=== PATIENT | female | born 1940 | race Caucasian/White ===

== ENCOUNTER → 2023-09-17 15:07 | Outpatient (REF) | payer MEDICARE, OTHER, SELFPAY ==
[2023-09-17 16:26] LABS: TSH Reflex To Free T4 1.99 uIU/ml (0.47-4.68)
== END ==
LOC: REG 15:07
PROVIDERS: ATTENDING PHYSICIAN Internal Medicine
DX: E03.9 Hypothyroidism, unspecified (principal)
CPT/HCPCS: 36415; 84443

== ENCOUNTER 2023-10-02 10:04 | Emergency (ER) | payer MEDICARE, OTHER, SELFPAY ==
[2023-10-02] VITALS (17 sets, daily range): BP systolic 117–178; BP diastolic 62–144
--- NOTE | 2023-10-02 12:02 | ED.GENMED ---
History of Present Illness
General
Chief Complaint: Fall
Source: patient
Exam Limitations: none
Time Seen by Provider: 10/02/23 10:34
Nursing documentation reviewed up to this point in time: agreed with
Travel History
Have you had any contact with someone who has COVID-19?: No
Do you have any symptoms of coronavirus? Fever > 100 degrees, chills, cough, shortness of breath, sore throat, loss of taste or smell, muscle aches, or headache?: No
History of Present Illness
History of Present Illness:
Patient is a 83-year-old female with past medical history of lung cancer years ago, knee replacement with DVT, hypertension hyperlipidemia who presents to the ER for a laceration to her left anterior lower leg. She hit her leg on a step. She is on
Eliquis. She denies any other injuries denies hitting her head. She reports her last tetanus is several months ago.
Past History
Past History
ED Past Medical History: Cancer (Lung), COPD, GERD, HTN, Hypercholesterolemia, Hypothyroidism and Psychiatric (depression)
ED Past Surgical History: Orthopedic (R knee replacement, bilateral hip replacement) and Other (DVT, IVC Filter)
Social History
Tobacco: Former smoker
Alcohol: None
Personal:
Living: with family
Family History
Family History: CAD
Review of Systems
Review of Systems
Allergies reviewed?: Yes
All Other Systems: ROS reviewed and negative except as documented in HPI and ROS
Constitutional: Reports no symptoms; Denies fever, fatigue or chills
Musculoskeletal: Reports other (left anterior lower leg laceration )
Skin: Reports other (see above )
Neurological: Reports no symptoms
Psychiatric: Reports no symptoms
Phy Exam
General Physical Exam
General Presentation: no apparent distress
General age: appears stated age
General Skin: warm and dry
General Habitus: normal
General Mental: alert
General Hydration: appears well hydrated
Neurological Exam
Neurological Exam: alert and oriented x3
Musculoskeletal Exam
Musculoskeletal Exam: other (Left anterior lower leg with full-thickness 10 cm horizontally situated laceration above left ankle through to subcutaneous tissue only)
Skin Exam
Skin Exam: normal color and warm/dry
Psychiatric Exam
Psychiatric Exam: normal mood/affect
Course
Orders/Labs/Results
Orders:
Orders
10/02/23 12:02
Vital Signs- Treatment ONCE
Frequency: Hourly
Cephalexin Monohydrate [Keflex] 500 mg PO NOW STA
10/02/23 12:13
EKG [Electrocardiogram (*1)] Urgent
Reason for Study: Tachycardia
EKG- Treatment ONCE
10/02/23 12:22
Tib/Fib, Left 2 View [CR Leg Tibia/fibula Left 2 Vw] Urgent
Comment:
Reason For Exam: fall, deep lac
10/02/23 13:44
0.9% Sodium Chloride 500 ml [Nss] 500 ml IV BOLUS
10/02/23 13:45
Complete Blood Count/With Diff Urgent
Comprehensive Metabolic Panel Urgent
Manual Differential Urgent
Prothrombin Time Urgent
TSH Reflex To Free T4 Urgent
10/02/23 16:00
Electrocardiogram (*1) Urgent
Reason for Study: Chest Pain
10/02/23 16:01
EKG- Treatment ONCE
Abnormal Lab Results
10/02/23
13:45
WBC 2.1 L* 10^3/uL
(4.8-10.8)
RBC 4.01 L 10^6/uL
(4.20-5.40)
MCH 32.2 H pg
(27.0-31.0)
RDW 14.6 H %
(11.5-14.5)
Abs Neuts (Manual) 0.9 L* 10^3/uL
(1.4-6.5)
Band Neutrophils 4 H %
(0-3)
Monocytes (Manual) 16 H %
(2-9)
BUN 22 H mg/dl
(7-17)
Creatinine 1.1 H mg/dL
(0.6-1.0)
AST 44 H U/L
(14-36)
10/02/23 13:45
10/02/23 13:45
Vital Signs
Initial and Last Documented VS:
Initial Vital Signs
Temp Pulse Resp BP Pulse Ox
98.3 F 70 18 178/101 98
10/02/23 10:07 10/02/23 10:07 10/02/23 10:07 10/02/23 10:07 10/02/23 10:07
Last Documented Vital Signs
Temp Pulse Resp BP Pulse Ox
98.3 F 100 16 133/77 99
10/02/23 10:07 10/02/23 14:45 10/02/23 14:45 10/02/23 14:40 10/02/23 14:00
Assistant Unit Forester consulted with Physician
Assistant Unit Forester consulted with physician?: Yes
Name of Physician Consulted: gilberto
Procedures
Laceration Closure
Left Anterior Leg:
Status of Wound: clean
Size of Wound in cm: 10
Description of Wound Edges: sharp
Preparation: cleaned with saline
Anesthesia: 1% Lidocaine with epi
Revision/Debridement: routine- no revision
Type of Closure: layered closure, interrupted sutures, mattress sutures and other (2 vertical mattress 2 subcutaneous)
Skin Closure Material: 3-0 nylon
Number of sutures: 15
MDM/Problems Addressed
Differential Diagnosis Includes:
Not limited to laceration to the leg
MDM/Problems Addressed:
Patient is a 83-year-old female who initially presented for laceration to left anterior leg. 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 I did repair this. While patient was here however
her heart rate was found to be 120s. EKG shows tachycardia heart rate 120 possible reentry tachycardia. Patient has been asymptomatic with this. In further review patient has a history of hypothyroidism however in the past her medication was
decreased as her levels were too high. She also has a history of lung cancer however years ago no shortness of breath no chest pain. Patient does report that she has a history of low hemoglobin and has been followed by hematology will check labs
thyroid give small dose of fluids. Patient reports she only drank a small cup of juice this morning and coffee. d/c w/ DR Chadwick.
1614: Labs reviewed. Patient reports that she has been followed by oncology for low white count. Patient's white count is low at 2.1 however has been that low in the past last 2.29 May 2023, patient also with low neutrophils of 0.9 also
previously low at the same degree in 2013. Patient is asymptomatic with no fevers. Regarding blood work I did speak to Dr Tisha Brito of hematology. This does not need any additional workup here in the ED. Patient gets periodic CBCs and is
scheduled to see Dr. Chadwick the beginning of November.
TSH is nml
Patient's heart rate decreased to the 80s to 90s repeat EKG shows a flutter with variable AV block with a heart rate of 98. d/c case w/ cardiology Dr. Elena patient is on Eliquis for history of DVT.(2.5 mg twice daily dose) with patient's
weight of 60 kg(134 pounds) will keep on this dose and add metoprolol 25 mg nightly patient to follow-up with cardiology. pt in no distress has remained asymptomatic with her elevated heart rate her heart rate now controlled in the 80s.
Chronic conditions affecting care:
on eliquis for dvt
*Radiology
Radiology exam reviewed: radiology read reviewed
*Pulse Oximetry
Patient hypoxic: no
*EKG
Interpreted by ED Provider?: Yes
Heart Rate: 121
Rate: tachycardiac
Rhythm: other (Questionable reentry tachycardia)
Ischemia: other (Repeat heart rate shows a flutter with variable block ventricular rate of 98)
*Critical Care Note
Total Time (30-74mins, 75-104mins- exclusive of procedures): Not Applicable
Patient Management
Discussion with other providers: Meeting Coordinator (DR Brito hematology and Dr. Elena cardiology )
ED Attending Note
-
Portions of this chart may have been created with voice recognition software.� Occasional wrong word or��sound alike� substitutions may have occurred due to the inherent limitations of voice recognition software.
Discharge Plan
Departure
Patient Disposition: Home (Routine Discharge)
Date of Disposition: 10/02/23
Time of Disposition: 16:31
Patient with high blood pressure during this ER visit?: Yes
Condition: Fair
Covid-19: Not Applicable
Discharge Problem:
Atrial flutter
Instructions: Laceration Repair With Stitches (DC), Atrial Flutter (DC), BLOOD PRESSURE
Prescriptions:
New
metoprolol succinate 25 mg tablet extended release 24 hr
25 mg PO DAILY Qty: 30 0RF
Rx Instructions:
take nightly
cephalexin 500 mg capsule
500 mg PO Q6H Qty: 20 0RF
No Action
esomeprazole magnesium [Nexium] 40 MG capsule,delayed release(DR/EC)
40 mg PO DAILY
MULTIVITAMIN
1 tab PO DAILY
Remeron Pill
7.5 mg PO HS
Restasis 0.05% Ophthalmic Emulsion:
1 drp BOTH EYES BID
Patient Comments:
.4 ML
nebivolol [Bystolic] 5 MG tablet
5 mg PO DAILY
Simvastatin Pill
20 mg PO HS
Patient Comments:
HS
levothyroxine 112 MCG tablet
125 mcg PO DAILY
bupropion HCl 150 MG tablet extended release 24 hr
150 mg PO DAILY
lidocaine-prilocaine 5 GRAM/TUBE cream
1 applic topical
apixaban [Eliquis] 2.5 MG tablet
2.5 mg PO BID
Referrals:
Dary Chadwick MD [Active] -
Grecia Alonzo MD [Family Provider] -
Jonathan Elena MD [Active] -
Activity Restrictions/Additional Instructions:
As discussed you were here for a laceration to your left lower leg. Keep laceration clean and dry for 24 hours after 24 hours wash twice a day with soap and water pat dry and apply small layer of antibiotic ointment to the area keep covered. See
family doctor in 2 days for wound check and sutures are to be removed in 12 days.
Antibiotic as directed for the next 5 days for infection this was sent to your pharmacy return if any signs of infection increased pain swelling redness drainage fever chills red streaking.
While you were here however you had an elevated heart rate and had a rhythm called atrial flutter.
You will need to continue your Eliquis 2.5 mg twice daily and start a new medication called metoprolol for control of your heart rate.
Take 25 mg nightly before bed. This medication, metoprolol succinate ER was sent to your phamacy .
Follow-up with cardiology in the next several days please call to make an appointment.
Return if any worsening of symptoms including chest pain shortness of breath rapid heart rate palpitations or any further concerns.
Also follow-up with your oncologist as scheduled for further evaluation of your labs
Interventions
Interventions:
*Risk Screen - Suicide Last Done: 10/02/23 10:23
*General Assessment Last Done: 10/02/23 10:23
*Neglect/Abuse Screening Last Done: 10/02/23 10:23
*ED COVID-19 Vaccine History Last Done: 10/02/23 10:13
ED-Musculoskeletal Assessment Last Done: 10/02/23 10:24
ED- Neurological Assessment Last Done: 10/02/23 10:23
ED-Skin Assessment Last Done: 10/02/23 10:23
[2023-10-02] MEDS: KEFLEX 500 MG PO (12:16)
[2023-10-02] MEDS: NSS 500 IV (13:44)
[2023-10-02 13:59] LABS: Hematocrit 38.7 % (37.0-47.0); Hemoglobin 12.9 g/dL (12.0-16.0); Mean Corp Hgb Conc. 33.3 g/dL (33.0-37.0); Mean Corpuscular Hgb 32.2 pg (27.0-31.0); Mean Corpuscular Volume 96.5 fL (81.0-99.0); Mean Platelet Volume 9.7 fL (7.4-10.4); Platelet Count 204 10^3/uL (130-400); Red Blood Cell Count 4.01 10^6/uL (4.20-5.40); Red Cell Dist. Width 14.6 % (11.5-14.5)
[2023-10-02 14:02] LABS: White Blood Cell Count 2.1 10^3/uL (4.8-10.8)
[2023-10-02 14:12] LABS: INR 1.12; PT 14.4 Sec (11.4-14.6)
[2023-10-02 14:16] LABS: ALT (SGPT) 32 U/L (0-35); AST (SGOT) 44 U/L (14-36); Alkaline Phosphatase 90 U/L (38-126); Blood Urea Nitrogen 22 mg/dl (7-17); Calcium 9.3 mg/dl (8.4-10.2); Carbon Dioxide 26 mmol/L (22-30); Chloride 105 mmol/L (98-107); Glucose 98 mg/dl (70-99); Potassium 4.4 mmol/L (3.5-5.1); Sodium 137 mmol/L (135-145); Total Bilirubin 0.7 mg/dl (0.2-1.3); Total Protein 7.1 g/dl (6.3-8.2); eGFR 50.48
[2023-10-02 14:28] LABS: Band Neutrophils 4 % (0-3); Eosinophils 2 % (0-6); Lymphocytes 35 % (20-51); Monocytes 16 % (2-9); Normal RBC Morphology Yes; Platelets Checked Yes; Segmented Neutrophils 43 % (42-75); Total Cells Counted 100
[2023-10-02 14:29] LABS: Absolute Neutrophils -Man Diff 0.9 10^3/uL (1.4-6.5)
[2023-10-02 16:16] LABS: TSH Reflex To Free T4 1.61 uIU/ml (0.47-4.68)
== END 2023-10-02 17:41 | disposition home or self-care (01) ==
LOC: EMR 10:04
PROVIDERS: Nurse Practitioner; EMERGENCY PHYSICIAN Emergency Medicine; FAMILY PHYSICIAN Internal Medicine
DX: I48.92 Unspecified atrial flutter (principal); S81.812A Laceration without foreign body, left lower leg, initial encounter; W22.8XXA Striking against or struck by other objects, initial encounter; I10 Essential (primary) hypertension; Z87.891 Personal history of nicotine dependence; Z79.01 Long term (current) use of anticoagulants; Z86.718 Personal history of other venous thrombosis and embolism
CPT/HCPCS: 99285; 96360; 12004; 73590; 80053; 84443; 85025; 85610; 93005

== ENCOUNTER → 2023-10-17 08:56 | Outpatient (REF) | payer MEDICARE, OTHER, SELFPAY | LOC: RCS 08:56 | PROVIDERS: ATTENDING PHYSICIAN Internal Medicine Cardiovascular Disease; FAMILY PHYSICIAN Internal Medicine | DX: I48.92 Unspecified atrial flutter (principal) | CPT/HCPCS: 93225; 93226 ==

== ENCOUNTER → 2023-10-25 10:06 | Outpatient (REF) | payer MEDICARE, OTHER, SELFPAY | LOC: RCS 10:06 | PROVIDERS: ATTENDING PHYSICIAN Internal Medicine Cardiovascular Disease; FAMILY PHYSICIAN Internal Medicine | DX: I48.92 Unspecified atrial flutter (principal) | CPT/HCPCS: 93306 ==

== ENCOUNTER → 2023-10-31 08:53 | Outpatient (REF) | payer MEDICARE, OTHER, SELFPAY | LOC: RAD 08:53 | PROVIDERS: ATTENDING PHYSICIAN Internal Medicine | DX: S81.812D Laceration without foreign body, left lower leg, subsequent encounter (principal) | CPT/HCPCS: 73590 ==

== ENCOUNTER → 2023-11-05 08:01 | Outpatient (REF) | payer MEDICARE, OTHER, SELFPAY | LOC: WOUND 08:01 | PROVIDERS: ATTENDING PHYSICIAN Surgery; FAMILY PHYSICIAN Internal Medicine | DX: L97.822 Non-pressure chronic ulcer of other part of left lower leg with fat layer exposed (principal); I73.9 Peripheral vascular disease, unspecified; I87.2 Venous insufficiency (chronic) (peripheral); J43.9 Emphysema, unspecified; I10 Essential (primary) hypertension; Z86.718 Personal history of other venous thrombosis and embolism; Z79.01 Long term (current) use of anticoagulants | CPT/HCPCS: 11042; 11045; 99203 ==

== ENCOUNTER → 2023-11-11 09:15 | Outpatient (REF) | payer MEDICARE, OTHER, SELFPAY | LOC: WOUND 09:15 | PROVIDERS: ATTENDING PHYSICIAN Surgery; FAMILY PHYSICIAN Internal Medicine | DX: L97.822 Non-pressure chronic ulcer of other part of left lower leg with fat layer exposed (principal); I73.9 Peripheral vascular disease, unspecified; I87.2 Venous insufficiency (chronic) (peripheral); I10 Essential (primary) hypertension; Z86.718 Personal history of other venous thrombosis and embolism; Z79.01 Long term (current) use of anticoagulants | CPT/HCPCS: 99213 ==

== ENCOUNTER → 2023-11-12 14:55 | Outpatient (REF) | payer MEDICARE, OTHER, SELFPAY | LOC: RAD 14:55 | PROVIDERS: ATTENDING PHYSICIAN Internal Medicine Hematology & Oncology; FAMILY PHYSICIAN Internal Medicine | DX: C34.10 Malignant neoplasm of upper lobe, unspecified bronchus or lung (principal); I80.3 Phlebitis and thrombophlebitis of lower extremities, unspecified; I82.4Z1 Acute embolism and thrombosis of unspecified deep veins of right distal lower extremity | CPT/HCPCS: 71250 ==

== ENCOUNTER → 2023-11-18 08:36 | Outpatient (REF) | payer MEDICARE, OTHER, SELFPAY | LOC: WOUND 08:36 | PROVIDERS: ATTENDING PHYSICIAN Surgery; FAMILY PHYSICIAN Internal Medicine | DX: L97.822 Non-pressure chronic ulcer of other part of left lower leg with fat layer exposed (principal); I73.9 Peripheral vascular disease, unspecified; I87.2 Venous insufficiency (chronic) (peripheral); J43.9 Emphysema, unspecified; I10 Essential (primary) hypertension; Z86.718 Personal history of other venous thrombosis and embolism; Z79.01 Long term (current) use of anticoagulants | CPT/HCPCS: 11042; 11045 ==

== ENCOUNTER → 2023-11-19 14:07 | Outpatient (REF) | payer MEDICARE, OTHER, SELFPAY ==
[2023-11-19 16:14] LABS: % Basophils 1.5 % (0-2); % Eosinophils 1.5 % (0-6); % Immature Granulocytes 0.5 % (0-0.5); % Lymphocytes 25.6 % (20.5-51.1); % Monocytes 18.4 % (1.7-9.3); % Neutrophils 52.5 % (42.2-75.2); Absolute Basophils 0.1 10^3/uL (0-0.2); Absolute Eosinophils 0.1 10^3/uL (0-0.7); Absolute Monocytes 0.8 10^3/uL (0.1-0.6); Absolute Neutrophils 2.1 10^3/uL (1.4-6.5); Hematocrit 40.2 % (37.0-47.0); Hemoglobin 13.2 g/dL (12.0-16.0); Mean Corp Hgb Conc. 32.8 g/dL (33.0-37.0); Mean Corpuscular Hgb 33.1 pg (27.0-31.0); Mean Corpuscular Volume 100.8 fL (81.0-99.0); Mean Platelet Volume 9.9 fL (7.4-10.4); Nucleated Red Blood Cells % 0 %; Platelet Count 289 10^3/uL (130-400); Red Blood Cell Count 3.99 10^6/uL (4.20-5.40); Red Cell Dist. Width 14.9 % (11.5-14.5); White Blood Cell Count 4.1 10^3/uL (4.8-10.8)
== END ==
LOC: REG 14:07
PROVIDERS: ATTENDING PHYSICIAN Internal Medicine Hematology & Oncology
DX: C34.10 Malignant neoplasm of upper lobe, unspecified bronchus or lung (principal); I80.3 Phlebitis and thrombophlebitis of lower extremities, unspecified; I82.4Z1 Acute embolism and thrombosis of unspecified deep veins of right distal lower extremity; D72.819 Decreased white blood cell count, unspecified
CPT/HCPCS: 36415; 85025

== ENCOUNTER → 2023-11-25 13:06 | Outpatient (REF) | payer MEDICARE, OTHER, SELFPAY | LOC: WOUND 13:06 | PROVIDERS: ATTENDING PHYSICIAN Surgery; FAMILY PHYSICIAN Internal Medicine | DX: L97.822 Non-pressure chronic ulcer of other part of left lower leg with fat layer exposed (principal); I73.9 Peripheral vascular disease, unspecified; L03.116 Cellulitis of left lower limb; I87.2 Venous insufficiency (chronic) (peripheral); Z79.01 Long term (current) use of anticoagulants; J43.9 Emphysema, unspecified; Z86.718 Personal history of other venous thrombosis and embolism; I10 Essential (primary) hypertension | CPT/HCPCS: 99213 ==

== ENCOUNTER 2023-11-26 21:04 | Inpatient (IN) | payer MEDICARE, OTHER, SELFPAY ==
[2023-11-26] VITALS (11 sets, daily range): BP systolic 111–159; BP diastolic 56–120
--- NOTE | 2023-11-26 17:50 | ED.GENMED ---
History of Present Illness
General
Chief Complaint: Skin Problem
Source: patient
Exam Limitations: none
Time Seen by Provider: 11/26/23 16:41
Nursing documentation reviewed up to this point in time: agreed with
Travel History
Have you had any contact with someone who has COVID-19?: No
Do you have any symptoms of coronavirus? Fever > 100 degrees, chills, cough, shortness of breath, sore throat, loss of taste or smell, muscle aches, or headache?: No
History of Present Illness
History of Present Illness:
Patient with recently diagnosed atrial flutter on Eliquis, presents to ED secondary to sudden onset of 'snap and pain' in her left heel going up to her leg, while she was walking this afternoon. Patient was started on Levaquin yesterday for ongoing
left lower leg nonhealing wound ulcer from trauma 1 month ago. Denies loss of sensation or weakness. Patient reports minimal pain at rest, but worse with weightbearing. Denies previous history of similar symptoms. Denies fever or chills. Denies
nausea or vomiting.
Past History
Past History
ED Past Medical History: Cancer (Lung), COPD, GERD, HTN, Hypercholesterolemia, Hypothyroidism and Psychiatric (depression)
ED Past Surgical History: Orthopedic (R knee replacement, bilateral hip replacement) and Other (DVT, IVC Filter)
Social History
Tobacco: Former smoker
Alcohol: None
Personal:
Living: with family
Family History
Family History: CAD
Review of Systems
Review of Systems
Allergies reviewed?: Yes
All Other Systems: ROS reviewed and negative except as documented in HPI and ROS
Constitutional: Reports no symptoms; Denies fever or chills
Respiratory: Reports no symptoms
Cardiac: Reports no symptoms
ABD/GI: Reports no symptoms
Musculoskeletal: Reports other (heel/calf pain)
Skin: Reports other (leg wound, ulcer)
Neurological: Reports no symptoms
Phy Exam
Physical Exam
Physical Exam:
Physical Exam
General: no apparent distress, not acutely ill. afebrile
Head: nc/at. eomi
Neck: supple. no meningeal signs.
Heart: tachycardic, irregular, no murmur. equal radial pulses.
Lungs: no acute respiratory distress. clear bilaterally
Abdomen: normal bowel sounds. not tender.
Neuro: alert and oriented. no focal neurological deficits
Skin: an approx 2cm diameter ulcer left lower leg anterior with mild purulent drainage, with surrounding erythema.
Psychiatric: well kept. interactive and cooperative
Extremities: mild calf/tendon tenderness with foot plantar/dorsi flexion.
Course
Orders/Labs/Results
Orders:
Orders
11/26/23 Dinner
Cholesterol Lowering
At Your Request: Limited Participation
Cholesterol Lowering: Sodium, 2 Gram
11/26/23 15:35
Electrocardiogram (*1) Urgent
Reason for Study: Tachycardia
11/26/23 15:36
EKG- Treatment ONCE
11/26/23 17:45
0.9% Sodium Chloride 250 ml [Nss] 250 ml IV BOLUS
Metoprolol [Lopressor] 5 mg IV NOW STA
11/26/23 18:03
Basic Metabolic Panel Urgent
Complete Blood Count/No Diff Urgent
Lactate Level [Lactic Acid] Urgent
Magnesium Urgent
Blood Culture Q30M
BEE Source: Blood/Venous
Specimen Description:
Blood Culture Q30M
BEE Source: Blood/Venous
Specimen Description:
11/26/23 19:26
Piperacillin/Tazo 3.375 Gram [Zosyn] 3.375 gram in 50 ml IV NOW
11/26/23 19:30
Diltiazem 125 mg/125 ml Nss [Cardizem] 125 mg in 125 ml IV PER PROTOCOL
Initial dose in mg/hr, then titrate:: 5
Titrate to keep:: Heart rate 80-100 bpm
Titrate by mg/hr:: 5 mg/hr
Frequency of titrations (minutes):: 15
Maximum dose in mg/hr:: 15
11/26/23 20:40
Admit/Transfer Patient As Directed
Co-Sign Provider:
Level of Care: Inpatient admission
Assign to:: IMU- Intermediate Care
Physician / Group: lisset vincent
Diagnosis: new onset afib, calf pain concern achilles tear, infected chronic l leg wou
Reason for Hospitalization: new onset afib, calf pain concern achilles tear, infected chronic l leg wound
Expected length of stay greater than two midnights?: Yes
ELOS- Estimated Length of Stay in days: 3
I certify the patient meets the requirements for IP care: Yes
11/26/23 20:43
Code Status As Directed
Resuscitation Status: Do not resuscitate
Reached after discussion with pt or family/Healthcare POA: Yes
Based on pt advanced directive or healthcare POA form: Yes
Decision communicated with: Per patient with Justino present at bedside
DNR Bracelet Application ONCE
11/26/23 21:48
Acetaminophen [Tylenol] 650 mg PO Q4HPRN PRN
Apixaban [Eliquis] 5 mg PO BID
Bisacodyl [Dulcolax] 10 mg RECTAL [id number] PRN
Diltiazem 125 mg/125 ml Nss [Cardizem] 125 mg in 125 ml IV PER PROTOCOL
Initial dose in mg/hr, then titrate:: 5
Titrate to keep:: Heart rate 80-100 bpm
Titrate by mg/hr:: 5 mg/hr
Frequency of titrations (minutes):: 15
Maximum dose in mg/hr:: 15
Docusate W/Senna [Senokot-S] 1 tablet PO BIDPRN PRN
Lorazepam [Ativan] 0.5 mg IV ONCE PRN
Polyethylene Glycol Powder [Miralax] 17 grams PO DAILYPRN PRN
Tramadol HCl [Ultram] 50 mg PO BIDPRN PRN
cycloSPORINE [Restasis 0.05% Ophthalmic Emulsion] 1 drops BOTH EYES Q12H
11/26/23 21:48
WOUND/OSTOMY CONSULT Routine
Reason for Consult: chronic lle anterior cotton wound
VTE Contraindication Routine
VTE Mechanical Device Contraindication: Medical Contraindication
Pharmocologic Contraindication: Medical Contraindication
Comment: Patient on Eliquis
Activity As Directed
Activity Level: As Tolerated
Vital Signs As Directed
Frequency: Per unit guidelines
Ot Eval And Treat Routine
Pt Eval And Treat Routine
Activity Level: As Tolerated
11/26/23 22:00
Atorvastatin [Lipitor] 10 mg PO HS
Piperacillin/Tazo 3.375 Gram [Zosyn] 3.375 gram in 50 ml IV Q6H
11/27/23 00:00
Acetaminophen [Tylenol] 500 mg PO Q4
11/27/23 06:00
Basic Metabolic Panel IN AM
Cardiovascular Evaluation IN AM
Complete Blood Count/With Diff IN AM
TSH Reflex To Free T4 IN AM
Lower Ext Joint, Left Without MR [MR Left Le Joint Without] IN AM
Comment:
Reason For Exam: concern achilles tendon tear
OK for patient to be off Cardiac Monitoring for MRI: Yes
Recent pill cam endoscopy?: No
Pacemaker/Defibrillator?: No
11/27/23 08:00
Budesonide/Formoterol 80/4.5 [Symbicort 80/4.5 Mcg Inhaler] 2 puff INH R BID
Bupropion(24Hr)Extended Releas [WELLBUTRIN XL (24 hour extended release)] 150 mg PO DAILY
Levothyroxine [Synthroid] 100 mcg PO DAILY
Metoprolol Xl [Toprol Xl] 50 mg PO DAILY
Multivitamin [Theragran] 1 tablet PO DAILY
Saline Mist DOSE drops NASAL DAILY
carboxymethylcellulose-glycern [Refresh Optive] 1 drop BOTH EYES BID
vitamin B complex 1 tablet PO DAILY
11/27/23 16:00
Pantoprazole [Protonix] 40 mg PO DAILY@1600
11/28/23 06:00
Basic Metabolic Panel IN AM
Complete Blood Count/With Diff IN AM
11/29/23 06:00
Basic Metabolic Panel IN AM
Complete Blood Count/With Diff IN AM
Abnormal Lab Results
11/26/23
18:03
WBC 3.6 L 10^3/uL
(4.8-10.8)
RBC 4.01 L 10^6/uL
(4.20-5.40)
MCH 32.7 H pg
(27.0-31.0)
BUN 19 H mg/dl
(7-17)
Creatinine 1.1 H mg/dL
(0.6-1.0)
11/26/23 18:03
11/26/23 18:03
Vital Signs
Initial and Last Documented VS:
Initial Vital Signs
Temp Pulse Resp BP Pulse Ox
98.3 F 126 18 159/105 98
11/26/23 15:27 11/26/23 15:27 11/26/23 15:27 11/26/23 15:27 11/26/23 15:27
Last Documented Vital Signs
Temp Pulse Resp BP Pulse Ox
98.3 F 118 16 151/77 97
11/26/23 15:27 11/26/23 21:53 11/26/23 21:53 11/26/23 21:53 11/26/23 21:30
MDM/Problems Addressed
MDM/Problems Addressed:
Patient in rapid atrial flutter, requiring Cardizem infusion, as initial Lopressor IV, is not able to suppress heart rate below 100.
In addition, as lower extremity ulcer exhibits surrounding erythema with foul-smelling drainage, concerning for potential worsening infection. As such, we will start Zosyn IV.
Achilles tendon injury, possible, in light of patient's presentation. However, clinically, do not appreciate significant swelling, although with mild tenderness with dorsiflexion. May need MRI at some point for further evaluation.
*Critical Care Note
Total Time (30-74mins, 75-104mins- exclusive of procedures): Not Applicable
ED Attending Note
-
Portions of this chart may have been created with voice recognition software.� Occasional wrong word or��sound alike� substitutions may have occurred due to the inherent limitations of voice recognition software.
Discharge Plan
Departure
Patient Disposition: Admit
Date of Disposition: 11/26/23
Time of Disposition: 19:30
Admit to: Telemetry
Presentation/result/management discussed w/ accepting MD/DO: Hospitalist
Discharge Problem:
Atrial flutter with rapid ventricular response, Leg ulcer, left, Achilles tendon injury
Interventions
Interventions:
*Risk Screen - Suicide Last Done: 11/26/23 15:27
*General Assessment Last Done: 11/26/23 15:27
*Neglect/Abuse Screening Last Done: 11/26/23 15:27
ED- Fall Risk Assessment Last Done: 11/26/23 21:54
*ED COVID-19 Vaccine History Last Done: 11/26/23 16:09
*Nursing Disposition Last Done: 11/26/23 21:54
ED-Skin Assessment Last Done: 11/26/23 16:09
Discharge Date and Time
Discharge Date/Time: 11/26/23 21:55
[2023-11-26] MEDS: LOPRESSOR 5 MG IV (18:03)
[2023-11-26] MEDS: NSS 250 IV (18:03)
[2023-11-26 18:19] LABS: Hematocrit 38.7 % (37.0-47.0); Hemoglobin 13.1 g/dL (12.0-16.0); Mean Corp Hgb Conc. 33.9 g/dL (33.0-37.0); Mean Corpuscular Hgb 32.7 pg (27.0-31.0); Mean Corpuscular Volume 96.5 fL (81.0-99.0); Mean Platelet Volume 9.3 fL (7.4-10.4); Platelet Count 248 10^3/uL (130-400); Red Blood Cell Count 4.01 10^6/uL (4.20-5.40); Red Cell Dist. Width 14.5 % (11.5-14.5); White Blood Cell Count 3.6 10^3/uL (4.8-10.8)
[2023-11-26 18:28] LABS: Lactic Acid 0.9 mmol/L (0.7-2.0)
[2023-11-26 18:31] LABS: Blood Urea Nitrogen 19 mg/dl (7-17); Carbon Dioxide 25 mmol/L (22-30); Chloride 100 mmol/L (98-107); Glucose 82 mg/dl (70-99); Sodium 135 mmol/L (135-145); eGFR 50.48
--- NOTE | 2023-11-26 19:46 | HPS.HSE ---
Family Physician
-
Family Physician: Grecia Alonzo
Chief Complaint
-
Left calf pain concern for Achilles rupture after taking 1 dose of Levaquin
History of Present Illness
83-year-old female who sustained a laceration in September to her left anterior lower leg hitting it on a step and has been following with outpatient wound care for approximately 1 month for nonhealing wound. She was started on Levaquin yesterday by
Dr. Huang. She reports chronic cramps to bilateral thighs and lower legs for many many months that she has been applying [employer] works for her. She reports cramping in her left lateral lower leg this a.m. then hours later while walking felt a
searing pain from her Achilles up the posterior calf. She was concerned that she had a tendon rupture after taking a single dose of Levaquin after reading her pharmacy pamphlet. She was also noted to be in rapid A-fib with RVR. She had recent
visit October 02, 2023 for new onset a flutter was placed on metoprolol and continued on her Eliquis 2.5 mg twice daily that she was on for prior DVT. She denies fever, chills, headache, chest pain, palpitations, shortness breath, cough, abdominal
pain, nausea, vomiting, diarrhea, urinary symptoms.
She has PMH A-flutter October 02, 2023, hypothyroidism, Stage IIIa non-small cell lung adenocarcinoma 2013 s/p radiation and chemo left lung , COPD, former smoker, GERD, HTN, depression, DVT right leg 2009/IVC filter January 2015, Hx neutropenia May
WBC 2.1, CKD 3B,prior DVT right leg 2009 post knee replacement, History of prior multiple DVTs 2004
Medical History
Past Medical History
Past Medical History: Reports Other
Additional Past Medical History:
A-flutter October 02, 2023
hypothyroidism
Stage IIIa non-small cell lung adenocarcinoma 2013 s/p radiation and chemo left lung
COPD
former smoker
GERD
HTN
depression
DVT/IVC filter,
Hx neutropenia May WBC 2.1
CKD 3B
prior DVT right leg 2009 post knee replacement
#History of prior multiple DVTs 2004
Past Surgical History: Reports Other
Additional Past Surgical History:
Right knee replacement
Bilateral hip replacement
IVC filter for DVT January 2015
Appendectomy
Hysterectomy
Left inguinal hernia repair
Cataract extraction 2018
Social History
Tobacco: Former Smoker (Quit 1996)
Alcohol: None
Personal:
Living: With Family ( Justino)
Employment: Retired
Family History
Family History: Other (Mother breast cancer, father bladder cancer also history of A-fib and [place])
Allergies / Home Medications
Allergies reflects when Allergies were last updated in [facility].
Home Medications with original date entered in [facility]
Allergy/Medication List:
Allergies
Allergy/AdvReac Type Severity Reaction Status Date / Time
clarithromycin [From Biaxin] Allergy GASTRIC Verified 10/02/23 10:15
PROBLEMS
erythromycin base Allergy GI PROBLEMS Verified 10/02/23 10:15
meperidine Allergy Pharmacy Verified 10/02/23 10:15
to Review
meperidine HCl [From Demerol] Allergy Pharmacy Verified 10/02/23 10:15
to Review
mold Allergy irritated Uncoded 10/02/23 10:15
eyes
seasonal allergies Allergy sneezing,running Uncoded 10/02/23 10:15
nose,irritated
eyes
Home Medications
cyclosporine 0.05 % eye drops in a dropperette (Restasis) 1 drp BOTH EYES Q12H ##0 03/15/10
therapeutic multivitamin 1 tab PO DAILY ##0 03/15/10
simvastatin 20 mg tablet (Zocor) 20 mg PO HS ##0 11/11/13
bupropion HCl 150 mg 24 hr tablet, extended release 150 mg PO DAILY 11/21/15
apixaban 2.5 mg tablet (Eliquis) 2.5 mg PO BID 05/28/19
acetaminophen 500 mg tablet (Tylenol Extra Strength) 500 mg PO Q4H 11/26/23
carboxymethylcellulose 0.5 %-glycerin 0.9 % eye drops (Refresh Optive) 1 drp BOTH EYES BID 11/26/23
esomeprazole magnesium 20 mg capsule,delayed release (Nexium) 20 mg PO DAILY@1600 11/26/23
fluticasone fur. 100 mcg-umeclid 62.5 mcg-vilant 25 mcg inhalat.powder (Trelegy Ellipta) 1 inh inhalation R DAILY 11/26/23
levothyroxine 100 mcg tablet (Synthroid) 100 mcg PO DAILY 11/26/23
metoprolol succinate 25 mg tablet,extended release 24 hr 50 mg PO DAILY 11/26/23
silver sulfadiazine 1 % topical cream (SSD) 1 applic topical DAILY left ankle wound 11/26/23
sodium chloride 0.65 % nasal spray aerosol 1 spray intranasal DAILY 11/26/23
tramadol 50 mg tablet 50 mg PO BIDPRN PRN moderate pains 11/26/23
vitamin B complex 1 tab PO DAILY 11/26/23
Review of Systems
-
History Source: Patient and Family ( Justino)
A 12 point ROS was completed and negative except as noted: Yes
Constitutional: Denies Fever or Chills
EENT: Denies Sore Throat or Runny Nose
Respiratory: Reports Trouble Breathing (With intermittent with activity); Denies Cough
Cardiac: Denies Chest Pain, Diaphoresis or Palpitations
Abdomen/GI: Denies Abdominal Pain, Nausea, Vomiting, Diarrhea, Constipated, Bloody Stools or Black Stools
: Denies Dysuria, Frequency, Flank Pain, Incontinence, Difficulty Voiding or Urgency
Musculoskeletal: Reports Other (Left lower anterior cotton ulceration with slight erythema surrounding wound bed of wound with green sloughing, tenderness to left posterior calf negative Hughes's test, positive plantar and dorsiflexion positive
varicose veins bilateral lower extremities); Denies Joint Pain or Edema
Skin: Denies Itching or Rash
Neurological: Denies Dizzy, Headache or Weakness
Endocrine: Reports No Symptoms
Hematologic/Lymphatic: Reports No Symptoms
Psych: Reports Anxiety
Physical Exam
Vital Signs
Vital Signs
Temp Pulse Resp BP Pulse Ox
98.3 F 126 21 158/95 97
11/26/23 15:27 11/26/23 18:45 11/26/23 18:45 11/26/23 18:00 11/26/23 18:45
Physical Exam
General: Pain; No Fever or Chills
HEENT: NormoCephalic, Anicteric, Moist mucous membranes, PERRLA, [place] Conjunctivae and No Ptosis
Respiratory: Clear; No Wheezes, Rales or Rhonchi
Cardiac: S1/S2 and Irregular Rhythm (Rapid A-fib); No Murmur, Rub, Gallop or Peripheral Edema
Breast: Deferred by me
GI: Soft, Non Tender, Non Distended and Normal Bowel Sounds
Rectal: Deferred by Provider
Genito-urinary: Deferred by me
Musculoskeletal: No Clubbing, No Cyanosis and Edema, Left Lower Extremity (Left lower anterior cotton ulceration with slight erythema surrounding wound bed of wound with green sloughing, tenderness to left posterior calf negative Hughes's test,
positive plantar and dorsiflexion positive varicose veins bilateral lower extremities); No Edema, Left Upper Extremity or Edema, Right Upper Extremity
Skin: Warm, Dry and Other (Chronic lower left anterior ulceration surrounding erythema with green sloughing of skin bed); No Rash
Neuro: AO x 3, No Motor Deficits and No Sensory Deficits; No Slurred Speech, Facial Droop or Tremors
Psych: Anxious
Laboratory Results
-
11/26/23 18:03
11/26/23 18:03
Laboratory Results
Lactic Acid 0.9 mmol/L (0.7-2.0) 11/26/23 18:03
Impression/Plan
-
Impression/plan:
Admit to IMU
#New onset A-fib with RVR/Hx A flutter Dx 10/02/2023
-Consult [facility] cardiology
-IV Cardizem drip
-STREET SWEEPER OPERATOR metoprolol succinate 50 mg daily
-STREET SWEEPER OPERATOR Eliquis 2.5 mg p.o. twice daily (was on lower dose for prior DVT prevention )increase to Eliquis 5 mg twice daily given new onset atrial flutter
-Check TSH with free T4 reflex
EKG: A flutter with 2-1 block heart rate 126 bpm, QTc 446 MS
2D echo 10/25/2023: EF 55 to 60%, normal LVS LVSF, no wall abnormalities, dilated RV, biatrial dilation, moderate to severe MR, mild to moderate AR, severe TR, pulm arterial pressure 40 mmHg
#Severe TR
#Mild-moderate AR
#Moderate to severe MR
#Left calf/Achilles pain likely muscular strain concern for possible tendon tear
-Check MRI left lower extremity
-Will have IV Ativan 0.5 mg on-call to MRI as patient is claustrophobic
#Chronic nonhealing ulcer left lower extremity x 1 month
#Chronic varicose veins bilateral legs
-Follows with Dr. Huang
-Placed on Levaquin yesterday 11/25/2023 will stop per patient
-IV Zosyn
-Consult wound care
-PT/OT/case management consult
#Hx prior DVT right leg 2009 post knee replacement
IVC filter February 11, 2015 right lower extremity DVT was on Coumadin
-Is currently on Eliquis 2.5 mg twice daily due to history of prior clots will need to increase to Eliquis 5 mg twice daily given new onset atrial flutter
#History of prior multiple DVTs 2004
#History of superficial thrombophlebitis nonocclusive DVT 2015
#history IVC filter
-Continue Eliquis 5 mg mg twice daily
#Hypothyroidism
-Check TSH with free T4 reflex
-Continue Synthroid 100 mcg p.o. daily
#HTN�benign
158/95
-Continue Cardizem and metoprolol succinate
#CKD stage IIIb
Creat 1.1 appears baseline
# Stage IIIa non-small cell lung adenocarcinoma 2013 s/p radiation and chemo left lung
#COPD-no acute exacerbation
#Former smoker
-Continue Trelegy Ellipta
-Patient follows with Dr. Anguiano
#GERD/Ribeiro's esophagus
-Continue Nexium or equivalent
#Hx neutropenia
Has followed with hematology in past
WBC 3.6
#HLD
-Continue Zocor 20 mg at bedtime
#Depression
-Continue Wellbutrin
#Dry eye syndrome
Continue Restasis
#Osteopenia
DVT prophylaxis
Continue STREET SWEEPER OPERATOR Eliquis
DNR per patient with Justino present at bedside
[2023-11-26] MEDS: ZOSYN IV (20:15)
[2023-11-26] MEDS: ZOSYN 50 IV (20:23)
[2023-11-26] MEDS: CARDIZEM 125 IV (20:58)
--- NOTE | 2023-11-26 20:58 | W.PN.UPDATE ---
Update Note
Progress Note Update
This is an addendum to the H&P written by Peyton Orozco on 11/26/2023.
Patient seen and examined independently with MANAGER [employer]CHAS[employer].
83-year-old female past medical history of recently diagnosed atrial flutter on Eliquis, severe mitral regurgitation, severe tricuspid regurgitation, mild to moderate aortic regurgitation, prior right lower extremity DVT status post IVC filter,
stage III non-small cell adenocarcinoma of lung status post chemotherapy/radiation, COPD, hypertension, hypothyroidism, GERD, Ribeiro's esophagus, hyperlipidemia, osteopenia, depression, presenting with sudden onset of left heel pain radiating up to
her leg while she was walking this afternoon after starting Levaquin yesterday for left leg nonhealing wound ulcer from trauma 1 month ago.
Also found to be in atrial flutter with RVR.
# Possible left Achilles tendinopathy secondary to Levaquin
-Squeeze test negative, ruling out complete Achilles tendon rupture
-Check MRI ankle to rule out partial tear�
-Discontinue Levaquin
# Atrial flutter with RVR
-IV fluids given
-Check chest x-ray
-Check TSH�
-Metoprolol Given, Cardizem drip if necessary�
-Cardiology
# Nonhealing wound of left lower extremity from trauma
-Blood cultures
-Zosyn
-Wound care
--- NOTE | 2023-11-26 22:15 | PTCARENOTE ---
rec`d pt from ED. AAOx3. afib on monitor. cardizem going at 5. hr low 100s. left ac 20. room air POX at 95%. clear but diminished lung sounds. +BS. pt uses bathroom. pt urinated 400 yellow urine. left anterior lower leg has open wound, present on
admission. odor noted. open wound draining purulent drainage. dressing c/d/i. wound consult added. prn Tylenol given for pain. pt sitting comfortably in bed. call denis in reach. safe environment maintained. pt`s at bedside.
[2023-11-26] MEDS: ELIQUIS 5 MG PO (22:30)
[2023-11-26] MEDS: RESTASIS 0.05% OPHTHALMIC EMULSION 1 DROPS BOTH EYES (22:30)
[2023-11-26] MEDS: LIPITOR 10 MG PO (22:31)
[2023-11-26] MEDS: TYLENOL 650 MG PO (22:31)
[2023-11-27] VITALS (25 sets, daily range): BP systolic 105–151; BP diastolic 40–87; PULSE 78–87; BMI 22.6
--- NOTE | 2023-11-27 | PTCARENOTE ---
cardizem off at 0000 per order. hr touching 60s and 70s. SR on monitor.
[2023-11-27] MEDS: TYLENOL PO (00:11)
[2023-11-27] MEDS: TYLENOL 500 MG PO ×3 (02:57→12:28)
[2023-11-27] MEDS: ZOSYN 50 IV ×4 (02:57→19:30)
[2023-11-27 03:29] LABS: Hematocrit 36.1 % (37.0-47.0); Hemoglobin 11.8 g/dL (12.0-16.0); Mean Corp Hgb Conc. 32.7 g/dL (33.0-37.0); Mean Corpuscular Hgb 32.3 pg (27.0-31.0); Mean Corpuscular Volume 98.9 fL (81.0-99.0); Mean Platelet Volume 9.4 fL (7.4-10.4); Nucleated Red Blood Cells % 0 %; Platelet Count 220 10^3/uL (130-400); Red Blood Cell Count 3.65 10^6/uL (4.20-5.40); Red Cell Dist. Width 14.6 % (11.5-14.5); White Blood Cell Count 3.5 10^3/uL (4.8-10.8)
--- NOTE | 2023-11-27 03:40 | PTCARENOTE ---
pt reassessed. no changes in pt assessment. between SR and afib on monitor, hr in 70s and 80s. cardizem still off. MD ordered not to restart unless hr over 100. call denis in reach. safe environment maintained.
[2023-11-27 03:59] LABS: Absolute Neutrophils -Man Diff 1.6 10^3/uL (1.4-6.5); Band Neutrophils 3 % (0-3); Eosinophils 3 % (0-6); Lymphocytes 31 % (20-51); Monocytes 18 % (2-9); Normal RBC Morphology Yes; Platelets Checked Yes; Segmented Neutrophils 45 % (42-75); Total Cells Counted 100
[2023-11-27 04:03] LABS: Blood Urea Nitrogen 21 mg/dl (7-17); Calcium 9.3 mg/dl (8.4-10.2); Carbon Dioxide 28 mmol/L (22-30); Chloride 105 mmol/L (98-107); Estimated Creatinine Clearance 32 ml/min; Glucose 90 mg/dl (70-99); HDL Cholesterol 73 mg/dl; LDL Cholesterol, Calculated 48 mg/dl; Potassium 4.1 mmol/L (3.5-5.1); Sodium 138 mmol/L (135-145); Total Cholesterol 144 mg/dl (50-199); Triglyceride 116 mg/dl (10-149); Very Low Density Lipoprotein 23 mg/dl (0-30); eGFR 45.48
[2023-11-27 04:32] LABS: TSH Reflex To Free T4 6.17 uIU/ml (0.47-4.68)
[2023-11-27] MEDS: SYNTHROID 100 MCG PO (05:51)
--- NOTE | 2023-11-27 06:31 | W.PN.HOSP.TC ---
Addendum entered and electronically signed by Dennis Rajput MD 11/27/23 17:06:
Addendum
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
Will ask surgery if they do skin biopsy while she is in hospital, otherwise, will notify Dr Huang to rule out this possibility
End
Original Note:
Today's Communication/Plan
-
.
Assessment / Plan
Assessment / Plan
Physical Exam
General: not in distress
HEENT: Normocephalic, Anicteric, Moist mucous membranes, using nasal O2
Respiratory: Clear; No Wheezes, Rales or Rhonchi
Cardiac: S1/S2 and Irregular Rhythm.
GI: Soft, Non Tender, Non Distended and Normal Bowel Sounds
Rectal: No rectal bleeding
Genito-urinary: no hematuria
Musculoskeletal: edema in both lower legs. painful left calf upon dorsiflexion of left ankle.
Skin: Warm, Dry and Other (Chronic lower left anterior ulceration surrounding erythema with green sloughing of skin bed); No Rash
Neuro: AO x 3, No Motor Deficits and No Sensory Deficits; No Slurred Speech, Facial Droop or Tremors
Psych: calm this morning
#New onset A-fib with RVR/Hx A flutter Dx 10/02/2023
Off Cardizem drip last night, change to oral
No chest pain or sob, she feels better
-MANAGER OPERATIONAL metoprolol succinate 50 mg daily
-MANAGER OPERATIONAL Eliquis 2.5 mg p.o. twice daily (was on lower dose for prior DVT prevention )increase to Eliquis 5 mg twice daily given new onset atrial flutter
- Appreciate peoplesoft functional analyst input. Primary peoplesoft functional analyst Dr Shaver
EKG: A flutter with 2-1 block heart rate 126 bpm, QTc 446 MS
2D echo 10/25/2023: EF 55 to 60%, normal LVS LVSF, no wall abnormalities, dilated RV, biatrial dilation, moderate to severe MR, mild to moderate AR, severe TR, pulm arterial pressure 40 mmHg
#Severe TR
#Mild-moderate AR
#Moderate to severe MR
#Left calf/Achilles pain likely muscular strain concern for tendinitis
Tylenol for pain
Appreciate ortho input
#Chronic nonhealing ulcer left lower extremity x 1 month
#Chronic varicose veins bilateral legs
-Follows with Dr. Huang
-Placed on Levaquin yesterday 11/25/2023, stopped due to tendon pain.
-IV Zosyn
-Consulted wound care
-PT/OT/case management consult
#Hx prior DVT right leg 2009 post knee replacement
IVC filter February 11, 2015 right lower extremity DVT was on Coumadin
-Is currently on Eliquis 2.5 mg twice daily due to history of prior clots will need to increase to Eliquis 5 mg twice daily given new onset atrial flutter
#History of prior multiple DVTs 2004
#History of superficial thrombophlebitis nonocclusive DVT 2015
#history IVC filter
-Continue Eliquis 5 mg mg twice daily
#Hypothyroidism
-Check TSH with free T4 reflex
-Continue Synthroid 100 mcg p.o. daily
#HTN�benign
No headache
-Continue Cardizem and metoprolol succinate
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
Creat 1. 2 appears baseline
# Stage IIIa non-small cell lung adenocarcinoma 2013 s/p radiation and chemo left lung
#COPD-no acute exacerbation
#Former smoker
-Continue Trelegy Ellipta
-Patient follows with Dr. Chadwick
#GERD/Ribeiro's esophagus
-Continue Nexium or equivalent
#Hx neutropenia
Has followed with hematology in past
WBC 3.5
#HLD
-Continue Zocor 20 mg at bedtime
#Depression
-Continue Wellbutrin
#Dry eye syndrome
Continue Restasis
#Osteopenia
DVT prophylaxis
Continue MA[employer]GER [employer] Eliquis
DNR per patient.
Total time spent to see the patient, examine the patient, review data and lab results, discuss treatment plan with patient, nursing staff around 55 minutes
Anticipated Discharge: > 48 hours
Subjective/Interval History
-
Date of Service: November 27, 2023
She denies sob or chest pain
Left leg pain upon moving ( calf area)
Objective Data
-
Labs:
Laboratory Results
11/26/23 11/27/23
18:03 03:16
WBC 3.5 L
Hgb 11.8 L
Hct 36.1 L
Plt Count 220
Sodium 135 138
Potassium 4.0 4.1
Chloride 100 105
Carbon Dioxide 25 28
BUN 19 H 21 H
Creatinine 1.1 H 1.2 H
Glucose 82 90
Calcium 10.0 9.3
Vital Signs:
Vital Signs
Temp Pulse Resp BP Pulse Ox
98.4 F 72 15 131/66 92
11/27/23 00:00 11/27/23 05:00 11/27/23 05:00 11/27/23 05:00 11/27/23 04:45
I&O
11/25/23 11/26/23 11/27/23
06:59 06:59 06:59
Intake Total
Output Total 800 / 800
Balance -795 / -795
[2023-11-27] MEDS: SYMBICORT 80/4.5 MCG INHALER 2 PUFF INH ×2 (07:50→20:01)
[2023-11-27] MEDS: SPIRIVA RESPIMAT 2.5 MCG 2 PUFF INH (07:50)
[2023-11-27] MEDS: WELLBUTRIN XL (24 hour extended release) 150 MG PO (08:28)
[2023-11-27] MEDS: REFRESH CELLUVISC GEL BOTH EYES ×2 (08:28→08:31)
[2023-11-27] MEDS: TOPROL XL 50 MG PO (08:28)
[2023-11-27] MEDS: ELIQUIS 5 MG PO (08:28)
[2023-11-27] MEDS: B COMPLEX w/VITAMIN C 1 CAPLET PO (08:28)
[2023-11-27] MEDS: THERAGRAN 1 TABLET PO (08:28)
[2023-11-27] MEDS: RESTASIS 0.05% OPHTHALMIC EMULSION 1 DROPS BOTH EYES (08:29)
[2023-11-27] MEDS: RESTASIS 0.05% OPHTHALMIC EMULSION BOTH EYES (08:35)
--- NOTE | 2023-11-27 08:45 | W.PN.CD ---
Today's Communication / Plan
-
Impression / Plan
-
Impression: 83F admitted with calf pain. She had new patient consult with Dr. Shaver in September for Atrial flutter with 2:1 AV block and has the same here.
Plan
Atrial Flutter
- Rate: transition diltiazem to oral and continue BB
- Rhythm: possible DCCV, which is an outpatient issue
- Oral Anticoagulation: on apixaban 2.5 for DVT history and, now, flutter.
Valvular heart disease - seems asymptomatic & will be followed as outpatient
Hypertension - CCB and BB
Dyslipidemia - statin
DVT Hx with IVC filter and apixaban
Hypothyroidism
NSCLC 2013
Emphysema
Chronic neutropenia
Subjective: Dictated
Data:
TTE Sep 2023:Normal EF, moderate to severe MR, severe TR PASP 40, mild to moderate AI
Holter Sep 2023: 100% Fib/flutter with average 99 and 49% tachycardia
Physical Exam
Vital Signs/Labs
Vital Signs
Temp Pulse Resp BP Pulse Ox
36.6 C 93 12 121/75 100
11/27/23 07:38 11/27/23 08:04 11/27/23 08:04 11/27/23 06:30 11/27/23 08:04
11/26/23 11/27/23 11/28/23
06:59 06:59 06:59
Actual Weight 131 lb 6.328 oz
11/27/23 03:16
11/27/23 03:16
Magnesium 2.0 mg/dl (1.6-2.3) 11/26/23 18:03
Triglycerides 116 mg/dl (10-149) 11/27/23 03:16
LDL Cholesterol, Calc 48 mg/dl 11/27/23 03:16
VLDL Cholesterol, Calc 23 mg/dl (0-30) 11/27/23 03:16
HDL Cholesterol 73 mg/dl 11/27/23 03:16
Free T4 1.40 ng/dl (0.78-2.19) 11/27/23 03:16
Data Reviewed
-
Date of Service: November 27, 2023
--- NOTE | 2023-11-27 08:59 | CON.ORTHO ---
Consultation
-
Date/Time Consultation Requested: 11/27/2023; 0630
Date/Time Consultation Performed: 11/27/2023; 0800
Requesting Provider: Dr. Dennis Rajput
Performing Provider: Barb Mcclain PA-C for Dr. Kiran Guillen
Reason for Consultation: Left achilles pain
Consultation - Orthopedics
History
Ms. Quigley is an 83 year old female with PMH of a-fib no Eliquis, hypothyroidism, lung cancer, COPD, GERD, HTN and multiple DVTs s/p IVC filter. She is seen today for her left achilles. She sustained a fall at home that resulted in a laceration to
her cotton in September. Unfortunately, she has had issues with the wound healing since that time. She has been following with the wound care center, and was started on Levaquin yesterday by Dr. Huang. She reports she has experienced chronic cramping
in both of her legs, but yesterday morning noticed onset of searing pain in her left achilles. She had read the pamphlet for the Levaquin and was concerned for achilles tendon rupture. She had only taken one dose of her Levaquin. She reports
continued tenderness about her posterior ankle. Her symptoms are exacerbated with weight bearing activities.
Allergies / Home Medications
Allergy/AdvReac Type Severity Reaction Status Date / Time
clarithromycin [From Biaxin] Allergy GASTRIC Verified 10/02/23 10:15
PROBLEMS
erythromycin base Allergy GI PROBLEMS Verified 10/02/23 10:15
meperidine Allergy Pharmacy Verified 10/02/23 10:15
to Review
meperidine HCl [From Demerol] Allergy Pharmacy Verified 10/02/23 10:15
to Review
mold Allergy irritated Uncoded 10/02/23 10:15
eyes
seasonal allergies Allergy sneezing,running Uncoded 10/02/23 10:15
nose,irritated
eyes
�Medication �Instructions �Recorded
cyclosporine 0.05 % eye drops in a 1 drp BOTH EYES DAILY ##0 03/15/10
dropperette (Restasis)
therapeutic multivitamin 1 tab PO DAILY ##0 03/15/10
simvastatin 20 mg tablet (Zocor) 20 mg PO HS ##0 11/11/13
bupropion HCl 150 mg 24 hr tablet, 150 mg PO DAILY 11/21/15
extended release
apixaban 2.5 mg tablet (Eliquis) 2.5 mg PO BID 05/28/19
acetaminophen 500 mg tablet 500 mg PO Q4H 11/26/23
(Tylenol Extra Strength)
esomeprazole magnesium 20 mg 20 mg PO DAILY@1600 11/26/23
capsule,delayed release (Nexium)
fluticasone fur. 100 mcg-umeclid 1 inh inhalation R DAILY 11/26/23
62.5 mcg-vilant 25 mcg
inhalat.powder (Trelegy Ellipta)
levothyroxine 100 mcg tablet 100 mcg PO DAILY 11/26/23
(Synthroid)
metoprolol succinate 25 mg 50 mg PO DAILY 11/26/23
tablet,extended release 24 hr
silver sulfadiazine 1 % topical 1 applic topical DAILY left ankle 11/26/23
cream (SSD) wound
tramadol 50 mg tablet 50 mg PO BIDPRN PRN moderate pains 11/26/23
vitamin B complex 1 tab PO DAILY 11/26/23
Vital Signs / Lab Results
Temp Pulse Resp BP Pulse Ox
97.8 F 95 15 141/77 100
11/27/23 07:38 11/27/23 08:34 11/27/23 08:34 11/27/23 07:00 11/27/23 08:04
11/27/23 03:16
11/27/23 03:16
Directed exam of the left lower extremity reveals ulceration wound over the anterior cotton. Green sloughing on the bandage and edges of the wound. Tenderness to palpation over the Achilles insertion and throughout the Achilles tendon. No tenderness
in the muscle belly of the calf. Calf soft and nontender. Patient able to actively plantar and dorsiflex ankle. 5/5 strength with plantar and dorsiflexion. Neurovascularly intact distally.
Assessment / Plan
Achilles tendinitis
--Tesha's symptoms are consistent with Achilles tendinitis. Her ROM and strength are well maintained, and I am not concerned for achilles rupture. Generally, I would recommend a period of immobilization in a CAM boot, but we will forego this for now
given her non-healing wound over her cotton. Recommended ice, Tylenol and topical pain relievers for symptom management. Patient unable to take NSAIDs due to Eliquis. She would likely benefit from a short course of a steroid, but I would like to hold
on this for now given her wound. She may follow up in the office for repeat evaluation in 1-2 weeks should her symptoms persist. Recommended gentle stretching and ROM of the ankle. Orthopedics will sign off for now. Please reach out with any
additional questions or concerns.
--- NOTE | 2023-11-27 09:03 | WOUNDNOTE ---
L LOWER MEDIAL LEG
--- NOTE | 2023-11-27 09:04 | WOUNDNOTE ---
ANTERIOR VIEW OF L LEG
--- NOTE | 2023-11-27 09:05 | WOUNDNOTE ---
WON RN note: Patient admitted with A flutter with rapid ventricular response and L leg ulcer.
See H&P for complete history.
PMH: L leg wound treated at [facility], Lung Cancer, COPD,DVT,HTN,Hypothyroid, Arthritis, IVC filter, b/l hip replacements and R knee replacement x2.
Wound Location and type/assessment: Patient admitted with: Full thickness wound on L lower leg, soupy zamora slough, periwound red and painful. + palpable pedal pulses present, heels blanchable red. Hemosiderin staining is evident on lower legs with
some edema. Patient reports she fell on a concrete step in early september, went to ER got stitches but wound dehisced. Since then patient has been going to Dr. Huang at wound center, reviewed last report. Using Silvadene with bordered gauze and
Tubigrip, doxycycline ordered. Currently patient sitting in chair with legs elevated, nurse Triplett reports sacrum is intact.
Appetite: Good.
Pressure redistribution devices in place: On Centrella air, can use Accumax when transferred to floor.
Plan: Today applied Mesalt with dry dressing and chi wrap knee high. Will order Santyl to start tomorrow.
Will confirm orders with hospitalist and updated nurse Triplett. Updated care plan and will follow as needed.
Note to case management of equipment requested for discharge: VN if needed.
Recommend follow up at wound care center upon discharge.
[2023-11-27] MEDS: CARDIZEM CD 240 MG PO (10:02)
--- NOTE | 2023-11-27 11:42 | CM ---
CM following re:discharger planning.
Discussed in Rounds, reviewed pt's chart, met with pt and pt's at bedside.
Pt is an 83 year old female, admitted with primary dx of New onset A-fib with RVR.
Pt reports she lives with in a 2SH townhouse with 2 steps to enter, has no children. Pt reports she ambulates independently, has a walker and a cane from the past when she had surgeries. Pt reports she goes to outpatient wound care clinic at
and does dress her wounds on her own. Pt expressed her desire to return back home with resumptions of outpatient wound clinic services and possible VN services if recommended.
PCP: Grecia Alonzo
Pharmacy: [facility]
D/C plan: return back home with resumptions of outpatient wound care clinic and possible VN for wound care if recommended.
CM will follow with discharge plan updates as hospitalization progresses
[2023-11-27] MEDS: PROTONIX 40 MG PO (15:36)
[2023-11-27] MEDS: ULTRAM 50 MG PO (17:41)
[2023-11-27] MEDS: ELIQUIS 2.5 MG PO (19:30)
[2023-11-27] MEDS: TYLENOL 650 MG PO (19:30)
[2023-11-27] MEDS: REFRESH CELLUVISC GEL 1 DROPS BOTH EYES (19:31)
--- NOTE | 2023-11-27 20:00 | PTCARENOTE ---
Received patient at 1900. Pt. awake, alert, and oriented. C/o mild pain in left leg related to wound. PRN medication given, see MAR. Afebrile. Heart rhythm known Afib (on eliquis). Blood pressure normotensive. Pt. currently on room air. Lungs sound
diminished. Cholesterol lowering diet ordered, patient has good appetite. Voiding without issue. Skin as documented. Discussed plan of care. Vital signs stable at this time.
[2023-11-27] MEDS: LIPITOR 10 MG PO (21:31)
[2023-11-28] VITALS (11 sets, daily range): BP systolic 103–136; BP diastolic 53–80; PULSE 66; BMI 22.6; BMI 22.5
[2023-11-28] MEDS: ZOSYN 50 IV ×4 (02:57→21:04)
[2023-11-28 03:40] LABS: % Basophils 1.4 % (0-2); % Eosinophils 5.5 % (0-6); % Immature Granulocytes 0.5 % (0-0.5); % Lymphocytes 32.7 % (20.5-51.1); % Monocytes 19.4 % (1.7-9.3); % Neutrophils 40.5 % (42.2-75.2); Absolute Basophils 0.1 10^3/uL (0-0.2); Absolute Eosinophils 0.2 10^3/uL (0-0.7); Absolute Lymphocytes 1.4 10^3/uL (1.2-3.4); Absolute Monocytes 0.8 10^3/uL (0.1-0.6); Absolute Neutrophils 1.8 10^3/uL (1.4-6.5); Hematocrit 37.6 % (37.0-47.0); Hemoglobin 12.6 g/dL (12.0-16.0); Mean Corp Hgb Conc. 33.5 g/dL (33.0-37.0); Mean Corpuscular Hgb 32.4 pg (27.0-31.0); Mean Corpuscular Volume 96.7 fL (81.0-99.0); Mean Platelet Volume 9.7 fL (7.4-10.4); Nucleated Red Blood Cells % 0 %; Platelet Count 243 10^3/uL (130-400); Red Blood Cell Count 3.89 10^6/uL (4.20-5.40); Red Cell Dist. Width 14.9 % (11.5-14.5); White Blood Cell Count 4.3 10^3/uL (4.8-10.8)
--- NOTE | 2023-11-28 04:00 | PTCARENOTE ---
Pt. assessment unchanged. AM labs drawn. Vital signs stable at this time.
[2023-11-28 04:04] LABS: Blood Urea Nitrogen 26 mg/dl (7-17); Calcium 9.5 mg/dl (8.4-10.2); Carbon Dioxide 27 mmol/L (22-30); Chloride 105 mmol/L (98-107); Estimated Creatinine Clearance 32 ml/min; Glucose 98 mg/dl (70-99); Potassium 4.6 mmol/L (3.5-5.1); Sodium 138 mmol/L (135-145); eGFR 45.48
[2023-11-28] MEDS: SYNTHROID 100 MCG PO (06:16)
--- NOTE | 2023-11-28 06:32 | W.PN.HOSP.TC ---
Today's Communication/Plan
-
likely dc in am
d/w wound care regarding TX
d/w cardiology.
Assessment / Plan
Assessment / Plan
Physical Exam
General: not in distress
HEENT: Normocephalic, Anicteric, Moist mucous membranes, using nasal O2
Respiratory: Clear; No Wheezes, Rales or Rhonchi
Cardiac: S1/S2 and Irregular Rhythm.
GI: Soft, Non Tender, Non Distended and Normal Bowel Sounds
Rectal: No rectal bleeding
Genito-urinary: no hematuria
Musculoskeletal: edema in both lower legs. painful left calf upon dorsiflexion of left ankle.
Skin: Warm, Dry and Other (Chronic lower left anterior ulceration surrounding erythema with green sloughing of skin bed); No Rash
Neuro: AO x 3, No Motor Deficits and No Sensory Deficits; No Slurred Speech, Facial Droop or Tremors
Psych: calm this morning
#New onset A-fib with RVR/Hx A flutter Dx 10/02/2023
Off Cardizem drip last night, change to oral
No chest pain or sob, she feels better
-INDUSTRIAL HYGIENE TECHNICIAN metoprolol succinate 50 mg daily
-INDUSTRIAL HYGIENE TECHNICIAN Eliquis 2.5 mg p.o. twice daily.
- Appreciate pharmaceutical detailer input. Primary pharmaceutical detailer Dr Shaver
EKG: A flutter with 2-1 block heart rate 126 bpm, QTc 446 MS
2D echo 10/25/2023: EF 55 to 60%, normal LVS LVSF, no wall abnormalities, dilated RV, biatrial dilation, moderate to severe MR, mild to moderate AR, severe TR, pulm arterial pressure 40 mmHg
#Severe TR
#Mild-moderate AR
#Moderate to severe MR
#Left calf/Achilles pain likely muscular strain concern for tendinitis
Tylenol for pain
Appreciate ortho input
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
#Chronic varicose veins bilateral legs
-Follows with Dr. Huang
-Placed on Levaquin yesterday 11/25/2023, stopped due to tendon pain.
-IV Zosyn
- d/w pt to f/w OP surgery to do skin biopsy
-d/w wound care nurse, help appreciated.
-PT/OT/case management consult
#Hx prior DVT right leg 2009 post knee replacement
IVC filter February 11, 2015 right lower extremity DVT was on Coumadin
-Is currently on Eliquis 2.5 mg twice daily.
#History of prior multiple DVTs 2004
#History of superficial thrombophlebitis nonocclusive DVT 2015
#history IVC filter
-Continue Eliquis 5 mg mg twice daily
#Hypothyroidism
-Check TSH with free T4 reflex
-Continue Synthroid 100 mcg p.o. daily
#HTN�benign
No headache
-Continue Cardizem and metoprolol succinate
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
Creat 1. 2 appears baseline
# Stage IIIa non-small cell lung adenocarcinoma 2013 s/p radiation and chemo left lung
#COPD-no acute exacerbation
#Former smoker
-Continue Trelegy Ellipta
-Patient follows with Dr. Chadwick
#GERD/Ribeiro's esophagus
-Continue Nexium or equivalent
#Hx neutropenia
Has followed with hematology in past
WBC 3.5
#HLD
-Continue Zocor 20 mg at bedtime
#Depression
-Continue Wellbutrin
#Dry eye syndrome
Continue Restasis
#Osteopenia
DVT prophylaxis
Continue INDUSTRIAL HYGIENE TECHNICIAN Eliquis
DNR per patient.
Total time spent to see the patient, examine the patient, review data and lab results, discuss treatment plan with patient, nursing staff around 55 minutes
Anticipated Discharge: Within 24 hours
Subjective/Interval History
-
Date of Service: November 28, 2023
Objective Data
-
Labs:
Laboratory Results
11/28/23
03:09
WBC 4.3 L
Hgb 12.6
Hct 37.6
Plt Count 243
Sodium 138
Potassium 4.6
Chloride 105
Carbon Dioxide 27
BUN 26 H
Creatinine 1.2 H
Glucose 98
Calcium 9.5
Vital Signs:
Vital Signs
Temp Pulse Resp BP Pulse Ox
97.5 F 63 16 103/60 96
11/28/23 03:29 11/28/23 06:00 11/28/23 06:00 11/28/23 06:00 11/28/23 04:00
I&O
11/26/23 11/27/23 11/28/23
06:59 06:59 06:59
Intake Total 5 / 5 420 / 420
Output Total 800 / 800 350 / 350
Balance -795 / -795 70 / 70
--- NOTE | 2023-11-28 07:00 | PTCARENOTE ---
Patient in bed. AAO x3; Left LE pain due to chronic wound 11/05 while in bed. VSS. pt on RA. Peripheral line : left AC # 20 cappled flushed. Tylenol PRN administered. Ambulates to bathroom with walker. call denis within reach
--- NOTE | 2023-11-28 07:18 | W.PN.CD ---
Today's Communication / Plan
-
rate control with metoprolol xl 50 qd, dilt cd 240 qd
Impression / Plan
-
Impression: 83F admitted with calf pain. She had new patient consult with Dr. Shaver in September for Atrial flutter with 2:1 AV block and has the same here.
Plan
Atrial Flutter
- Rate:well controlled on current regimen. Please discharge on Metoprolol succinate 50mg daily in AM and Dlitiazem CD 240mg in PM
- Rhythm: AFlutter with variable block. Has been present since 2021. I will discuss options (med Rx, DCCV, RFA) at her rescheduled appt in 4-8 weeks
- Oral Anticoagulation: on apixaban 2.5 for DVT history and, now, flutter. Wt is <60kg and age>80 so dose is correct
Valvular heart disease - Very minimally symptomatic & will be followed as outpatient
Hypertension - CCB and BB
Wound and achilles tendonopathy: Per med and wound care
Dyslipidemia - statin
DVT Hx with IVC filter and apixaban
Hypothyroidism
NSCLC 2013
Emphysema
Chronic neutropenia
Subjective: Dictated
Data:
TTE Sep 2023:Normal EF, moderate to severe MR, severe TR PASP 40, mild to moderate AI
Holter Sep 2023: 100% Fib/flutter with average 99 and 49% tachycardia
Physical Exam
Vital Signs/Labs
Vital Signs
Temp Pulse Resp BP Pulse Ox
97.5 F 63 16 103/60 96
11/28/23 03:29 11/28/23 06:00 11/28/23 06:00 11/28/23 06:00 11/28/23 04:00
11/27/23 11/28/23 11/29/23
06:59 06:59 06:59
Actual Weight 131 lb 6.328 oz 131 lb 9.855 oz
11/28/23 03:09
11/28/23 03:09
Magnesium 2.0 mg/dl (1.6-2.3) 11/26/23 18:03
Triglycerides 116 mg/dl (10-149) 11/27/23 03:16
LDL Cholesterol, Calc 48 mg/dl 11/27/23 03:16
VLDL Cholesterol, Calc 23 mg/dl (0-30) 11/27/23 03:16
HDL Cholesterol 73 mg/dl 11/27/23 03:16
Free T4 1.40 ng/dl (0.78-2.19) 11/27/23 03:16
Physical Exam
Constitutional: No acute distress and Comfortable
EENT: Anicteric
Cardiovascular: Rhythm/rate is irregular, Systolic murmur present (soft systolic murmur apex) and S1S2 is normal
Respiratory: Respiratory effort normal, Lungs clear to auscul., Wheeze Absent and Crackles Absent
GI: Non tender
Neuro/Psych: AO x 3 and Motor deficits absent
Other: Other (wound LLE not examined)
Data Reviewed
-
Date of Service: November 28, 2023
[2023-11-28] MEDS: SYMBICORT 80/4.5 MCG INHALER 2 PUFF INH ×2 (07:26→19:18)
[2023-11-28] MEDS: SPIRIVA RESPIMAT 2.5 MCG 2 PUFF INH (07:26)
[2023-11-28] MEDS: RESTASIS 0.05% OPHTHALMIC EMULSION 1 DROPS BOTH EYES ×2 (07:30→21:03)
[2023-11-28] MEDS: TYLENOL 650 MG PO ×2 (07:32→14:19)
[2023-11-28] MEDS: ELIQUIS 2.5 MG PO ×2 (07:33→21:01)
[2023-11-28] MEDS: WELLBUTRIN XL (24 hour extended release) 150 MG PO (07:33)
[2023-11-28] MEDS: TOPROL XL 50 MG PO (07:33)
[2023-11-28] MEDS: CARDIZEM CD 240 MG PO (07:33)
[2023-11-28] MEDS: REFRESH CELLUVISC GEL 1 DROPS BOTH EYES (07:34)
[2023-11-28] MEDS: SANTYL OINTMENT 1 APPLIC TOPICAL (07:34)
--- NOTE | 2023-11-28 13:42 | PTCARENOTE ---
Transfer to room 403/1
AAO x3. Denies pain. Left LE anterior wound done per current order. Wound appearance : wound bed yellow slough, around wound bright red, serous drainage moderate amount, + foul odor. Pedal pulses palatable .B/L LE warm to touch. VSS. pt will be
transfer to room 403/1 via w/c. report given prior to ra
--- NOTE | 2023-11-28 15:25 | CM ---
CM following re: discharge planning.
Reviewed pt's chart, met with pt.
pt and OT evaluations noted - outpatient PT/OT vs no needs recommended. pt reports she does not need any PT/OT.
Wound care note noted. Outpatient wound care clinic recommended. Pt is aware and she stated she will resume wound care clinic services upon the discharge.
D/C plan; home with resumptions of wound care clinic services and family support. to transport at discharge.
CM will follow with discharge plan updates as hospitalization progresses
--- NOTE | 2023-11-28 15:40 | PTCARENOTE ---
patient transfer to [facility] before 2pm.; Zosyn that was schedule for 1400 was not given. Zosyn was tubed to 4E tube # 44
[2023-11-28] MEDS: PROTONIX 40 MG PO (15:55)
--- NOTE | 2023-11-28 20:10 | PTCARENOTE ---
Received pt from ICU, report from Indu RN. Pt awake, alert and oriented x3. Pt c/o pain in left leg upon arrival to floor, Pt given tylenol per orders. Pt VSS 98% on RA. Afib/flutter on tele. Dressing to LLE CDI, El wrap adjusted for comfort. Pt
oriented to room, call denis within reach, plan of care ongoing.
[2023-11-28] MEDS: LIPITOR 10 MG PO (21:01)
[2023-11-28] MEDS: REFRESH CELLUVISC GEL BOTH EYES (21:07)
[2023-11-29] MEDS: VISBIOME 1 CAP PO ×2 (00:07→09:33)
[2023-11-29] MEDS: ZOSYN 50 IV ×2 (01:31→09:28)
[2023-11-29] MEDS: ULTRAM 50 MG PO (01:37)
[2023-11-29 03:20] VITALS: BP 127/50
[2023-11-29] MEDS: SYNTHROID 100 MCG PO (05:42)
[2023-11-29 07:40] VITALS: BP 145/75
[2023-11-29 07:53] LABS: Hematocrit 40.2 % (37.0-47.0); Mean Corp Hgb Conc. 32.3 g/dL (33.0-37.0); Mean Platelet Volume 9.5 fL (7.4-10.4); Nucleated Red Blood Cells % 0 %; Platelet Count 232 10^3/uL (130-400); Red Blood Cell Count 4.06 10^6/uL (4.20-5.40); Red Cell Dist. Width 14.7 % (11.5-14.5); White Blood Cell Count 3.4 10^3/uL (4.8-10.8)
[2023-11-29] MEDS: SYMBICORT 80/4.5 MCG INHALER 2 PUFF INH ×2 (08:22→20:55)
[2023-11-29] MEDS: SPIRIVA RESPIMAT 2.5 MCG 2 PUFF INH (08:22)
[2023-11-29 08:34] LABS: Blood Urea Nitrogen 17 mg/dl (7-17); Calcium 9.2 mg/dl (8.4-10.2); Carbon Dioxide 24 mmol/L (22-30); Chloride 107 mmol/L (98-107); Estimated Creatinine Clearance 38 ml/min; Glucose 109 mg/dl (70-99); Potassium 4.2 mmol/L (3.5-5.1); Sodium 136 mmol/L (135-145)
[2023-11-29 09:13] LABS: Absolute Neutrophils -Man Diff 1.4 10^3/uL (1.4-6.5); Band Neutrophils 2 % (0-3); Eosinophils 5 % (0-6); Lymphocytes 34 % (20-51); Monocytes 15 % (2-9); Segmented Neutrophils 42 % (42-75)
[2023-11-29 09:14] LABS: Normal RBC Morphology Yes; Platelets Checked YES; Total Cells Counted 100
[2023-11-29] MEDS: TOPROL XL 50 MG PO (09:29)
[2023-11-29] MEDS: CARDIZEM CD 240 MG PO (09:30)
[2023-11-29] MEDS: WELLBUTRIN XL (24 hour extended release) 150 MG PO (09:34)
[2023-11-29] MEDS: ELIQUIS 2.5 MG PO ×2 (09:35→20:11)
[2023-11-29] MEDS: RESTASIS 0.05% OPHTHALMIC EMULSION 1 DROPS BOTH EYES ×2 (09:36→20:11)
[2023-11-29] MEDS: REFRESH CELLUVISC GEL BOTH EYES ×3 (09:37→20:08)
[2023-11-29] MEDS: SANTYL OINTMENT 1 APPLIC TOPICAL (09:38)
--- NOTE | 2023-11-29 10:15 | W.PN.HOSP.TC ---
Today's Communication/Plan
-
Possible dc if diarrhea is resolved
Assessment / Plan
Assessment / Plan
Physical Exam
General: not in distress
HEENT: Normocephalic, Anicteric, Moist mucous membranes, using nasal O2
Respiratory: Clear; No Wheezes, Rales or Rhonchi
Cardiac: S1/S2 and Irregular Rhythm.
GI: Soft, Non Tender, Non Distended and Normal Bowel Sounds
Rectal: No rectal bleeding
Genito-urinary: no hematuria
Musculoskeletal: edema in both lower legs. painful left calf upon dorsiflexion of left ankle.
Skin: Warm, Dry and Other (Chronic lower left anterior ulceration surrounding erythema with green sloughing of skin bed); No Rash
Neuro: AO x 3, No Motor Deficits and No Sensory Deficits; No Slurred Speech, Facial Droop or Tremors
Psych: calm this morning
# Acute diarrhea
Likely from ABx, stop Zosyn
C diff is negative
No abd pain
Add PRN lomotil, Probiotic
#New onset A- Flutter/persistent
A-Flutter with variable block.
Off Cardizem drip last night, changed to oral
No chest pain or sob, she feels better
-VAULT CASHIER metoprolol succinate 50 mg daily
-VAULT CASHIER Eliquis 2.5 mg p.o. twice daily. For outpatient evaluation for possible cardioversion/ablation
- Appreciate home mortgage disclosure act specialist input. Primary home mortgage disclosure act specialist Dr Shaver
2D echo 10/25/2023: EF 55 to 60%, normal LVS LVSF, no wall abnormalities, dilated RV, biatrial dilation, moderate to severe MR, mild to moderate AR, severe TR, pulm arterial pressure 40 mmHg
#Severe TR
#Mild-moderate AR
#Moderate to severe MR
#Left calf/Achilles pain likely muscular strain concern for tendinitis
Tylenol for pain
Appreciate ortho input
#Chronic nonhealing ulcer left lower extremity > months after a fall and wound that continued to progress after outpatient debridement. Concern for pyoderma gangrenosum
#Chronic varicose veins bilateral legs
-Follows with Dr. Huang
-Placed on Levaquin yesterday 11/25/2023, stopped due to tendon pain.
-No need for more IV Zosyn. No leukocytosis. No fever. She developed diarrhea from Zosyn. Monitor off antibiotics
- d/w pt to f/w OP surgery to do skin biopsy
-d/w wound care nurse, help appreciated.
-PT/OT/case management consult
#Hx prior DVT right leg 2009 post knee replacement
IVC filter February 11, 2015 right lower extremity DVT was on Coumadin
-Is currently on Eliquis 2.5 mg twice daily.
#History of prior multiple DVTs 2004
#History of superficial thrombophlebitis nonocclusive DVT 2015
#history IVC filter
-Continue Eliquis 5 mg mg twice daily
#Hypothyroidism
-Slightly elevated TSH with normal free T4. No changes recommended to Synthroid dose
-Continue Synthroid 100 mcg p.o. daily
#HTN�benign
No headache
-Continue Cardizem and metoprolol succinate
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
Creat 1. 2 - 1.0 appeared baseline
# Stage IIIa non-small cell lung adenocarcinoma 2013 s/p radiation and chemo left lung
#COPD-no acute exacerbation
#Former smoker
-Continue Trelegy Ellipta
-Patient follows with Dr. Chadwick
#GERD/Ribeiro's esophagus
-Continue Nexium or equivalent
#Hx neutropenia
Has followed with hematology in past
WBC 3.5
Likely secondary to ongoing inflammation from the leg wound
#HLD
-Continue Zocor 20 mg at bedtime
#Depression
-Continue Wellbutrin
#Dry eye syndrome
Continue Restasis
#Osteopenia
DVT prophylaxis
Continue VAULT CASHIER Eliquis
DNR per patient.
Total discharge time spent to see the patient, examine the patient, review data and lab results, discuss discharge plan with patient, nursing staff around 67 minutes
Anticipated Discharge: Within 24 hours
Subjective/Interval History
-
Date of Service: November 29, 2023
Diarrhea over night
No fevers
No abd pain
Objective Data
-
Labs:
Laboratory Results
11/29/23
07:36
WBC 3.4 L
Hgb 13.0
Hct 40.2
Plt Count 232
Sodium 136
Potassium 4.2
Chloride 107
Carbon Dioxide 24
BUN 17
Creatinine 1.0
Glucose 109 H
Calcium 9.2
Vital Signs:
Vital Signs
Temp Pulse Resp BP Pulse Ox
97.9 F 68 16 145/75 96
11/29/23 07:40 11/29/23 08:29 11/29/23 08:29 11/29/23 07:40 11/29/23 08:29
I&O
11/28/23 11/29/23 11/30/23
06:59 06:59 06:59
Intake Total 420 / 420 1010 / 1010
Output Total 350 / 350
Balance 70 / 70 1010 / 1010
[2023-11-29] MEDS: TYLENOL 650 MG PO ×2 (12:01→17:23)
[2023-11-29] MEDS: LOMOTIL 1 TABLET PO ×2 (12:01→20:39)
[2023-11-29 15:24] VITALS: BP 98/54; PULSE 68; O2SAT 97
[2023-11-29] MEDS: PROTONIX 40 MG PO (16:16)
[2023-11-29 16:22] VITALS: BP 120/60
--- NOTE | 2023-11-29 16:22 | PTCARENOTE ---
Pt AAO x3, P[place]IN[place]; OOB in room/hadley with assist x1, radha well, occ c/o 'I feel weak' d/t loose BM's. Fall prec maintained. VSS. On room air- pulse ox 93%, no c/o SOB. Abd soft, rounded, radha PO, pt still c/o loose BM's; Lomotil PO given x1; will
monitor effectiveness. Voiding in BR without difficulty. LLE dsg/GARRY wrap intact; pt keeping LLE elevated on pillow. Resting in bed at present, no c/o. Will continue to monitor.
[2023-11-29] MEDS: LIPITOR 10 MG PO (20:38)
[2023-11-29 23:21] VITALS: BP 112/58
[2023-11-30] MEDS: TYLENOL 650 MG PO (03:16)
[2023-11-30] MEDS: SYNTHROID 100 MCG PO (05:40)
[2023-11-30 07:05] VITALS: BP 130/70
[2023-11-30] MEDS: SPIRIVA RESPIMAT 2.5 MCG 2 PUFF INH (08:16)
[2023-11-30] MEDS: SYMBICORT 80/4.5 MCG INHALER 2 PUFF INH (08:16)
[2023-11-30] MEDS: VISBIOME 1 CAP PO (09:08)
[2023-11-30] MEDS: ELIQUIS 2.5 MG PO (09:08)
[2023-11-30] MEDS: CARDIZEM CD 240 MG PO (09:08)
[2023-11-30] MEDS: TOPROL XL 50 MG PO (09:08)
[2023-11-30] MEDS: SANTYL OINTMENT 1 APPLIC TOPICAL (09:09)
[2023-11-30] MEDS: WELLBUTRIN XL (24 hour extended release) 150 MG PO (09:09)
[2023-11-30] MEDS: RESTASIS 0.05% OPHTHALMIC EMULSION 1 DROPS BOTH EYES (09:09)
[2023-11-30] MEDS: REFRESH CELLUVISC GEL BOTH EYES (09:12)
--- NOTE | 2023-11-30 11:38 | CM ---
Patient with Dx Acute diarrhea, New onset A- Flutter, Left calf/Achilles pain likely muscular strain concern for tendinitis, Chronic nonhealing ulcer LLE. PT recommends Outpatient Therapy. OT recommends HH. Seen by wound care nurse- daily wound
care.
Met with patient and ; patient stating she feels anxious about hearing too much information from MD and now CM- CM went over d/c plans several times with her - listening in. She seemed to have trouble grasping how VN visits work.
The patient says she feels ready for d/c today - IMM completed. Patient/ agree to home with [facility] for wound care, PT/OT. Patient also interested in a script for outpatient therapy to do after VN completed. will provide transport
home today.
Message to Dr Rajput with request for script for outpatient PT.
Referral to [facility].
Plan home today with [facility], with script for outpatient PT.
[2023-11-30 12:16] VITALS: BP 128/64
--- NOTE | 2023-11-30 14:36 | W.DCSUMMARY ---
Discharge Summary
Discharge Data
Date of Admission: 11/26/23
Date of Discharge: 11/30/23
-
Pending Results: No
Hospital Course
83 years old female admitted with left calf pain. Patient was recently started on Levaquin for the treatment of nonhealing wound that she sustained after minor trauma few months ago. Patient was diagnosed with Achilles tendon inflammation
possibly related to quinolone. No signs of tendon rupture on clinical examination. She was evaluated by orthopedic doctor. Recommended to continue weightbearing as tolerated. Patient was given Tylenol for pain and empiric Zosyn for possible
wound infection. Patient was noted to have atrial flutter which was uncontrolled. She was initially started on intravenous Cardizem. She was evaluated by skylights assembler. She was weaned off Cardizem drip and started on oral Cardizem in addition to
Toprol. She was maintained on Eliquis. Heart rate became well-controlled. She was evaluated by wound care nurse. She was given instruction for wound care. Patient was advised to follow-up with wound care center and her surgeon Dr. Huang to
rule out possibility of pyoderma gangrenosum. Antibiotic was stopped she did not have fever or chills. She did not have leukocytosis. Patient developed diarrhea which was thought secondary to antibiotic use. C. difficile test was negative. She
was given Imodium and she started to feel better after stopping antibiotic. She had mild leukopenia with could be related to the chronic wound/inflammation. She was scheduled to follow-up with hematology doctor in the office. Patient remained
hemodynamically stable and was discharged in a stable condition.
Physical Exam
General: not in distress
HEENT: Normocephalic, Anicteric, Moist mucous membranes, using nasal O2
Respiratory: Clear; No Wheezes, Rales or Rhonchi
Cardiac: S1/S2 and Irregular Rhythm, rate is controlled.
GI: Soft, Non Tender, Non Distended and Normal Bowel Sounds
Rectal: No rectal bleeding
Genito-urinary: no hematuria
Musculoskeletal: edema in both lower legs. painful left calf upon dorsiflexion of left ankle.
Skin: Warm, Dry and Other (Chronic lower left anterior ulceration ); No Rash
Neuro: AO x 3, No Motor Deficits and No Sensory Deficits; No Slurred Speech, Facial Droop or Tremors
Psych: Calm.
Total discharge time spent to see the patient, examine the patient, review data and lab results, discuss discharge plan with patient, nursing staff around 65 minutes
Discharge Plan
-
Patient Disposition: Home with Home Care
Discharge Diagnosis/Procedures: Atrial flutter
We started new medicine called Cardizem. We stopped Zocor to avoid drug interaction, we started new medicine called Lipitor ( cholesterol medicine).
Left leg wound, discuss with your primary care doctor ad hiv prevention specialist about possibility need for skin biopsy to rule out Pyoderma Gangrenosum
Diet: As tolerated
Activity Restrictions/Additional Instructions:
Wound Care Instructions
L lower leg: clean with soap and water, Resume previous dressing as ordered from Dr. Huang
OR continue Santyl to base of wound followed by cut piece of Mesalt then dry dressing. Change daily
*If continuing with Santyl do not mix with Silvadene
Tubigrip as previously ordered
leg elevation when sitting
Follow up at wound care center call for an appointment.
Call Dr Shaver office and reschedule appt for 1-2 months from now
Referrals:
Grecia Alonzo MD [Family Provider] -
Additional Discharge Medication Instructions: Take metoprolol succinate 50mg in AM and Diltiazem CD 240mg in evening
Prescriptions:
New
acetaminophen 325 mg Tablet
650 mg PO Q4HPRN PRN (Reason: mild pain/HELLER/temp> 100.4F) Qty: 10 0RF
atorvastatin 10 mg Tablet
10 mg PO HS Qty: 30 2RF
metoprolol succinate 50 mg Tablet Extended Release 24 Hr
50 mg PO DAILY Qty: 30 2RF
diltiazem HCl 240 mg Capsule,Extended Release 24hr
240 mg PO DAILY Qty: 30 2RF
Santyl 250 unit/gram ointment
1 applic topical DAILY Qty: 90 0RF
Continued
therapeutic multivitamin Tablet
1 tab PO DAILY Qty: 0
cyclosporine [Restasis] 0.05 % Dropperette
1 drp BOTH EYES DAILY Qty: 0
bupropion HCl 150 MG tablet extended release 24 hr
150 mg PO DAILY
Eliquis 2.5 MG tablet
2.5 mg PO BID
tramadol 50 mg Tablet
50 mg PO BIDPRN PRN (Reason: moderate pains)
levothyroxine [Synthroid] 100 mcg Tablet
100 mcg PO DAILY
vitamin B complex Tablet
1 tab PO DAILY
esomeprazole magnesium [Nexium] 20 mg Capsule,Delayed Release(Dr/Ec)
20 mg PO DAILY@1600
Trelegy Ellipta 100-62.5-25 mcg Blister With Device
1 inh INHALATION R DAILY
Discontinued
simvastatin [Zocor] 20 mg Tablet
20 mg PO HS Qty: 0
silver sulfadiazine [SSD] 1 % Cream
1 applic TOPICAL DAILY
acetaminophen [Tylenol Extra Strength] 500 mg Tablet
500 mg PO Q4H
metoprolol succinate 25 mg tablet extended release 24 hr
50 mg PO DAILY
Discharge Orders:
Discharge Patient (As Directed); Ordered 11/30/23
Ordered By: Dennis Rajput
Discharge Date and Time
Discharge Date/Time: 11/30/23 12:24
Print Language: HUNGARIAN
== END 2023-11-30 12:24 | disposition home health service (06) | DRG 309 ==
LOC: 4 EAST ACU 21:04
PROVIDERS: Clinical Nurse Specialist Family Health; ADMITTING PHYSICIAN Hospitalist; ATTENDING PHYSICIAN Internal Medicine; EMERGENCY PHYSICIAN Emergency Medicine; FAMILY PHYSICIAN Internal Medicine; OTHER PHYSICIAN Internal Medicine Cardiovascular Disease; OTHER PHYSICIAN Orthopaedic Surgery Hand Surgery
DX: I48.92 Unspecified atrial flutter (principal); L97.929 Non-pressure chronic ulcer of unspecified part of left lower leg with unspecified severity; Z79.01 Long term (current) use of anticoagulants; I12.9 Hypertensive chronic kidney disease with stage 1 through stage 4 chronic kidney disease, or unspecified chronic kidney disease; N18.32 Chronic kidney disease, stage 3b; E78.00 Pure hypercholesterolemia, unspecified; E03.9 Hypothyroidism, unspecified; Z87.891 Personal history of nicotine dependence; J43.9 Emphysema, unspecified; K21.9 Gastro-esophageal reflux disease without esophagitis; E78.5 Hyperlipidemia, unspecified; F32.A Depression, unspecified; Z66 Do not resuscitate; I48.91 Unspecified atrial fibrillation
CPT/HCPCS: 80048; 80061; 83605; 83735; 84439; 84443; 85025; 85027; 87040; 87070; 87324; 87449; 93005; 94640; 96374; 96375; 97116; 97163; 97167; 97530; 99285

== ENCOUNTER → 2023-12-02 08:48 | Outpatient (REF) | payer MEDICARE, OTHER, SELFPAY | LOC: WOUND 08:48 | PROVIDERS: ATTENDING PHYSICIAN Surgery; FAMILY PHYSICIAN Internal Medicine | DX: L97.822 Non-pressure chronic ulcer of other part of left lower leg with fat layer exposed (principal); I73.9 Peripheral vascular disease, unspecified; L03.116 Cellulitis of left lower limb; I87.2 Venous insufficiency (chronic) (peripheral); J43.9 Emphysema, unspecified; I10 Essential (primary) hypertension; Z79.01 Long term (current) use of anticoagulants; Z86.718 Personal history of other venous thrombosis and embolism | CPT/HCPCS: 11042; 11045 ==

== ENCOUNTER → 2023-12-05 09:59 | Outpatient (REF) | payer MEDICARE, OTHER, SELFPAY | LOC: HWRAD 09:59 | PROVIDERS: ATTENDING PHYSICIAN Surgery; FAMILY PHYSICIAN Internal Medicine | DX: L97.822 Non-pressure chronic ulcer of other part of left lower leg with fat layer exposed (principal); I87.2 Venous insufficiency (chronic) (peripheral) | CPT/HCPCS: 93971 ==

== ENCOUNTER → 2023-12-09 08:42 | Outpatient (REF) | payer MEDICARE, OTHER, SELFPAY | LOC: WOUND 08:42 | PROVIDERS: ATTENDING PHYSICIAN Surgery; FAMILY PHYSICIAN Internal Medicine | DX: L97.822 Non-pressure chronic ulcer of other part of left lower leg with fat layer exposed (principal); L88 Pyoderma gangrenosum; L03.116 Cellulitis of left lower limb; I87.2 Venous insufficiency (chronic) (peripheral); J43.9 Emphysema, unspecified; Z86.718 Personal history of other venous thrombosis and embolism; Z79.01 Long term (current) use of anticoagulants; I10 Essential (primary) hypertension | CPT/HCPCS: 99213 ==

== ENCOUNTER → 2023-12-16 08:27 | Outpatient (REF) | payer MEDICARE, OTHER, SELFPAY | LOC: WOUND 08:27 | PROVIDERS: ATTENDING PHYSICIAN Surgery; FAMILY PHYSICIAN Internal Medicine | DX: L97.822 Non-pressure chronic ulcer of other part of left lower leg with fat layer exposed (principal); L88 Pyoderma gangrenosum; I73.9 Peripheral vascular disease, unspecified; L03.116 Cellulitis of left lower limb; I87.2 Venous insufficiency (chronic) (peripheral); J43.9 Emphysema, unspecified; I10 Essential (primary) hypertension; Z86.718 Personal history of other venous thrombosis and embolism; Z79.01 Long term (current) use of anticoagulants | CPT/HCPCS: 99213 ==

== ENCOUNTER → 2023-12-24 08:32 | Outpatient (REF) | payer MEDICARE, OTHER, SELFPAY | LOC: WOUND 08:32 | PROVIDERS: ATTENDING PHYSICIAN Surgery; FAMILY PHYSICIAN Internal Medicine | DX: L97.822 Non-pressure chronic ulcer of other part of left lower leg with fat layer exposed (principal); L88 Pyoderma gangrenosum; I73.9 Peripheral vascular disease, unspecified; L03.116 Cellulitis of left lower limb; I87.2 Venous insufficiency (chronic) (peripheral); J43.9 Emphysema, unspecified; I10 Essential (primary) hypertension; Z79.01 Long term (current) use of anticoagulants; Z86.718 Personal history of other venous thrombosis and embolism | CPT/HCPCS: 99213 ==

== ENCOUNTER 2023-12-25 11:26 | Emergency (ER) | payer MEDICARE, OTHER, SELFPAY ==
[2023-12-25 11:29] VITALS: BP 171/95; BMI 23.2
[2023-12-25 11:55] LABS: % Eosinophils 3.2 % (0-6); % Immature Granulocytes 0.5 % (0-0.5); % Lymphocytes 16.1 % (20.5-51.1); % Monocytes 16.1 % (1.7-9.3); % Neutrophils 63.1 % (42.2-75.2); Absolute Eosinophils 0.1 10^3/uL (0-0.7); Absolute Lymphocytes 0.7 10^3/uL (1.2-3.4); Absolute Monocytes 0.7 10^3/uL (0.1-0.6); Absolute Neutrophils 2.6 10^3/uL (1.4-6.5); Hematocrit 40.4 % (37.0-47.0); Mean Corp Hgb Conc. 32.2 g/dL (33.0-37.0); Mean Corpuscular Hgb 31.8 pg (27.0-31.0); Mean Corpuscular Volume 98.8 fL (81.0-99.0); Mean Platelet Volume 9.5 fL (7.4-10.4); Nucleated Red Blood Cells % 0 %; Platelet Count 250 10^3/uL (130-400); Red Blood Cell Count 4.09 10^6/uL (4.20-5.40); White Blood Cell Count 4.1 10^3/uL (4.8-10.8)
[2023-12-25 12:00] VITALS: BP 160/90
[2023-12-25 12:09] LABS: ALT (SGPT) 34 U/L (0-35); AST (SGOT) 43 U/L (14-36); Albumin 3.9 g/dl (3.5-5.0); Alkaline Phosphatase 132 U/L (38-126); Blood Urea Nitrogen 22 mg/dl (7-17); Calcium 9.5 mg/dl (8.4-10.2); Carbon Dioxide 29 mmol/L (22-30); Chloride 101 mmol/L (98-107); Estimated Creatinine Clearance 38 ml/min; Glucose 115 mg/dl (70-99); Sodium 138 mmol/L (135-145); Total Bilirubin 0.7 mg/dl (0.2-1.3); Total Protein 7.2 g/dl (6.3-8.2)
[2023-12-25 13:00] VITALS: BP 152/86
--- NOTE | 2023-12-25 13:28 | ED.GENMED ---
History of Present Illness
General
Chief Complaint: Blood Pressure Problem
Source: patient
Exam Limitations: none
Time Seen by Provider: 12/25/23 13:10
Nursing documentation reviewed up to this point in time: agreed with
Travel History
Have you had any contact with someone who has COVID-19?: No
Do you have any symptoms of coronavirus? Fever > 100 degrees, chills, cough, shortness of breath, sore throat, loss of taste or smell, muscle aches, or headache?: Yes
Symptoms:: cough, SOB
History of Present Illness
History of Present Illness:
83-year-old female past medical history of lung cancer knee replacement with DVT hypertension hyperlipidemia newly diagnosed a flutter in September, on Eliquis, wound to left lower leg, hypothyroidism presents to the ER for evaluation. Patient reports
she checking her blood pressure today as she supposed to due to recent medication adjustment and found her blood pressure was 187/107. Her metoprolol was recently decreased from 50 mg a day to 25 mg today by cardiology Dr. Shaver. she did feel
some pressure in her jaw area and because of the elevated blood pressure and jaw pain presented to the ER for evaluation. Denies headache ,visual disturbance. She however has had COVID for the past several days and has had cough fevers and loss of
taste. Since having COVID she has had some pressure in her chest. She does feel herself wheezing at times. She does have emphysema and history of lung cancer and does use her inhalers.
Currently she is asymptomatic.
Blood pressure during my exam is 152/86 HR in the low 100s atrial flutter. Pt is on Eliquis 2.5 mg BID.
Triage note reports the patient has a nonhealing wound to left lower leg after a fall she sustained in September. She is being followed by wound care and has no complaints about this wound currently and dressing is in place.
Past History
Past History
ED Past Medical History: Cancer (Lung), COPD, GERD, HTN, Hypercholesterolemia, Hypothyroidism and Psychiatric (depression)
ED Past Surgical History: Orthopedic (R knee replacement, bilateral hip replacement) and Other (DVT, IVC Filter)
Social History
Tobacco: Former smoker
Alcohol: None
Personal:
Living: with family
Family History
Family History: CAD
Review of Systems
Review of Systems
Allergies reviewed?: Yes
All Other Systems: ROS reviewed and negative except as documented in HPI and ROS
Constitutional: Reports no symptoms; Denies fever, fatigue or chills
EENT: Reports no symptoms
Respiratory: Reports cough; Denies trouble breathing
Cardiac: Reports chest pain; Denies palpitations or syncope
ABD/GI: Reports no symptoms
: Reports no symptoms
Musculoskeletal: Reports other (pt had some jaw pain )
Skin: Reports no symptoms
Neurological: Denies dizzy, headache or numbness
Hematologic/Lymphatic: Reports no symptoms
Psychiatric: Reports no symptoms
Phy Exam
General Physical Exam
General Presentation: well appearing
General age: appears stated age and appears older than age
General Skin: warm and dry
General Habitus: normal
General Mental: alert
General Hydration: appears well hydrated
Cardiovascular Exam
Cardiovascular Exam: irregularly irregular
Pulmonary Exam
Pulmonary Exam: lungs clear and no respiratory distress
Neurological Exam
Neurological Exam: alert and oriented x3
Musculoskeletal Exam
Musculoskeletal Exam: full ROM and other (dressing in place to left anterior lower leg )
Skin Exam
Skin Exam: normal color and warm/dry
Course
Orders/Labs/Results
Orders:
Orders
12/25/23 11:33
Electrocardiogram (*1) Urgent
Reason for Study: Shortness of Breath
EKG- Treatment ONCE
12/25/23 11:42
Complete Blood Count/With Diff Urgent
Comprehensive Metabolic Panel Urgent
12/25/23 13:49
Troponin I Urgent
12/25/23 15:12
Electrocardiogram (*1) Stat
Reason for Study: Other
Other Reason for Exam: chest pain
EKG- Treatment ONCE
12/25/23 15:16
Troponin I Urgent
Abnormal Lab Results
12/25/23
11:42
WBC 4.1 L 10^3/uL
(4.8-10.8)
RBC 4.09 L 10^6/uL
(4.20-5.40)
MCH 31.8 H pg
(27.0-31.0)
MCHC 32.2 L g/dL
(33.0-37.0)
RDW 15.0 H %
(11.5-14.5)
Absolute Lymphs (auto) 0.7 L 10^3/uL
(1.2-3.4)
Absolute Monos (auto) 0.7 H 10^3/uL
(0.1-0.6)
Lymphocytes % 16.1 L %
(20.5-51.1)
Monocytes % 16.1 H %
(1.7-9.3)
BUN 22 H mg/dl
(7-17)
Glucose 115 H mg/dl
(70-99)
AST 43 H U/L
(14-36)
Alkaline Phosphatase 132 H U/L
(38-126)
12/25/23 11:42
12/25/23 11:42
Vital Signs
Initial and Last Documented VS:
Initial Vital Signs
Temp Pulse Resp BP Pulse Ox
99 F 127 23 171/95 97
12/25/23 11:12/25/23 11:12/25/23 11:12/25/23 11:12/25/23 11:29
Last Documented Vital Signs
Temp Pulse Resp BP Pulse Ox
99 F 108 22 150/79 96
12/25/23 11:12/25/23 14:30 12/25/23 14:30 12/25/23 14:00 12/25/23 14:30
Maintenance Machinist consulted with Physician
Maintenance Machinist consulted with physician?: Yes
Name of Physician Consulted: Armida
MDM/Problems Addressed
Differential Diagnosis Includes:
Not limited to elevated blood pressure.
MDM/Problems Addressed:
Patient is an 83-year-old female who presented to the ER with elevated blood pressure that she discovered while checking it at home. She is very anxious over that felt some jaw discomfort which prompted her to come to the ER. She had no associated
chest pain. Incidentally she also has COVID and has had some cough chest tightness with this. She presents awake alert no acute distress no associated headache. Blood pressure has been monitored and has decreased on its own. She has no
complaints of jaw pain tightness. She is nontoxic. Patient has had 2 cardiac troponins which are negative. No acute findings on EKG. She is in a flutter at a controlled rate of 83 anticoagulated on Eliquis. Regarding blood pressure patient to
follow-up with a bark fitter
Patient is a chronic wound to left anterior lower leg which is not new no complaints regarding this wound dressing is intact she is followed by wound care.
Chronic conditions affecting care:
afib , htn
*Pulse Oximetry
Patient hypoxic: no
*EKG
Interpreted by ED Provider?: Yes
Heart Rate: 121
Rate: tachycardiac
Rhythm: atrial flutter
Ischemia: other (repeat EKG aflutter no concerning findings. )
*Critical Care Note
Total Time (30-74mins, 75-104mins- exclusive of procedures): Not Applicable
Data Reviewed
Review of Other/Old Records Reveals: Discharge Summary and Other (previous ED visits )
ED Attending Note
-
Portions of this chart may have been created with voice recognition software.� Occasional wrong word or��sound alike� substitutions may have occurred due to the inherent limitations of voice recognition software.
Discharge Plan
Departure
Patient Disposition: Home (Routine Discharge)
Date of Disposition: 12/25/23
Time of Disposition: 15:58
Patient with high blood pressure during this ER visit?: Yes
Condition: Fair
Covid-19: Not Applicable
Discharge Problem:
Elevated blood pressure reading
Instructions: High Blood Pressure (DC), BLOOD PRESSURE
Prescriptions:
No Action
therapeutic multivitamin Tablet
1 tab PO DAILY Qty: 0
cyclosporine [Restasis] 0.05 % Dropperette
1 drp BOTH EYES DAILY Qty: 0
bupropion HCl 150 MG tablet extended release 24 hr
150 mg PO DAILY
Eliquis 2.5 MG tablet
2.5 mg PO BID
tramadol 50 mg Tablet
50 mg PO BIDPRN PRN (Reason: moderate pains)
levothyroxine [Synthroid] 100 mcg Tablet
100 mcg PO DAILY
vitamin B complex Tablet
1 tab PO DAILY
esomeprazole magnesium [Nexium] 20 mg Capsule,Delayed Release(Dr/Ec)
20 mg PO DAILY@1600
Trelegy Ellipta 100-62.5-25 mcg Blister With Device
1 inh INHALATION R DAILY
acetaminophen 325 mg Tablet
650 mg PO Q4HPRN PRN (Reason: mild pain/HELLER/temp> 100.4F) Qty: 10 0RF
atorvastatin 10 mg Tablet
10 mg PO HS Qty: 30 2RF
metoprolol succinate 50 mg Tablet Extended Release 24 Hr
50 mg PO DAILY Qty: 30 2RF
diltiazem HCl 240 mg Capsule,Extended Release 24hr
240 mg PO DAILY Qty: 30 2RF
Santyl 250 unit/gram ointment
1 applic topical DAILY Qty: 90 0RF
Referrals:
Venkata Shaver MD [Active] -
Grecia Alonzo MD [Family Provider] -
Activity Restrictions/Additional Instructions:
As discussed please follow-up with your bark fitter for further evaluation and management of blood pressure. Continue as of now take your blood pressure medications. Return if any worsening of symptoms.
Interventions
Interventions:
*Risk Screen - Suicide Last Done: 12/25/23 11:36
*General Assessment Last Done: 12/25/23 11:36
*Neglect/Abuse Screening Last Done: 12/25/23 11:36
ED- Fall Risk Assessment Last Done: 12/25/23 11:48
*ED COVID-19 Vaccine History Last Done: 12/25/23 11:36
ED- Cardiac Assessment Last Done: 12/25/23 11:47
ED- Neurological Assessment Last Done: 12/25/23 11:47
ED- Pulmonary Assessment Last Done: 12/25/23 11:47
Discharge Date and Time
Print Language: SINHALA
[2023-12-25 14:00] VITALS: BP 150/79
[2023-12-25 14:20] LABS: Troponin I < 0.012 ng/ml
[2023-12-25 15:00] VITALS: BP 154/87
[2023-12-25 15:48] LABS: Troponin I < 0.012 ng/ml
== END 2023-12-25 16:10 | disposition home or self-care (01) ==
LOC: EMR 11:26
PROVIDERS: Nurse Practitioner; EMERGENCY PHYSICIAN Emergency Medicine; FAMILY PHYSICIAN Internal Medicine
DX: I10 Essential (primary) hypertension (principal); I48.92 Unspecified atrial flutter; Z79.01 Long term (current) use of anticoagulants; Z86.718 Personal history of other venous thrombosis and embolism; Z87.891 Personal history of nicotine dependence
CPT/HCPCS: 99284; 80053; 84484; 85025; 93005

== ENCOUNTER → 2024-01-01 14:32 | Outpatient (REF) | payer MEDICARE, OTHER, SELFPAY | LOC: RAD 14:32 | PROVIDERS: ATTENDING PHYSICIAN Surgery; FAMILY PHYSICIAN Internal Medicine | DX: L97.822 Non-pressure chronic ulcer of other part of left lower leg with fat layer exposed (principal); I73.9 Peripheral vascular disease, unspecified | CPT/HCPCS: 93922; 93925 ==

== ENCOUNTER → 2024-01-06 08:19 | Outpatient (REF) | payer MEDICARE, OTHER, SELFPAY | LOC: WOUND 08:19 | PROVIDERS: ATTENDING PHYSICIAN Surgery; FAMILY PHYSICIAN Internal Medicine | DX: L97.822 Non-pressure chronic ulcer of other part of left lower leg with fat layer exposed (principal); L88 Pyoderma gangrenosum; I73.9 Peripheral vascular disease, unspecified; L03.116 Cellulitis of left lower limb; I87.2 Venous insufficiency (chronic) (peripheral); J43.9 Emphysema, unspecified; I10 Essential (primary) hypertension; Z86.718 Personal history of other venous thrombosis and embolism | CPT/HCPCS: 99213 ==

== ENCOUNTER 2024-01-08 08:53 | Day surgery (SDC) | payer MEDICARE, OTHER, SELFPAY ==
[2024-01-08 09:51] VITALS: BMI 22.7
== END 2024-01-08 11:26 | disposition home or self-care (01) ==
LOC: CATH 08:53
PROVIDERS: ATTENDING PHYSICIAN Internal Medicine Cardiovascular Disease; FAMILY PHYSICIAN Internal Medicine; OTHER PHYSICIAN Internal Medicine Cardiovascular Disease
DX: I49.5 Sick sinus syndrome (principal); I48.0 Paroxysmal atrial fibrillation; I10 Essential (primary) hypertension; E78.5 Hyperlipidemia, unspecified; Z79.01 Long term (current) use of anticoagulants
CPT/HCPCS: 92960; 93005

== ENCOUNTER 2024-01-09 10:17 | Inpatient (IN) | payer MEDICARE, OTHER, SELFPAY ==
[2024-01-09] VITALS (27 sets, daily range): BP systolic 91–147; BP diastolic 46–99; PULSE 44–115; BMI 24.5
[2024-01-09 06:03] LABS: % Basophils 1.4 % (0-2); % Eosinophils 2.9 % (0-6); % Immature Granulocytes 1.3 % (0-0.5); % Lymphocytes 17.8 % (20.5-51.1); % Monocytes 12.1 % (1.7-9.3); % Neutrophils 64.5 % (42.2-75.2); Absolute Basophils 0.1 10^3/uL (0-0.2); Absolute Eosinophils 0.2 10^3/uL (0-0.7); Absolute Immature Granulocytes 0.1 10^3/uL (0-0.05); Absolute Lymphocytes 1.2 10^3/uL (1.2-3.4); Absolute Monocytes 0.8 10^3/uL (0.1-0.6); Absolute Neutrophils 4.5 10^3/uL (1.4-6.5); Hematocrit 34.6 % (37.0-47.0); Hemoglobin 11.1 g/dL (12.0-16.0); Mean Corp Hgb Conc. 32.1 g/dL (33.0-37.0); Mean Corpuscular Volume 99.7 fL (81.0-99.0); Mean Platelet Volume 9.9 fL (7.4-10.4); Nucleated Red Blood Cells % 0 %; Platelet Count 281 10^3/uL (130-400); Red Blood Cell Count 3.47 10^6/uL (4.20-5.40); Red Cell Dist. Width 15.6 % (11.5-14.5)
--- NOTE | 2024-01-09 06:11 | ED.GENMED ---
History of Present Illness
General
Chief Complaint: Cardiac Symptoms
Source: patient, records and spouse
Exam Limitations: none
Time Seen by Provider: 01/09/24 06:01
Nursing documentation reviewed up to this point in time: agreed with
Travel History
Have you had any contact with someone who has COVID-19?: No
Do you have any symptoms of coronavirus? Fever > 100 degrees, chills, cough, shortness of breath, sore throat, loss of taste or smell, muscle aches, or headache?: No
History of Present Illness
History of Present Illness:
83-year-old female presents emergency department complaining of shortness of breath. EMS notes she is bradycardic, she was in the 30s upon their arrival. They gave 2 doses of atropine, and heart rate is in the 40s upon arrival. She had a
cardioversion yesterday Dr. Costello.
Past History
Past History
ED Past Medical History: Cancer (Lung), COPD, GERD, HTN, Hypercholesterolemia, Hypothyroidism and Psychiatric (depression)
ED Past Surgical History: Orthopedic (R knee replacement, bilateral hip replacement) and Other (DVT, IVC Filter)
Social History
Tobacco: Former smoker
Alcohol: None
Personal:
Living: with family
Family History
Family History: CAD
Review of Systems
Review of Systems
Allergies reviewed?: Yes
All Other Systems: Not applicable
Constitutional: Reports no symptoms
EENT: Reports no symptoms
Respiratory: Reports trouble breathing
Cardiac: Reports no symptoms
ABD/GI: Reports no symptoms
: Reports no symptoms
Musculoskeletal: Reports joint pain (Shoulder pain)
Skin: Reports no symptoms
Neurological: Reports no symptoms
Endocrine: Reports no symptoms
Hematologic/Lymphatic: Reports no symptoms
Psychiatric: Reports no symptoms
Phy Exam
Physical Exam
Physical Exam:
Physical Exam
General: Afebrile
Neck: supple. no meningeal signs. normal posterior pharynx
Heart: s1/s2 bradycardic, no murmur. equal radial
pulses.
HEENT: Pupils equal round reactive to light, EOMI
Lungs: no acute respiratory distress. clear bilaterally
Abdomen: normal bowel sounds. not tender. no CVAT
Neuro: alert and oriented. no focal neurological deficits cranial nerves II through XII intact
Skin: no rash
Psychiatric: well kept. interactive and cooperative
Extremities: no edema. no calf tenderness. negative homans. good distal pulses
Course
Orders/Labs/Results
Orders:
Orders
01/09/24
Echo 2D MMode Color/Doppler Stat
Reason for Study: Bradycardia
01/09/24 05:50
Electrocardiogram (*1) Urgent
Reason for Study: Chest Pain
EKG- Treatment ONCE
01/09/24 05:53
Complete Blood Count/With Diff Urgent
Comprehensive Metabolic Panel Urgent
Lipase Urgent
Comment: ADD ON
NT-proBNP Urgent
Comment: ADD ON
Troponin I Urgent
01/09/24 Breakfast
NPO
Allow oral meds: Yes
Allow clear liquids: 4hrs prior to procedure
Comment: may have unrestricted clear liquid up to 4 hrs prior to scheduled procedure
01/09/24 06:10
CR Chest Portable - 1 View Urgent
Comment:
Reason For Exam: short of breath, bradycardia
Reason Study Needs to be Portable: Patient Unstable
01/09/24 06:32
Acetaminophen [Tylenol] 650 mg PO NOW STA
DOPamine 400 MG/D5W 250 ML [DOPamine 400 MG] 400 mg in 250 ml IV NOW
Initial dose in mcg/kg/min, then titrate:: 5
Titrate to keep:: Heart Rate
Keep Heart Rate (bpm) greater than:: 50
Titrate by mcg/kg/min:: 1-2 mcg/kg/min
Frequency of titrations (minutes):: 15
Maximum dose in ICU in mcg/kg/min:: 20
Maximum dose in IMU in mcg/kg/min:: 10
Begin to taper infusion when:: Remained at goal for 4hrs
Taper by mcg/kg/min:: 1-2 mcg/kg/min
Frequency of taper (minutes) if patient maintains goal:: 30
Taper to off?: Yes
If infusion off & no longer maintaining goal:: Contact Provider
01/09/24 06:39
US Abdomen Complete/Upper Urgent
Comment:
Reason For Exam: RUQ pain, shoulder pain, lfts elevated
01/09/24 06:40
Add On- LAB Urgent
Tests Added?: lipase
01/09/24 06:41
CT Head W/o Iv Contrast Urgent
Comment:
Reason For Exam: headache
01/09/24 07:08
Trimethobenzamide [Tigan] 200 mg IM NOW STA
01/09/24 07:24
CeFAZolin 1 GRAM [Ancef] 1 gram 0.9% Sod Chloride 250 ml Irr [Nss Irrigation Bottle] 250 ml IRRIG CATH
CeFAZolin 2 GRAM [Ancef] 2 grams in 10 ml IV CATH
01/09/24 07:31
EKG [Electrocardiogram (*1)] Urgent
Reason for Study: Bradycardia / Tachycardia
EKG- Treatment ONCE
01/09/24 08:27
Add On- LAB Routine
Tests Added?: BNP
01/09/24 08:31
Fentanyl Citrate/Pf [Sublimaze] 50 mcg IV NOW STA
01/09/24 08:38
WOUND/OSTOMY CONSULT Routine
Reason for Consult: left lower extremity wound
01/09/24 09:39
Admit/Transfer Patient As Directed
Co-Sign Provider:
Level of Care: Inpatient admission
Assign to:: ICU
Physician / Group: Beth
Diagnosis: Severe symptomatic bradycardia
Reason for Hospitalization: see progress note
Expected length of stay greater than two midnights?: Yes
ELOS- Estimated Length of Stay in days: 3
I certify the patient meets the requirements for IP care: Yes
01/09/24 09:46
Code Status As Directed
Resuscitation Status: Full Code
01/09/24 09:54
Propofol [Diprivan] 40 ml .ROUTE .STK-MED
01/09/24 09:58
Lidocaine HCl/Pf [Xylocaine-Mpf 1% Vial] 50 mg .ROUTE .STK-MED ONE
01/09/24 10:09
0.9% Sod Chloride 500 ml Irr [Nss Irrigation Bottle] 500 ml .ROUTE .STK-MED
CeFAZolin 1 GRAM [Ancef] 5 ml .ROUTE .STK-MED
CeFAZolin 2 GRAM [Ancef] 2 grams in 10 ml .ROUTE .STK-MED
01/09/24 12:33
Saline Mist See Dose Instructions NASAL BIDPRN PRN
Tramadol HCl [Ultram] 50 mg PO BIDPRN PRN
01/09/24 12:33
CARDIOLOGY CONSULT Routine
Consulting Provider: Homer Krueger
Was physician already notified: Yes
Reason for consult: bradycardia
Activity As Directed
Activity Level: As Tolerated
I&O [Intake/ Output] As Directed
Frequency: q12h
Weight As Directed
Frequency: Daily
Oxygen Therapy [O2 Therapy] [RESP] Routine
Titrate/Wean O2 to maintain O2 sat greater than (%): 93
01/09/24 13:22
Artificial Tears (Pf) [Refresh Eye Drops (Pf)] 2 drops BOTH EYES BIDPRN PRN
01/09/24 18:00
Pantoprazole [Protonix] 40 mg PO QPM
01/09/24 20:00
Apixaban [Eliquis] 2.5 mg PO BID
cycloSPORINE [Restasis 0.05% Ophthalmic Emulsion] 1 drops BOTH EYES BID
01/10/24 06:00
CBC/No Diff [Complete Blood Count/No Diff] IN AM
Comprehensive Metabolic Panel IN AM
01/10/24 08:00
Bupropion(24Hr)Extended Releas [WELLBUTRIN XL (24 hour extended release)] 150 mg PO DAILY
Levothyroxine [Synthroid] 100 mcg PO DAILY
Abnormal Lab Results
01/09/24
05:53
RBC 3.47 L 10^6/uL
(4.20-5.40)
Hgb 11.1 L g/dL
(12.0-16.0)
Hct 34.6 L %
(37.0-47.0)
MCV 99.7 H fL
(81.0-99.0)
MCH 32.0 H pg
(27.0-31.0)
MCHC 32.1 L g/dL
(33.0-37.0)
RDW 15.6 H %
(11.5-14.5)
Abs Immat Gran (auto) 0.1 H 10^3/uL
(0-0.05)
Absolute Monos (auto) 0.8 H 10^3/uL
(0.1-0.6)
Immature Gran % 1.3 H %
(0-0.5)
Lymphocytes % 17.8 L %
(20.5-51.1)
Monocytes % 12.1 H %
(1.7-9.3)
BUN 28 H mg/dl
(7-17)
Creatinine 1.2 H mg/dL
(0.6-1.0)
Glucose 178 H mg/dl
(70-99)
Calcium 8.3 L mg/dl
(8.4-10.2)
AST 461 H U/L
(14-36)
ALT 192 H U/L
(0-35)
Alkaline Phosphatase 162 H U/L
(38-126)
Total Protein 6.2 L g/dl
(6.3-8.2)
Albumin 3.2 L g/dl
(3.5-5.0)
01/09/24 05:53
01/09/24 05:53
Vital Signs
Initial and Last Documented VS:
Initial Vital Signs
BP
91/62
01/09/24 05:50
Last Documented Vital Signs
Temp Pulse Resp BP Pulse Ox
98.3 F 64 17 129/82 94
01/09/24 13:30 01/09/24 13:30 01/09/24 13:30 01/09/24 13:30 01/09/24 13:30
MDM/Problems Addressed
Differential Diagnosis Includes:
Tachybradycardia syndrome, intracranial hemorrhage
MDM/Problems Addressed:
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
Chronic conditions affecting care: HTN, Cardiomyopathy and Arrhythmia
Acute Exacerbation and/or Progression of Chronic Illness: HTN, Cardiomyopathy and Arrhythmia
*Radiology
Radiology exam reviewed: radiology read reviewed (CT head no acute findings)
*Pulse Oximetry
Patient hypoxic: no
*EKG
Interpreted by ED Provider?: Yes
EKG Intrepretation Date: 01/09/24
EKG Intrepretation Time: 05:55
Interpretation: abnormal
Comparison EKG: changes noted
Heart Rate: 51
Rate: bradycardiac
Rhythm: a-fib
[place]: normal axis
Interval: normal interval
QRS Pattern: normal QRS
Ischemia: no ischemia
*Qa Manager Interpretation
Rate: bradycardiac
Interpretation: abnormal
Heart Rate: 45
Rhythm: a-fib
*Critical Care Note
Total Time (30-74mins, 75-104mins- exclusive of procedures): 35
comment:
Critical care statement: A total of 35 minutes of critical care time was provided for this patient. This includes management of unstable vital signs, evaluation of the patient at bedside, reviewing the patient's pertinent medical records, discussion
with consultants, review of old EKGs and review of pertinent medical records. This time with separate from time utilized to perform the aforementioned documented procedures
Patient Management
Discussion with other providers: Hospitalist and Vacuum Filter Operator (Tigertext sent to Dr. Krueger at 623am)
Escalation/DeEscalation of care consider admission/obs:
Admit indicated
ED Attending Note
-
Portions of this chart may have been created with voice recognition software.� Occasional wrong word or��sound alike� substitutions may have occurred due to the inherent limitations of voice recognition software.
Discharge Plan
Departure
Patient Disposition: Admit
Date of Disposition: 01/09/24
Time of Disposition: 08:13
Admit to: ICU
Presentation/result/management discussed w/ accepting MD/DO: Hospitalist
Patient with high blood pressure during this ER visit?: No
Condition: Serious
Discharge Problem:
Bradycardia, unspecified, Headache
Interventions
Interventions:
*Risk Screen - Suicide Last Done: 01/09/24 05:50
*General Assessment Last Done: 01/09/24 05:50
*Neglect/Abuse Screening Last Done: 01/09/24 05:50
ED- Fall Risk Assessment Last Done: 01/09/24 07:03
*ED COVID-19 Vaccine History Last Done: 01/09/24 05:50
*Nursing Disposition Last Done: 01/09/24 10:18
ED- Pulmonary Assessment Last Done: 01/09/24 07:03
ED- Cardiac Assessment Last Done: 01/09/24 07:03
Discharge Date and Time
Discharge Date/Time: 01/09/24 10:25
[2024-01-09 06:26] LABS: ALT (SGPT) 192 U/L (0-35); AST (SGOT) 461 U/L (14-36); Albumin 3.2 g/dl (3.5-5.0); Alkaline Phosphatase 162 U/L (38-126); Blood Urea Nitrogen 28 mg/dl (7-17); Calcium 8.3 mg/dl (8.4-10.2); Carbon Dioxide 27 mmol/L (22-30); Chloride 106 mmol/L (98-107); Estimated Creatinine Clearance 32 ml/min; Glucose 178 mg/dl (70-99); Sodium 137 mmol/L (135-145); Total Bilirubin 0.6 mg/dl (0.2-1.3); Total Protein 6.2 g/dl (6.3-8.2); eGFR 45.48
[2024-01-09 06:29] LABS: Troponin I 0.013 ng/ml
[2024-01-09] MEDS: TYLENOL 650 MG PO ×3 (06:40→20:39)
[2024-01-09] MEDS: DOPamine 400 MG 250 IV (06:42)
[2024-01-09] MEDS: TIGAN 200 MG IM (07:12)
--- NOTE | 2024-01-09 07:19 | EDRN ---
this RN noticed that the pts p02 dipped to 88%, the pt denies c/o SOB and denies c/o chest pain, this RN notified Dr. Morillo and per the provider this RN placed the pt on 4L NC and p02 is currently 98%, this RN also administered Tigan for nausea,
the pt is resting in stretcher in the lowest position, side rails up x2, call denis within reach, HOB elevated, the pt was given a fresh throw up bag, HR currently 56bpm with Dopamine gtt running at 7mcg/kg/min, last BP 108/47 (66), the pt is AAO,
able to answer questions appropriately and able to move all extremities, the pt stated to this RN that she has a headache 3/10 and right shoulder pain that is currently 6/10, Dr. Morillo is aware of this, will continue to monitor the pt closely
--- NOTE | 2024-01-09 07:26 | EDRN ---
this RN noticed that the pts HR spiked to 115, this RN titrated the pts Dopamine back down to 5mcg/kg/min, Dr. Morillo was notified, Cardiology currently at the pts bedside
--- NOTE | 2024-01-09 07:27 | EDRN ---
the pt has been notified that she is to be NPO, Dr. Krueger currently at the pts bedside speaking with the pt and the pts and Dr. Morillo
--- NOTE | 2024-01-09 07:57 | EDRN ---
the pt was taken to CT scan by this RN and PCT Ashley, the pts insisted on accompanying his to CT scan, this RN notified the pts that he would have to wait outside of CT scan while the scan was being performed, the pts
was okay with this, pt was okay lying flat for CT scan, VS remained WNL, the pt was brought back to ED Bed #8 and cardiac services was waiting for the pt to perform bedside echo, Dr. Krueger currently at the pts bedside speaking with the pt and the
pts
--- NOTE | 2024-01-09 07:58 | EDRN ---
to add to previous note, this RN noticed in CT scan that the pts p02 dipped to 92% on 4L NC, this RN titrated the pts 02 up to 6L NC and sp02 has remained at 99%, Dr. Morillo was notified, will continue to monitor the pt closely
[2024-01-09 08:01] LABS: Lipase 190 U/L (23-300)
--- NOTE | 2024-01-09 08:13 | EDRN ---
this RN was at the pts bedside as well as Dr. Krueger and the pt was c/o right groin pain and spasm and the pt stated to this RN, 'I need to get up out of this bed i can't stay in this bed i am too uncomfortable', this RN notified the pt that she is
not able to get out of bed at this point in time and Dr. Krueger also educated the pt on this as well, this RN an Dr. Krueger attempted to make the pt comfortable by placing a pillow under the b/l knees and ROM exercises and a warm compress for the
right groin, cardiac services currently still at the pts bedside, will continue to monitor the pt closely
--- NOTE | 2024-01-09 08:29 | EDRN ---
the individual from cardiac services approached this RN at the nurses station and stated that she was done however she stated that the pt asked her to put the side rail down so that the pt could get out of bed and stretcher her legs, this RN entered
the room and notified the pt that the side rails will not be put down so she can get out of bed per Dr. Krueger and Dr. Morillo, this RN asked the pt what this RN could do for her to make her more comfortable, the pt then stated to this RN, 'I
don't know i just need to get out of this bed it is so uncomfortable i need to get up, my back hurts and i keep having spasms and pain in my right leg from laying down for so long, this RN had the pt turn from side to side so that this RN could
change the pts fitted sheet and smooth out the linens, the pts gown was changed and a draw sheet was placed under the pt, the pt was repositioned by this RN and another RN for comfort, this RN also placed a pillow behind the pts lower back and
behind the pts upper back, this RN instructed the pt on ROM exercises again for her right let, the pt stated to this RN that she feels slightly better, this RN notified Dr. Morillo again that the pt is c/o right leg pain, per the provider, the pt
will receive IV pain medication, the pt is resting in stretcher in the lowest position, side rails up x2, call denis within reach, HOB elevated, the pts is currently still at the pts bedside, will continue to monitor the pt closely
[2024-01-09] MEDS: SUBLIMAZE 50 MCG IV (08:36)
--- NOTE | 2024-01-09 08:39 | EDRN ---
Fentanyl 50mcg IV was administered for right leg pain 03/07, this RN noticed that the pt had a left lower leg wound with a dressing in place, per the pts request a wound consult was placed, the pt did not want this RN to remove dressing until wound
care came to assess the wound site, Dr. Morillo notified
--- NOTE | 2024-01-09 09:00 | EDRN ---
this RN entered the pts room to check on the pt and the pts stated to this RN, 'She is very bent out of shape over her left leg wound, she wants it changed now and she wants wound care in here, so when will that happen', this RN notified the
pt and the pts that wound care was consulted and that they will be in when they can, the pts stated, 'Well my leg stinks and i don't like it so it needs to be changed', this RN asked the pt what she does at home to change the would and
the pt stated, 'I first wash it off with soap and water then i pat it dry, then after that in the well of the would i place Clobetasol cream, then i place a fresh bandage on it and then i put a compression sock over it for selling', this RN spoke
with pharmacy and the hospital does not carry Clobetasol cream, wound care is currently at the pts bedside speaking with the pt and the pts , the pt also removed her oxygen and removed her Sp02, this RN reminded the pt that her 02 must stay
on and that her Sp02 monitor must stay on however this RN stated that we can rotate the fingers that the p02 monitor is on, the pt was agreeable to this, will continue to monitor the pt closely
--- NOTE | 2024-01-09 09:08 | EDRN ---
the wound care nurse asked this RN for opti foam border dressing, this RN grabbed a small and large optifoam, this RN brought it to the wound care nurse that was at the pts bedside and the pts stated to this RN, 'Where did you find that?',
this RN told the pts that this RN had to go to the supply room to get it, the pt is resting in stretcher in the lowest position, side rails up x2, call denis within reach, HOB elevated, no c/o chest pain, no c/o SOB, the pt is currently Sinus
Bradycardia, the pt is currently on 6L NC, Sp02 99%, last BP 128/54 (75), will continue to monitor the pt closely
[2024-01-09 09:19] LABS: NT-proBNP 1370 pg/ml
--- NOTE | 2024-01-09 09:26 | WOUNDNOTE ---
[facility] RN note: Patient admitted with 'feeling unwell' after cardio procedure. Awaiting full H& P
See H&P for complete history.
Wound Location and type/assessment: Patient admitted with left LE venous appearing wound. Patient follows at [facility]. Patient reports cleaning wound with Ivory soap daily and covering with an ointment and dry dressing as ordered by Dr. Huang. +
palpable pedal pulse, wears tubi analysis engineer. Wound bed with some adherent fibrin and moderate drainage, no odor noted, periwound with local erythema. Patient is slightly confused and anxious and is accompanied by . She arrived to ER less than 3
hours ago and is on a stretcher. describes good appetite and good mobility at home. Heels intact.
Plan: Wound was cleaned with normal saline and covered with adaptic, alginate and dry dressing. Per LAURA Schwartz, patient will be transferred to ICU. Will confirm orders with hospitalist. Patient should continue to follow up with [facility] at discharge.
--- NOTE | 2024-01-09 09:32 | EDRN ---
hospitalist currently at the pts bedside speaking with the pt and the pts
--- NOTE | 2024-01-09 09:50 | HPS.HSE ---
Family Physician
-
Family Physician: Grecia Alonzo
Chief Complaint
-
Shortness of breath and felt like passing out
History of Present Illness
Patient had a recent onset of atrial flutter. She had an elective cardioversion yesterday
Prior to cardioversion she had some shortness of breath. She has a history of lung cancer 10 years ago and she has COPD. She is not on home O2.
Post cardioversion in the later part of the day she was feeling short of breath.Denies cough.
She woke up this morning at 3 AM because she could not breathe and she felt she was going to pass out. She had a dry mouth. No syncope.
She felt bit nauseous. Since COVID because of the taste dysfunction she lost her appetite. No abdominal pain. No major changes with her bowel habits.
No chest pain. No fever or chills.
she has a chronic left leg wound which is not healing and due to get endovenous laser treatment in 2 weeks.
Medical History
Past Medical History
Past Medical History: Reports Other
Additional Past Medical History:
A-flutter October 02, 2023
hypothyroidism
Stage IIIa non-small cell lung adenocarcinoma 2013 s/p radiation and chemo left lung
COPD
former smoker
GERD
HTN
depression
DVT/IVC filter,
Hx neutropenia May WBC 2.1
CKD 3B
prior DVT right leg 2009 post knee replacement
#History of prior multiple DVTs 2004
Past Surgical History: Reports Other
Additional Past Surgical History:
Right knee replacement
Bilateral hip replacement
IVC filter for DVT January 2015
Appendectomy
Hysterectomy
Left inguinal hernia repair
Cataract extraction 2018
Social History
Tobacco: Former Smoker (Quit 1996)
Alcohol: None
Personal:
Living: With Family ( Just[place])
Employment: Retired
Family History
Family History: Other (Mother breast cancer, father bladder cancer also history of A-fib and SD)
Allergies / Home Medications
Allergies reflects when Allergies were last updated in [facility].
Home Medications with original date entered in [facility]
Allergy/Medication List:
Allergies
Allergy/AdvReac Type Severity Reaction Status Date / Time
clarithromycin [From Biaxin] Allergy GASTRIC Verified 10/02/23 10:15
PROBLEMS
erythromycin base Allergy GI PROBLEMS Verified 10/02/23 10:15
meperidine Allergy Pharmacy Verified 10/02/23 10:15
to Review
meperidine HCl [From Demerol] Allergy Pharmacy Verified 10/02/23 10:15
to Review
mold Allergy irritated Uncoded 10/02/23 10:15
eyes
seasonal allergies Allergy sneezing,running Uncoded 10/02/23 10:15
nose,irritated
eyes
Home Medications
cyclosporine 0.05 % eye drops in a dropperette (Restasis) 1 drp BOTH EYES Q12H ##0 03/15/10
therapeutic multivitamin 1 tab PO DAILY ##0 03/15/10
simvastatin 20 mg tablet (Zocor) 20 mg PO HS ##0 11/11/13
bupropion HCl 150 mg 24 hr tablet, extended release 150 mg PO DAILY 11/21/15
apixaban 2.5 mg tablet (Eliquis) 2.5 mg PO BID 05/28/19
acetaminophen 500 mg tablet (Tylenol Extra Strength) 500 mg PO Q4H 11/26/23
carboxymethylcellulose 0.5 %-glycerin 0.9 % eye drops (Refresh Optive) 1 drp BOTH EYES BID 11/26/23
esomeprazole magnesium 20 mg capsule,delayed release (Nexium) 20 mg PO DAILY@1600 11/26/23
fluticasone fur. 100 mcg-umeclid 62.5 mcg-vilant 25 mcg inhalat.powder (Trelegy Ellipta) 1 inh inhalation R DAILY 11/26/23
levothyroxine 100 mcg tablet (Synthroid) 100 mcg PO DAILY 11/26/23
metoprolol succinate 25 mg tablet,extended release 24 hr 50 mg PO DAILY 11/26/23
silver sulfadiazine 1 % topical cream (SSD) 1 applic topical DAILY left ankle wound 11/26/23
sodium chloride 0.65 % nasal spray aerosol 1 spray intranasal DAILY 11/26/23
tramadol 50 mg tablet 50 mg PO BIDPRN PRN moderate pains 11/26/23
vitamin B complex 1 tab PO DAILY 11/26/23
Review of Systems
-
A 12 point ROS was completed and negative except as noted: Yes
Physical Exam
Vital Signs
Vital Signs
Temp Pulse Resp BP Pulse Ox
97.8 F 59 20 102/57 98
01/09/24 09:00 01/09/24 09:30 01/09/24 09:30 01/09/24 09:22 01/09/24 09:30
Physical Exam
General: No Apparent Distress
HEENT: Moist mucous membranes
Respiratory: Crackles (few basal crackles) and Non Labored Respirations; No Wheezes or Accessory Resp Muscle Use
Cardiac: S1/S2, Irregular Rhythm and Murmur
GI: Soft, Non Tender, Non Distended and Normal Bowel Sounds
Musculoskeletal: Edema, Left Lower Extremity (dressing on left leg wound) and Edema, Right Lower Extremity (1+bl)
Neuro: AO x 3 and No Motor Deficits
Psych: Calm; No Confused
Laboratory Results
-
01/09/24 05:53
01/09/24 05:53
Laboratory Results
Total Bilirubin 0.6 mg/dl (0.2-1.3) 01/09/24 05:53
AST 461 U/L (14-36) H 01/09/24 05:53
ALT 192 U/L (0-35) H 01/09/24 05:53
Alkaline Phosphatase 162 U/L (38-126) H 01/09/24 05:53
Troponin I 0.013 ng/ml 01/09/24 05:53
Lipase 190 U/L (23-300) 01/09/24 05:53
Data Reviewed
-
Diagnostic Radiology: Report Reviewed by me (cxr)
CT Scan: Report Reviewed by me (ct head)
Lab Data: Labs Reviewed by me
Impression/Plan
-
Sudden onset of episode of presyncope with shortness of breath with the severe sinus bradycardia and AV disassociation- suspect her symptoms are all related to her rhythm issue and bradycardia. admit to ICU where she is on dopamine for heart rate
treatments. Consult Cardiology. Hold Cardizem and beta-geoffrey.
Recent atrial flutter s/p cardioversion 01/08/24-in sinus rhythm but bradycardic and has an AV disassociation. Continue with Eliquis. Hold AV samira blockers.
Acute hypoxic respiratory [id number] x-ray without any failure, BNP for her age is not elevated. No obvious pneumonia . No obvious COPD flare. Not on home O2. Doubt PE - on AC at home. Wean O2 , optimize her HR and follow on Oxygen
therapy.
Acute transaminitis-no abdominal pain or tenderness. Cannot rule out hemodynamics related to cardioversion yesterday. She does have tricuspid regurgitation and dilated RV and could be secondary to right heart failure. Check an ultrasound to make
sure there is no biliary disease and follow LFTs. Hold statins.
COPD with hx of lung Ca - no flare - cw home meds.
Full code
--- NOTE | 2024-01-09 10:16 | EDRN ---
verbal report was called to the collaborative teacher by ED charge nurse
--- NOTE | 2024-01-09 12:05 | ITS.CL.PACE ---
Welfare Service Aide - Pacemaker Implant
Pacemaker Implant
Procedure Report:
Dual Chamber Pacemaker Placement:
Ms. 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
Indications: Tachy Benjie syndrome
Date of the Procedure: 01/09/24
Pre-Operative Diagnosis: Tachy Benjie syndrome
Post-Operative Diagnosis: Tachy Benjie syndrome
Procedure Performed: DUAL CHAMBER PACEMAKER IMPLANTATION
Performing Physician:
Lynda Rubin MD
Assistants:
EP staff
Anesthesia:
See anesthesia report
Pre-operative antibiotics:
Ancef
Detailed Description of the Procedure:
The patient was identified using hospital identification and informed consent obtained for the procedure. The risks were explained including, but not limited to: Bleeding, infection, arrhythmia, stroke, vascular/cardiac/lung puncture, surgery,
pacemaker dependency/device malfunction. All questions were answered.
The patient was brought to the electrophysiology laboratory in stable condition in fasting state. Continuous electrocardiographic and hemodynamic monitoring was initiated.
The initial rhythm was normal sinus rhythm with second-degree sinus block.
A surgical pause and time out was performed immediately prior to the procedure with review of her medical history, recent labs, allergies and medications with site of procedure identified and consent noted in the chart. Antibiotics pre operatively
given. All team members concurred.
The procedure site was meticulously prepared with surgical scrub and allowed to dry with no pooling. Sterile draping was applied to cover the procedure site. The image intensifier was draped with sterile bag and positioned over the patient.
The left infraclavicular region was prepped and draped in the usual sterile fashion. Local anesthesia was administered subcutaneously using 1% lidocaine / Bupivacaine. The left cephalic vein cutdown was performed with an incision at the
delto-pectoral groove, and vascular sheaths were introduced for lead access. These were advanced into the right ventricle and the right atrium.
There were extreme tortuosity noted in the subclavian vein and long sheaths were needed. 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
The right ventricular lead was secured in position with an active fixation technique at the apical septal location. There was severe tricuspid regurgitation noted which pushed the RV lead. The initial RV signal dropped over time and lead was
repositioned with excellent sensing and threshold noted.
The RA lead was attached in the right atrial appendage with active fixation.
There was excellent sensing, pacing, and impedance from the leads, with no diaphragmatic stimulation at 10 V output.�Bovie cautery, antibiotics, and fluoroscopy were used.
The sheaths were withdrawn, and the thresholds remained acceptable. The leads were secured in position at the venous entry site with 0-ethibond. A pocket was fashioned contiguous to the incision. The electrode terminals were connected to the pulse
generator, which was placed into the pocket. The wound was irrigated thoroughly with antibiotic solution.
The device was anchored to the underlying fascia using 2-0 Ethibond.
The wound was closed in 3 layers using 2-0 V loc then two layers of 4-0 V loc sutures to the dermis. Steri-strips were applied externally and covered with Aquacel bandage.
Procedure End:
The procedure was tolerated well.
Estimated Blood loss:
10 cc
Specimens Removed:
No cultures and no specimens were obtained. No intraoperative pathology was identified.
Fluoro time:
2.6 min / 4.9mGy
Urine output:
None
Packs / Drains/ Tubes:
None
Instrument / Sponge Count Correct:
Yes
Complications of the Procedure:
None
Condition of Patient at Time of Transfer:
Hemodynamically stable with no neurological or vascular compromise.
Device information:�
Generator: [employer]; Model: W1DR01; Serial # [id number]�
Atrial Lead:
[employer]; Model: 5076-45; Serial # [id number] �
Measured data in the right atrium was sensing of 3.0mV, impedance of 418 ohms and threshold of 0.75 V at 0.4ms.
RV Lead:
[employer]; Model: 5076-52; Serial # [id number]
Measured data in the RV lead was sensing of 5.6 mV, impedance of 893 ohms and threshold of 1.5 V at 0.4ms�
Benjie parameter settings were AAIR < = > DDDR 60-130 bpm. �
����������� Mode Switch: On
����������� Paced AV interval: 180ms
����������� Sensed AV interval: 150 ms.
����������� Rate Adaptive A-V Interval: Off
Output parameters:
����������������������� Amplitude (V)������������� Pulse Width (ms)������� Sensitivity (mV)
����������� RA: ���� 3.5 ����������������� ����������� 0.4������������������ ����������� 0.3
����������� RV:����� 3.5������������������ ����������� 0.4������������������ ����������� 0.9
Summary:
Successful implantation of MRI compatible dual chamber pacemaker
Results/Recommendations:
-Please follow up CXR�
1. Please provide patient with adequate pain control�
Instructions to be given to patient:�
- Please follow up with [facility] at [address] [place] [address] ([phone]) to get your wound checked within 14 days of your discharge.
- Do not wet incision site until after it is evaluated at cardiology clinic. No soaking or bath until then. Showers or Sponge baths are OK.�Dab dry the area after a shower.
- Do not lift left elbow above shoulder, particularly with sudden jerking movements, for 1 month�
- Do not lift anything weighing more than 10 pounds with the left arm for 1 month�
- If you notice any fevers, shortness of breath, lightheadedness, chest pain, or worsening swelling in the wound site, please contact the arrhythmia clinic, contact your house mover helper, or present to the hospital for evaluation.�
Lynda Rubin MD
Electrophysiology
--- NOTE | 2024-01-09 15:44 | CM ---
Chart reviewed. Patient is independent of ADLS, lives with her in a [address], 1 [address]VETTE, 0 DME. Patient is current with [facility] and would like to resume services once medically stable for discharge. Plan is for the patient to return home with [facility].
[2024-01-09] MEDS: PROTONIX 40 MG PO (17:03)
[2024-01-09] MEDS: ANCEF 5 IV (17:36)
[2024-01-09] MEDS: SYMBICORT 80/4.5 MCG INHALER 2 PUFF INH (19:32)
[2024-01-09] MEDS: ELIQUIS 2.5 MG PO (20:06)
[2024-01-09] MEDS: RESTASIS 0.05% OPHTHALMIC EMULSION 1 DROPS BOTH EYES (20:06)
[2024-01-09] MEDS: ULTRAM 50 MG PO (23:52)
[2024-01-10] VITALS (8 sets, daily range): BP systolic 125–145; BP diastolic 60–112; BMI 23.4
[2024-01-10] MEDS: ANCEF 5 IV (02:35)
[2024-01-10 04:42] LABS: Hematocrit 33.2 % (37.0-47.0); Mean Corp Hgb Conc. 33.1 g/dL (33.0-37.0); Mean Corpuscular Hgb 32.4 pg (27.0-31.0); Mean Corpuscular Volume 97.6 fL (81.0-99.0); Mean Platelet Volume 9.6 fL (7.4-10.4); Platelet Count 225 10^3/uL (130-400); Red Cell Dist. Width 15.2 % (11.5-14.5); White Blood Cell Count 6.5 10^3/uL (4.8-10.8)
[2024-01-10 05:53] LABS: ALT (SGPT) 159 U/L (0-35); AST (SGOT) 231 U/L (14-36); Albumin 3.1 g/dl (3.5-5.0); Alkaline Phosphatase 169 U/L (38-126); Blood Urea Nitrogen 27 mg/dl (7-17); Carbon Dioxide 22 mmol/L (22-30); Chloride 108 mmol/L (98-107); Estimated Creatinine Clearance 38 ml/min; Glucose 112 mg/dl (70-99); Magnesium 1.9 mg/dl (1.6-2.3); Potassium 4.6 mmol/L (3.5-5.1); Sodium 136 mmol/L (135-145); Total Bilirubin 0.5 mg/dl (0.2-1.3); Total Protein 6.1 g/dl (6.3-8.2)
[2024-01-10] MEDS: SYNTHROID 100 MCG PO (06:14)
--- NOTE | 2024-01-10 07:26 | W.PN.CD ---
Today's Communication / Plan
-
-Increase diltiazem to 240 mg once a day and add metoprolol 25 mg once a day.
-Patient is stable for discharge from cardiac standpoint.
Impression / Plan
-
Symptomatic bradycardia on 01/10/2024
-Successful implantation of MRI compatible dual chamber pacemaker
-Demand pacing noted
Atrial flutter. Patient with recent cardioversion 01/08/2024
-Eliquis resumed, typical op dose is 59kg, if remains >60 kg at follow up will need an increase in Eliquis dose.
-Patient's diltiazem and metoprolol was held/reduced due to bradycardia.
-With pacemaker in place, we will resume diltiazem to 240 mg once a day and also add metoprolol 25 mg once a day.
-Patient was not able to tolerate 50 mg metoprolol previously.
.
.Headache
-Given DOAC CTH done, negative.
-she can link the HELLER to bb increase.
-Will resume diltiazem to 40 mg once a day and reduce metoprolol dose to 25 mg once a day.
.
SOB - improving but cxr with rll infiltrate, possible PNA, will defer to medicine.
-some symptoms may be due to bradycardia now resolved
-recent COVID may be playing a role
.
Elevated LFTs.May be related to hemodynamic changes.
-improving, continue to hold statin until returns to baseline.
.
Note patient has history of DVT IVC filter.
Subjective:
sob is greatly improved, productive cough with yellow sputum remains (recent COVID). Tenderness at ppm site
Physical Exam
Vital Signs/Labs
Vital Signs
Temp Pulse Resp BP Pulse Ox
97.8 F 78 18 125/62 98
01/10/24 04:38 01/10/24 04:22 01/10/24 04:38 01/10/24 04:22 01/09/24 23:07
01/09/24 01/10/24 01/11/24
06:59 06:59 06:59
Actual Weight 64.8 kg 61.7 kg
01/10/24 04:33
01/10/24 04:33
Magnesium 1.9 mg/dl (1.6-2.3) 01/10/24 04:33
01/09/24
05:53
Odo-D-Refgqhiouys Pept 1370
LAB Results
01/09/24
05:53
Troponin I 0.013
Physical Exam
Constitutional: No acute distress and Comfortable
EENT: Anicteric and Moist mucous membranes
Cardiovascular: Rhythm & rate is regular, Pedal edema is absent and JVD pressure is normal
Respiratory: Respiratory effort normal, Lungs clear to auscul., Wheeze Absent and Crackles Absent
GI: Soft, Distention absent, Non tender and Normal bowel sounds
Neuro/Psych: Alert, Oriented and AO x 3
Other: Cardiac Device Site
Data Reviewed
-
Date of Service: January 10, 2024
Medical Decision Making: Reviewed Test Results, Independent Historian Assessment, Test Interpretation and Review of Case with other Provider
EKG: Tracing Personally Visualized and interpreted
Echo: Report Reviewed by me
Labs: Labs Reviewed by me
Old Records: Reviewed
--- NOTE | 2024-01-10 08:21 | VNURNOTE ---
Patient is current with [facility] since 12/02 w/SN/PT/OT.
--- NOTE | 2024-01-10 08:24 | W.PN.CD ---
Today's Communication / Plan
-
Symptomatic bradycardia on 01/10/2024
-Successful implantation of MRI compatible dual chamber pacemaker
Atrial flutter. Patient with recent cardioversion 01/08/2024
-Eliquis resumed, typical op dose is 59kg, if remains >60 kg at follow up will need an increase in Eliquis dose.
-resume diltiazem dose at 1/2 dose tonight
.
.Headache
-Given DOAC CTH done, negative.
-she can link the HELLER to bb increase, will add back diltiazem only now to see if this helps.
-Preceded presentation today has been an ongoing symptom. With patient on anticoagulation would proceed with head CT
.
SOB - improving but cxr with rll infiltrate, possible PNA, will defer to medicine.
-some symptoms may be due to bradycardia now resolved
-recent COVID may be playing a role
.
Elevated LFTs.May be related to hemodynamic changes.
-improving, continue to hold statin until returns to baseline.
.
Note patient has history of DVT IVC filter.
Subjective:
sob is greatly improved, productive cough with yellow sputum remains (recent COVID). Tenderness at ppm site
Physical Exam
Vital Signs/Labs
Vital Signs
Temp Pulse Resp BP Pulse Ox
98.1 F 76 18 125/62 96
01/10/24 07:30 01/10/24 07:30 01/10/24 07:30 01/10/24 04:22 01/10/24 07:30
01/09/24 01/10/24 01/11/24
06:59 06:59 06:59
Actual Weight 64.8 kg 61.7 kg
01/10/24 04:33
01/10/24 04:33
Magnesium 1.9 mg/dl (1.6-2.3) 01/10/24 04:33
01/09/24
05:53
Rnh-R-Nmjzitrykbe Pept 1370
LAB Results
01/09/24
05:53
Troponin I 0.013
Physical Exam
Constitutional: No acute distress
Cardiovascular: Rhythm & rate is regular, Pedal edema is absent, JVD pressure is normal and Systolic murmur absent
Respiratory: Respiratory effort normal, Lungs clear to auscul., Wheeze Absent, Crackles Absent and Rhonchi Absent
Neuro/Psych: AO x 3
Other: Cardiac Device Site (PPM soft no hematoma dressing cdi)
Data Reviewed
-
Date of Service: January 10, 2024
X-Ray/CT/US/MRI/NUC/PET: Image Personally Visualized and interpreted (new cardiac device moderate rt lower lobe infcation c/f pna, and new)
[2024-01-10] MEDS: WELLBUTRIN XL (24 hour extended release) 150 MG PO (08:29)
[2024-01-10] MEDS: RESTASIS 0.05% OPHTHALMIC EMULSION 1 DROPS BOTH EYES ×2 (08:29→19:50)
[2024-01-10] MEDS: ELIQUIS 2.5 MG PO ×2 (08:29→19:47)
[2024-01-10] MEDS: SPIRIVA RESPIMAT 2.5 MCG 2 PUFF INH (08:38)
[2024-01-10] MEDS: SYMBICORT 80/4.5 MCG INHALER 2 PUFF INH ×2 (08:38→19:33)
--- NOTE | 2024-01-10 09:30 | PTCARENOTE ---
received patient this am with LCW pressure dsg. and immobilizer intact. patient doesn't have pain at site. patient is forgetful but easily oriented. patient is concerned about LLE wound, wound care was consulted. monitor shows NSR, VSS.
--- NOTE | 2024-01-10 10:11 | W.PN.HOSP.TC ---
Today's Communication/Plan
-
Add Augmentin.
Check Tylenol level.
Follow ultrasound of the abdomen report.
Follow LFTs.
DC planning.
Assessment / Plan
Assessment / Plan
Sudden onset of episode of presyncope with shortness of breath with the severe sinus bradycardia and AV disassociation- suspect her symptoms are all related to her rhythm issue and bradycardia. Status post pacemaker. Improved rates. Put back on
Cardizem.
No further beta-geoffrey because of adverse reactions related-Headache and bronchospasm.
Recent atrial flutter s/p cardioversion 01/08/24- . Continue with Eliquis. Back on Cardizem.
Acute hypoxic respiratory insufficiency- Resolved with resolution of AV block .
RLL opacity - new since admission ; chronic cough but worse this morning . Such rapidity in development of opacity could be atelectasis or had a silent aspiration procedure.Afeb , nontoxic. Start on Augmentin and follow.
Acute transaminitis-no abdominal pain or tenderness. Cannot rule out hemodynamics related to cardioversion . She does have tricuspid regurgitation and dilated RV and could be secondary to right heart failure. Check an ultrasound to make sure
there is no biliary disease .LFTs are already improving. Hold statins.
Patient also states since September after the accident for the left lower leg wound she has been taking on a regular basis Tylenol but she was keeping it to 2.5 grams per day at the max. If all neg could be med related . Add tylenol levels to admit labs.
COPD with hx of lung Ca - no flare - cw home meds.
DW Card -ok for dc form their standpoint.
Full code
Anticipated Discharge: 24 - 48 hours
Subjective/Interval History
-
Date of Service: January 10, 2024
This morning she was noticing cough. She had some cough post COVID but then noticing it more this morning. Stamina mucoid yellow phlegm.
She complains of beta-blockers giving her headache an hour after taking it and also makes her chest tight. She has issues with seasonal allergies and does get wheezing.
Denies any shortness of breath this morning.
No chest pains.
No nausea vomiting.
No fever or chills.
Objective Data
-
Labs:
Laboratory Results
01/10/24
04:33
WBC 6.5
Hgb 11.0 L
Hct 33.2 L
Plt Count 225
Sodium 136
Potassium 4.6
Chloride 108 H
Carbon Dioxide 22
BUN 27 H
Creatinine 1.0
Glucose 112 H
Calcium 9.0
Total Bilirubin 0.5
AST 231 H
ALT 159 H
Alkaline Phosphatase 169 H
Vital Signs:
Vital Signs
Temp Pulse Resp BP Pulse Ox
98.1 F 92 16 137/71 96
01/10/24 07:30 01/10/24 08:50 01/10/24 08:50 01/10/24 07:29 01/10/24 08:50
I&O
01/09/24 01/10/24 01/11/24
06:59 06:59 06:59
Intake Total 1035 / 1035
Balance 1035 / 1035
Review of Systems
-
Constitutional: Denies Fever
EENT: Denies Sore Throat
Abdomen/GI: Denies Abdominal Pain
Neuro: Denies Dizzy
Physical Exam
-
General: No Apparent Distress
HEENT: Moist Mucous Membranes
Respiratory: Wheezes (Occasionally noted in the left lung today.), Crackles (few in RLL ) and Non Labored Respirations; Negative Accessory Resp Muscle Use
Cardiac: Regular Rhythm and S1/S2
GI: Soft
Neuro: AO x 3
Psych: Calm
Data Reviewed
-
Diagnostic Radiology: Report Reviewed by me (cxr)
Labs: Labs Reviewed by me
[2024-01-10] MEDS: TYLENOL 650 MG PO (10:30)
--- NOTE | 2024-01-10 10:31 | PTCARENOTE ---
patient c/o LCW incisional pain, Tylenol po given as ordered.
[2024-01-10 11:11] LABS: Acetaminophen < 10 ug/ml (10-30)
[2024-01-10] MEDS: AUGMENTIN 875 MG/125 MG 1 TABLET PO ×2 (11:14→19:44)
--- NOTE | 2024-01-10 13:32 | PTCARENOTE ---
patient went into a supraventricular tachycardia, HR 140's, BP 132/68, patient does feel palpitations. TT Leslee Tang NP and Dr. Elena. EKG obtained. Leslee will be up to see patient.
--- NOTE | 2024-01-10 13:39 | CM ---
Chart reviewed. Patient is independent of ADLS, lives with her in a 2 [address], 1 [address]VETTE, 0 DME. Patient is current with [facility]. Plan is to resume services when medically stable for DC. Plan is for the patient to return home with [facility]. CM to
follow
--- NOTE | 2024-01-10 13:41 | PTCARENOTE ---
Leslee Tang NP and Dr. Costello in room, patient broke to NSR in the 80's, MD didnot give adenosine.
--- NOTE | 2024-01-10 13:45 | W.PN.UPDATE ---
Update Note
Progress Note Update
Alerted by nursing that patient with SVT in 140's with stable BP and minimally symptomatic with palps. Dr. Costello and I to bedside. Patient looked well and went back to SR without intervention. Continue dilt. Monitor telemetry.
--- NOTE | 2024-01-10 16:25 | PTCARENOTE ---
patients requested to have left lower leg dsg. changed. patient has been seeing wound care. dsg.removed, foul smelling odor,which patient informed me of before taking off dsg. wound bed is pink, no drainage, washed with saline, ointment applied
which patient uses from home and border dsg. applied. distal pulse palpable.
[2024-01-10] MEDS: PROTONIX 40 MG PO (17:47)
--- NOTE | 2024-01-10 19:15 | PTCARENOTE ---
report received. aaox3. apaced. vss. pt updated on plan of care. will monitor.
[2024-01-10] MEDS: CARDIZEM CD 120 MG PO (22:00)
[2024-01-11] VITALS (8 sets, daily range): BP systolic 122–179; BP diastolic 65–97; BMI 23.0
[2024-01-11 03:26] LABS: ALT (SGPT) 115 U/L (0-35); AST (SGOT) 168 U/L (14-36); Albumin 3.3 g/dl (3.5-5.0); Alkaline Phosphatase 150 U/L (38-126); Blood Urea Nitrogen 28 mg/dl (7-17); Calcium 9.3 mg/dl (8.4-10.2); Carbon Dioxide 29 mmol/L (22-30); Chloride 105 mmol/L (98-107); Estimated Creatinine Clearance 42 ml/min; Glucose 92 mg/dl (70-99); Potassium 4.4 mmol/L (3.5-5.1); Sodium 139 mmol/L (135-145); Total Bilirubin 0.5 mg/dl (0.2-1.3); Total Protein 6.5 g/dl (6.3-8.2); eGFR > 60.00
[2024-01-11] MEDS: TYLENOL 650 MG PO ×2 (06:30→15:45)
[2024-01-11] MEDS: SYNTHROID 100 MCG PO (06:30)
[2024-01-11] MEDS: SPIRIVA RESPIMAT 2.5 MCG 2 PUFF INH (08:25)
[2024-01-11] MEDS: SYMBICORT 80/4.5 MCG INHALER 2 PUFF INH ×2 (08:25→19:58)
[2024-01-11] MEDS: RESTASIS 0.05% OPHTHALMIC EMULSION 1 DROPS BOTH EYES ×2 (08:44→20:08)
[2024-01-11] MEDS: AUGMENTIN 875 MG/125 MG 1 TABLET PO ×2 (08:44→20:07)
[2024-01-11] MEDS: WELLBUTRIN XL (24 hour extended release) 150 MG PO (08:44)
[2024-01-11] MEDS: ELIQUIS 2.5 MG PO ×2 (08:44→20:08)
--- NOTE | 2024-01-11 09:56 | W.PN.HOSP.TC ---
Today's Communication/Plan
-
CXR and resolved opacity dc abx and dc home
Assessment / Plan
Assessment / Plan
Sudden onset of episode of presyncope with shortness of breath with the severe sinus bradycardia and AV disassociation- suspect her symptoms are all related to her rhythm issue and bradycardia. Status post pacemaker. Improved rates. Put back on
Cardizem.
No further beta-geoffrey because of adverse reactions related-Headache and bronchospasm.
Recent atrial flutter s/p cardioversion 01/08/24- . Continue with Eliquis. Back on Cardizem.
Acute hypoxic respiratory insufficiency- Resolved with resolution of AV block .
RLL opacity - new since admission ; chronic cough but worse this admission . Such rapidity in development of opacity could be atelectasis or had a silent aspiration procedure.Afeb , nontoxic, and WBC normal. cw Augmentin and follow.
Acute transaminitis-no abdominal pain or tenderness. Cannot rule out hemodynamics related to cardioversion . She does have tricuspid regurgitation and dilated RV and could be secondary to right heart failure. ultrasound to shows no obvious
biliary disease .LFTs are already improving. Hold statins.
Patient also states since September after the accident for the left lower leg wound she has been taking on a regular basis Tylenol but she was keeping it to 2.5 grams per day at the max. If all neg could be med related . Tylenol levels <10 on
admission.Follow LFTs as OP.
COPD with hx of lung Ca - no flare - cw home meds.
DW Card -ok for dc form their standpoint.
Full code
Anticipated Discharge: Today
Subjective/Interval History
-
Date of Service: January 11, 2024
Feeling improved. Denies any further presyncope or syncope feeling. No dizziness.
Cough is okay. Denies shortness of breath. No chest pain. No nausea vomiting. No fevers.
Objective Data
-
Labs:
Laboratory Results
01/11/24
02:11
Sodium 139
Potassium 4.4
Chloride 105
Carbon Dioxide 29
BUN 28 H
Creatinine 0.9
Glucose 92
Calcium 9.3
Total Bilirubin 0.5
AST 168 H
ALT 115 H
Alkaline Phosphatase 150 H
Vital Signs:
Vital Signs
Temp Pulse Resp BP Pulse Ox
98.0 F 82 18 139/73 96
01/11/24 07:00 01/11/24 08:25 01/11/24 07:00 01/11/24 02:04 01/11/24 08:25
I&O
01/10/24 01/11/24 01/12/24
06:59 06:59 06:59
Intake Total 1035 / 1035 480 / 480
Balance 1035 / 1035 480 / 480
Review of Systems
-
Constitutional: Denies Fatigue
EENT: Denies Sore Throat
Abdomen/GI: Denies Abdominal Pain, Nausea or Vomiting
Physical Exam
-
General: No Apparent Distress
HEENT: Moist Mucous Membranes
Respiratory: Clear to Auscultation and Non Labored Respirations; Negative Accessory Resp Muscle Use
Cardiac: Regular Rhythm and S1/S2
Neuro: AO x 3
Data Reviewed
-
Labs: Labs Reviewed by me
[2024-01-11] MEDS: LASIX 20 MG IV (15:14)
[2024-01-11] MEDS: FLUSH (NSS) 1 FLUSH IV (15:15)
--- NOTE | 2024-01-11 15:19 | PTCARENOTE ---
received patient this am,monitor shows NSR, VSS. LCW pacer dsg. D/I,tender to touch,Tylenol po given on previous shift. patient had chest xray completed, lasix IV ordered and given. LLE dsg. was changed, foul odor, was redressed as ordered.
[2024-01-11 15:21] LABS: NT-proBNP 1860 pg/ml
--- NOTE | 2024-01-11 15:47 | PTCARENOTE ---
patient c/o LCW discomfort, Tylenol po given as ordered. I/S to 1500
[2024-01-11] MEDS: PROTONIX 40 MG PO (17:19)
--- NOTE | 2024-01-11 19:45 | PTCARENOTE ---
report received. aaox3. a paced on monitor. vss. crackles and exp. wheeze auscultated allan. denies sob. pt voiding yellow urine in bathroom. will monitor.
[2024-01-11] MEDS: CARDIZEM CD 240 MG PO (22:36)
[2024-01-12 03:44] VITALS: BP 138/66
[2024-01-12] MEDS: TYLENOL 650 MG PO (03:46)
[2024-01-12 03:56] VITALS: BMI 22.0
[2024-01-12 03:58] VITALS: BP 138/66
[2024-01-12 04:28] LABS: Blood Urea Nitrogen 25 mg/dl (7-17); Calcium 9.5 mg/dl (8.4-10.2); Carbon Dioxide 31 mmol/L (22-30); Chloride 101 mmol/L (98-107); Estimated Creatinine Clearance 38 ml/min; Glucose 99 mg/dl (70-99); Potassium 4.1 mmol/L (3.5-5.1); Sodium 138 mmol/L (135-145)
[2024-01-12] MEDS: SYNTHROID 100 MCG PO (06:16)
[2024-01-12] MEDS: SYMBICORT 80/4.5 MCG INHALER 2 PUFF INH (07:25)
[2024-01-12] MEDS: SPIRIVA RESPIMAT 2.5 MCG 2 PUFF INH (07:25)
[2024-01-12 08:04] VITALS: BP 136/103
[2024-01-12 08:32] VITALS: BP 147/91
[2024-01-12] MEDS: LASIX 20 MG IV (08:34)
[2024-01-12] MEDS: ELIQUIS 2.5 MG PO (08:35)
[2024-01-12] MEDS: AUGMENTIN 875 MG/125 MG 1 TABLET PO (08:35)
[2024-01-12] MEDS: TOPROL XL 25 MG PO (08:35)
[2024-01-12] MEDS: WELLBUTRIN XL (24 hour extended release) 150 MG PO (08:35)
[2024-01-12] MEDS: RESTASIS 0.05% OPHTHALMIC EMULSION 1 DROPS BOTH EYES (08:36)
[2024-01-12] MEDS: FLUSH (NSS) 1 FLUSH IV (08:36)
--- NOTE | 2024-01-12 09:45 | PTCARENOTE ---
received patient this am in bed eating breakfast. monitor shows NSR,BP elevated but with am meds has come down. Dr. Beth aware. wound on LLE dsg.changed as per ordered. no odor, no drainage, wound bed pink but outlying skin pink,warm to touch.
distal pulse palpable. patient diuresing from IV lasix. patient would like to be discharged today.
[2024-01-12 10:55] VITALS: BP 121/68
--- NOTE | 2024-01-12 11:14 | W.PN.HOSP.TC ---
Today's Communication/Plan
-
DC
Assessment / Plan
Assessment / Plan
Sudden onset of episode of presyncope with shortness of breath with the severe sinus bradycardia and AV disassociation- suspect her symptoms are all related to her rhythm issue and bradycardia. Status post pacemaker. Improved rates. Put back on
Cardizem.
No further beta-geoffrey because of adverse reactions related-Headache and bronchospasm.
Recent atrial flutter s/p cardioversion 01/08/24- . Continue with Eliquis. Back on Cardizem.
Acute hypoxic respiratory insufficiency- Resolved with resolution of AV block .
RLL opacity - new since admission ; chronic cough but worse this admission . Such rapidity in development of opacity could be atelectasis or had a silent aspiration procedure.Afeb , nontoxic, and WBC normal. Rpt cxr 01/10 shows no RLL opacity
suggesting atx. DC antibiotics.
BL pleural effusions -small in nature- suspect element of acute CHF with preserved EF. Did well with lasix . Will do 20 of Lasix daily for the next 3 to 4 days and use as needed based on the weight. Follow with cardiology as outpatient.
Acute transaminitis-no abdominal pain or tenderness. Cannot rule out hemodynamics related to cardioversion . She does have tricuspid regurgitation and dilated RV and could be secondary to right heart failure. ultrasound to shows no obvious
biliary disease .LFTs are already improving. Hold statins.
Patient also states since September after the accident for the left lower leg wound she has been taking on a regular basis Tylenol but she was keeping it to 2.5 grams per day at the max. If all neg could be med related . Tylenol levels <10 on
admission.Follow LFTs as OP.
COPD with hx of lung Ca - no flare - cw home meds.
DW Card -ok for dc form their standpoint today
Full code
Total time of DC 32 min
Anticipated Discharge: Today
Subjective/Interval History
-
Date of Service: January 12, 2024
She is a good response to 1 dose of IV Lasix yesterday.
Denies any shortness of breath. Denies any cough. Denies any chest pains.
No fever or chills.
Tolerating diet.
Objective Data
-
Labs:
Laboratory Results
01/12/24
03:54
Sodium 138
Potassium 4.1
Chloride 101
Carbon Dioxide 31 H
BUN 25 H
Creatinine 1.0
Glucose 99
Calcium 9.5
Vital Signs:
Vital Signs
Temp Pulse Resp BP Pulse Ox
98.2 F 83 16 147/91 96
01/12/24 08:18 01/12/24 10:00 01/12/24 08:18 01/12/24 08:35 01/12/24 08:18
I&O
01/11/24 01/12/24 01/13/24
06:59 06:59 06:59
Intake Total 480 / 480 480 / 480
Output Total 2450 / 2450 900 / 900
Balance 480 / 480 -1970 / -1970 -900 / -900
Review of Systems
-
Constitutional: Denies Fever
EENT: Denies Sore Throat
Respiratory: Denies Cough
Abdomen/GI: Denies Abdominal Pain, Nausea or Vomiting
Neuro: Denies Dizzy
Physical Exam
-
General: No Apparent Distress
HEENT: Moist Mucous Membranes
Respiratory: Clear to Auscultation
Cardiac: Regular Rhythm and S1/S2
GI: Soft
Musculoskeletal: No Edema
Neuro: AO x 3
Psych: Calm
Data Reviewed
-
Labs: Labs Reviewed by me
--- NOTE | 2024-01-12 11:26 | W.DS.TRANS ---
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
-
Discharge Instructions:
Discharge Diagnosis/Procedures Sudden onset of episode of presyncope with
shortness of breath with the severe sinus
bradycardia and AV disassociation-Pacemaker
implant; small bilateral pleural effusions ;Ac
HFpEF
Diet Low Cholesterol
Activity As tolerated
Driving Restrictions No driving for 1 week
Bathing Restrictions OK to Shower
Blood Work CMP blood work in a week -arrange it through
your PCP
Others Tests Chest xray 2 view in 2 weeks -arrange it through
your PCP
Specialty Instructions Weigh Daily
Instructions:
Stand-Alone Forms: DC Inst - Implanted Device
Changes to Home Medications: Yes
Discharge Medications:
DC Medications w/original date entered in [email or web address]
cyclosporine 0.05 % eye drops in a dropperette (Restasis) 1 drp BOTH EYES BID Eye Condition ##0 03/15/10
bupropion HCl 150 mg 24 hr tablet, extended release 150 mg PO DAILY Mental Health 11/21/15
apixaban 2.5 mg tablet (Eliquis) 2.5 mg PO BID Blood Clot Prevention/Tx 05/28/19
esomeprazole magnesium 20 mg capsule,delayed release (Nexium) 20 mg PO QPM Gastrointestinal Issue 11/26/23
fluticasone fur. 100 mcg-umeclid 62.5 mcg-vilant 25 mcg inhalat.powder (Trelegy Ellipta) 1 inh inhalation R DAILY Lung/Breathing Issues 11/26/23
levothyroxine 100 mcg tablet (Synthroid) 100 mcg PO DAILY Thyroid 11/26/23
tramadol 50 mg tablet 50 mg PO BIDPRN PRN moderate pains 11/26/23
vitamin B complex 1 tab PO DAILY Supplement 11/26/23
acetaminophen 500 mg tablet 500 mg PO Q6HPRN PRN mild pain 01/08/24
carboxymethylcellulose sodium 1 % eye liquid gel drops 2 drp BOTH EYES BIDPRN PRN allergies 01/08/24
clobetasol 0.05 % topical cream 1 applic topical DAILY Skin Issues 01/08/24
sodium chloride 0.65 % nasal spray aerosol (Saline Nasal Mist) 2 spray intranasal BIDPRN PRN dryness 01/08/24
atorvastatin 10 mg tablet 10 mg PO HS High Cholesterol 01/09/24
diltiazem HCl 240 mg capsule,extended release 24 hr 240 mg PO HS Arrhythmia 01/09/24
therapeutic multivitamin 1 tab PO DAILY Supplement 01/09/24
furosemide 20 mg tablet (Lasix) 20 mg PO DAILY #20 tabs 01/12/24
metoprolol succinate 25 mg tablet,extended release 24 hr 25 mg PO DAILY #30 tabs 01/12/24
Home Medication Changes
New medication-Lasix for 3 days and prn
Change in medication-metoprolol decreased from 50 to 25 mg
Pending Results: No
--- NOTE | 2024-01-12 13:55 | PTCARENOTE ---
D/C instructions given to patient and , both verbalizes understanding. INT D/C'd, telemetry D/C'd, personal belongings packed and sent with patient. D/C to home via wc accompanied by staff.
--- NOTE | 2024-01-12 14:28 | W.DCSUMMARY ---
Discharge Summary
Discharge Data
Date of Admission: 01/09/24
Date of Discharge: 01/12/24
-
Pending Results: No
Hospital Course
Primary diagnosis:
Symptomatic bradycardia on 01/10/2024-Successful implantation of MRI compatible dual chamber pacemaker
Atrial flutter. Patient with recent cardioversion 01/08/2024
Acute congestive heart failure with preserved EF
Abnormal liver function test
Secondary diagnosis:
History of deep vein thrombosis
History of recent COVID infection
Hospital course:
Patient had a recent a flutter for which she had a cardioversion and post cardioversion she came back with symptomatic bradycardia with AV disassociation. Had a implantation of a dual-chamber pacemaker. She was on Cardizem and metoprolol which
were initially discontinued and after pacemaker was inserted Cardizem was restarted at her home dose. The dose of beta-geoffrey was decreased from 50 mg to 25 mg as she was having issues with headaches and wheezing with 50 mg dose.
Post cardioversion she had questionable right lower lobe opacity concerning for pneumonia but clinically not correlating. Repeat chest x-ray showed more small bilateral pleural effusion which was more concerning for acute heart failure with
preserved EF. She had an echocardiogram on this admission which showed EF of 55 to 60%. She has mild to moderate MR and severe TR. Compared to previous report MR is less severe. She responded well to diuresis. She was advised to take Lasix for
3 days and then use as needed.
On admission she also had a transaminitis which was felt may be hemodynamics related to cardioversion. They were spontaneously improving. Ultrasound showed no evidence of obvious biliary disease. She was advised to hold further statins and repeat
LFTs in a week to make sure they all normalized.
Consultants on board:
Cardiology/EP- Lynda Whittaker
Discharge Plan
-
Patient Disposition: Home (Routine Discharge)
Discharge Diagnosis/Procedures: Sudden onset of episode of presyncope with shortness of breath with the severe sinus bradycardia and AV disassociation-Pacemaker implant; small bilateral pleural effusions ;Ac HFpEF
Diet: Low Cholesterol
Activity: As tolerated
Driving Restrictions: No driving for 1 week
Bathing Restrictions: OK to Shower
Blood Work: CMP blood work in a week -arrange it through your PCP
Others Tests: Chest xray 2 view in 2 weeks -arrange it through your PCP
Specialty Instructions: Weigh Daily- Call MD for wt gain/loss 3 lbs overnight/5 lbs in 1 week
Activity Restrictions/Additional Instructions:
Wound Care Instructions Left LE wound- Clean with normal saline or soap and water. Apply adaptic, alginate and dry dressing. Change daily and PRN if loose or soiled. Follow up at wound care center call for an appointment.
Tubi-glassine machine tender to left leg, re-apply daily
If increased weight of 3lbs in a day or 5lbs in a week -use 20mg lasix orally
Stand Alone Forms: DC Inst - Implanted Device
Referrals:
[facility] [Outside]
Priscilla Duarte CRNP [Specified Professional Personl] - 01/15/24 8:00 am (Incision check appointment)
Grecia Alonzo MD [Family Provider] - in less than 1 week
Prescriptions:
New
furosemide [Lasix] 20 mg tablet
20 mg PO DAILY Qty: 20 0RF
Rx Instructions:
take it daily for 3 days and stop
After that take it as needed for weight gain
metoprolol succinate 25 mg Tablet Extended Release 24 Hr
25 mg PO DAILY Qty: 30 0RF
Rx Instructions:
dose decreased on this admission
Continued
cyclosporine [Restasis] 0.05 % Dropperette
1 drp BOTH EYES BID Qty: 0
bupropion HCl 150 MG tablet extended release 24 hr
150 mg PO DAILY
Eliquis 2.5 MG tablet
2.5 mg PO BID
tramadol 50 mg Tablet
50 mg PO BIDPRN PRN (Reason: moderate pains)
levothyroxine [Synthroid] 100 mcg Tablet
100 mcg PO DAILY
vitamin B complex Tablet
1 tab PO DAILY
esomeprazole magnesium [Nexium] 20 mg Capsule,Delayed Release(Dr/Ec)
20 mg PO QPM
Trelegy Ellipta 100-62.5-25 mcg Blister With Device
1 inh INHALATION R DAILY
clobetasol 0.05 % Cream
1 applic TOPICAL DAILY
Rx Instructions:
apply to left leg
acetaminophen 500 mg Tablet
500 mg PO Q6HPRN PRN (Reason: mild pain)
carboxymethylcellulose sodium 1 % Drops, Liquid Gel
2 drp BOTH EYES BIDPRN PRN (Reason: allergies)
Saline Nasal Mist 0.65 % Aerosol,[place]
2 spray INTRANASAL BIDPRN PRN (Reason: dryness)
therapeutic multivitamin Tablet
1 tab PO DAILY
diltiazem HCl 240 mg capsule,extended release 24hr
240 mg PO HS
Held
atorvastatin 10 mg tablet
10 mg PO HS
Hold Instructions: Resume on 01/27/24. Till liver tests are back to normal
Discontinued
metoprolol succinate 50 mg tablet extended release 24 hr
50 mg PO DAILY
Discharge Orders:
Discharge Patient (As Directed); Ordered 01/12/24
Ordered By: Jaron Beth
Care Plan Goals
Care Plan Goals:
Problem: Readiness for enhanced knowledge related to diagnosis and treatment plan
Goal: Understand your diagnosis and treatment plan needs, including medications if applicable.
Instructions: Know your diagnosis, underlying causes and treatment plan options, including medications if applicable. Consult with your health care team to learn about your diagnosis and treatment plan, including medications if applicable.
Discharge Date and Time
Discharge Date/Time: 01/12/24 14:17
Print Language: DOMINICAN
== END 2024-01-12 14:17 | disposition home or self-care (01) | DRG 242 ==
LOC: IVU 10:17
PROVIDERS: Emergency Medicine; Internal Medicine Cardiovascular Disease; ADMITTING PHYSICIAN Internal Medicine; EMERGENCY PHYSICIAN Emergency Medicine; FAMILY PHYSICIAN Internal Medicine
PROC: 02HK3JZ Insertion of Pacemaker Lead into Right Ventricle, Percutaneous Approach (ICD-10-PCS; 2024-01-09)
PROC: 05753ZZ Dilation of Right Subclavian Vein, Percutaneous Approach (ICD-10-PCS; 2024-01-09)
PROC: 0JH606Z Insertion of Pacemaker, Dual Chamber into Chest Subcutaneous Tissue and Fascia, Open Approach (ICD-10-PCS; 2024-01-09)
PROC: 02H63JZ Insertion of Pacemaker Lead into Right Atrium, Percutaneous Approach (ICD-10-PCS; 2024-01-09)
PROC: B24BZZZ Ultrasonography of Heart with Aorta (ICD-10-PCS; 2024-01-09)
DX: I49.5 Sick sinus syndrome (principal); I50.31 Acute diastolic (congestive) heart failure; I13.0 Hypertensive heart and chronic kidney disease with heart failure and stage 1 through stage 4 chronic kidney disease, or unspecified chronic kidney disease; I48.92 Unspecified atrial flutter; I87.1 Compression of vein; J98.11 Atelectasis; I44.1 Atrioventricular block, second degree; J44.9 Chronic obstructive pulmonary disease, unspecified; E78.00 Pure hypercholesterolemia, unspecified; E03.9 Hypothyroidism, unspecified; N18.32 Chronic kidney disease, stage 3b; I08.1 Rheumatic disorders of both mitral and tricuspid valves; R74.01 Elevation of levels of liver transaminase levels; K21.9 Gastro-esophageal reflux disease without esophagitis; F32.A Depression, unspecified; Z87.891 Personal history of nicotine dependence; Z86.718 Personal history of other venous thrombosis and embolism; Z85.118 Personal history of other malignant neoplasm of bronchus and lung; Z82.49 Family history of ischemic heart disease and other diseases of the circulatory system; Z86.16 Personal history of COVID-19; Z88.1 Allergy status to other antibiotic agents; Z88.5 Allergy status to narcotic agent; Z79.01 Long term (current) use of anticoagulants; Z79.899 Other long term (current) drug therapy; Z98.890 Other specified postprocedural states; J98.01 Acute bronchospasm; G44.40 Drug-induced headache, not elsewhere classified, not intractable; T44.7X5A Adverse effect of beta-adrenoreceptor antagonists, initial encounter; I42.9 Cardiomyopathy, unspecified; Z95.828 Presence of other vascular implants and grafts; Z92.21 Personal history of antineoplastic chemotherapy; Z92.3 Personal history of irradiation; Z79.890 Hormone replacement therapy
CPT/HCPCS: 33208; 70450; 71045; 71046; 76700; 80048; 80053; 80143; 83690; 83735; 83880; 84484; 85025; 85027; 87070; 93005; 93306; 94640; 96365; 96366; 96372; 96375; 99291; C1785; C1892; C1898

== ENCOUNTER → 2024-01-18 07:44 | Outpatient (REF) | payer MEDICARE, OTHER, SELFPAY ==
[2024-01-18 09:21] LABS: ALT (SGPT) 37 U/L (0-35); AST (SGOT) 37 U/L (14-36); Albumin 3.6 g/dl (3.5-5.0); Alkaline Phosphatase 126 U/L (38-126); Blood Urea Nitrogen 19 mg/dl (7-17); Carbon Dioxide 29 mmol/L (22-30); Chloride 104 mmol/L (98-107); Glucose 101 mg/dl (70-99); Potassium 4.7 mmol/L (3.5-5.1); Sodium 138 mmol/L (135-145); Total Bilirubin 0.8 mg/dl (0.2-1.3); Total Protein 6.9 g/dl (6.3-8.2)
== END ==
LOC: REG 07:44
PROVIDERS: ATTENDING PHYSICIAN Internal Medicine; FAMILY PHYSICIAN Internal Medicine
DX: R94.5 Abnormal results of liver function studies (principal); R79.89 Other specified abnormal findings of blood chemistry
CPT/HCPCS: 36415; 80053

== ENCOUNTER → 2024-01-25 09:33 | Outpatient (REF) | payer MEDICARE, OTHER, SELFPAY | LOC: RAD 09:33 | PROVIDERS: ATTENDING PHYSICIAN Internal Medicine | DX: R93.89 Abnormal findings on diagnostic imaging of other specified body structures (principal) | CPT/HCPCS: 71046 ==

== ENCOUNTER → 2024-01-27 08:34 | Outpatient (REF) | payer MEDICARE, OTHER, SELFPAY | LOC: WOUND 08:34 | PROVIDERS: ATTENDING PHYSICIAN Surgery; FAMILY PHYSICIAN Internal Medicine | DX: L97.822 Non-pressure chronic ulcer of other part of left lower leg with fat layer exposed (principal); L88 Pyoderma gangrenosum; I73.9 Peripheral vascular disease, unspecified; L03.116 Cellulitis of left lower limb; I87.2 Venous insufficiency (chronic) (peripheral); Z79.01 Long term (current) use of anticoagulants; J43.9 Emphysema, unspecified; Z86.718 Personal history of other venous thrombosis and embolism; I10 Essential (primary) hypertension; I49.8 Other specified cardiac arrhythmias | CPT/HCPCS: 99213 ==

== ENCOUNTER → 2024-02-01 08:12 | Outpatient (REF) | payer MEDICARE, OTHER, SELFPAY ==
[2024-02-01 09:33] LABS: ALT (SGPT) 21 U/L (0-35); AST (SGOT) 35 U/L (14-36)
== END ==
LOC: REG 08:12
PROVIDERS: ATTENDING PHYSICIAN Internal Medicine
DX: R79.89 Other specified abnormal findings of blood chemistry (principal)
CPT/HCPCS: 36415; 84450; 84460

== ENCOUNTER → 2024-02-10 08:20 | Outpatient (REF) | payer MEDICARE, OTHER, SELFPAY | LOC: WOUND 08:20 | PROVIDERS: ATTENDING PHYSICIAN Surgery; FAMILY PHYSICIAN Internal Medicine | DX: L97.822 Non-pressure chronic ulcer of other part of left lower leg with fat layer exposed (principal); L88 Pyoderma gangrenosum; I73.9 Peripheral vascular disease, unspecified; L03.116 Cellulitis of left lower limb; I87.2 Venous insufficiency (chronic) (peripheral); J43.9 Emphysema, unspecified; I10 Essential (primary) hypertension; Z86.718 Personal history of other venous thrombosis and embolism; Z79.01 Long term (current) use of anticoagulants; Z95.0 Presence of cardiac pacemaker; I49.8 Other specified cardiac arrhythmias | CPT/HCPCS: 99213 ==

== ENCOUNTER → 2024-02-18 07:11 | Outpatient (REF) | payer MEDICARE, OTHER, SELFPAY ==
--- NOTE | 2024-01-09 07:37 | CON.CAR ---
Addendum entered and electronically signed by Homer Krueger MD 01/09/24 08:17:
head CT with no acute abnormality
Echo - prelim - normal LVF and severe TR
Note pateitn with prior [facility]
Original Note:
Consultation
Consultation Request
Date/Time Consultation Requested: 01/09/2024 at 635
Date/Time Consultation Performed: 01/09/2024 at 7 AM
Requesting Provider: Dr. Morillo
Performing Provider: Dr. Krueger
Medical History
-
Chief Complaint: bradycardia
History of Present Illness:
83-year-old woman with past medical history noted below. Patient had been in the hospital at the end of October with right lower extremity wound and was noted to have atrial flutter. She was started on diltiazem to 40 and Toprol was increased to 50
mg a day she was maintained on Eliquis discharged on 11/30/2023. She was feeling better but then developed COVID on 12/21/2023 seen in our office on 12/30/2023 and due to persistent rate controlled atrial flutter was set up for electrical cardioversion.
She underwent cardioversion on 01/08/2024 she states she felt tired after she got home and then in the offensive coordinator hours this morning she felt short of breath and while she was in the bathroom felt like she was going to pass out. Brought to the
hospital by ambulance en route reported to have heart rates in the 30s patient received 2 doses of atropine. Patient noted to have severe sinus bradycardia with junctional bradycardia with junctional escape rhythms. Patient placed on low-dose
dopamine currently heart rate 50 with blood pressure 108. Patient feels fatigued. She has some intermittent nausea. No complaints of chest pain currently. She states that while she was in atrial flutter she had some constant chest discomfort
feeling. But no chest discomfort currently. She had no syncope or falls today. Last dose of Eliquis yesterday. Last dose of diltiazem 7 PM yesterday. No fever no abdominal pain no urinary complaints patient does have a headache.
She has had headachesprior to today. Sounds as if it has been a recent issue over the course of the last couple weeks.
Past medical history
Hypertension
Hypercholesterolemia
Hypothyroidism
History of lung cancer status postchemotherapy
GERD
Ribeiro's esophagus
History of DVT and IVC filter
Multiple drug allergies and medication intolerances
Past Medical History
Past Medical History: None
Social History
Tobacco: Non-Smoker
Personal:
Allergies / Home Medications
Allergy/AdvReac Type Severity Reaction Status Date / Time
clarithromycin [From Biaxin] Allergy GASTRIC Verified 01/08/24 09:53
PROBLEMS
erythromycin base Allergy GI PROBLEMS Verified 01/08/24 09:53
meperidine AdvReac Pharmacy Verified 01/08/24 09:53
to Review
meperidine HCl [From Demerol] AdvReac Pharmacy Verified 01/08/24 09:53
to Review
mold Allergy irritated Uncoded 01/08/24 09:53
eyes
seasonal allergies Allergy sneezing,running Uncoded 01/08/24 09:53
nose,irritated
eyes
�Medication �Instructions �Recorded �Confirmed �Type
cyclosporine 0.05 % eye drops in a 1 drp BOTH EYES DAILY Eye 03/15/10 01/09/24 History
dropperette (Restasis) Condition ##0
therapeutic multivitamin 1 tab PO DAILY Supplement ##0 03/15/10 01/09/24 History
bupropion HCl 150 mg 24 hr tablet, 150 mg PO DAILY Mental 11/21/15 01/09/24 History
extended release Health/Anxiety
apixaban 2.5 mg tablet (Eliquis) 2.5 mg PO BID Blood Clot 05/28/19 01/09/24 History
Prevention/Tx
esomeprazole magnesium 20 mg 20 mg PO DAILY@1600 11/26/23 01/09/24 History
capsule,delayed release (Nexium) Gastrointestinal Issue
fluticasone fur. 100 mcg-umeclid 1 inh inhalation R DAILY 11/26/23 01/09/24 History
62.5 mcg-vilant 25 mcg Lung/Breathing Issues
inhalat.powder (Trelegy Ellipta)
levothyroxine 100 mcg tablet 100 mcg PO DAILY Thyroid 11/26/23 01/09/24 History
(Synthroid)
tramadol 50 mg tablet 50 mg PO BIDPRN PRN moderate pains 11/26/23 01/09/24 History
vitamin B complex 1 tab PO DAILY Supplement 11/26/23 01/09/24 History
atorvastatin 10 mg tablet 10 mg PO HS #30 tabs 11/30/23 01/09/24 Rx
diltiazem HCl 240 mg 240 mg PO DAILY #30 caps 11/30/23 01/09/24 Rx
capsule,extended release 24 hr
metoprolol succinate 50 mg 50 mg PO DAILY #30 tabs 11/30/23 01/09/24 Rx
tablet,extended release 24 hr
acetaminophen 500 mg tablet 500 mg PO Q6H PRN pain 01/08/24 01/09/24 History
carboxymethylcellulose sodium 1 % 2 drp ophthalmic (eye) BID PRN 01/08/24 01/09/24 History
eye liquid gel drops allergies
clobetasol 0.05 % topical cream 1 applic topical DAILY 01/08/24 01/09/24 History
sodium chloride 0.65 % nasal spray 2 spray intranasal BID 01/08/24 01/09/24 History
aerosol (Saline Nasal Mist)
Review of Systems
-
All other systems: Negative unless noted
Physical Exam
Physical Exam
General: Other (Appears fatigued awake and alert answering questions appropriately)
HEENT: Normocephalic and Other (Pupils equal reactive light external ocular movements intact oropharynx clear external ear exam unremarkable)
Respiratory: Other (No crackles wheezes or rhonchi)
Cardiac: Regular Rhythm and Other (Early systolic murmur bradycardic)
GI: Soft, Non Tender and Non Distended
Musculoskeletal: No Clubbing, No Cyanosis and No Edema
Skin: Warm and Dry
Neuro: Awake and Alert
Hematologic/Lymphatic: No Lymphadenopathy
Impression / Plan
-
Symptomatic bradycardia Patient appears to haveJunctional rhythm Underlying severe sinus bradycardia.Course
-Continue low-dose dopamine
-Keep n.p.o.
-EP assessing for pacemaker.
-Echocardiogram ordered
-Serial troponin
.
Atrial flutter. Patient with recent cardioversion 01/08/2024
-Anticoagulation being held for pacemaker this morning but would resume as soon as safe postprocedure.
.
.Headache
-Preceded presentation today has been an ongoing symptom. With patient on anticoagulation would proceed with head CT
.
SOB - Part of presenting symptom but currently comfortable likely related to change in rhythm. Will continue to assess Response to the above.
.
Elevated LFTs.May be related to hemodynamic changes. Continue to monitor as rhythms treated.
.
Note patient has history of DVT IVC filter.
Data Reviewed
-
EKG: Report Reviewed by me
Radiology: Report Reviewed by me
Medical Tests (Nuc Med, Echo etc): Report Reviewed by me
Labs: Labs Reviewed by me
== END ==
LOC: HWRAD 07:11
PROVIDERS: ATTENDING PHYSICIAN Internal Medicine Critical Care Medicine; FAMILY PHYSICIAN Internal Medicine
DX: R91.1 Solitary pulmonary nodule (principal)
CPT/HCPCS: 71250; 92960

== ENCOUNTER → 2024-02-18 07:33 | Outpatient (REF) | payer MEDICARE, OTHER, SELFPAY | LOC: HWEVLT 07:33 | PROVIDERS: ATTENDING PHYSICIAN Radiology Diagnostic Radiology | DX: I83.892 Varicose veins of left lower extremity with other complications (principal) | CPT/HCPCS: 36478 ==

== ENCOUNTER → 2024-02-25 09:49 | Outpatient (REF) | payer MEDICARE, OTHER, SELFPAY | LOC: HWEVLT 09:49 | PROVIDERS: ATTENDING PHYSICIAN Radiology Vascular & Interventional Radiology | DX: I83.893 Varicose veins of bilateral lower extremities with other complications (principal) | CPT/HCPCS: 93970 ==

== ENCOUNTER → 2024-02-28 08:34 | Outpatient (REF) | payer MEDICARE, OTHER, SELFPAY | LOC: WOUND 08:34 | PROVIDERS: ATTENDING PHYSICIAN Surgery; FAMILY PHYSICIAN Internal Medicine | DX: L97.822 Non-pressure chronic ulcer of other part of left lower leg with fat layer exposed (principal); I73.9 Peripheral vascular disease, unspecified; I87.2 Venous insufficiency (chronic) (peripheral) | CPT/HCPCS: 99213 ==

== ENCOUNTER → 2024-03-12 08:45 | Outpatient (REF) | payer MEDICARE, OTHER, SELFPAY | LOC: WOUND 08:45 | PROVIDERS: ATTENDING PHYSICIAN Surgery; FAMILY PHYSICIAN Internal Medicine | DX: L97.822 Non-pressure chronic ulcer of other part of left lower leg with fat layer exposed (principal); L88 Pyoderma gangrenosum; I73.9 Peripheral vascular disease, unspecified; L03.116 Cellulitis of left lower limb; I87.2 Venous insufficiency (chronic) (peripheral); J43.9 Emphysema, unspecified; I10 Essential (primary) hypertension; I49.8 Other specified cardiac arrhythmias; Z95.0 Presence of cardiac pacemaker; Z86.718 Personal history of other venous thrombosis and embolism; Z79.01 Long term (current) use of anticoagulants | CPT/HCPCS: 99213 ==

== ENCOUNTER → 2024-03-26 13:15 | Outpatient (REF) | payer MEDICARE, OTHER, SELFPAY | LOC: WOUND 13:15 | PROVIDERS: ATTENDING PHYSICIAN Surgery; FAMILY PHYSICIAN Internal Medicine | DX: L97.822 Non-pressure chronic ulcer of other part of left lower leg with fat layer exposed (principal); L88 Pyoderma gangrenosum; I73.9 Peripheral vascular disease, unspecified; L03.116 Cellulitis of left lower limb; I87.2 Venous insufficiency (chronic) (peripheral); J43.9 Emphysema, unspecified; I10 Essential (primary) hypertension; I49.8 Other specified cardiac arrhythmias; Z95.0 Presence of cardiac pacemaker; Z86.718 Personal history of other venous thrombosis and embolism; Z79.01 Long term (current) use of anticoagulants | CPT/HCPCS: 99213 ==

== ENCOUNTER → 2024-04-20 08:46 | Outpatient (REF) | payer MEDICARE, OTHER, SELFPAY | LOC: WOUND 08:46 | PROVIDERS: ATTENDING PHYSICIAN Surgery; FAMILY PHYSICIAN Internal Medicine | DX: L97.822 Non-pressure chronic ulcer of other part of left lower leg with fat layer exposed (principal); L88 Pyoderma gangrenosum; I73.9 Peripheral vascular disease, unspecified; I87.2 Venous insufficiency (chronic) (peripheral); J43.9 Emphysema, unspecified; I10 Essential (primary) hypertension; I49.8 Other specified cardiac arrhythmias; Z95.0 Presence of cardiac pacemaker; Z79.01 Long term (current) use of anticoagulants; Z86.718 Personal history of other venous thrombosis and embolism | CPT/HCPCS: 88305; 11104; 11105 ==

== ENCOUNTER → 2024-05-04 08:48 | Outpatient (REF) | payer MEDICARE, OTHER, SELFPAY | LOC: WOUND 08:48 | PROVIDERS: ATTENDING PHYSICIAN Surgery | DX: L97.822 Non-pressure chronic ulcer of other part of left lower leg with fat layer exposed (principal); I77.6 Arteritis, unspecified; L88 Pyoderma gangrenosum; I73.9 Peripheral vascular disease, unspecified; I87.2 Venous insufficiency (chronic) (peripheral); J43.9 Emphysema, unspecified; I10 Essential (primary) hypertension; I49.8 Other specified cardiac arrhythmias; Z95.0 Presence of cardiac pacemaker; Z86.718 Personal history of other venous thrombosis and embolism; Z79.01 Long term (current) use of anticoagulants | CPT/HCPCS: 99213 ==

== ENCOUNTER → 2024-05-16 08:01 | Outpatient (REF) | payer MEDICARE, OTHER, SELFPAY | LOC: WDC 08:01 | PROVIDERS: ATTENDING PHYSICIAN Internal Medicine | DX: Z12.31 Encounter for screening mammogram for malignant neoplasm of breast (principal) | CPT/HCPCS: 77063; 77067 ==

== ENCOUNTER → 2024-05-25 08:50 | Outpatient (REF) | payer MEDICARE, OTHER, SELFPAY | LOC: WOUND 08:50 | PROVIDERS: ATTENDING PHYSICIAN Surgery; FAMILY PHYSICIAN Internal Medicine | DX: L97.822 Non-pressure chronic ulcer of other part of left lower leg with fat layer exposed (principal); I77.6 Arteritis, unspecified; L88 Pyoderma gangrenosum; I73.9 Peripheral vascular disease, unspecified; I87.2 Venous insufficiency (chronic) (peripheral); Z79.01 Long term (current) use of anticoagulants; J43.9 Emphysema, unspecified; Z86.718 Personal history of other venous thrombosis and embolism; I10 Essential (primary) hypertension; Z95.0 Presence of cardiac pacemaker; I49.8 Other specified cardiac arrhythmias | CPT/HCPCS: 99213 ==

== ENCOUNTER 2024-06-02 23:06 | Inpatient (IN) | payer MEDICARE, OTHER, SELFPAY ==
[2024-06-02 17:49] VITALS: BP 136/83
[2024-06-02 18:31] LABS: COVID-19 Antigen Negative (Negative)
[2024-06-02 18:38] LABS: % Basophils 0.9 % (0-2); % Eosinophils 1.6 % (0-6); % Immature Granulocytes 1.5 % (0-0.5); % Lymphocytes 2.6 % (20.5-51.1); % Neutrophils 82.4 % (42.2-75.2); ALT (SGPT) 36 U/L (0-35); AST (SGOT) 61 U/L (14-36); Absolute Basophils 0.1 10^3/uL (0-0.2); Absolute Eosinophils 0.2 10^3/uL (0-0.7); Absolute Immature Granulocytes 0.2 10^3/uL (0-0.05); Absolute Lymphocytes 0.3 10^3/uL (1.2-3.4); Absolute Monocytes 1.2 10^3/uL (0.1-0.6); Absolute Neutrophils 8.9 10^3/uL (1.4-6.5); Albumin 3.7 g/dl (3.5-5.0); Alkaline Phosphatase 138 U/L (38-126); Blood Urea Nitrogen 34 mg/dl (7-17); Calcium 9.1 mg/dl (8.4-10.2); Carbon Dioxide 23 mmol/L (22-30); Chloride 96 mmol/L (98-107); Glucose 129 mg/dl (70-99); Hematocrit 30.9 % (37.0-47.0); Hemoglobin 10.9 g/dL (12.0-16.0); Mean Corp Hgb Conc. 35.3 g/dL (33.0-37.0); Mean Corpuscular Hgb 32.7 pg (27.0-31.0); Mean Corpuscular Volume 92.8 fL (81.0-99.0); Mean Platelet Volume 9.8 fL (7.4-10.4); Nucleated Red Blood Cells % 0 %; Platelet Count 218 10^3/uL (130-400); Potassium 3.9 mmol/L (3.5-5.1); Red Blood Cell Count 3.33 10^6/uL (4.20-5.40); Red Cell Dist. Width 14.1 % (11.5-14.5); Sodium 132 mmol/L (135-145); Total Bilirubin 0.9 mg/dl (0.2-1.3); Total Protein 6.9 g/dl (6.3-8.2); White Blood Cell Count 10.7 10^3/uL (4.8-10.8)
[2024-06-02 18:41] LABS: Lactic Acid 1.5 mmol/L (0.7-2.0)
[2024-06-02 19:51] VITALS: BP 128/68
[2024-06-02 20:00] VITALS: BP 128/72
[2024-06-02 20:16] VITALS: BMI 23.2
--- NOTE | 2024-06-02 20:31 | ED.GENMED ---
History of Present Illness
<Yuliya Smith MD, Resident - Last Filed: 06/02/24 21:55>
General
Chief Complaint: Fever
Source: patient
Exam Limitations: none
Time Seen by Provider: 06/02/24 19:52
Nursing documentation reviewed up to this point in time: agreed with
History of Present Illness
History of Present Illness:
83-year-old female with past medical history of Raynaud's disease, bronchiolitis, COPD, lung carcinoma, atrial flutter, hyperlipidemia and pacemaker placement presents to the [facility] ER for evaluation of fever fatigue and chills x 5
days. Patient states that her right leg was swollen for few weeks, could not recall exactly when, but on Saturday she started to have fever, fatigue, chills and rigors associated with excruciating pain in her right knee extending from her mid thigh
to mid half of her cotton. Her fevers highest recorded temperature on Saturday was 103. Knee pain became progressively worse with redness hotness and difficulty to bear weight over the last 3 days, and hence she visited [facility] orthopedics in the
a.m. today. She received an arthrocentesis with a DVT evaluation orders. Patient could not withstand peripheral vascular ultrasound due to her excruciating pain.
Of note, patient has a nonhealing ulcer on her left anterior cotton that is being followed by wound care physician, about 2 weeks ago she had a biopsy of the wound margins and was diagnosed to have an 'autoimmune ulcer'.
Her last chemotherapy for lung carcinoma was not 2013 and patient has been in remission since.
Patient denies having any cough, chest pain, shortness of breath, palpitations, lightheadedness, syncopal or near syncopal episodes. Patient denies having sick contacts.
If applicable-neuro sx onset
Onset of symptoms known: No
Time pt last seen normal is known: No
Past History
<Yuliya Smith MD, Resident - Last Filed: 06/02/24 21:55>
Past History
ED Past Medical History: Cancer (Lung), COPD, GERD, HTN, Hypercholesterolemia, Hypothyroidism and Psychiatric (depression)
ED Past Surgical History: Orthopedic (R knee replacement, bilateral hip replacement) and Other (DVT, IVC Filter)
Social History
Tobacco: Former smoker
Alcohol: None
Personal:
Living: with family
Employment: Retired
Family History
Family History: CAD
Review of Systems
<Yuliya Smith MD, Resident - Last Filed: 06/02/24 21:55>
Review of Systems
Allergies reviewed?: Yes
Constitutional: Reports fever, fatigue and chills
EENT: Reports no symptoms
Respiratory: Reports no symptoms
Cardiac: Reports no symptoms
ABD/GI: Reports no symptoms
: Reports no symptoms
Musculoskeletal: Reports joint pain (right knee), joint swelling, edema (right leg swelling) and other (left leg ulcer)
Skin: Reports no symptoms
Neurological: Reports no symptoms
Endocrine: Reports no symptoms
Hematologic/Lymphatic: Reports no symptoms
Psychiatric: Reports no symptoms
Phy Exam
<Yuliya Smith MD, Resident - Last Filed: 06/02/24 21:55>
General Physical Exam
General Presentation: no apparent distress
General Habitus: normal
General Mental: alert
General Hydration: appears well hydrated
Cardiovascular Exam
Cardiovascular Exam: regular rate/rhythm, no edema, no gallop, no murmur and normal peripheral pulses
Systolic Murmur: 2/6
Heart Sounds: normal
Pulmonary Exam
Pulmonary Exam: lungs clear, no respiratory distress, no rales, no crackles and no rhonchi
Gastrointestinal Exam
Gastrointestinal Exam: normal bowel sounds, non tender, soft, no pulsatile mass and non distended
Neurological Exam
Neurological Exam: alert, no motor deficits and no sensory deficits
Musculoskeletal Exam
Musculoskeletal Exam: edema (2+ pitting edema in the right leg up to about the knee.) and other (Right knee-local rise of temperature present, erythematous, tender to touch, no range of motion. )
Skin Exam
Skin Exam: other (Stasis dermatitis changes on bilateral lower legs, ulcer measuring about 7 x 5 cm, with rolled margins and granulation tissue at the center noted on left anterior cotton.)
Sepsis
<Yuliya Smith MD, Resident - Last Filed: 06/02/24 21:55>
Sepsis Screening
Sepsis Assessment: Sepsis
Sepsis Screen
Sepsis Screen: Sepsis
Date: 06/02/24
Time: 21:54
<Chon Zaldivar, DO - Last Filed: 06/02/24 21:54>
Sepsis Screen
Sepsis Screen: Sepsis
Date: 06/02/24
Time: 21:53
Course
<Yuliya Smith MD, Resident - Last Filed: 06/02/24 21:55>
Orders/Labs/Results
Orders:
Orders
06/02/24 18:04
COVID-19 Antigen Urgent
Source: Nasal Swab
Complete Blood Count/With Diff Urgent
Comprehensive Metabolic Panel Urgent
Lactic Acid Q4H
Comment: ON ICE, CANCEL 2ND ORDER IF FIRST LACTIC ACID LEVEL <2
Influenza A+B Rapid Molecular Urgent
BEE Source: Nasal Swab
Specimen Description:
06/02/24 20:34
Diltiazem Extended Release [Cardizem Cd] 240 mg PO NOW STA
06/02/24 20:49
Lactic Acid Urgent
Blood Culture Q30M
BEE Source: Blood/Venous
Specimen Description:
06/02/24 20:59
Acetaminophen [Tylenol] 1,000 mg PO NOW STA
06/02/24 21:44
Blood Culture Q30M
BEE Source: Blood/Venous
Specimen Description:
06/02/24 21:48
Ampicillin/Sulbactam 3 G [Unasyn] 3 gm 0.9% Sodium Chloride 100 ml [Nss] 100 ml IV NOW
06/02/24 21:49
Vancomycin [Vancocin] 1,500 mg 0.9% Sodium Chloride 500 ml [Nss] 500 ml IV NOW
Abnormal Lab Results
06/02/24
18:04
RBC 3.33 L 10^6/uL
(4.20-5.40)
Hgb 10.9 L g/dL
(12.0-16.0)
Hct 30.9 L %
(37.0-47.0)
MCH 32.7 H pg
(27.0-31.0)
Abs Immat Gran (auto) 0.2 H 10^3/uL
(0-0.05)
Absolute Neuts (auto) 8.9 H 10^3/uL
(1.4-6.5)
Absolute Lymphs (auto) 0.3 L 10^3/uL
(1.2-3.4)
Absolute Monos (auto) 1.2 H 10^3/uL
(0.1-0.6)
Immature Gran % 1.5 H %
(0-0.5)
Neutrophils % 82.4 H %
(42.2-75.2)
Lymphocytes % 2.6 L %
(20.5-51.1)
Monocytes % 11.0 H %
(1.7-9.3)
Sodium 132 L mmol/L
(135-145)
Chloride 96 L mmol/L
(98-107)
BUN 34 H mg/dl
(7-17)
Glucose 129 H mg/dl
(70-99)
AST 61 H U/L
(14-36)
ALT 36 H U/L
(0-35)
Alkaline Phosphatase 138 H U/L
(38-126)
06/02/24 18:04
06/02/24 18:04
Vital Signs
Initial and Last Documented VS:
Initial Vital Signs
Temp Pulse Resp BP Pulse Ox
100.3 F 81 18 136/83 96
06/02/24 17:49 06/02/24 17:49 06/02/24 17:49 06/02/24 17:49 06/02/24 17:49
Last Documented Vital Signs
Temp Pulse Resp BP Pulse Ox
102.3 F H 117 18 128/72 97
06/02/24 20:59 06/02/24 20:55 06/02/24 17:49 06/02/24 20:55 06/02/24 20:16
Equipment Coordinator consulted with Physician
Equipment Coordinator consulted with physician?: Yes
Name of Physician Consulted: Cali Chavez
<Chon Zaldivar, DO - Last Filed: 06/02/24 21:54>
Orders/Labs/Results
Orders:
Orders
06/02/24 18:04
COVID-19 Antigen Urgent
Source: Nasal Swab
Complete Blood Count/With Diff Urgent
Comprehensive Metabolic Panel Urgent
Lactic Acid Q4H
Comment: ON ICE, CANCEL 2ND ORDER IF FIRST LACTIC ACID LEVEL <2
Influenza A+B Rapid Molecular Urgent
BEE Source: Nasal Swab
Specimen Description:
06/02/24 20:34
Diltiazem Extended Release [Cardizem Cd] 240 mg PO NOW STA
06/02/24 20:49
Lactic Acid Urgent
Blood Culture Q30M
BEE Source: Blood/Venous
Specimen Description:
06/02/24 20:59
Acetaminophen [Tylenol] 1,000 mg PO NOW STA
06/02/24 21:44
Blood Culture Q30M
BEE Source: Blood/Venous
Specimen Description:
06/02/24 21:48
Ampicillin/Sulbactam 3 G [Unasyn] 3 gm 0.9% Sodium Chloride 100 ml [Nss] 100 ml IV NOW
06/02/24 21:49
Vancomycin [Vancocin] 1,500 mg 0.9% Sodium Chloride 500 ml [Nss] 500 ml IV NOW
Abnormal Lab Results
06/02/24
18:04
RBC 3.33 L 10^6/uL
(4.20-5.40)
Hgb 10.9 L g/dL
(12.0-16.0)
Hct 30.9 L %
(37.0-47.0)
MCH 32.7 H pg
(27.0-31.0)
Abs Immat Gran (auto) 0.2 H 10^3/uL
(0-0.05)
Absolute Neuts (auto) 8.9 H 10^3/uL
(1.4-6.5)
Absolute Lymphs (auto) 0.3 L 10^3/uL
(1.2-3.4)
Absolute Monos (auto) 1.2 H 10^3/uL
(0.1-0.6)
Immature Gran % 1.5 H %
(0-0.5)
Neutrophils % 82.4 H %
(42.2-75.2)
Lymphocytes % 2.6 L %
(20.5-51.1)
Monocytes % 11.0 H %
(1.7-9.3)
Sodium 132 L mmol/L
(135-145)
Chloride 96 L mmol/L
(98-107)
BUN 34 H mg/dl
(7-17)
Glucose 129 H mg/dl
(70-99)
AST 61 H U/L
(14-36)
ALT 36 H U/L
(0-35)
Alkaline Phosphatase 138 H U/L
(38-126)
06/02/24 18:04
06/02/24 18:04
Vital Signs
Initial and Last Documented VS:
Initial Vital Signs
Temp Pulse Resp BP Pulse Ox
100.3 F 81 18 136/83 96
06/02/24 17:49 06/02/24 17:49 06/02/24 17:49 06/02/24 17:49 06/02/24 17:49
Last Documented Vital Signs
Temp Pulse Resp BP Pulse Ox
102.3 F H 117 18 128/72 97
06/02/24 20:59 06/02/24 20:55 06/02/24 17:49 06/02/24 20:55 06/02/24 20:16
<Yuliya Smith MD, Resident - Last Filed: 06/02/24 21:55>
MDM/Problems Addressed
Differential Diagnosis Includes:
Septic arthritis, gout, sepsis secondary to left lower limb ulcer, pseudogout, DVT.
MDM/Problems Addressed:
Fever with Tylenol.
Night dose of diltiazem and Eliquis.
Single dose of vancomycin and Unasyn given.
Chronic conditions affecting care: HTN, Cardiomyopathy, Arrhythmia and COPD
<Yuliya Smith MD, Resident - Last Filed: 06/02/24 21:55>
*Pulse Oximetry
Patient hypoxic: no
*EKG
Interpreted by ED Provider?: NA
*Critical Care Note
Total Time (30-74mins, 75-104mins- exclusive of procedures): Not Applicable
ED Attending Note
<Yuliya Smith MD, Resident - Last Filed: 06/02/24 21:55>
-
Portions of this chart may have been created with voice recognition software.� Occasional wrong word or��sound alike� substitutions may have occurred due to the inherent limitations of voice recognition software.
<Chon Zaldivar DO - Last Filed: 06/02/24 21:54>
ED Attending Note
Patient seen and examined by attending physician: Yes
I performed the substantive portion of visit, reviewed & personally made and approve the management plan that is documented in note by myself or WATSON.: Yes
I performed a history and physical exam of patient and discussed management with resident, I reviewed resident's note and agree with documented findings and plan of care.: Yes
ED Attending Note:
I evaluated the patient at bedside. The patient had outpatient arthrocentesis that showed 32,000 white cells however the patient has a very hot joint with minimal erythema and markedly decreased active range of motion due to pain. I still have
concern for the possibly of septic joint. Resident did speak to the orthopedic attending. Will admit for IV antibiotics.
Discharge Plan
Departure
Patient Disposition: Admit
Date of Disposition: 06/02/24
Time of Disposition: 21:53
Presentation/result/management discussed w/ accepting MD/DO: Hospitalist
Discharge Problem:
Septic joint of right knee joint
Prescriptions:
No Action
cyclosporine [Restasis] 0.05 % Dropperette
1 drp BOTH EYES BID Qty: 0
bupropion HCl 150 MG tablet extended release 24 hr
150 mg PO DAILY
Eliquis 2.5 MG tablet
2.5 mg PO BID
tramadol 50 mg Tablet
50 mg PO BIDPRN PRN (Reason: moderate pain)
Patient Comments:
06/02/2024: last filled 01/06/24, 30 tabs for 30 days from [facility]
levothyroxine [Synthroid] 100 mcg Tablet
100 mcg PO DAILY
vitamin B complex Tablet
1 tab PO DAILY
esomeprazole magnesium [Nexium] 20 mg Capsule,Delayed Release(Dr/Ec)
20 mg PO QPM
Trelegy Ellipta 100-62.5-25 mcg Blister With Device
1 inh INHALATION R DAILY
acetaminophen 500 mg Tablet
500 mg PO Q6HPRN PRN (Reason: mild pain)
carboxymethylcellulose sodium 1 % Drops, Liquid Gel
2 drp BOTH EYES BIDPRN PRN (Reason: allergies/dry eyes)
Saline Nasal Mist 0.65 % Aerosol,[place]
2 spray INTRANASAL BIDPRN PRN (Reason: dryness)
therapeutic multivitamin Tablet
1 tab PO DAILY
diltiazem HCl 240 mg capsule,extended release 24hr
240 mg PO HS
atorvastatin 10 mg tablet
10 mg PO HS
metoprolol succinate 25 mg Tablet Extended Release 24 Hr
25 mg PO DAILY Qty: 30 0RF
Rx Instructions:
dose decreased on this admission
Referrals:
Grecia Alonzo MD [Family Provider] -
Interventions
Interventions:
*Risk Screen - Suicide Last Done: 06/02/24 20:16
*General Assessment Last Done: 06/02/24 20:16
*Neglect/Abuse Screening Last Done: 06/02/24 20:16
*ED COVID-19 Vaccine History Last Done: 06/02/24 20:16
ED- Neurological Assessment Last Done: 06/02/24 20:16
ED-Skin Assessment Last Done: 06/02/24 20:16
Discharge Date and Time
Print Language: KINYARWANDA
[2024-06-02] MEDS: CARDIZEM CD 240 MG PO (20:55)
[2024-06-02] MEDS: TYLENOL 1000 MG PO (21:08)
[2024-06-02 21:09] VITALS: BP 128/55
--- NOTE | 2024-06-02 21:45 | PHANOTE ---
Med Rec Note:
Pt was prescribed Ondansetron 4mg, Ciprofloxacin 500mg & Hydromorphone 2mg today (06/02/24), but pt has not started them yet.
[2024-06-02] MEDS: VANCOCIN 530 MG IV (21:56)
--- NOTE | 2024-06-02 22:21 | PTCARENOTE ---
vancomycin stopped at 2220 d/t itching. Dr Nelson at bedside when this occurred and ordered for medication to be stopped. Dr Nelson OK with unasyn being given still.
[2024-06-02] MEDS: UNASYN IV (22:26)
[2024-06-02] MEDS: BENADRYL 25 MG PO (22:26)
[2024-06-02 22:31] VITALS: BP 98/41
--- NOTE | 2024-06-02 22:49 | HPS.HSE ---
Family Physician
-
Family Physician: Grecia Alonzo
Chief Complaint
-
Fever / Leg Pain
History of Present Illness
Patient is an 83y F with PMH significant for hypertension, A-Fib / Flutter and prior R TKA who presents to ED complaining of fever and R leg pain. Patient states that she started to have subjective fevers and chills as well as pain in the RLE
starting on Saturday. Patient states that pain started in the R groin and has extended distally. She now notes that she cannot flex her R knee without significant pain. She continues to have fevers at home to 102.
Patient denies any recent injury or trauma.
She is followed by Wound Care here for chronic L cotton wound.
She had a routine dental cleaning at the end of March - no more recent procedures / interventions / etc.
Patient was seen by Ortho as an outpatient today. She had aspiration done of the R knee and was sent to the ED for further evaluation.
Patient has fever here to 102.3.
She denies any other focal complaints including cough, dyspnea, N/V/D or urinary complaints.
Patient had original R TKA in 2009 and had revision with Dr. Cortes in 2014.
No prior history of joint infection, etc.
Medical History
Past Medical History
Past Medical History: Reports Other
Additional Past Medical History:
A-Fib / Flutter s/p Cardioversion
Symptomatic Bradycardia
Hypothyroidism
Stage IIIa non-small cell lung adenocarcinoma 2013 s/p radiation and chemo left lung
COPD
GERD
Hypertension
Depression
History of DVT
CKD III
Past Surgical History: Reports Other
Additional Past Surgical History:
PPM Placement
Right TKA (2009)
Right TKA Revision (2014)
Bilateral E[place]
IVC filter for DVT January 2015
Appendectomy
Hysterectomy
Left inguinal hernia repair
Cataract extraction 2018
Social History
Tobacco: Former Smoker (Quit 1996)
Alcohol: None
Personal:
Living: With Family ( Just[place])
Employment: Retired
Family History
Family History: Other (Mother breast cancer, father bladder cancer also history of A-fib and [place])
Allergies / Home Medications
Allergies reflects when Allergies were last updated in [employer].
Home Medications with original date entered in [employer]
Allergy/Medication List:
Allergies
Allergy/AdvReac Type Severity Reaction Status Date / Time
clarithromycin [From Biaxin] Allergy GASTRIC Verified 01/08/24 09:53
PROBLEMS
erythromycin base Allergy GI PROBLEMS Verified 01/08/24 09:53
vancomycin Allergy Itching Verified 06/02/24 22:52
meperidine AdvReac Pharmacy Verified 01/08/24 09:53
to Review
meperidine HCl [From Demerol] AdvReac Pharmacy Verified 01/08/24 09:53
to Review
mold Allergy irritated Uncoded 01/08/24 09:53
eyes
seasonal allergies Allergy sneezing,running Uncoded 01/08/24 09:53
nose,irritated
eyes
Home Medications
cyclosporine 0.05 % eye drops in a dropperette (Restasis) 1 drp BOTH EYES BID Eye Condition ##0 03/15/10
bupropion HCl 150 mg 24 hr tablet, extended release 150 mg PO DAILY Mental Health 11/21/15
apixaban 2.5 mg tablet (Eliquis) 2.5 mg PO BID Blood Clot Prevention/Tx 05/28/19
esomeprazole magnesium 20 mg capsule,delayed release (Nexium) 20 mg PO QPM Gastrointestinal Issue 11/26/23
fluticasone fur. 100 mcg-umeclid 62.5 mcg-vilant 25 mcg inhalat.powder (Trelegy Ellipta) 1 inh inhalation R DAILY Lung/Breathing Issues 11/26/23
levothyroxine 100 mcg tablet (Synthroid) 100 mcg PO DAILY Thyroid 11/26/23
tramadol 50 mg tablet 50 mg PO BIDPRN PRN moderate pain 11/26/23
vitamin B complex 1 tab PO DAILY Supplement 11/26/23
acetaminophen 500 mg tablet 500 mg PO Q6HPRN PRN mild pain 01/08/24
carboxymethylcellulose sodium 1 % eye liquid gel drops 2 drp BOTH EYES BIDPRN PRN allergies/dry eyes 01/08/24
sodium chloride 0.65 % nasal spray aerosol (Saline Nasal Mist) 2 spray intranasal BIDPRN PRN dryness 01/08/24
atorvastatin 10 mg tablet 10 mg PO HS High Cholesterol 01/09/24
diltiazem HCl 240 mg capsule,extended release 24 hr 240 mg PO HS Arrhythmia 01/09/24
therapeutic multivitamin 1 tab PO DAILY Supplement 01/09/24
metoprolol succinate 25 mg tablet,extended release 24 hr 25 mg PO DAILY #30 tabs 01/12/24
Review of Systems
-
History Source: Patient
A 12 point ROS was completed and negative except as noted: Yes
Constitutional: Reports Fever, Fatigue and Chills
EENT: Denies Sore Throat
Respiratory: Denies Cough or Trouble Breathing
Cardiac: Denies Chest Pain or Palpitations
Abdomen/GI: Reports Nausea; Denies Abdominal Pain, Vomiting or Diarrhea
: Denies Dysuria, Frequency or Flank Pain
Musculoskeletal: Reports Joint Pain, Joint Swelling and Edema
Neurological: Denies Dizzy or Headache
Psych: Denies Depression or Anxiety
Physical Exam
Vital Signs
Vital Signs
Temp Pulse Resp BP Pulse Ox
102.3 F H 117 18 98/41 95
06/02/24 20:59 06/02/24 20:55 06/02/24 17:49 06/02/24 22:31 06/02/24 22:45
Physical Exam
General: Other (83y F in no acute distress.)
HEENT: Moist mucous membranes and PERRLA
Respiratory: Clear; No Wheezes, Rales or Rhonchi
Cardiac: S1/S2 and Regular Rhythm; No Murmur
GI: Soft, Non Tender, Non Distended and Normal Bowel Sounds
Musculoskeletal: Other (RLE warm and with 2+ edema. Tenderness about R knee. Minimal ROM due to pain. LLE without edema or erythema or warmth. Wound over L lower leg with occlusive dressing in place.)
Neuro: AO x 3
Laboratory Results
-
06/02/24 18:04
06/02/24 18:04
Laboratory Results
Lactic Acid 2.0 mmol/L (0.7-2.0) 06/02/24 20:49
Total Bilirubin 0.9 mg/dl (0.2-1.3) 06/02/24 18:04
AST 61 U/L (14-36) H 06/02/24 18:04
ALT 36 U/L (0-35) H 06/02/24 18:04
Alkaline Phosphatase 138 U/L (38-126) H 06/02/24 18:04
Impression/Plan
-
A/P: Patient is an 83y F with PMH significant for A-Flutter, SSS, HTN and prior TKA who presents to ED complaining of fever and RLE pain / swelling.
Septic Arthritis R Knee
Sepsis secondary to the above
- Admit for further evaluation and treatment.
- Patient presents with fever, tachycardia and evidence of R knee joint infection with moderately increased WBC in fluid.
- Cultures submitted from outpatient setting - check in AM to ensure these are being processed.
- IV abx for now with Zosyn,
- Patient developed itching at IV site shortly after Vanco initiated - will hold for now.
- Ortho and ID evaluations for additional recommendations.
- Culture guided therapy when able.
- Pursue evaluation for potential source of infection (? L LE wound, check Echo, f/u blood cultures, etc).
LLE Wound
- Followed by Wound Care here at .
- Wound Care eval for local care recommendations.
A-Fib / Flutter
SSS
- Stable. s/p Cardioversion December of this year.
- Developed symptomatic bradycardia after this and subsequently had PPM placed.
- Monitor on telemetry.
- Continue rate-control medications.
- Hold Eliquis acutely given likely need for surgery / intervention.
Benign Hypertension
- Stable. Continue outpatient meds with holding parameters.
Hypothyroidism
- Stable. Continue current T4 replacement.
CKD III
- Stable. Renal function is normal at present.
- Follow for any changes.
Anxiety / Depression
- Stable. Continue outpatient medications.
DVT Prophylaxis: Foot Pumps
Code Status: DNR
[2024-06-02 23:00] VITALS: BP 95/41
[2024-06-03] VITALS (7 sets, daily range): BP systolic 102–124; BP diastolic 40–56; BMI 22.6
--- NOTE | 2024-06-03 00:45 | PTCARENOTE ---
Patient arrived from the ED via stretcher, patient stood and pivoted with help of staff and rolling walker. Patient unable to ambulate far due to pain in her right knee. AAOx3, VSS. Patient has right knee wrapped with chi wrap (knee was aspirated
prior), and has a LLE wound with silicone boarder foam in place. Patient refused for RN to remove chi wrap to inspect the right knee. RN changed foam dressing on LLE. Venous Ulcer with moderate amount of serous drainage. Wound/Ostomy is consulted.
Pt oriented to room and educated on plan of care. Pt refused administration of Zosyn IV due to a negative past experience. Call denis is within reach.
[2024-06-03] MEDS: LR 1000 IV ×3 (01:41→22:47)
[2024-06-03] MEDS: ZOFRAN 4 MG IV (01:41)
[2024-06-03] MEDS: SYNTHROID 100 MCG PO (05:16)
[2024-06-03] MEDS: SPIRIVA RESPIMAT 2.5 MCG 2 PUFF INH (07:52)
[2024-06-03] MEDS: SYMBICORT 80/4.5 MCG INHALER 2 PUFF INH ×2 (07:52→19:27)
--- NOTE | 2024-06-03 08:16 | CON.ORTHO ---
Documented by User: Barb Mcclain PA-C 06/03/24 08:40
Consultation
-
Date/Time Consultation Requested: 06/03/2024; time unknown
Date/Time Consultation Performed: 06/03/2024; 0730
Requesting Provider: unknown
Performing Provider: Dr. Rajesh Cortes / Barb Mcclain PA-C
Reason for Consultation: Right knee pain and effusion
Consultation - Orthopedics
History
Patient was seen and evaluated by both Dr. Cortes and myself this morning.
Ms. Quigley is an 83 year old female with PMH significant for stage IIIa non small cell lung cancer s/p chemo and radiation and on Restasis, COPD, GERD, HTN, DVT s/p IVC filter (2014), CKD III, HLD, atrial flutter on Eliquis and pacemaker seen today
for her right knee. She underwent right total knee arthroplasty by Dr. Cortes in 2009. She underwent revision TKA in 2014 for aseptic loosening. This past Saturday, she developed pain, swelling and difficulty ambulating in her right knee. She also
developed fevers which prompted her to present to our office for evaluation yesterday. 40 cc of cloudy fluid were aspirated from her knee. Cultures were sent to [facility], but unfortunately, these were discarded because they were not in
the correct tubes. Cell count did reveal 30k WBC. Specimen was also sent to [facility] for alpha defensin and culture. She was started on Vanco in the ED, but this was stopped b/c she started to develop hives and itching. She refused
piperacillin as she previously had an adverse GI reaction to this antibiotic. She is resting comfortably in bed at present, but endorses tenderness to touch and pain with any movement of her knee. She reports she continues to feel under the weather
and fatigued.
Allergies / Home Medications
Allergy/AdvReac Type Severity Reaction Status Date / Time
clarithromycin [From Biaxin] Allergy GASTRIC Verified 01/08/24 09:53
PROBLEMS
erythromycin base Allergy GI PROBLEMS Verified 01/08/24 09:53
vancomycin Allergy Itching Verified 06/02/24 22:52
meperidine AdvReac Pharmacy Verified 01/08/24 09:53
to Review
meperidine HCl [From Demerol] AdvReac Pharmacy Verified 01/08/24 09:53
to Review
mold Allergy irritated Uncoded 01/08/24 09:53
eyes
seasonal allergies Allergy sneezing,running Uncoded 01/08/24 09:53
nose,irritated
eyes
�Medication �Instructions �Recorded
cyclosporine 0.05 % eye drops in a 1 drp BOTH EYES BID Eye Condition 03/15/10
dropperette (Restasis) ##0
bupropion HCl 150 mg 24 hr tablet, 150 mg PO DAILY Mental Health 11/21/15
extended release
apixaban 2.5 mg tablet (Eliquis) 2.5 mg PO BID Blood Clot 05/28/19
Prevention/Tx
esomeprazole magnesium 20 mg 20 mg PO QPM Gastrointestinal Issue 11/26/23
capsule,delayed release (Nexium)
fluticasone fur. 100 mcg-umeclid 1 inh inhalation R DAILY 11/26/23
62.5 mcg-vilant 25 mcg Lung/Breathing Issues
inhalat.powder (Trelegy Ellipta)
levothyroxine 100 mcg tablet 100 mcg PO DAILY Thyroid 11/26/23
(Synthroid)
tramadol 50 mg tablet 50 mg PO BIDPRN PRN moderate pain 11/26/23
vitamin B complex 1 tab PO DAILY Supplement 11/26/23
acetaminophen 500 mg tablet 500 mg PO Q6HPRN PRN mild pain 01/08/24
carboxymethylcellulose sodium 1 % 2 drp BOTH EYES BIDPRN PRN 01/08/24
eye liquid gel drops allergies/dry eyes
sodium chloride 0.65 % nasal spray 2 spray intranasal BIDPRN PRN 01/08/24
aerosol (Saline Nasal Mist) dryness
atorvastatin 10 mg tablet 10 mg PO HS High Cholesterol 01/09/24
diltiazem HCl 240 mg 240 mg PO HS Arrhythmia 01/09/24
capsule,extended release 24 hr
therapeutic multivitamin 1 tab PO DAILY Supplement 01/09/24
metoprolol succinate 25 mg 25 mg PO DAILY #30 tabs 01/12/24
tablet,extended release 24 hr
Vital Signs / Lab Results
Temp Pulse Resp BP Pulse Ox
98.4 F 61 18 113/44 97
06/03/24 08:11 06/03/24 08:11 06/03/24 08:11 06/03/24 08:11 06/03/24 08:11
XR Right Knee 06/02/2024 IMPRESSION:
Right knee prosthesis is present.
No evidence of acute fracture or dislocation. No convincing radiographic findings to suggest prosthetic loosening or infection.
PVU Right Lower Extremity 06/02/2024 IMPRESSION:
1. No evidence of deep venous thrombosis in the visualized right lower extremity as described above.
Positive blood cultures pending; these reveal gram positive cocci in clusters.
ESR 109. CRP >200.
Initial cell count from fluid showed ~30,000 WBC.
Directed exam of the right lower extremity reveals well healed surgical incision over the anterior knee. No significant erythema about the knee. Significant tenderness to palpation generally about the right knee and right lower leg. Patient unable
to tolerate any ROM of her knee. Patient able to wiggle toes, plantar and dorsiflex ankle. Neurovascularly intact distally.
Patient does have a chronic, non-healing wound on her left lower extremity. This is covered with dressing on exam today.
Assessment / Plan
History of revision right TKA; right knee pain and effusion concerning for prosthetic joint infection versus cellulitis
--Unfortunately, Tesha is dealing with a very complex situation at present. She has experienced about 5 days of knee pain and swelling, as well as fevers. The cloudy fluid aspirated from her knee, as well as her significantly elevated CRP and ESR,
raise concern for prosthetic joint infection. Interestingly, the cell count from her synovial fluid only revealed about 30k WBC, but after discussion with Dr. Norman, this is likely related to her Restasis. Unfortunately, given the type of
revision prosthesis she has, explant is not a good surgical option for her. Surgical I&D with polyethylene liner exchange is a possibility in the future, but this would need to be done after Eliquis washout (72 hours). I did aspirate her knee at the
bedside this morning, and was able to get 6 cc of cloudy, blood tinged fluid. I sent this to the lab for cell count, gram stain and cultures. This specimen may not provide the best culture results given her recent IV vancomycin. We will also await
culture results from [facility] which should be more helpful given that these were drawn prior to antibiotic administration. For now, we would recommend treatment with antibiotics and serial aspirations as needed. We appreciate assistance of
medicine and ID in care of this patient. Antibiotics per ID.
--We will not be pursuing any surgical intervention today so patient may have diet.
--Follow blood and synovial fluid cultures.
--Pain control as needed.
--Orthopedics will continue to follow along.

Documented by User: Rajesh Cortes MD 06/03/24 11:19
Consultation - Orthopedics
Assessment / Plan
History of revision right TKA; right knee pain and effusion concerning for prosthetic joint infection versus cellulitis
--Unfortunately, Tesha is dealing with a very complex situation at present. She has experienced about 5 days of knee pain and swelling, as well as fevers. The cloudy fluid aspirated from her knee, as well as her significantly elevated CRP and ESR,
raise concern for prosthetic joint infection. Interestingly, the cell count from her synovial fluid only revealed about 30k WBC, but after discussion with Dr. Norman, this is likely related to her Cyclosporin Unfortunately, given the type of
revision prosthesis she has, explant is not a good surgical option for her. Surgical I&D with polyethylene liner exchange is a possibility in the future, but this would need to be done after Eliquis washout (72 hours). I did aspirate her knee at the
bedside this morning, and was able to get 6 cc of cloudy, blood tinged fluid. I sent this to the lab for cell count, gram stain and cultures. This specimen may not provide the best culture results given her recent IV vancomycin. We will also await
culture results from [facility] which should be more helpful given that these were drawn prior to antibiotic administration. For now, we would recommend treatment with antibiotics and serial aspirations as needed. We appreciate assistance of
medicine and ID in care of this patient. Antibiotics per ID.
--We will not be pursuing any surgical intervention today so patient may have diet.
--Follow blood and synovial fluid cultures.
--Pain control as needed.
--Orthopedics will continue to follow along.
--- NOTE | 2024-06-03 09:23 | VNURNOTE ---
Chart reviewed.� [facility].� Will continue to follow hospital course and DC plans.
[2024-06-03] MEDS: WELLBUTRIN XL (24 hour extended release) 150 MG PO (09:43)
[2024-06-03] MEDS: TOPROL XL 25 MG PO (09:43)
--- NOTE | 2024-06-03 09:52 | WOUNDNOTE ---
WON RN note: Patient admitted with Septic joint of R knee.
See H&P for complete history.
PMH: L leg wound-follows with [facility], Raynaud's disease, lung cancer, A Fib, HTN,PM, multiple ortho surgeries.
Wound Location and type/assessment: Patient admitted with: Full thickness wound to L medial lower leg due to fall. 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 Patient has a Rheumatology apt in June. Currently using
Betamethasone cream to wound with local wound care and compression stocking daily. Patient turned with assist of RN Maude and student nurse Osvaldo. Sacrum intact, MASD in gluteal cleft, barrier cream in use. Heels blanchable, patient states R heel
becoming sore. R knee wrapped with chi wrap and very painful upon movement, Ortho report reviewed.
Appetite: Good.
Pressure redistribution devices in place: Accumax, air cushion under R heel, pillow under L calve.
Plan: Spoke with Dr. Reid at bedside who confirmed wound care with betamethasone cream and compression orders. Cream can start tomorrow, patient made aware. Local wound care applied today for L leg wound, with chi wrap knee high. applied foam
adhesives to heels to protect and offloaded. Updated nurse Myrtle on the above.
Updated care plan and will follow as needed.
Note to case management of equipment requested for discharge: Continue VN.
Recommend follow up at wound care center upon discharge.
[2024-06-03] MEDS: TYLENOL 1000 MG PO (09:56)
[2024-06-03 10:30] LABS: Hematocrit 28.1 % (37.0-47.0); Hemoglobin 9.6 g/dL (12.0-16.0); Mean Corp Hgb Conc. 34.2 g/dL (33.0-37.0); Mean Corpuscular Hgb 33.7 pg (27.0-31.0); Mean Corpuscular Volume 98.6 fL (81.0-99.0); Mean Platelet Volume 10.2 fL (7.4-10.4); Platelet Count 166 10^3/uL (130-400); Red Blood Cell Count 2.85 10^6/uL (4.20-5.40); Red Cell Dist. Width 14.3 % (11.5-14.5); White Blood Cell Count 10.4 10^3/uL (4.8-10.8)
[2024-06-03] MEDS: CUBICIN 7.2 MG IV (10:55)
[2024-06-03 10:56] LABS: Body Fluid Mononuclear 10.6 %; Body Fluid Polymorphonuclear 89.4 %; Body Fluid WBC 16800 /CUMM
[2024-06-03 10:58] LABS: Body Fluid Second Tech ASW
--- NOTE | 2024-06-03 11:47 | W.PN.HOSP.TC ---
Addendum entered and electronically signed by Andrew Reid MD 06/03/24 12:34:
Imaging
DVT Study
IMPRESSION:
1. No evidence of deep venous thrombosis in the visualized right lower extremity as described above.
Knee Xray
IMPRESSION: Right knee prosthesis is present.
No evidence of acute fracture or dislocation. No convincing radiographic findings to suggest prosthetic loosening or infection.
Physical Exam
NAD, resting comfortably in bed
Scleral anicteric
Moist mucous membranes
No JVD
CTA bilateral
Normal S1-S2 no murmurs
Soft nontender nondistended bowel sounds active
No peripheral pitting edema
Left knee is wrapped, but there is effusion
Moves extremities spontaneously
AAOx3
Assessment and Plan
GPC Bacteremia
-Source likely PJI of the right knee
-Allergic to vanc (hive/rash)
-Cannot provide linezolid due to buproprion use
-Have ordered daptomycin x1dose to be given now with ID consutl
-2d echo to assess valves
-repeat cultures [id number] until negative cultures
Sepsis secondary to septic Arthritis - R Knee (?PJI)
-S/p arthocentesis at outpatient ortho.
-S/p arthocentesis in the ED with Ortho
-Follow up on Culture data
-Per Ortho, explant is not a good surgical option.
-May consider surgical InD with polyethlene liner exchange after eliquis watchout
LLE Wound
-Wound care consulted
AFlutter/Fib with known hx of SSS
-S/p cardioversion 12/2023, subsequent bradycardia
-S/p PPM, on CCB and BB
-Hold eliquis as operative intervention likely needed
Hypothyroidism
-Continue levothyroxine
Original Note:
Today's Communication/Plan
-
Orthopedic consult
Infectious disease consult
Initiate IV antibiotics
Repeat blood cultures
Symptomatic management
Assessment / Plan
Assessment / Plan
Impression: 83-year-old female with a past history of right knee arthroplasty presents with fever and joint pain from orthopedic office. She had a joint aspiration which demonstrated infected aspirate.
Plan:
#Septic arthritis right knee
Past medical history of right knee arthroplasty
Reported 5 days of knee pain swelling and fevers
Had right knee aspiration outpatient orthopedics demonstrated cloudy fluid white count 30,000.
Orthopedics consulted and following, currently considering surgical I&D in the future after Eliquis washout
Currently holding Eliquis
Patient was started on IV Zosyn in the emergency department, IV vancomycin was given however patient developed itchiness at IV site and was held
Initiated patient on IV daptomycin, day 1
Infectious disease consult pending
Pain regiment Tylenol, tramadol and Dilaudid as needed
Symptomatic management
Monitor LFTs with daily CMP
Monitor QT interval, currently 414
Echocardiogram obtained this morning, see results for details
#Gram-positive bacteremia
Blood cultures returned gram-positive bacteremia in clusters
Source likely from infected knee
Repeat blood cultures drawn
Infectious disease consult pending
Initiated patient on IV daptomycin, currently day 1
Culture guided therapy when available
#Hyponatremia
Sodium 132 on admission, 133 today
Unsure etiology
Continue lactated Ringer's
Continue to trend with Daily CMP
#CRYSTAL
Creatinine on admission 1.0
Today was 1.3
Etiology may be secondary to antibiotics
Continue IV fluids for the time being
Daily CMP
#Left lower extremity wound
Followed by wound care here at [facility]
Wound care eval
#Atrial fibrillation/flutter
Stable, status post cardioversion in December of this year
Had episode of symptomatic bradycardia after pacemaker was placed
Continue monitoring on telemetry
Continue home rate control medications
Currently holding Eliquis due to need for surgery/intervention of knee
#Hypertension
Continue home medications with holding parameters
#Hypothyroidism
Continue home levothyroxine
#CKD stage III
Renal function currently at baseline
Daily CMP
#Anxiety/depression
Continue home medications
CODE STATUS: DNR
DVT prophylaxis: Foot pumps
Diet: Regular
Data:
06/02/2024 knee x-ray
Right knee prosthesis is present.
No evidence of acute fracture or dislocation. No convincing radiographic findings to suggest prosthetic loosening or infection.
06/02/2024 peripheral vascular ultrasound
1. No evidence of deep venous thrombosis in the visualized right lower extremity as described above.
06/03/2024 echocardiogram
-LV ejection fraction is 55-60%, by visual assessment. No regional wall motion
abnormalities are seen. Stage III diastolic dysfunction suggestive of
restrictive filling pattern and increased filling pressures.
-Enlarged right ventricular size. Normal right ventricular systolic function.
Pacer wire seen in right ventricle.
-Severely dilated left atrium. Severely dilated right atrium.
-Mild to moderate mitral regurgitation.
-Mild aortic regurgitation.
-Severe tricuspid regurgitation. Estimated pulmonary artery pressure of 65-70
mmHg.
Compared to previous echo on 01/09/2024, PASP has increased (previously 40-45
mmHg).
Anticipated Discharge: > 48 hours
Subjective/Interval History
-
Date of Service: June 03, 2024
No acute events overnight
Objective Data
-
Labs:
Laboratory Results
06/03/24
10:16
WBC 10.4
Hgb 9.6 L
Hct 28.1 L
Plt Count 166 D
Sodium Pending
Potassium Pending
Chloride Pending
Carbon Dioxide Pending
BUN Pending
Creatinine Pending
Glucose Pending
Calcium Pending
Total Bilirubin Pending
AST Pending
ALT Pending
Alkaline Phosphatase Pending
Vital Signs:
Vital Signs
Temp Pulse Resp BP Pulse Ox
98.1 F 60 24 102/40 97
06/03/24 11:16 06/03/24 11:16 06/03/24 11:16 06/03/24 11:16 06/03/24 11:16
I&O
06/02/24 06/03/24 06/04/24
06:59 06:59 06:59
Intake Total 500 / 500
Balance 500 / 500
Review of Systems
-
History Source: Patient
Constitutional: Reports Fever, Fatigue and Chills
Respiratory: Reports No Symptoms
Cardiac: Reports No Symptoms
Abdomen/GI: Reports Nausea
Musculoskeletal: Reports Joint Pain, Joint Swelling and Edema
Neuro: Reports No Symptoms
Physical Exam
-
General: Appears in Distress and Pain
Respiratory: Clear to Auscultation
Cardiac: Regular Rhythm and S1/S2
Musculoskeletal: Edema, Right Lower Extrem and Other (Tenderness of right knee, minimal range of motion due to pain)
Skin: Warm and Dry
Neuro: Awake, Alert, Oriented and AO x 3
Psych: Calm and Intact Judgement/Insight
Data Reviewed
-
Diagnostic Radiology: Report Reviewed by me and Discussed with Physician
Ultrasound: Report Reviewed by me and Discussed with Physician
Labs: Labs Reviewed by me and Discussed with Physician
[2024-06-03 12:05] LABS: ALT (SGPT) 38 U/L (0-35); AST (SGOT) 71 U/L (14-36); Albumin 2.9 g/dl (3.5-5.0); Alkaline Phosphatase 115 U/L (38-126); Blood Urea Nitrogen 39 mg/dl (7-17); Calcium 8.7 mg/dl (8.4-10.2); Carbon Dioxide 23 mmol/L (22-30); Chloride 98 mmol/L (98-107); Direct Bilirubin 0.2 mg/dl (0.0-0.4); Estimated Creatinine Clearance 29 ml/min; Glucose 170 mg/dl (70-99); Potassium 3.7 mmol/L (3.5-5.1); Sodium 133 mmol/L (135-145); Total Bilirubin 0.5 mg/dl (0.2-1.3); Total Protein 5.8 g/dl (6.3-8.2); eGFR 41.31
--- NOTE | 2024-06-03 12:54 | CON.ID ---
Consultation
-
Date/Time Consultation Requested: 06/03/24 00:021
Date/Time Consultation Performed: 06/03/24 12:55
Requesting Provider: Dr Nelson
Performing Provider: Dr Norman
Reason for Consultation: septic arthritis of the R knee
Chief Complaint / Past History
Chief Complaint
fever and knee pain
History of Present Illness
Ms Quigley is an 83 year old female with history of COPD, CKD3, remote R TKR 2009 who presented to the ER on 06/02 for fevers, chills and progressive pain in the right groin and right knee with associated limited range of motion of the joint. She did
have a previous complication requiring a revision 2014 for aspetic loosening. Fevers at home to 102.0. She has not had any recent injections or trauma to the knee. Did have a routine dental cleaning late March but no further interventions.
She presented to her orthopedist Dr Cortes who did a joint aspiration in the clinic, 40 ccs of cloudy fluid aspirated - it was sent out for alpha defensin and culture; preliminary results with 30K WBCs an additional sample was sent to the hospital
lab and unfortunately found to be in the wrong container and discarded.
Of note with pacemaker and bilateral hip replacements as well - no erythema, warmth, tenderness or dehiscence of any of these sites.
No changes in vision and no new back pains.
Has never been told she was bacteremic elsewhere.
Also note a nonhealing wound of the L cotton for which she follows with wound care.
History of stage III NSCLC is remote in remission
Since arrival here she has been febrile to tmax of 102.3, bp overall stable, wbc initially 10.7 and today also 10.4, hgb 9.6, plt 166, L shift was noted on arrival, esr was 109, na 133, cr currently 1.3 previously 1.0, lactic acid initially 1.5 then
2.0, t bili 0.5, ast 71, alt 38, alk phos 115, initial arthorcentesis 30K WBCs and 82% PMNs, repeat today done at my request for additional culture and wbc 16K and 89% pmns, covid ag neg, 06/02 knee xray: r knee prosthesis, no loosening, blood
cultures x2 done and 1 of two sets already with S aureus, synovial fluid from today wbcs seen but no organisms, repeat blood cultures x2 are in progress, she was initially started on vancomycin and had some itching - it was discontinued. She had a
TTE done today and no vegetation was seen. she also had a dose of unasyn which was discontinued. at 11 am had a dost of 6 mg/kg of daptomycin. ID is consulted for assistance with management.
Past History
Additional Past Medical History:
A-Fib / Flutter s/p Cardioversion
Symptomatic Bradycardia
Hypothyroidism
Stage IIIa non-small cell lung adenocarcinoma 2013 s/p radiation and chemo left lung
COPD
GERD
Hypertension
Depression
History of DVT
CKD III
Additional Past Surgical History:
PPM Placement
Right TKA (2009)
Right TKA Revision (2014)
Bilateral EASTON
IVC filter for DVT January 2015
Appendectomy
Hysterectomy
Left inguinal hernia repair
Cataract extraction 2018
Allergy History:
clarithromycin [From Biaxin] Allergy (Verified 01/08/24 09:53)
GASTRIC PROBLEMS
erythromycin base Allergy (Verified 01/08/24 09:53)
GI PROBLEMS
vancomycin Allergy (Verified 06/02/24 22:52)
Red man syndrome
meperidine Adverse Reaction (Verified 01/08/24 09:53)
Pharmacy to Review
meperidine HCl [From Demerol] Adverse Reaction (Verified 01/08/24 09:53)
Pharmacy to Review
mold Allergy (Uncoded 01/08/24 09:53)
irritated eyes
seasonal allergies Allergy (Uncoded 01/08/24 09:53)
sneezing,running nose,irritated eyes
Medications Reviewed: Yes
Social History
Tobacco: Former Smoker
Alcohol: None
Personal:
Family History
Family History: Not Pertinent
Review of Systems
Review of Systems
General: Fever and Chills
All systems: All other systems were reviewed and were negative
Vital Signs
Temp Pulse Resp BP Pulse Ox
98.1 F 60 24 102/40 97
06/03/24 11:16 06/03/24 11:16 06/03/24 11:16 06/03/24 11:16 06/03/24 12:37
Physical Exam
Physical Exam
Constitutional: No Acute Distress and Chronically Ill
Cardiovascular: Regular Rate and S1/S2; Negative Murmur or Rub
Pulmonary: Clear and Symmetric; Negative Wheezes, Rales or Rhonchi
Gastrointestinal: Soft, Non Tender, Non Distended and Normal Bowel Sounds
Musculoskeletal: Other (right knee warm compared to the CL side, not erythematous, very tender)
Skin: Warm and Dry; Negative Rash or Jaundice
Wound: Other (L leg with chronic wound with granulation tissue and mild amount of slough, no visible tendon or bone, no surrounding erythema, warmth or tenderness)
Lines: Other (pacemaker - no erythema, warmth tenderness or drainage)
Lab / Diagnostic Study Results
06/03/24 10:16
06/03/24 10:16
Abs Immat Gran (auto) 0.2 10^3/uL (0-0.05) H 06/02/24 18:04
Absolute Neuts (auto) 8.9 10^3/uL (1.4-6.5) H 06/02/24 18:04
Absolute Lymphs (auto) 0.3 10^3/uL (1.2-3.4) L 06/02/24 18:04
Absolute Monos (auto) 1.2 10^3/uL (0.1-0.6) H 06/02/24 18:04
Absolute Basos (auto) 0.1 10^3/uL (0-0.2) 06/02/24 18:04
Immature Gran % 1.5 % (0-0.5) H 06/02/24 18:04
Neutrophils % 82.4 % (42.2-75.2) H 06/02/24 18:04
Lymphocytes % 2.6 % (20.5-51.1) L 06/02/24 18:04
Monocytes % 11.0 % (1.7-9.3) H 06/02/24 18:04
Eosinophils % 1.6 % (0-6) 06/02/24 18:04
Basophils % 0.9 % (0-2) 06/02/24 18:04
Lactic Acid 2.0 mmol/L (0.7-2.0) 06/02/24 20:49
Microbiology Results
Micro:
06/03/24 11:27 Blood Culture - Pending
Blood/Venous
06/03/24 09:00 Body Fluid Culture - Pending
Synovial Fluid Gram Stain - Preliminary
06/03/24 10:16 Blood Culture - Pending
Blood/Venous
06/02/24 20:49 Blood Culture - Preliminary
Blood/Venous Staphylococcus aureus
Gram Stain - Final
06/02/24 21:44 Blood Culture - Preliminary
Blood/Venous Positive culture in progress
Gram Stain - Final
06/03/24 01:06 MRSA Screen - Pending
Other-Please specify - Left
06/02/24 18:04 Influenza Types A & B (GAEL) - Final
Nasal Swab Negative for Influenza A & B, NAAT
Negative results must be combined with clinical observations
and patient history.
Nucleic Acid Amplification test (NAAT)performed on the
[employer] platform.
Assessment / Plan
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
Bacteremia due to S aureus
Nonhealing wound on the CL leg
- repeat blood cultures x2 are in progress
- echo today without vegetations
- agree with daptomycin - increased dose to 10 mg/kg iv q24
- hold statin while on daptomycin
- CK today for baseline and in the AM, then weekly
- red man syndrome not a contraindication to vancomycin use, daptomycin selected for ease of dosing. vancomycin could be used in the future if needed - would run at a slower rate and could pretreat with benadryl
- unfortunately with ID of S aureus, would consider I&D, liner exchange and washout when feasible and I would likely keep her on suppression after acute treatment is completed
- hopefully bacteremia will clear quickly
- restasis (cyclosporine eye drops) do not typically cause systemic immunosuppression; she tells me her chemotherapy is remote (>10 years ago), suspect lower cell count may have been due to early presentation
- follow closely
Care Review
Plan reviewed with: Physician (Dr Cortes - washout, cell count; Dr Lemon, Dr Reid: h/o DVT, IVC filter pt asking if other intervention required)
[2024-06-03] MEDS: TYLENOL 500 MG PO ×3 (13:17→21:00)
[2024-06-03 13:50] LABS: Creatine Phosphokinase 412 U/L (30-135)
--- NOTE | 2024-06-03 16:16 | CM ---
Patient is independent ADLs and ambulation at baseline. She lives with her in a 2 story home with 1 entry step. Patient is known to [facility] in the past and would be agreeable to [facility] once medically stable for discharge.
CM to follow to coordinate discharge planning needs based on hospital course.
[2024-06-03] MEDS: CUBICIN 4.8 MG IV (17:09)
[2024-06-03] MEDS: PROTONIX 40 MG PO (17:09)
[2024-06-03] MEDS: CARDIZEM CD 240 MG PO (21:00)
[2024-06-04 03:15] VITALS: BP 124/49
[2024-06-04 06:00] VITALS: BMI 23.0
[2024-06-04] MEDS: SYNTHROID 100 MCG PO (06:18)
[2024-06-04] MEDS: SPIRIVA RESPIMAT 2.5 MCG 2 PUFF INH (07:33)
[2024-06-04] MEDS: SYMBICORT 80/4.5 MCG INHALER 2 PUFF INH ×2 (07:33→20:27)
[2024-06-04 07:47] LABS: Creatine Phosphokinase 133 U/L (30-135)
[2024-06-04 07:58] VITALS: BP 128/60
[2024-06-04] MEDS: WELLBUTRIN XL (24 hour extended release) 150 MG PO (08:00)
[2024-06-04] MEDS: TOPROL XL 25 MG PO (08:00)
[2024-06-04] MEDS: TYLENOL 500 MG PO ×4 (08:00→22:32)
[2024-06-04] MEDS: DIPROSONE CREAM 0.05% 1 APPLIC TOPICAL (08:01)
[2024-06-04 08:14] LABS: Hematocrit 27.4 % (37.0-47.0); Hemoglobin 9.3 g/dL (12.0-16.0); Mean Corp Hgb Conc. 33.9 g/dL (33.0-37.0); Mean Corpuscular Hgb 32.3 pg (27.0-31.0); Mean Corpuscular Volume 95.1 fL (81.0-99.0); Mean Platelet Volume 10.4 fL (7.4-10.4); Platelet Count 186 10^3/uL (130-400); Red Blood Cell Count 2.88 10^6/uL (4.20-5.40); Red Cell Dist. Width 14.2 % (11.5-14.5); White Blood Cell Count 6.5 10^3/uL (4.8-10.8)
--- NOTE | 2024-06-04 08:15 | W.PN.UPDATE ---
Update Note
Progress Note Update
Mrs. Quigley was afebrile overnight but this morning low-grade temp at 100.5 �F. She still has pain about her knee with painful range of motion. Right knee exam shows well-healed surgical incision. generalized pain about the knee with small
effusion noted. Range of motion 0-80 degrees with pain and no gross instability. Calf is soft and nontender. Distal neurovascular was intact. Preliminary data from [facility] showed Synovasure alpha defense PJI was positive, CRP greater
than 60.0, total nucleated cell count was 13,861, neutrophils 81.6, no crystals found and positive for Staphylococcus panel. Sensitivities are pending. Today we declined aspiration since there is only small knee effusion noted. I suspect that
tomorrow we will may have to aspirate the knee and obviously throughout the weekend there is a chance as well. Dr. Cortes has tentatively placed her on the OR schedule for right knee I&D with poly exchange June 08, 2024. Orthopedics to
continue to follow. Appreciate medical team's efforts.
[2024-06-04 08:17] LABS: ALT (SGPT) 40 U/L (0-35); AST (SGOT) 55 U/L (14-36); Albumin 2.7 g/dl (3.5-5.0); Alkaline Phosphatase 130 U/L (38-126); Blood Urea Nitrogen 32 mg/dl (7-17); Calcium 8.4 mg/dl (8.4-10.2); Carbon Dioxide 24 mmol/L (22-30); Chloride 102 mmol/L (98-107); Estimated Creatinine Clearance 38 ml/min; Glucose 102 mg/dl (70-99); Potassium 3.9 mmol/L (3.5-5.1); Sodium 136 mmol/L (135-145); Total Bilirubin 0.2 mg/dl (0.2-1.3); Total Protein 5.5 g/dl (6.3-8.2)
[2024-06-04] MEDS: LR IV (08:57)
[2024-06-04] MEDS: LR 1000 IV ×2 (08:57→22:37)
[2024-06-04] MEDS: TORADOL 15 MG IV ×2 (08:58→20:48)
[2024-06-04] MEDS: CUBICIN 12 MG IV (10:32)
[2024-06-04] MEDS: HEPARIN 3600 UNITS IV (10:46)
[2024-06-04] MEDS: HEPARIN 25000 UNITS/250 ML IV (10:46)
[2024-06-04 11:21] VITALS: BP 108/94
--- NOTE | 2024-06-04 11:25 | CM ---
Tentative plan for R knee I&D 06/08/2024. CM continues to follow for discharge planning needs.
--- NOTE | 2024-06-04 13:19 | W.PN.HOSP.TC ---
Addendum entered and electronically signed by Andrew Reid MD 06/04/24 14:39:
Imaging
DVT Study
IMPRESSION:
1. No evidence of deep venous thrombosis in the visualized right lower extremity as described above.
Knee Xray
IMPRESSION: Right knee prosthesis is present.
No evidence of acute fracture or dislocation. No convincing radiographic findings to suggest prosthetic loosening or infection.
Physical Exam
NAD, resting comfortably in bed
Scleral anicteric
Moist mucous membranes
No JVD
CTA bilateral
Normal S1-S2 no murmurs
Soft nontender nondistended bowel sounds active
No peripheral pitting edema
Left knee is wrapped, but there is effusion
Moves extremities spontaneously
AAOx3
Assessment and Plan
Staph Bacteremia
-Source likely PJI of the right knee
-Allergic to vanc (hive/rash)
-Cannot provide linezolid due to buproprion use
-Have ordered daptomycin x1dose to be given now with ID consutl
-2d echo to assess valves
-repeat cultures [id number] until negative cultures
Sepsis secondary to septic Arthritis - R Knee (PJI)
-S/p arthocentesis at outpatient ortho.
-S/p arthocentesis in the ED with Ortho
-Follow up on Culture data
-Per Ortho, explant is not a good surgical option.
-May consider surgical InD with polyethlene liner exchange/washout with spacer after eliquis washout
LLE Wound
-Wound care consulted
AFlutter/Fib with known hx of SSS
-S/p cardioversion 12/2023, subsequent bradycardia
-S/p PPM, on CCB and BB
-Hold eliquis as operative intervention likely needed
Hypothyroidism
-Continue levothyroxine
Original Note:
Today's Communication/Plan
-
US leg for DVT
heparin drip
continue IV abx
symptomatic management of pain
Assessment / Plan
Assessment / Plan
Impression: 83-year-old female with a past history of right knee arthroplasty presents with fever and joint pain from orthopedic office. She had a joint aspiration which demonstrated infected aspirate.
Plan:
#Septic arthritis right knee
Past medical history of right knee arthroplasty
Reported 5 days of knee pain swelling and fevers
Had right knee aspiration outpatient orthopedics demonstrated cloudy fluid white count 30,000.
Orthopedics consulted and following, currently considering surgical I&D in the future after Eliquis washout
Currently holding Eliquis
started pt on heparin drip, will hold at 2 am in anticipation for any procedures tomorrow
Patient was started on IV Zosyn in the emergency department, IV vancomycin was given however patient developed itchiness at IV site and was held
Initiated patient on IV daptomycin, 10mg/kg day 2
Infectious disease following
Pain regiment Tylenol, tramadol and Dilaudid as needed
Symptomatic management
Monitor LFTs with daily CMP
Monitor QT interval
Echocardiogram obtained
#Gram-positive bacteremia
Blood cultures returned gram-positive bacteremia in clusters
Source likely from infected knee
Repeat blood cultures drawn
Infectious disease consult pending
Initiated patient on IV daptomycin, currently day 2
Culture guided therapy when available
#Hyponatremia
resolved
Sodium 132 on admission
Unsure etiology
Continue lactated Ringer's
Continue to trend with Daily CMP
#CRYSTAL
resloved
Creatinine on admission 1.0, was 1.3
back to 1.0
Continue IV fluids for the time being
Daily CMP
#Left lower extremity wound
Followed by wound care here at [facility]
Wound care eval
#Atrial fibrillation/flutter
Stable, status post cardioversion in December of this year
Had episode of symptomatic bradycardia after pacemaker was placed
Continue monitoring on telemetry
Continue home rate control medications
Currently holding Eliquis due to need for surgery/intervention of knee
started on heparin drip
#Hypertension
Continue home medications with holding parameters
#Hypothyroidism
Continue home levothyroxine
#CKD stage III
Renal function currently at baseline
Daily CMP
#Anxiety/depression
Continue home medications
CODE STATUS: DNR
DVT prophylaxis: Foot pumps
Diet: Regular
Data:
06/02/2024 knee x-ray
Right knee prosthesis is present.
No evidence of acute fracture or dislocation. No convincing radiographic findings to suggest prosthetic loosening or infection.
06/02/2024 peripheral vascular ultrasound
1. No evidence of deep venous thrombosis in the visualized right lower extremity as described above.
06/03/2024 echocardiogram
-LV ejection fraction is 55-60%, by visual assessment. No regional wall motion
abnormalities are seen. Stage III diastolic dysfunction suggestive of
restrictive filling pattern and increased filling pressures.
-Enlarged right ventricular size. Normal right ventricular systolic function.
Pacer wire seen in right ventricle.
-Severely dilated left atrium. Severely dilated right atrium.
-Mild to moderate mitral regurgitation.
-Mild aortic regurgitation.
-Severe tricuspid regurgitation. Estimated pulmonary artery pressure of 65-70
mmHg.
Compared to previous echo on 01/09/2024, PASP has increased (previously 40-45
mmHg).
Anticipated Discharge: > 48 hours
Subjective/Interval History
-
Date of Service: June 04, 2024
no acute events
Objective Data
-
Labs:
Laboratory Results
06/04/24 06/04/24 06/04/24
06:55 07:40 09:02
WBC 6.5 Cancelled Cancelled
Hgb 9.3 L Cancelled Cancelled
Hct 27.4 L Cancelled Cancelled
Plt Count 186 Cancelled Cancelled
APTT
Sodium 136 Cancelled
Potassium 3.9 Cancelled
Chloride 102 Cancelled
Carbon Dioxide 24 Cancelled
BUN 32 H Cancelled
Creatinine 1.0 Cancelled
Glucose 102 H Cancelled
Calcium 8.4 Cancelled
Total Bilirubin 0.2 Cancelled
AST 55 H Cancelled
ALT 40 H Cancelled
Alkaline Phosphatase 130 H Cancelled
06/04/24 06/04/24
09:15 17:00
WBC
Hgb
Hct
Plt Count
APTT 40.0 H Pending
Sodium
Potassium
Chloride
Carbon Dioxide
BUN
Creatinine
Glucose
Calcium
Total Bilirubin
AST
ALT
Alkaline Phosphatase
Vital Signs:
Vital Signs
Temp Pulse Resp BP Pulse Ox
98.4 F 62 18 108/94 94
06/04/24 11:21 06/04/24 11:21 06/04/24 11:21 06/04/24 11:21 06/04/24 11:21
I&O
06/03/24 06/04/24 06/05/24
06:59 06:59 06:59
Intake Total 500 / 500 2880 / 2880
Balance 500 / 500 2880 / 2880
Review of Systems
-
History Source: Patient
Constitutional: Reports Fever
Respiratory: Reports No Symptoms
Cardiac: Reports No Symptoms
Abdomen/GI: Reports No Symptoms
Musculoskeletal: Reports Joint Pain and Joint Swelling
Neuro: Reports No Symptoms
Physical Exam
-
General: Well Developed, No Apparent Distress, Comfortable and Conversant
Respiratory: Clear to Auscultation
Cardiac: Regular Rhythm and S1/S2
GI: Soft, Nontender and Nondistended
Musculoskeletal: No Edema and Other (right leg tender to palpation, full pulses. Venous dermatitis changes)
Skin: Warm and Dry
Neuro: Awake, Alert, Oriented and AO x 3
Psych: Calm and Intact Judgement/Insight
Data Reviewed
-
Ultrasound: Report Reviewed by me and Discussed with Physician
Labs: Labs Reviewed by me and Discussed with Physician
--- NOTE | 2024-06-04 13:24 | W.PN.ID1 ---
Date of Service
Date of Service: June 04, 2024
Today's Communication
- if 06/05 blood culture becomes positive would proceed to [facility]
- agree with daptomycin 10 mg/kg iv q24
- added cefazolin 2 gm IV q8hr
Assessment / Plan
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
Bacteremia due to S aureus
Nonhealing wound on the CL leg
Pacemaker
- blood cultures 06/02 and 06/03: S aureus
- repeat blood cultures x2 q48 hours - next set tomorrow AM
- TTE 06/03 without vegetations
- if 06/05 blood culture becomes positive would proceed to [facility]
- agree with daptomycin 10 mg/kg iv q24
- hold statin while on daptomycin
- CK actually declined overnight to 133, repeat weekly moving forward or PRN if myalgias
- added cefazolin 2 gm IV q8hr
- note orthopedics plans for serial aspirations PRN until washout and Im in agreement
- follow closely
Chief Complaint
-: Bacteremia and Other (septic joint)
Subjective / Review of Systems
febrile to 100.5 this am
bp stable
no events reported overnight
an US of the leg is being done to evaluate for dvt
note orthopedics plans for serial aspirations PRN until washout and Im in agreement
Vital Signs / Physical Exam
Vital Signs
Vital Signs
Temp Pulse Resp BP Pulse Ox
98.4 F 62 18 108/94 94
06/04/24 11:21 06/04/24 11:21 06/04/24 11:21 06/04/24 11:21 06/04/24 11:21
Physical Exam
Constitutional: No Acute Distress
Cardiovascular: Regular Rate and S1/S2; Negative Murmur or Rub
Pulmonary: Clear and Symmetric; Negative Wheezes or Rales
Gastrointestinal: Soft, Non Tender, Non Distended and Normal Bowel Sounds
Skin: Warm and Dry; Negative Rash or Jaundice
Lines: Other (pacemaker - no erythema, warmth or tenderness)
Objective Data
Lab Data
Lab Results
06/04/24 09:02
06/04/24 07:40
APTT 40.0 Sec (23.4-35.0) H 06/04/24 09:15
Estimated Creat Clear Cancelled 06/04/24 07:40
Lactic Acid 2.0 mmol/L (0.7-2.0) 06/02/24 20:49
Total Bilirubin Cancelled 06/04/24 07:40
AST Cancelled 06/04/24 07:40
ALT Cancelled 06/04/24 07:40
Alkaline Phosphatase Cancelled 06/04/24 07:40
Most recent labs reviewed.
Micro Results:
06/03/24 11:27 Blood Culture - Preliminary
Blood/Venous No Growth in 24 hours- Final report to follow
06/03/24 09:00 Body Fluid Culture - Preliminary
Synovial Fluid Staphylococcus aureus
Gram Stain - Preliminary
06/02/24 21:44 Blood Culture - Preliminary
Blood/Venous Staphylococcus aureus
Gram Stain - Final
06/02/24 20:49 Blood Culture - Preliminary
Blood/Venous Staphylococcus aureus
Gram Stain - Final
06/03/24 01:06 MRSA Screen - Final
Other-Please specify - Left No Methicillin Resistant Staphylococcus aureus isolated.
06/03/24 10:16 Blood Culture - Preliminary
Blood/Venous Positive culture in progress
Gram Stain - Preliminary
06/02/24 18:04 Influenza Types A & B (GAEL) - Final
Nasal Swab Negative for Influenza A & B, NAAT
Negative results must be combined with clinical observations
and patient history.
Nucleic Acid Amplification test (NAAT)performed on the
[employer] platform.
[2024-06-04] MEDS: ANCEF 10 IV ×2 (14:12→21:03)
[2024-06-04 15:00] VITALS: BP 120/46
[2024-06-04] MEDS: PROTONIX 40 MG PO (17:09)
[2024-06-04 17:43] LABS: APTT 74.3 Sec (23.4-35.0)
[2024-06-04 19:24] VITALS: BP 122/56
[2024-06-04] MEDS: CARDIZEM CD 240 MG PO (20:38)
[2024-06-04 23:43] VITALS: BP 118/49
[2024-06-05 00:30] LABS: APTT 70.8 Sec (23.4-35.0)
[2024-06-05] MEDS: HEPARIN 2400 UNITS IV (01:06)
[2024-06-05 03:51] VITALS: BP 117/50
[2024-06-05] MEDS: ANCEF 10 IV ×3 (05:28→21:28)
[2024-06-05] MEDS: SYNTHROID 100 MCG PO (05:28)
[2024-06-05] MEDS: TORADOL 15 MG IV ×2 (05:34→12:58)
[2024-06-05 06:00] VITALS: BMI 23.0
[2024-06-05 07:34] LABS: Hematocrit 29.1 % (37.0-47.0); Hemoglobin 9.7 g/dL (12.0-16.0); Mean Corp Hgb Conc. 33.3 g/dL (33.0-37.0); Mean Corpuscular Hgb 33.4 pg (27.0-31.0); Mean Corpuscular Volume 100.3 fL (81.0-99.0); Mean Platelet Volume 10.3 fL (7.4-10.4); Platelet Count 201 10^3/uL (130-400); Red Cell Dist. Width 14.3 % (11.5-14.5); White Blood Cell Count 6.4 10^3/uL (4.8-10.8)
[2024-06-05] MEDS: SYMBICORT 80/4.5 MCG INHALER 2 PUFF INH ×2 (07:39→19:46)
[2024-06-05] MEDS: SPIRIVA RESPIMAT 2.5 MCG 2 PUFF INH (07:39)
[2024-06-05 07:49] LABS: APTT 101.8 Sec (23.4-35.0)
[2024-06-05 07:55] VITALS: BP 141/58
--- NOTE | 2024-06-05 08:23 | W.PN.UPDATE ---
Update Note
Progress Note Update
PT seen this AM; doing much better. Will plan for aspiration tomorrow (last before surgery) as she is doing well and continue with OR Saturday for I&D with component exchange with Dr. Cortes; NPO @ [facility], hold heparin DOS. Ortho will continue to follow.
[2024-06-05] MEDS: TYLENOL 500 MG PO ×3 (08:36→21:28)
[2024-06-05] MEDS: LR 1000 IV (08:36)
[2024-06-05] MEDS: WELLBUTRIN XL (24 hour extended release) 150 MG PO (08:36)
[2024-06-05] MEDS: TOPROL XL 25 MG PO (08:36)
[2024-06-05] MEDS: HEPARIN 25000 UNITS/250 ML IV (08:39)
[2024-06-05] MEDS: DIPROSONE CREAM 0.05% 1 APPLIC TOPICAL (08:46)
[2024-06-05 09:24] LABS: ALT (SGPT) 29 U/L (0-35); AST (SGOT) 46 U/L (14-36); Albumin 2.6 g/dl (3.5-5.0); Alkaline Phosphatase 131 U/L (38-126); Blood Urea Nitrogen 29 mg/dl (7-17); Calcium 8.3 mg/dl (8.4-10.2); Carbon Dioxide 25 mmol/L (22-30); Chloride 103 mmol/L (98-107); Estimated Creatinine Clearance 42 ml/min; Glucose 96 mg/dl (70-99); Potassium 4.1 mmol/L (3.5-5.1); Sodium 138 mmol/L (135-145); Total Bilirubin 0.1 mg/dl (0.2-1.3); Total Protein 5.4 g/dl (6.3-8.2); eGFR > 60.00
[2024-06-05] MEDS: CUBICIN 12 MG IV (10:04)
--- NOTE | 2024-06-05 10:59 | W.PN.HOSP.TC ---
Addendum entered and electronically signed by Andrew Reid MD 06/05/24 13:26:
Imaging
DVT Study
IMPRESSION:
1. No evidence of deep venous thrombosis in the visualized right lower extremity as described above.
Knee Xray
IMPRESSION: Right knee prosthesis is present.
No evidence of acute fracture or dislocation. No convincing radiographic findings to suggest prosthetic loosening or infection.
Physical Exam
NAD, resting comfortably in bed
Scleral anicteric
Moist mucous membranes
No JVD
CTA bilateral
Normal S1-S2 no murmurs
Soft nontender nondistended bowel sounds active
No peripheral pitting edema
Left knee is wrapped, but there is effusion
Moves extremities spontaneously
AAOx3
Assessment and Plan
Staph Bacteremia
-Source likely PJI of the right knee
-Allergic to vanc (hive/rash)
-Cannot provide linezolid due to buproprion use
-Have ordered daptomycin x1dose to be given now with ID consutl
-2d echo to assess valves
-repeat cultures [id number] until negative cultures
-Cardiology consulted by ID for WONG as there could be a secondary foci with ppm lead or valve
Sepsis secondary to septic Arthritis - R Knee (PJI)
-S/p arthocentesis at outpatient ortho.
-S/p arthocentesis in the ED with Ortho
-Follow up on Culture data
-Per Ortho, explant is not a good surgical option.
-May consider surgical InD with polyethlene liner exchange/washout with spacer after eliquis washout
LLE Wound
-Wound care consulted
AFlutter/Fib with known hx of SSS
-S/p cardioversion 12/2023, subsequent bradycardia
-S/p PPM, on CCB and BB
-Hold eliquis as operative intervention likely needed
Hypothyroidism
-Continue levothyroxine
Original Note:
Today's Communication/Plan
-
Continue IV heparin drip
Continue IV antibiotics
Cardiology consult for WONG planning
Anticipate orthopedic surgery on Saturday. Planning to hold heparin at 2 AM on Saturday
Assessment / Plan
Assessment / Plan
Impression: 83-year-old female with a past history of right knee arthroplasty presents with fever and joint pain from orthopedic office. She had a joint aspiration which demonstrated infected aspirate.
Plan:
#Septic arthritis right knee
Past medical history of right knee arthroplasty
Reported 5 days of knee pain swelling and fevers
Had right knee aspiration outpatient orthopedics demonstrated cloudy fluid white count 30,000.
Orthopedics consulted and following, currently considering surgical I&D in the future after Eliquis washout
Currently holding Eliquis
started pt on heparin drip, will hold at 2 am on 06/08/2024 in anticipation for washout and WONG
Patient was started on IV Zosyn in the emergency department, IV vancomycin was given however patient developed itchiness at IV site and was held
Initiated patient on IV daptomycin, 10mg/kg day 3
Started on IV cefazolin 2 g every 8 hours, currently day 2
Infectious disease following
Recommendations greatly appreciated
Pain regiment Tylenol, tramadol and Dilaudid as needed
Symptomatic management
Monitor LFTs with daily CMP
Monitor QT interval
#Gram-positive bacteremia
Blood cultures returned gram-positive bacteremia in clusters
Returned Staph aureus�methicillin sensitive
Source likely from infected knee
Repeat blood cultures every 48 hours
Repeat blood cultures consistently positive
Initiated patient on IV daptomycin, currently day 3
Started patient on IV cefazolin 2 g every 8 hours, currently day 2
Culture guided therapy when available
Echocardiogram obtained, returned similar to previous echo in December, increased PASP
Pending WONG on Saturday or Saturday due to consistently positive blood cultures
Infectious disease following
Cardiology following
Recommendations and coordination appreciated
#Atrial fibrillation/flutter
Currently in A-fib
status post cardioversion in December of this year
Continue monitoring on telemetry
Continue home rate control medications
Currently holding Eliquis due to need for surgery/intervention of knee
Maintain on heparin drip
#Hyponatremia
resolved
Sodium 132 on admission
Will not renew IV fluids
Continue to trend with Daily CMP
#CRYSTAL
resloved
Creatinine on admission 1.0, was 1.3
back to 1.0
Will not renew IV fluids as patient is eating and drinking
Daily CMP
#Left lower extremity wound
Followed by wound care here at [facility]
Wound care eval
#Hypertension
Continue home medications with holding parameters
#Hypothyroidism
Continue home levothyroxine
#CKD stage III
Renal function currently at baseline
Daily CMP
#Anxiety/depression
Continue home medications
CODE STATUS: DNR
DVT prophylaxis: Foot pumps
Diet: Regular
Data:
06/02/2024 knee x-ray
Right knee prosthesis is present.
No evidence of acute fracture or dislocation. No convincing radiographic findings to suggest prosthetic loosening or infection.
06/02/2024 peripheral vascular ultrasound
1. No evidence of deep venous thrombosis in the visualized right lower extremity as described above.
06/03/2024 echocardiogram
-LV ejection fraction is 55-60%, by visual assessment. No regional wall motion
abnormalities are seen. Stage III diastolic dysfunction suggestive of
restrictive filling pattern and increased filling pressures.
-Enlarged right ventricular size. Normal right ventricular systolic function.
Pacer wire seen in right ventricle.
-Severely dilated left atrium. Severely dilated right atrium.
-Mild to moderate mitral regurgitation.
-Mild aortic regurgitation.
-Severe tricuspid regurgitation. Estimated pulmonary artery pressure of 65-70
mmHg.
Compared to previous echo on 01/09/2024, PASP has increased (previously 40-45
mmHg).
Anticipated Discharge: > 48 hours
Subjective/Interval History
-
Date of Service: June 05, 2024
Patient currently in A-fib
Objective Data
-
Labs:
Laboratory Results
06/05/24 06/05/24 06/05/24
00:11 07:02 14:45
WBC 6.4
Hgb 9.7 L
Hct 29.1 L
Plt Count 201
APTT 70.8 H 101.8 H Pending
Sodium 138
Potassium 4.1
Chloride 103
Carbon Dioxide 25
BUN 29 H
Creatinine 0.9
Glucose 96
Calcium 8.3 L
Total Bilirubin 0.1 L
AST 46 H
ALT 29
Alkaline Phosphatase 131 H
Vital Signs:
Vital Signs
Temp Pulse Resp BP Pulse Ox
98 F 62 18 141/58 96
06/05/24 07:55 06/05/24 07:55 06/05/24 07:55 06/05/24 07:55 06/05/24 07:55
I&O
06/04/24 06/05/24 06/06/24
06:59 06:59 06:59
Intake Total 2880 / 2880 2536 / 2536
Balance 2880 / 2880 2536 / 2536
Review of Systems
-
History Source: Patient
Constitutional: Reports No Symptoms
Respiratory: Reports No Symptoms
Cardiac: Reports No Symptoms
Abdomen/GI: Reports No Symptoms
Musculoskeletal: Reports Joint Pain and Joint Swelling
Physical Exam
-
General: Well Developed, Well Nourished, No Apparent Distress and Comfortable
Respiratory: Clear to Auscultation
Cardiac: S1/S2 and Irregular Rhythm
GI: Soft, Nontender and Nondistended
Musculoskeletal: No Edema and Other (Right leg tender to palpation, venous stasis changes present right lower extremity. No effusion noted in right knee. Aspiration site healing well, bruise around site.)
Skin: Warm and Dry
Neuro: Awake, Alert, Oriented and AO x 3
Psych: Calm and Intact Judgement/Insight
Data Reviewed
-
Ultrasound: Report Reviewed by me and Discussed with Physician
Labs: Labs Reviewed by me and Discussed with Physician
[2024-06-05 11:03] VITALS: BP 126/56
--- NOTE | 2024-06-05 11:06 | W.PN.ID1 ---
Date of Service
Date of Service: June 05, 2024
Today's Communication
- given pacemaker would plan WONG if feasible
- c/w cefazolin 2 gm IV q8hr
- stopped daptomycin, restart atorvastatin tomorrow
- will place PICC line post operatively
Assessment / Plan
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
Bacteremia due to S aureus
Nonhealing wound on the CL leg
Pacemaker
- blood cultures 06/02 and 06/03: MSSA
- repeat blood cultures x2 q48 hours - next set tomorrow AM
- TTE 06/03 without vegetations
- given pacemaker would plan WONG if feasible- consulted cardiology
- c/w cefazolin 2 gm IV q8hr
- stopped daptomycin, restart atorvastatin tomorrow
- will place PICC line post operatively
- script to case filler
- note orthopedics plans for serial aspirations until washout and Im in agreement
- for washout saturday
- follow closely
Chief Complaint
-: Bacteremia and Other (septic joint)
Subjective / Review of Systems
now afebrile over 24 hours
bp stable
no events overnight
Vital Signs / Physical Exam
Vital Signs
Vital Signs
Temp Pulse Resp BP Pulse Ox
98.4 F 62 18 126/56 95
06/05/24 11:03 06/05/24 11:03 06/05/24 11:03 06/05/24 11:03 06/05/24 11:03
Physical Exam
Constitutional: No Acute Distress
Cardiovascular: Regular Rate and S1/S2; Negative Murmur or Rub
Pulmonary: Clear and Symmetric; Negative Wheezes or Rales
Gastrointestinal: Soft, Non Tender, Non Distended and Normal Bowel Sounds
Musculoskeletal: Joint Effusion (minimal trace right knee)
Skin: Warm and Dry; Negative Rash or Jaundice
Lines: Other (pacemaker)
Objective Data
Lab Data
Lab Results
06/05/24 07:02
06/05/24 07:02
APTT 101.8 Sec (23.4-35.0) H 06/05/24 07:02
Estimated Creat Clear 42 ml/min 06/05/24 07:02
Lactic Acid 2.0 mmol/L (0.7-2.0) 06/02/24 20:49
Total Bilirubin 0.1 mg/dl (0.2-1.3) L 06/05/24 07:02
AST 46 U/L (14-36) H 06/05/24 07:02
ALT 29 U/L (0-35) 06/05/24 07:02
Alkaline Phosphatase 131 U/L (38-126) H 06/05/24 07:02
Most recent labs reviewed.
Micro Results:
06/03/24 11:27 Blood Culture - Preliminary
Blood/Venous S aureus-Methicillin Sensitive
Gram Stain - Preliminary
06/03/24 10:16 Blood Culture - Preliminary
Blood/Venous S aureus-Methicillin Sensitive
Gram Stain - Preliminary
06/05/24 07:56 Blood Culture - Pending
Blood/Venous
06/02/24 21:44 Blood Culture - Final
Blood/Venous S aureus-Methicillin Sensitive
Gram Stain - Final
06/02/24 20:49 Blood Culture - Final
Blood/Venous S aureus-Methicillin Sensitive
Gram Stain - Final
06/03/24 09:00 Body Fluid Culture - Final
Synovial Fluid S aureus-Methicillin Sensitive
Gram Stain - Final
06/05/24 07:02 Blood Culture - Pending
Blood/Venous
06/03/24 01:06 MRSA Screen - Final
Other-Please specify - Left No Methicillin Resistant Staphylococcus aureus isolated.
06/02/24 18:04 Influenza Types A & B (GAEL) - Final
Nasal Swab Negative for Influenza A & B, NAAT
Negative results must be combined with clinical observations
and patient history.
Nucleic Acid Amplification test (NAAT)performed on the
[employer] platform.
[2024-06-05] MEDS: RESTASIS 0.05% OPHTHALMIC EMULSION 1 DROPS BOTH EYES ×2 (11:48→19:53)
[2024-06-05] MEDS: TYLENOL PO (12:54)
--- NOTE | 2024-06-05 13:59 | CON.CAR ---
Addendum entered and electronically signed by Hari Sharp MD 06/05/24 16:15:
83 yo female with PMH of atrial flutter on eliquis, also DVT, MDT dual chamber PPM is admitted with prosthetic joint infection of right knee and MSSA bacteremia. She has no cardiac complaints. Exam with RRR, II/ systolic murmur at apex. Tele:
intermittent A pacing.
Discussed with ID. WONG requested given h/o PPM. There are plans for surgery on knee Saturday. We have made arrangements for WONG on Saturday.
Please let us know if questions arise over weekend, and we will see patient again on Saturday.
Original Note:
Consultation
Consultation Request
Date/Time Consultation Requested: 06/05/24 1114
Date/Time Consultation Performed: 06/05/24 1330
Requesting Provider: Dr. Norman
Performing Provider: Leslee SEBASTIAN for Dr. Sharp
Reason for Consultation: bacteremia, evaluation for WONG
Medical History
-
Chief Complaint: RLE pain, fever
History of Present Illness:
83 y/o female with atrial flutter (paroxysmal) on Eliquis, hypertension, DVT on Eliquis, COPD, and hypothyroidism who is here for evaluation after she has noted severe RLE (with red, swollen) pain since 1 week ago and had fever up to 103. She has a
history of right knee replacement and now is felt to have septic arthritis with plans for OR (I+D and component exchange) on Saturday. We are consulted on this patient with MSSA bacteremia with history of cardiac device (pacemaker), to evaluate for
WONG. She denies any CP or SOB. Patient has also been dealing with LLE wound- wound care team involved.
Past Medical History
Past Medical History: Arrhythmias, COPD, HTN and Hypothyroidism
Social History
Tobacco: Former Smoker
Family History
Family History: Reviewed & Not Pertinent
Allergies / Home Medications
Allergy/AdvReac Type Severity Reaction Status Date / Time
clarithromycin [From Biaxin] Allergy GASTRIC Verified 01/08/24 09:53
PROBLEMS
erythromycin base Allergy GI PROBLEMS Verified 01/08/24 09:53
vancomycin Allergy red man Verified 06/03/24 13:14
syndrome
meperidine AdvReac Pharmacy Verified 01/08/24 09:53
to Review
meperidine HCl [From Demerol] AdvReac Pharmacy Verified 01/08/24 09:53
to Review
mold Allergy irritated Uncoded 01/08/24 09:53
eyes
seasonal allergies Allergy sneezing,running Uncoded 01/08/24 09:53
nose,irritated
eyes
�Medication �Instructions �Recorded �Confirmed �Type
cyclosporine 0.05 % eye drops in a 1 drp BOTH EYES BID Eye Condition 03/15/10 06/02/24 History
dropperette (Restasis) ##0
bupropion HCl 150 mg 24 hr tablet, 150 mg PO DAILY Mental Health 11/21/15 06/02/24 History
extended release
apixaban 2.5 mg tablet (Eliquis) 2.5 mg PO BID Blood Clot 05/28/19 06/02/24 History
Prevention/Tx
esomeprazole magnesium 20 mg 20 mg PO QPM Gastrointestinal Issue 11/26/23 06/02/24 History
capsule,delayed release (Nexium)
fluticasone fur. 100 mcg-umeclid 1 inh inhalation R DAILY 11/26/23 06/02/24 History
62.5 mcg-vilant 25 mcg Lung/Breathing Issues
inhalat.powder (Trelegy Ellipta)
levothyroxine 100 mcg tablet 100 mcg PO DAILY Thyroid 11/26/23 06/02/24 History
(Synthroid)
tramadol 50 mg tablet 50 mg PO BIDPRN PRN moderate pain 11/26/23 06/02/24 History
vitamin B complex 1 tab PO DAILY Supplement 11/26/23 06/02/24 History
acetaminophen 500 mg tablet 500 mg PO Q6HPRN PRN mild pain 01/08/24 06/02/24 History
carboxymethylcellulose sodium 1 % 2 drp BOTH EYES BIDPRN PRN 01/08/24 06/02/24 History
eye liquid gel drops allergies/dry eyes
sodium chloride 0.65 % nasal spray 2 spray intranasal BIDPRN PRN 01/08/24 06/02/24 History
aerosol (Saline Nasal Mist) dryness
atorvastatin 10 mg tablet 10 mg PO HS High Cholesterol 01/09/24 06/02/24 History
diltiazem HCl 240 mg 240 mg PO HS Arrhythmia 01/09/24 06/02/24 History
capsule,extended release 24 hr
therapeutic multivitamin 1 tab PO DAILY Supplement 01/09/24 06/02/24 History
metoprolol succinate 25 mg 25 mg PO DAILY #30 tabs 01/12/24 06/02/24 Rx
tablet,extended release 24 hr
Review of Systems
-
History Source: Patient
All other systems: Negative unless noted
Constitutional: Fever and Chills
Musculoskeletal: Joint Swelling, Edema and Other (RLE pain)
Physical Exam
Vital Signs
Temp Pulse Resp BP Pulse Ox
98.4 F 62 18 126/56 95
06/05/24 11:03 06/05/24 11:03 06/05/24 11:03 06/05/24 11:03 06/05/24 11:03
Lab Results
06/05/24 07:02
06/05/24 07:02
Physical Exam
General: Well Developed, Well Nourished and No Apparent Distress
HEENT: Normocephalic and Anicteric
Respiratory: Clear and Non Labored Respirations
Cardiac: Regular Rhythm
Musculoskeletal: Edema (RLE )
Skin: Warm, Dry and Other (LLE dressing CDI)
Neuro: AO x 3
Psych: Calm
Impression / Plan
-
MSSA bacteremia:
-ID following and patient on abx
-evidence for septic joint and plan is for I+D and component exchange in OR with ortho on Saturday
-patient has cardiac device and we will plan for WONG on Saturday- procedure discussed with patient and her and she is agreeable- will arrange
SSS:
-stable with pacemaker in place
-follow telemetry
Atrial flutter, type unknown:
-stable in SR- continue diltiazem and metoprolol
-Eliquis held for procedure. Patient on Heparin drip (which requires intensive monitoring) currently with this and hx DVT. [id number] score at least 4 for age, female, HTN.
HTN:
-stable
-on meds
-continue to monitor
Data:
Echo 06/03/24: EF 55-60%, stage III diastolic dysfunction suggestive of restrictive filling pattern and increased filling pressures. Enlarged right ventricular size. Normal right ventricular systolic function. Pacer wire seen in right ventricle.
Severely dilated atria. Mild to moderate mitral regurgitation. Mild aortic regurgitation. Severe tricuspid regurgitation. Estimated pulmonary artery pressure of 65-70 mmHg.
Data Reviewed
-
EKG: Tracing Personally Visualized and interpreted
Radiology: Report Reviewed by me (knee Xray 06/02/24: Right knee prosthesis is present. No evidence of acute fracture or dislocation. No convincing radiographic findings to suggest prosthetic loosening or infection.)
Medical Tests (Nuc Med, Echo etc): Report Reviewed by me (echo as noted below)
Labs: Labs Reviewed by me
[2024-06-05 14:53] LABS: APTT 82.6 Sec (23.4-35.0)
[2024-06-05 15:05] VITALS: BP 127/47
[2024-06-05] MEDS: LR IV (16:31)
[2024-06-05] MEDS: PROTONIX 40 MG PO (17:32)
--- NOTE | 2024-06-05 17:59 | CM ---
Met with patient and her spouse at bedside. Patient's spouse expressed that she will want to go to rehab after sx next week. CM advised that once patient is able to participate with therapy, clinical will be reviewed and sent to requested
facilities. She expressed relief and understanding.
Plan: Case management will continue to follow and assist with discharge planning. SNF when stable.
[2024-06-05 19:45] VITALS: BP 138/50
[2024-06-05] MEDS: MIRALAX 17 GRAMS PO (20:11)
[2024-06-05] MEDS: CARDIZEM CD 240 MG PO (21:28)
[2024-06-05 23:53] VITALS: BP 125/53
[2024-06-06 03:12] VITALS: BP 131/58
[2024-06-06] MEDS: HEPARIN 25000 UNITS/250 ML IV (05:06)
[2024-06-06] MEDS: SYNTHROID 100 MCG PO (05:08)
[2024-06-06] MEDS: TORADOL 15 MG IV ×2 (05:09→16:36)
[2024-06-06] MEDS: ANCEF 10 IV ×3 (05:10→21:54)
[2024-06-06 06:00] VITALS: BMI 24.4
[2024-06-06 06:43] LABS: Hematocrit 28.6 % (37.0-47.0); Hemoglobin 9.5 g/dL (12.0-16.0); Mean Corp Hgb Conc. 33.2 g/dL (33.0-37.0); Mean Corpuscular Hgb 33.2 pg (27.0-31.0); Mean Platelet Volume 9.7 fL (7.4-10.4); Platelet Count 240 10^3/uL (130-400); Red Blood Cell Count 2.86 10^6/uL (4.20-5.40); Red Cell Dist. Width 14.2 % (11.5-14.5); White Blood Cell Count 7.5 10^3/uL (4.8-10.8)
[2024-06-06 06:56] LABS: ALT (SGPT) 19 U/L (0-35); AST (SGOT) 46 U/L (14-36); Albumin 2.6 g/dl (3.5-5.0); Alkaline Phosphatase 144 U/L (38-126); Blood Urea Nitrogen 26 mg/dl (7-17); Calcium 8.6 mg/dl (8.4-10.2); Carbon Dioxide 25 mmol/L (22-30); Chloride 105 mmol/L (98-107); Estimated Creatinine Clearance 42 ml/min; Glucose 111 mg/dl (70-99); Potassium 4.3 mmol/L (3.5-5.1); Sodium 138 mmol/L (135-145); Total Bilirubin < 0.1 mg/dl (0.2-1.3); Total Protein 5.4 g/dl (6.3-8.2); eGFR > 60.00
[2024-06-06] MEDS: SPIRIVA RESPIMAT 2.5 MCG 2 PUFF INH (07:18)
[2024-06-06] MEDS: SYMBICORT 80/4.5 MCG INHALER 2 PUFF INH ×2 (07:19→17:48)
[2024-06-06 07:55] VITALS: BP 155/58
[2024-06-06] MEDS: TYLENOL 500 MG PO (08:27)
[2024-06-06] MEDS: WELLBUTRIN XL (24 hour extended release) 150 MG PO (08:28)
[2024-06-06] MEDS: TOPROL XL 25 MG PO (08:28)
[2024-06-06] MEDS: DIPROSONE CREAM 0.05% 1 APPLIC TOPICAL (08:28)
[2024-06-06] MEDS: RESTASIS 0.05% OPHTHALMIC EMULSION 1 DROPS BOTH EYES ×2 (08:28→20:29)
--- NOTE | 2024-06-06 11:16 | W.PN.UPDATE ---
Update Note
Progress Note Update
Patient seen this a.m. reports pain is stable about the right knee is able to ambulate with discomfort that is controlled. Reports new onset of swelling and for left upper extremity; on exam compartments are soft and In joints nontender with
painless range of motion
Plan for OR on Saturday; after discussion we elected to continue with an ultrasound-guided aspiration and injection of local anesthetic into the right knee for symptom improvement pending definitive surgical intervention on Saturday
After verbal consent obtained a superior lateral approach with direct visualization on ultrasound site was identified. The area was cleaned with alcohol and 1% lidocaine without epinephrine was injected superficially. The area was cleaned with
alcohol and with sterile technique an 18-gauge needle was placed intra-articular with direct visualization on screen into the effusion. 40 cc of cloudy brown frothy joint fluid was aspirated. Once no more aspirate to be obtained the needle was
maintained utilizing a hemostat and a combination of local anesthetic of 1% lidocaine and quarter percent bupivacaine total volume 20 cc 50-50 ratio was injected intra-articular. Patient tolerated procedure well. The nail was removed and a
compressive gauze was placed with overlying El wrap.
[2024-06-06 11:36] VITALS: BP 147/71
[2024-06-06] MEDS: TYLENOL PO ×3 (12:49→22:07)
--- NOTE | 2024-06-06 13:54 | W.PN.HOSP.TC ---
Today's Communication/Plan
-
CT LUE w/ Con to r.o abscess
IV hep gtt
IV antibiotics
Assessment / Plan
Assessment / Plan
Imaging
DVT Study
IMPRESSION:
1. No evidence of deep venous thrombosis in the visualized right lower extremity as described above.
Knee Xray
IMPRESSION: Right knee prosthesis is present.
No evidence of acute fracture or dislocation. No convincing radiographic findings to suggest prosthetic loosening or infection.
LUE DVT Study
Small irregular fluid collection is seen in the left antecubital fossa measuring 1.8 x 2.5 x 1.3 cm without blood flow within.
IMPRESSION:
No evidence of deep venous thrombosis of the left lower extremity.
Small irregular fluid collection in the left antecubital fossa without blood flow within.
Physical Exam
NAD, resting comfortably in bed
Scleral anicteric
Moist mucous membranes
No JVD
CTA bilateral
Normal S1-S2 no murmurs
Soft nontender nondistended bowel sounds active
Left upper arm is edematous
Right knee effused, able to bend
RLE with chronic venous stasis changes
Moves extremities spontaneously
AAOx3
Assessment and Plan
Staph Bacteremia
-Source likely PJI of the right knee
-Allergic to vanc (hive/rash)
-Cannot provide linezolid due to buproprion use
-Have ordered daptomycin x1dose to be given now with ID consutl
-2d echo to assess valves
-repeat cultures [id number] until negative cultures
-Cardiology consulted by ID for WONG as there could be a secondary foci with ppm lead or valve
Sepsis secondary to septic Arthritis - R Knee (PJI)
-S/p arthocentesis at outpatient ortho.
-S/p arthocentesis in the ED with Ortho
-Follow up on Culture data
-Per Ortho, explant is not a good surgical option.
-May consider surgical InD with polyethlene liner exchange/washout with spacer after eliquis washout
LUE swelling
-DVT study ordered, no DVT but noted a fluid collection of 1.8-2.5cm in the Left AC
-Will need CTUE with Con
- - Due to CKD Stage 3b will gently IV hydrate
- - Depending on findings may need vascular or general surgery input
LLE Wound
-Wound care consulted
AFlutter/Fib with known hx of SSS
-S/p cardioversion 12/2023, subsequent bradycardia
-S/p PPM, on CCB and BB
-Hold eliquis as operative intervention likely needed
Hypothyroidism
-Continue levothyroxine
Anticipated Discharge: > 48 hours
Subjective/Interval History
-
Date of Service: June 06, 2024
seen and examined. left upper arm swelling. no acute ovenright events
remains on hep gtt and antibiotics
Objective Data
-
Labs:
Laboratory Results
06/06/24 06/06/24
06:03 06:04
WBC 7.5
Hgb 9.5 L
Hct 28.6 L
Plt Count 240
APTT 78.0 H
Sodium 138
Potassium 4.3
Chloride 105
Carbon Dioxide 25
BUN 26 H
Creatinine 0.9
Glucose 111 H
Calcium 8.6
Total Bilirubin < 0.1 L
AST 46 H
ALT 19
Alkaline Phosphatase 144 H
Vital Signs:
Vital Signs
Temp Pulse Resp BP Pulse Ox
98.6 F 61 16 147/71 96
06/06/24 11:36 06/06/24 11:36 06/06/24 11:36 06/06/24 11:36 06/06/24 11:36
I&O
06/05/24 06/06/24 06/07/24
06:59 06:59 06:59
Intake Total 2535 / 2535 1200 / 1200
Balance 2536 / 2536 2039 1200 / 1200
--- NOTE | 2024-06-06 13:57 | W.PN.CD ---
Today's Communication / Plan
-
OK for need orthopedic surgery
Anticipate WONG Sat
We will next see on Saturday
Impression / Plan
-
MSSA bacteremia:
-ID following and patient on abx
-evidence for septic joint and plan is for I+D and component exchange in OR with ortho on Saturday
-patient has cardiac device and we will plan for WONG on Saturday- procedure discussed with patient and her and she is agreeable- will arrange
Preop cardiac risk assessment
- Acceptable risk for needed surgery. Delay for more testing would be inappropriate
SSS:
-stable with pacemaker in place
-follow telemetry
Atrial flutter, type unknown:
-stable in SR- continue diltiazem and metoprolol
-Eliquis held for procedure. Patient on Heparin drip (which requires intensive monitoring) currently with this and hx DVT. [id number] score at least 4 for age, female, HTN.
HTN:
-stable
-on meds
-continue to monitor
Subjective:
No CP or dyspnea
Data:
Echo 06/03/24: EF 55-60%, stage III diastolic dysfunction suggestive of restrictive filling pattern and increased filling pressures. Enlarged right ventricular size. Normal right ventricular systolic function. Pacer wire seen in right ventricle.
Severely dilated atria. Mild to moderate mitral regurgitation. Mild aortic regurgitation. Severe tricuspid regurgitation. Estimated pulmonary artery pressure of 65-70 mmHg.
Physical Exam
Vital Signs/Labs
Vital Signs
Temp Pulse Resp BP Pulse Ox
98.6 F 61 16 147/71 96
06/06/24 11:36 06/06/24 11:36 06/06/24 11:36 06/06/24 11:36 06/06/24 11:36
06/05/24 06/06/24 06/07/24
06:59 06:59 06:59
Actual Weight 60.781 kg 64.467 kg
06/06/24 06:03
06/06/24 06:03
APTT 78.0 Sec (23.4-35.0) H 06/06/24 06:04
Physical Exam
Constitutional: No acute distress
EENT: Anicteric
Cardiovascular: Rhythm & rate is regular and Pedal edema is absent
Respiratory: Respiratory effort normal and Lungs clear to auscul.
GI: Soft and Distention absent
Neuro/Psych: AO x 3
Other: Cardiac Device Site (normal pocket appearance)
Data Reviewed
-
Date of Service: June 06, 2024
[2024-06-06] MEDS: 0.45%NACL 1000 IV (14:39)
--- NOTE | 2024-06-06 15:04 | W.PN.ID1 ---
Date of Service
Date of Service: June 06, 2024
Today's Communication
- c/w cefazolin 2 gm IV q8hr
- will place PICC line post operatively
- CT when feasible
Assessment / Plan
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
Bacteremia due to S aureus
Nonhealing wound on the CL leg
Pacemaker
- blood cultures 06/02 and 06/03: MSSA
- 06/05 blood cultures no growth to date - if these become positive then will order further sets
- TTE 06/03 without vegetations
- given pacemaker would plan WONG if feasible- consulted cardiology
- c/w cefazolin 2 gm IV q8hr
- will place PICC line post operatively
- script given to manager of case
- US of the left UE with possible small abscess - for further characterization with CT, if abscess confirmed would consult general surgery for I&D given that is is >2 cm in one dimension
- note orthopedics plans for serial aspirations until washout and Im in agreement
- for washout saturday
- follow closely
Chief Complaint
-: Bacteremia and Other (septic joint)
Subjective / Review of Systems
afebrile
bp stable
upset about dry skin - lotion given
no fluctuance or erythema of the L arm but there is hematoma on the distal arm and also a small hematoma in the AC fossa
right knee mildly warm, swollen
s/p arthrocentesis today with about 40 css aspirated
Vital Signs / Physical Exam
Vital Signs
Vital Signs
Temp Pulse Resp BP Pulse Ox
98.6 F 61 16 147/71 96
06/06/24 11:36 06/06/24 11:36 06/06/24 11:36 06/06/24 11:36 06/06/24 11:36
Physical Exam
Constitutional: No Acute Distress
Cardiovascular: Regular Rate and S1/S2; Negative Murmur or Rub
Pulmonary: Clear and Symmetric; Negative Wheezes or Rales
Gastrointestinal: Soft, Non Tender, Non Distended and Normal Bowel Sounds
Extremities: Other (no fluctuance or erythema of the L arm but there is hematoma on the distal arm and also a small hematoma in the AC fossa )
Musculoskeletal: Other (right knee swollen, mildly warm and tender)
Skin: Warm and Dry; Negative Rash or Jaundice
Lines: Other (pacemaker no erythema or tendernss)
Objective Data
Lab Data
Lab Results
06/06/24 06:03
06/06/24 06:03
APTT 78.0 Sec (23.4-35.0) H 06/06/24 06:04
Estimated Creat Clear 42 ml/min 06/06/24 06:03
Lactic Acid 2.0 mmol/L (0.7-2.0) 06/02/24 20:49
Total Bilirubin < 0.1 mg/dl (0.2-1.3) L 06/06/24 06:03
AST 46 U/L (14-36) H 06/06/24 06:03
ALT 19 U/L (0-35) 06/06/24 06:03
Alkaline Phosphatase 144 U/L (38-126) H 06/06/24 06:03
Most recent labs reviewed.
Micro Results:
06/05/24 07:56 Blood Culture - Preliminary
Blood/Venous No Growth in 24 hours- Final report to follow
06/05/24 07:02 Blood Culture - Preliminary
Blood/Venous No Growth in 24 hours- Final report to follow
06/03/24 11:27 Blood Culture - Preliminary
Blood/Venous S aureus-Methicillin Sensitive
Gram Stain - Preliminary
06/03/24 10:16 Blood Culture - Preliminary
Blood/Venous S aureus-Methicillin Sensitive
Gram Stain - Preliminary
06/02/24 21:44 Blood Culture - Final
Blood/Venous S aureus-Methicillin Sensitive
Gram Stain - Final
06/02/24 20:49 Blood Culture - Final
Blood/Venous S aureus-Methicillin Sensitive
Gram Stain - Final
06/03/24 09:00 Body Fluid Culture - Final
Synovial Fluid S aureus-Methicillin Sensitive
Gram Stain - Final
06/03/24 01:06 MRSA Screen - Final
Other-Please specify - Left No Methicillin Resistant Staphylococcus aureus isolated.
06/02/24 18:04 Influenza Types A & B (GAEL) - Final
Nasal Swab Negative for Influenza A & B, NAAT
Negative results must be combined with clinical observations
and patient history.
Nucleic Acid Amplification test (NAAT)performed on the
[employer] platform.
Care Review
Plan reviewed with: Physician (Dr Lon Reid - small fluid collection/possible abscess of the ac fossa)
[2024-06-06 16:00] VITALS: BP 135/53
[2024-06-06] MEDS: PROTONIX 40 MG PO (16:37)
[2024-06-06] MEDS: LIPITOR 10 MG PO (16:37)
[2024-06-06 19:37] VITALS: BP 133/67
[2024-06-06] MEDS: MIRALAX 17 GRAMS PO (21:55)
[2024-06-06] MEDS: CARDIZEM CD 240 MG PO (21:55)
[2024-06-06 23:26] VITALS: BP 140/60
[2024-06-07] VITALS (7 sets, daily range): BP systolic 140–155; BP diastolic 54–64; BMI 24.8
[2024-06-07] MEDS: HEPARIN 25000 UNITS/250 ML IV (02:10)
[2024-06-07] MEDS: SYNTHROID 100 MCG PO (05:21)
[2024-06-07] MEDS: ANCEF 10 IV ×3 (05:21→21:18)
[2024-06-07] MEDS: 0.45%NACL 1000 IV ×2 (05:47→23:59)
[2024-06-07] MEDS: TORADOL 15 MG IV ×3 (06:03→21:36)
[2024-06-07 06:21] LABS: APTT 97.7 Sec (23.4-35.0)
[2024-06-07] MEDS: SPIRIVA RESPIMAT 2.5 MCG 2 PUFF INH (07:24)
[2024-06-07] MEDS: SYMBICORT 80/4.5 MCG INHALER 2 PUFF INH ×2 (07:24→18:19)
[2024-06-07] MEDS: TOPROL XL 25 MG PO (08:06)
[2024-06-07] MEDS: RESTASIS 0.05% OPHTHALMIC EMULSION 1 DROPS BOTH EYES ×2 (08:07→21:17)
[2024-06-07] MEDS: WELLBUTRIN XL (24 hour extended release) 150 MG PO (08:07)
[2024-06-07] MEDS: TYLENOL 500 MG PO (08:11)
[2024-06-07] MEDS: DIPROSONE CREAM 0.05% 1 APPLIC TOPICAL (08:11)
--- NOTE | 2024-06-07 11:25 | W.PN.UPDATE ---
Update Note
Progress Note Update
83F right TKA PJI planned for OR tomorrow
-last aspiration yesterday with 40cc yielded; no drainage from incision site. Pain controlled.
-type and screen ordered
-NPO @ MN
-hold heparin after MN; order placed.
--- NOTE | 2024-06-07 12:05 | CHAP ---
Ms. Quigley said she's doing okay. There's a lot going on, but she seems to be handling it with patience and malcolm. We talked about trusting God, which she does. Emotional and spiritual support provided.
[2024-06-07] MEDS: TYLENOL PO ×3 (12:11→21:26)
--- NOTE | 2024-06-07 13:14 | W.PN.ID1 ---
Date of Service
Date of Service: June 07, 2024
Today's Communication
c/w cefazolin
Assessment / Plan
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
Bacteremia due to S aureus
Nonhealing wound on the CL leg
Pacemaker
- blood cultures 06/02 and 06/03: MSSA
- 06/05 blood cultures no growth to date
- TTE 06/03 without vegetations
- for WONG saturday
- c/w cefazolin 2 gm IV q8hr
- will place PICC line post WONG
- script given to porter sample case
- CT with contrast no abscess though there is edema and bruising on my exam
- for washout saturday
Chief Complaint
-: Bacteremia and Other (septic joint)
Subjective / Review of Systems
afebrile
bp stable
no events overnight
Vital Signs / Physical Exam
Vital Signs
Vital Signs
Temp Pulse Resp BP Pulse Ox
98.3 F 57 16 151/61 97
06/07/24 11:20 06/07/24 11:20 06/07/24 11:20 06/07/24 11:20 06/07/24 11:20
Physical Exam
Constitutional: No Acute Distress
Cardiovascular: Regular Rate and S1/S2; Negative Murmur or Rub
Pulmonary: Clear and Symmetric; Negative Wheezes or Rales
Gastrointestinal: Soft, Non Tender, Non Distended and Normal Bowel Sounds
Musculoskeletal: Other (right knee warm, mildly swollen)
Skin: Warm, Dry and Other (left arm subcuticular bleeding); Negative Rash or Jaundice
Lines: Other (pacemaker - no erythema, warmth tenderness, swelling)
Objective Data
Lab Data
Lab Results
06/06/24 06:03
06/06/24 06:03
APTT 97.7 Sec (23.4-35.0) H 06/07/24 05:57
Estimated Creat Clear 42 ml/min 06/06/24 06:03
Lactic Acid 2.0 mmol/L (0.7-2.0) 06/02/24 20:49
Total Bilirubin < 0.1 mg/dl (0.2-1.3) L 06/06/24 06:03
AST 46 U/L (14-36) H 06/06/24 06:03
ALT 19 U/L (0-35) 06/06/24 06:03
Alkaline Phosphatase 144 U/L (38-126) H 06/06/24 06:03
Most recent labs reviewed.
Micro Results:
06/05/24 07:56 Blood Culture - Preliminary
Blood/Venous No Growth in 48 hours- Final report to follow
06/05/24 07:02 Blood Culture - Preliminary
Blood/Venous No Growth in 48 hours- Final report to follow
06/03/24 11:27 Blood Culture - Preliminary
Blood/Venous S aureus-Methicillin Sensitive
Gram Stain - Preliminary
06/03/24 10:16 Blood Culture - Preliminary
Blood/Venous S aureus-Methicillin Sensitive
Gram Stain - Preliminary
06/02/24 21:44 Blood Culture - Final
Blood/Venous S aureus-Methicillin Sensitive
Gram Stain - Final
06/02/24 20:49 Blood Culture - Final
Blood/Venous S aureus-Methicillin Sensitive
Gram Stain - Final
06/03/24 09:00 Body Fluid Culture - Final
Synovial Fluid S aureus-Methicillin Sensitive
Gram Stain - Final
06/03/24 01:06 MRSA Screen - Final
Other-Please specify - Left No Methicillin Resistant Staphylococcus aureus isolated.
06/02/24 18:04 Influenza Types A & B (GAEL) - Final
Nasal Swab Negative for Influenza A & B, NAAT
Negative results must be combined with clinical observations
and patient history.
Nucleic Acid Amplification test (NAAT)performed on the
[employer] platform.
--- NOTE | 2024-06-07 13:45 | W.PN.HOSP.TC ---
Today's Communication/Plan
-
npo after midnight for or with Ortho
congtinue iv atb for right knee pji
Assessment / Plan
Assessment / Plan
Imaging
DVT Study
IMPRESSION:
1. No evidence of deep venous thrombosis in the visualized right lower extremity as described above.
Knee Xray
IMPRESSION: Right knee prosthesis is present.
No evidence of acute fracture or dislocation. No convincing radiographic findings to suggest prosthetic loosening or infection.
LUE DVT Study
Small irregular fluid collection is seen in the left antecubital fossa measuring 1.8 x 2.5 x 1.3 cm without blood flow within.
IMPRESSION:
No evidence of deep venous thrombosis of the left lower extremity.
Small irregular fluid collection in the left antecubital fossa without blood flow within.
Physical Exam
NAD, resting comfortably in bed
Scleral anicteric
Moist mucous membranes
No JVD
CTA bilateral
Normal S1-S2 no murmurs
Soft nontender nondistended bowel sounds active
Left upper arm is edematous
Right knee effused, able to bend
RLE with chronic venous stasis changes
Moves extremities spontaneously
AAOx3
Assessment and Plan
Staph Bacteremia
-Source likely PJI of the right knee
-Allergic to vanc (hive/rash)
-Cannot provide linezolid due to buproprion use
-Have ordered daptomycin x1dose to be given now with ID consutl
-2d echo to assess valves
-repeat cultures [id number] until negative cultures
-Cardiology consulted by ID for WONG as there could be a secondary foci with ppm lead or valve
Sepsis secondary to septic Arthritis - R Knee (PJI)
-S/p arthocentesis at outpatient ortho.
-S/p arthocentesis in the ED with Ortho
-Follow up on Culture data
-Per Ortho, explant is not a good surgical option.
-May consider surgical InD with polyethlene liner exchange/washout with spacer after eliquis washout
LUE swelling
-DVT study ordered, no DVT but noted a fluid collection of 1.8-2.5cm in the Left AC
-Will need CTUE with Con
- - Due to CKD Stage 3b will gently IV hydrate
- - Depending on findings may need vascular or general surgery input
LLE Wound
-Wound care consulted
AFlutter/Fib with known hx of SSS
-S/p cardioversion 12/2023, subsequent bradycardia
-S/p PPM, on CCB and BB
-Hold eliquis as operative intervention likely needed
Hypothyroidism
-Continue levothyroxine
Anticipated Discharge: > 48 hours
Subjective/Interval History
-
Date of Service: June 07, 2024
seen and examined. no new comaplitns. no acute overnight events
Objective Data
-
Labs:
Laboratory Results
06/07/24
05:57
APTT 97.7 H
Vital Signs:
Vital Signs
Temp Pulse Resp BP Pulse Ox
98.3 F 57 16 151/61 97
06/07/24 11:20 06/07/24 11:20 06/07/24 11:20 06/07/24 11:20 06/07/24 11:20
I&O
06/06/24 06/07/24 06/08/24
06:59 06:59 06:59
Intake Total 203924 / 46
Balance 2039 / 4623
[2024-06-07] MEDS: PROTONIX 40 MG PO (16:57)
[2024-06-07] MEDS: LIPITOR 10 MG PO (16:57)
[2024-06-07] MEDS: CARDIZEM CD 240 MG PO (21:23)
[2024-06-08] VITALS (17 sets, daily range): BP systolic 112–167; BP diastolic 51–111; BMI 25.1
[2024-06-08] MEDS: ANCEF 10 IV ×2 (05:50→22:28)
[2024-06-08] MEDS: SYNTHROID 100 MCG PO (05:50)
[2024-06-08] MEDS: TORADOL 15 MG IV ×2 (06:15→20:39)
[2024-06-08] MEDS: DUONEB 3 ML INH (06:41)
[2024-06-08] MEDS: DIPROSONE CREAM 0.05% 1 APPLIC TOPICAL (08:18)
[2024-06-08] MEDS: RESTASIS 0.05% OPHTHALMIC EMULSION 1 DROPS BOTH EYES ×2 (08:18→20:31)
[2024-06-08] MEDS: TYLENOL 500 MG PO ×3 (08:19→22:28)
[2024-06-08] MEDS: SYMBICORT 80/4.5 MCG INHALER INH ×2 (08:19→08:28)
[2024-06-08] MEDS: WELLBUTRIN XL (24 hour extended release) 150 MG PO (08:19)
[2024-06-08] MEDS: TOPROL XL 25 MG PO (08:19)
[2024-06-08] MEDS: SPIRIVA RESPIMAT 2.5 MCG INH ×2 (08:19→08:28)
--- NOTE | 2024-06-08 08:53 | W.PN.CD ---
Today's Communication / Plan
-
OR today
WONG tomorrow
Resume heparin when safe from a surgical perspective
Impression / Plan
-
83 yo female with PMH of atrial flutter on eliquis, also DVT, MDT dual chamber PPM is admitted with prosthetic joint infection of right knee and MSSA bacteremia, plan for washout today and WONG tomorrow.
MSSA bacteremia:
-Blood cultures positive on 06/02 and 06/03. NGTD from 06/05
-ID following and patient on abx
-evidence for septic joint and plan is for I+D and component exchange in OR with ortho today
-patient has cardiac device and we will plan for WONG on Saturday- procedure discussed with patient and her and she is agreeable- will arrange
Preop cardiac risk assessment
- Acceptable risk for needed surgery. Delay for more testing would be inappropriate
SSS:
-stable with pacemaker in place
-follow telemetry
Atrial flutter, type unknown:
-stable in SR- continue diltiazem and metoprolol
-Eliquis held for procedure.
-Heparin drip on hold for OR today. [id number] score at least 4 for age, female, HTN and history of DVT.
HTN:
-stable
-on meds
-continue to monitor
Subjective:
No complaints. Very overwhelmed with surgery today. Does not want to talk about WONG until tomorrow. No events on telemetry.
Data:
Echo 06/03/24: EF 55-60%, stage III diastolic dysfunction suggestive of restrictive filling pattern and increased filling pressures. Enlarged right ventricular size. Normal right ventricular systolic function. Pacer wire seen in right ventricle.
Severely dilated atria. Mild to moderate mitral regurgitation. Mild aortic regurgitation. Severe tricuspid regurgitation. Estimated pulmonary artery pressure of 65-70 mmHg.
Physical Exam
Vital Signs/Labs
Vital Signs
Temp Pulse Resp BP Pulse Ox
99.4 F 106 20 167/90 96
06/08/24 07:18 06/08/24 07:18 06/08/24 07:18 06/08/24 07:18 06/08/24 08:07
06/07/24 06/08/24 06/09/24
06:59 06:59 06:59
Actual Weight 65.431 kg 66.31 kg
06/06/24 06:03
06/06/24 06:03
APTT Cancelled 06/08/24 06:00
Physical Exam
Constitutional: No acute distress and Comfortable
Cardiovascular: Rhythm & rate is regular, Pedal edema present, S1S2 is normal and Murmur/rub/gallop absent
Respiratory: Respiratory effort normal and Lungs clear to auscul.
Other: Skin (Left lower cotton with full-thickness ulceration. No purulent drainage. Right knee erythematous, tender, and swollen)
Data Reviewed
-
Date of Service: June 08, 2024
Medical Decision Making: Reviewed Test Results, Independent Historian Assessment, Test Interpretation and Review of Case with other Provider
EKG: Tracing Personally Visualized and interpreted
Echo: Report Reviewed by me
Labs: Labs Reviewed by me
--- NOTE | 2024-06-08 09:24 | W.PN.UPDATE ---
Update Note
Progress Note Update
Patient resting comfortably this morning. With right knee PJI plan for OR a bit later today under the direction of Dr. Cortes. moderate pain this morning. Orders have been placed for the OR. Patient to remain NPO. Surgical and blood consents
obtained this morning and placed on the patient's chart. Heparin to be held this morning
--- NOTE | 2024-06-08 12:06 | CM ---
Patient seen at bedside. Patient with daughter at bedside. Patient pending PT/OT assessment but is for procedure today. Patient daughter stays with her everyother week but for at least some of the time patient is alone. CM will continue to follow
for discharge planning needs.
Plan; pending work up. CM will continue to follow for discharge planning needs.
[2024-06-08] MEDS: TYLENOL PO (13:11)
[2024-06-08] MEDS: ANCEF IV (14:46)
--- NOTE | 2024-06-08 15:04 | W.PN.HOSP.TC ---
Addendum entered and electronically signed by Jaron Beth MD 06/08/24 15:48:
Seen and examined by me independently in collaboration with the claim review medical director Yobani.
Lab data and imaging data reviewed.
Addendum as below :
Prosthetic joint infection with MSSA bacteremia. Afebrile and hemodynamically stable. Blood cultures are sterile now. Continue with antibiotics per ID. Await joint washout today. Await WONG.
Resume AC when ok from Ortho after joint wash out.
Total time spent on today's encounter was 52 minutes which included time spent in counseling the patient/family regarding diagnosis and treatment plan as listed above, goals of care, and symptom management. Case was discussed with nursing staff,
specialists . All labs and imaging personally reviewed by me. Remainder the time spent in detailed review of previous records, lab data, imaging, and other medical provider documentation.
Original Note:
Today's Communication/Plan
-
OR today for joint washout
Restart oral Eliquis after procedure
Prepare for WONG tomorrow
Continue IV antibiotics
Assessment / Plan
Assessment / Plan
Impression: 83-year-old female with a past history of right knee arthroplasty presents with fever and joint pain from orthopedic office. She had a joint aspiration which demonstrated infected aspirate.
Plan:
#Septic arthritis right knee
Past medical history of right knee arthroplasty
Reported 5 days of knee pain swelling and fevers
Had right knee aspiration outpatient orthopedics demonstrated cloudy fluid white count 30,000.
Status post second knee aspiration
Orthopedics taking patient for joint washout today
Patient was started on IV Zosyn in the emergency department, IV vancomycin was given however patient developed itchiness at IV site and was held
Patient was initiated on IV daptomycin, currently discontinued
Started on IV cefazolin 2 g every 8 hours, currently day 5
Infectious disease following
Recommendations greatly appreciated
Pain regiment Tylenol, tramadol and Dilaudid as needed
Symptomatic management
Monitor LFTs with daily CMP
Monitor QT interval
# Methicillin sensitive Staph aureus Gram-positive bacteremia
Blood cultures returned gram-positive bacteremia in clusters
Returned Staph aureus�methicillin sensitive
Source likely from infected knee or left leg wound
Serial blood cultures were positive
Repeat blood cultures eventually returned no growth
Initially patient on IV daptomycin
Currently IV cefazolin 2 g every 8 hours, currently day 5
Echocardiogram obtained, returned similar to previous echo in December, increased PASP
Pending WONG tomorrow due to consistently positive blood cultures
Infectious disease following, coordinating outpatient IV antibiotics and PICC line placement
Cardiology following
Recommendations and coordination appreciated
#Atrial fibrillation/flutter
Currently in A-fib
status post cardioversion in December of this year
Continue monitoring on telemetry
Continue home rate control medications
Will restart at [facility] at half dose, for 3 days and then full dose per orthopedics
Heparin discontinued
#Hyponatremia
resolved
Sodium 132 on admission
Will not renew IV fluids
Continue to trend with Daily CMP
#CRYSTAL
resloved
Will not renew IV fluids as patient is eating and drinking
Daily CMP
#Left lower extremity wound
Followed by wound care here at [facility]
Wound care eval
#Hypertension
Continue home medications with holding parameters
#Hypothyroidism
Continue home levothyroxine
#CKD stage III
Renal function currently at baseline
Daily CMP
#Anxiety/depression
Continue home medications
CODE STATUS: DNR
DVT prophylaxis: Foot pumps
Diet: Regular
Anticipated Discharge: > 48 hours
Subjective/Interval History
-
Date of Service: June 08, 2024
No acute events overnight
Objective Data
-
Labs:
Laboratory Results
06/08/24
06:00
APTT Cancelled
Vital Signs:
Vital Signs
Temp Pulse Resp BP Pulse Ox
98.7 F 63 20 148/58 97
06/08/24 11:30 06/08/24 11:30 06/08/24 11:30 06/08/24 11:30 06/08/24 11:30
I&O
06/07/24 06/08/24 06/09/24
06:59 06:59 06:59
Intake Total [facility] / 4623 151 / 151
Balance / 4623 1511 / 1511
Review of Systems
-
History Source: Patient
Respiratory: Reports Trouble Breathing
Cardiac: Reports No Symptoms
Abdomen/GI: Reports No Symptoms
Musculoskeletal: Reports Joint Pain and Joint Swelling
Physical Exam
-
General: Well Developed, Well Nourished, No Apparent Distress, Comfortable and Conversant
Respiratory: Clear to Auscultation
Cardiac: S1/S2 and Irregular Rhythm
GI: Soft, Nontender and Nondistended
Musculoskeletal: Other (Left leg wound present. Right leg tender to palpation, no effusion. edema present in lower extremity and left upper extremity)
Skin: Warm and Dry
Neuro: Awake, Alert, Oriented and AO x 3
Psych: Calm and Intact Judgement/Insight
Data Reviewed
-
Labs: Labs Reviewed by me and Discussed with Physician
[2024-06-08] MEDS: DILAUDID 0.5 MG IV ×3 (16:19→17:13)
--- NOTE | 2024-06-08 17:32 | W.PN.UPDATE ---
Update Note
Progress Note Update
Patient in the OR during rounds
Extended discussion with detailing course, next steps etc
Agree with surgery recommendation for suppression after completion of the IV antibiotics
[2024-06-08] MEDS: NSS 1000 IV ×2 (17:53→22:07)
[2024-06-08] MEDS: PROTONIX 40 MG PO (17:54)
[2024-06-08] MEDS: LIPITOR 10 MG PO (17:54)
--- NOTE | 2024-06-08 18:05 | PTCARENOTE ---
Received pt from PACU via bed, accompanied by PACU staff x2. Pt AAO x3, PARKINSON; sensation/movement (+) to toes bilat; feet /toes pink/warm, pedal pulses (+) bilat. VSS. Telemetry:NSR. On nc 2 lpm- pulseox 94%, pt denies SOB; has faint insp wheezes
R side. Abd soft, rounded, , pt to start regular diet. Pt DTV; instructed to call for assistance to BSC if radha. Afebrile; warm sand dry; Rt knee dsg D/I; RT LE thigh -high CLEMENT intact; foot pumps intact. IV NSS @ 80 ml/hr infusing via Rt hand
site without sx of infiltration. Resting in bed at present, no c/o. Will continue to monitor.
[2024-06-08] MEDS: SYMBICORT 80/4.5 MCG INHALER 2 PUFF INH (19:26)
[2024-06-08] MEDS: ELIQUIS 2.5 MG PO (20:31)
[2024-06-08] MEDS: COLACE PO ×2 (20:31→21:03)
[2024-06-08] MEDS: CARDIZEM CD 240 MG PO (22:32)
[2024-06-08] MEDS: ROXICODONE 5 MG PO (22:34)
[2024-06-09] VITALS (10 sets, daily range): BP systolic 137–157; BP diastolic 48–65; PULSE 68; O2SAT 96; BMI 25.1
[2024-06-09] MEDS: ROXICODONE 10 MG PO ×4 (04:02→22:43)
[2024-06-09] MEDS: SYNTHROID 100 MCG PO (06:11)
[2024-06-09] MEDS: ANCEF 10 IV ×3 (06:11→21:21)
--- NOTE | 2024-06-09 07:14 | W.PN.ORTHO ---
Today's Communication / Plan
-
83-year-old female POD 1 Right TKA I&D w/ poly exchange for PJI (MSSA) 06/08/[address] Cortes.
- WBAT RLE with use of walker for assistance.
- PT/OT.
- Eliquis modified dosing.
- ABX per ID. Currently on Cefazolin.
- Monitor Hgb. AM labs currently pending.
- Pain control per primary team.
- Orthopedic surgery will continue to follow along.
Assessment
.
Distal Motor Intact: Yes
Dressing:
Aquacel dressing clean, dry and intact.
Calf is soft and nontender to palpation.
Able to plantarflex and dorsiflex right ankle.
NVI distally.
Assessment:
POD 1 Right TKA I&D w/ Poly exchange for PJI 06/08/[address] Cortes
Plan
.
Surgery / Date: 06/08/2024 R TKA I&D w/ poly exchange Sebastian
DVT Prophylaxis: Other (Eliquis )
Activity:
Out of bed.
PT/OT
Discharge Plan: Other
Discharge Information:
Appreciate CM
Subjective
.
.:
Patient resting comfortably in bed this morning.
Vital Signs and Labs
.
Vital Signs and Labs:
Temp Pulse Resp BP Pulse Ox
97.4 F 61 18 141/58 98
06/09/24 03:50 06/09/24 03:50 06/09/24 03:50 06/09/24 03:50 06/09/24 03:50
[2024-06-09] MEDS: SPIRIVA RESPIMAT 2.5 MCG 2 PUFF INH (07:43)
[2024-06-09] MEDS: SYMBICORT 80/4.5 MCG INHALER 2 PUFF INH ×2 (07:45→19:10)
[2024-06-09] MEDS: DUONEB 3 ML INH (07:47)
[2024-06-09] MEDS: WELLBUTRIN XL (24 hour extended release) 150 MG PO (08:02)
[2024-06-09] MEDS: RESTASIS 0.05% OPHTHALMIC EMULSION 1 DROPS BOTH EYES ×2 (08:02→21:21)
[2024-06-09] MEDS: ELIQUIS 2.5 MG PO ×2 (08:02→21:21)
[2024-06-09] MEDS: COLACE PO (08:03)
[2024-06-09] MEDS: TOPROL XL 25 MG PO (08:03)
[2024-06-09] MEDS: DIPROSONE CREAM 0.05% 1 APPLIC TOPICAL (08:03)
[2024-06-09] MEDS: TYLENOL 500 MG PO ×4 (08:03→21:34)
[2024-06-09 08:39] LABS: Hematocrit 30.8 % (37.0-47.0); Hemoglobin 9.7 g/dL (12.0-16.0); Mean Corp Hgb Conc. 31.5 g/dL (33.0-37.0); Mean Corpuscular Hgb 32.2 pg (27.0-31.0); Mean Corpuscular Volume 102.3 fL (81.0-99.0); Mean Platelet Volume 9.7 fL (7.4-10.4); Platelet Count 343 10^3/uL (130-400); Red Blood Cell Count 3.01 10^6/uL (4.20-5.40); Red Cell Dist. Width 13.8 % (11.5-14.5); White Blood Cell Count 8.2 10^3/uL (4.8-10.8)
[2024-06-09 09:02] LABS: ALT (SGPT) 17 U/L (0-35); AST (SGOT) 51 U/L (14-36); Albumin 2.8 g/dl (3.5-5.0); Alkaline Phosphatase 156 U/L (38-126); Blood Urea Nitrogen 29 mg/dl (7-17); Calcium 8.7 mg/dl (8.4-10.2); Carbon Dioxide 25 mmol/L (22-30); Chloride 105 mmol/L (98-107); Estimated Creatinine Clearance 38 ml/min; Glucose 116 mg/dl (70-99); Sodium 140 mmol/L (135-145); Total Bilirubin 0.2 mg/dl (0.2-1.3); Total Protein 5.9 g/dl (6.3-8.2)
--- NOTE | 2024-06-09 10:08 | W.PN.CD ---
Today's Communication / Plan
-
Post WONG. full report to follow . No clear evidenceof endocarditis
Patietn has some wheezing, remainson 2 liters also suspected pleural effusion on WONG
CXR today
Impression / Plan
-
83 yo female with PMH of atrial flutter on eliquis, also DVT, MDT dual chamber PPM is admitted with prosthetic joint infection of right knee and MSSA bacteremia, plan for washout today and WONG tomorrow.
MSSA bacteremia:
-Blood cultures positive on 06/02 and 06/03. NGTD from 06/05
-ID following and patient on abx
-evidence for septic joint and plan is for I+D and component exchange in OR with ortho today
-WONG 06/09/24 normal LVF, mild ARm Mild MR, mod to severe TR, trace WA, No vegetations seen. Pacing wires noted and no abnormalties seen. small pleural effusion suspected
resp - remains on 2 liters . COPD. faint wheeze , more prominent on left base. WONG with suspected small pleural effusion
- CXR
right arma edema. ? IV infiltrate vs other cause.
- uper extremity venous US
SSS:
-stable with pacemaker in place
-follow telemetry
Atrial flutter, type unknown:
-stable in SR- continue diltiazem and metoprolol
-Eliquis held for procedure.
-Heparin drip on hold for OR today. [id number] score at least 4 for age, female, HTN and history of DVT.
HTN: - montior on meds
Subjective:
No complaints. Very overwhelmed with surgery today. Does not want to talk about WONG until tomorrow. No events on telemetry.
Data:
Echo 06/03/24: EF 55-60%, stage III diastolic dysfunction suggestive of restrictive filling pattern and increased filling pressures. Enlarged right ventricular size. Normal right ventricular systolic function. Pacer wire seen in right ventricle.
Severely dilated atria. Mild to moderate mitral regurgitation. Mild aortic regurgitation. Severe tricuspid regurgitation. Estimated pulmonary artery pressure of 65-70 mmHg.
Physical Exam
Vital Signs/Labs
Vital Signs
Temp Pulse Resp BP Pulse Ox
97.9 F 61 18 147/65 96
06/09/24 07:55 06/09/24 08:02 06/09/24 08:02 06/09/24 07:55 06/09/24 08:02
06/08/24 06/09/24 06/10/24
06:59 06:59 06:59
Actual Weight 66.31 kg 66.395 kg
06/09/24 07:16
06/09/24 07:16
APTT Cancelled 06/08/24 06:00
Physical Exam
Constitutional: No acute distress
Cardiovascular: Rhythm & rate is regular
Respiratory: Rhonchi Absent and Wheeze Present (most notable left base)
GI: Soft, Non tender and Normal bowel sounds
Neuro/Psych: Alert, Oriented, AO x 3 and Other (right knee post op)
Other: Skin
Data Reviewed
-
Date of Service: June 09, 2024
Medical Decision Making: Reviewed Test Results
Echo: Report Reviewed by me and Other (WONG images reviewed )
X-Ray/CT/US/MRI/NUC/PET: Report Reviewed by me
Medical Tests (PFT, Pathology etc): Report Reviewed by me
Labs: Labs Reviewed by me
--- NOTE | 2024-06-09 10:24 | W.PN.HOSP.TC ---
Addendum entered and electronically signed by Jaron Beth MD 06/09/24 14:52:
seen and examined by me independently in collaboration with the medical instrument cable fabricator Yobani.
Lab data and imaging data reviewed.
Addendum as below :
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
MSSA bacteremia. WONG without obvious vegetations.
Blood cx sterile ;afebrile.
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
Pt with volume overload -cant rule out acute diastolic CHF.. She has gone up 12lbs,o2 need, LE edema present , and CXR with BL small pleural effusions . Start on her on IV diuresis and follow.
BL basal opacification on CXR may be sec to pleural effusions dobut clinically pneumonia.
DW cards
Total time spent on today's encounter was 52 minutes which included time spent in counseling the patient/family regarding diagnosis and treatment plan as listed above, goals of care, and symptom management. Case was discussed with nursing staff,
specialists, and care coordinators/case management. All labs and imaging personally reviewed by me. Remainder the time spent in detailed review of previous records, lab data, imaging, and other medical provider documentation.
Original Note:
Today's Communication/Plan
-
Terminate IV fluids
WONG
Continue IV antibiotics
PICC line placement
Assessment / Plan
Assessment / Plan
Impression: 83-year-old female with a past history of right knee arthroplasty presents with fever and joint pain from orthopedic office. She had a joint aspiration which demonstrated infected aspirate.
Plan:
#Septic arthritis right knee
Past medical history of right knee arthroplasty
Reported 5 days of knee pain swelling and fevers
Had right knee aspiration outpatient orthopedics demonstrated cloudy fluid white count 30,000.
Status post second knee aspiration
Status post right knee washout, postop day 1
Patient reports pain controlled well, no nausea
Pain regiment Tylenol, tramadol and Dilaudid as needed
Patient was started on IV Zosyn in the emergency department, IV vancomycin was given however patient developed itchiness at IV site and was held
Patient was initiated on IV daptomycin, currently discontinued
Started on IV cefazolin 2 g every 8 hours, currently day 6
Infectious disease following
Recommendations greatly appreciated
Symptomatic management
Monitor LFTs with daily CMP
Monitor QT interval
# Methicillin sensitive Staph aureus Gram-positive bacteremia
Source likely from infected knee or left leg wound
Serial blood cultures were positive
Repeat blood cultures eventually returned no growth
Initially patient on IV daptomycin
Currently IV cefazolin 2 g every 8 hours, currently day 6
Echocardiogram obtained, returned similar to previous echo in December, increased PASP
WONG demonstrated no clear evidence of vegetation on valves
Infectious disease following
PICC line placement ordered
Cardiology following
Recommendations and coordination appreciated
#Pleural effusion
Patient's weight has increased from approximately 60 kg to 66 during her stay
Patient endorsing increasing shortness of breath, CXR demonstrated bilateral pleural effusions
Has been receiving IV fluids throughout her stay
IV fluids discontinued-please do not reinitiate
Initiate IV Lasix 40 scheduled
# Paroxysmal atrial fibrillation
Currently in A-fib
status post cardioversion in December of this year
Continue monitoring on telemetry
Continue home rate control medications
Will restart at [facility] at half dose, for 3 days and then full dose per orthopedics, Eliis day 2
Heparin discontinued
#Hyponatremia
resolved
Sodium 132 on admission
Will not renew IV fluids
Continue to trend with Daily CMP
#CRYSTAL
resloved
Will not renew IV fluids as patient is eating and drinking
Daily CMP
#Left lower extremity wound
Followed by wound care here at [facility]
Wound care eval
#Hypertension
Continue home medications with holding parameters
#Hypothyroidism
Continue home levothyroxine
#CKD stage III
Renal function currently at baseline
Daily CMP
#Anxiety/depression
Continue home medications
CODE STATUS: DNR
DVT prophylaxis: Foot pumps
Diet: Regular
Anticipated Discharge: 24 - 48 hours
Subjective/Interval History
-
Date of Service: June 09, 2024
Patient received WONG this morning
Objective Data
-
Labs:
Laboratory Results
06/09/24
07:16
WBC 8.2
Hgb 9.7 L
Hct 30.8 L
Plt Count 343 D
Sodium 140
Potassium 5.0
Chloride 105
Carbon Dioxide 25
BUN 29 H
Creatinine 1.0
Glucose 116 H
Calcium 8.7
Total Bilirubin 0.2
AST 51 H
ALT 17
Alkaline Phosphatase 156 H
Vital Signs:
Vital Signs
Temp Pulse Resp BP Pulse Ox
97.9 F 61 18 147/65 96
06/09/24 07:55 06/09/24 08:02 06/09/24 08:02 06/09/24 07:55 06/09/24 08:02
I&O
06/08/24 06/09/24 06/10/24
06:59 06:59 06:59
Intake Total 1512 / 1512 640 / 640
Balance 1512 / 1512 640 / 640
Review of Systems
-
History Source: Patient
Constitutional: Reports Weight Gain
Respiratory: Reports Cough and Trouble Breathing
Cardiac: Reports No Symptoms
Abdomen/GI: Reports No Symptoms
Musculoskeletal: Reports Edema and Other (Lower extremity tenderness to palpation)
Physical Exam
-
General: Well Developed, Well Nourished, No Apparent Distress, Comfortable and Conversant
Respiratory: Other (Bilateral bibasilar crackles)
Cardiac: S1/S2 and Irregular Rhythm
GI: Soft, Nontender and Nondistended
Musculoskeletal: Other (Lower extremity and upper extremity edema present)
Skin: Warm and Dry
Neuro: Awake, Alert, Oriented and AO x 3
Psych: Calm and Intact Judgement/Insight
Data Reviewed
-
Labs: Labs Reviewed by me and Discussed with Physician
--- NOTE | 2024-06-09 10:32 | CM ---
patient out of room at testing. CM will continue to follow for discharge planning needs.
--- NOTE | 2024-06-09 11:34 | W.PN.ID1 ---
Date of Service
Date of Service: June 09, 2024
Today's Communication
- c/w cefazolin 2 gm IV q8hr
- place PICC line
- script given to case manager specialist
- follow up with me near completion of therapy, will transition to suppression after completion of IV antibiotics doxycycline vs keflex
Assessment / Plan
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
Bacteremia due to S aureus
Nonhealing wound on the CL leg
Pacemaker
- blood cultures 06/02 and 06/03: MSSA
- 06/05 blood cultures no growth to date
- TTE 06/03 without vegetations
- WONG no lesions on the valves or pacemaker
- c/w cefazolin 2 gm IV q8hr
- place PICC line
- script given to case manager specialist
- follow up with me near completion of therapy, will transition to suppression after completion of IV antibiotics doxycycline vs keflex
Chief Complaint
-: Bacteremia and Other (septic joint)
Subjective / Review of Systems
afebrile
bp stable
had WONG no concerning lesions
washout with straw colored fluid, synovectomy, no obvious purulence, spacer removed, irrigated
feeling overwhelmed, supportive
Vital Signs / Physical Exam
Vital Signs
Vital Signs
Temp Pulse Resp BP Pulse Ox
97.8 F 64 18 144/58 96
06/09/24 11:00 06/09/24 11:00 06/09/24 11:00 06/09/24 11:00 06/09/24 11:00
Physical Exam
Constitutional: No Acute Distress
Cardiovascular: Regular Rate and S1/S2; Negative Murmur or Rub
Pulmonary: Clear and Symmetric; Negative Wheezes or Rales
Gastrointestinal: Soft, Non Tender, Non Distended and Normal Bowel Sounds
Extremities: Other (dressing clean, dry, intact, minimal strikethrough - R knee)
Musculoskeletal: Other (hips no erythema, warmth, swelling or tenderness)
Skin: Warm and Dry; Negative Rash or Jaundice
Lines: Other (pacemaker)
Objective Data
Lab Data
Lab Results
06/09/24 07:16
06/09/24 07:16
APTT Cancelled 06/08/24 06:00
Estimated Creat Clear 38 ml/min 06/09/24 07:16
Lactic Acid 2.0 mmol/L (0.7-2.0) 06/02/24 20:49
Total Bilirubin 0.2 mg/dl (0.2-1.3) 06/09/24 07:16
AST 51 U/L (14-36) H 06/09/24 07:16
ALT 17 U/L (0-35) 06/09/24 07:16
Alkaline Phosphatase 156 U/L (38-126) H 06/09/24 07:16
Most recent labs reviewed.
Chest X-Ray: Image Reviewed (my read, mild pulmonary edema)
Micro Results:
06/05/24 07:56 Blood Culture - Preliminary
Blood/Venous No Growth in 4 days- Final report to follow
06/05/24 07:02 Blood Culture - Preliminary
Blood/Venous No Growth in 4 days- Final report to follow
06/03/24 11:27 Blood Culture - Preliminary
Blood/Venous S aureus-Methicillin Sensitive
Gram Stain - Preliminary
06/03/24 10:16 Blood Culture - Preliminary
Blood/Venous S aureus-Methicillin Sensitive
Gram Stain - Preliminary
06/02/24 21:44 Blood Culture - Final
Blood/Venous S aureus-Methicillin Sensitive
Gram Stain - Final
06/02/24 20:49 Blood Culture - Final
Blood/Venous S aureus-Methicillin Sensitive
Gram Stain - Final
06/03/24 09:00 Body Fluid Culture - Final
Synovial Fluid S aureus-Methicillin Sensitive
Gram Stain - Final
06/03/24 01:06 MRSA Screen - Final
Other-Please specify - Left No Methicillin Resistant Staphylococcus aureus isolated.
06/02/24 18:04 Influenza Types A & B (GAEL) - Final
Nasal Swab Negative for Influenza A & B, NAAT
Negative results must be combined with clinical observations
and patient history.
Nucleic Acid Amplification test (NAAT)performed on the
[employer] platform.
[2024-06-09] MEDS: VENTOLIN NEBULES 2.5 MG INH (13:31)
--- NOTE | 2024-06-09 13:58 | CM ---
Addendum entered by Qi Ferrera 06/09/24 14:24:
Fax sent to [facility], VM left requesting call back, will send referral to [facility]
Addendum entered by Qi Ferrera 06/09/24 14:13:
obtained prescription for IV antibiotics at this time.
Original Note:
Patient seen at bedside. patient wanted to remain with [facility] but due to them not having IV nurse. Patient will need to change to [facility] or [facility]. CM spoke with patient and reviewed PAC data. CM updated patient and she has chosen [facility] and [facility] at this time. CM will send referral to [facility] and obtain costs for patient. Patient request is for her to go home with [facility]. CM called to [facility] and confirmed that patient could not continue with [facility] due to antibiotics. CM will
continue to follow for discharge planning needs.
Plan; home with IV antibiotics and [facility].
[2024-06-09 14:00] LABS: NT-proBNP 4460 pg/ml
[2024-06-09] MEDS: LASIX 40 MG IV (14:53)
[2024-06-09] MEDS: PROTONIX 40 MG PO (17:25)
[2024-06-09] MEDS: LIPITOR 10 MG PO (17:26)
[2024-06-09] MEDS: XOPENEX 0.63 MG INHALANT SOLUTION INH (19:10)
[2024-06-09] MEDS: COLACE 100 MG PO (21:20)
[2024-06-09] MEDS: CARDIZEM CD 240 MG PO (21:20)
[2024-06-09] MEDS: BENADRYL 25 MG PO (22:43)
[2024-06-10 03:00] VITALS: BP 142/62
[2024-06-10] MEDS: SYNTHROID 100 MCG PO (05:26)
[2024-06-10] MEDS: ANCEF 10 IV ×3 (05:26→21:24)
[2024-06-10] MEDS: COLACE 100 MG PO ×2 (05:45→20:26)
[2024-06-10] MEDS: ROXICODONE 10 MG PO (05:45)
[2024-06-10 06:00] VITALS: BMI 24.2
[2024-06-10] MEDS: SYMBICORT 80/4.5 MCG INHALER 2 PUFF INH ×2 (07:23→19:27)
[2024-06-10] MEDS: SPIRIVA RESPIMAT 2.5 MCG 2 PUFF INH (07:23)
[2024-06-10] MEDS: XOPENEX 0.63 MG INHALANT SOLUTION INH ×3 (07:27→19:27)
[2024-06-10 07:35] VITALS: BP 142/68
--- NOTE | 2024-06-10 07:36 | W.PN.UPDATE ---
Update Note
Progress Note Update
Ms. Quigley is POD 2 following her right TKA I&D with poly exchange performed by Dr. Cortes. She is resting comfortably in bed this morning, and enjoying breakfast. She does endorse continued pain in her knee, and states she is having quite a bit of
difficulty with ambulating. She was able to work with physical therapy yesterday. She endorses significant anxiety this morning regarding her situation, and her plans for d/c.
Directed exam of the right lower extremity reveals surgical incision clean, dry and intact. Expected post-operative edema throughout the right lower extremity. Pain with ROM of the right knee. Calf soft and nontender. Patient able to wiggle toes,
plantar and dorsiflex ankle. Neurovascularly intact distally.
Labs pending this AM.
83-year-old female POD 2 Right TKA I&D w/ poly exchange for PJI (MSSA) 06/08/[address] Cortes.
- WBAT RLE with use of walker for assistance. We appreciate the assistance of PT/OT.
- Eliquis modified dosing.
- ABX per ID. Currently on Cefazolin.
- Monitor Hgb. 9.7 yesterday, stable from 9/5 the day before. AM labs currently pending.
- Pain control per primary team.
- Orthopedic surgery will continue to follow along.
[2024-06-10] MEDS: TYLENOL 500 MG PO ×3 (08:56→20:26)
[2024-06-10] MEDS: RESTASIS 0.05% OPHTHALMIC EMULSION 1 DROPS BOTH EYES ×2 (08:56→20:25)
[2024-06-10] MEDS: LASIX 40 MG IV (08:56)
[2024-06-10] MEDS: WELLBUTRIN XL (24 hour extended release) 150 MG PO (08:56)
[2024-06-10] MEDS: ELIQUIS 2.5 MG PO ×2 (08:56→20:26)
[2024-06-10] MEDS: TOPROL XL 25 MG PO (08:56)
--- NOTE | 2024-06-10 09:02 | CM ---
Addendum entered by Qi Ferrera 06/10/24 15:30:
Unable to discharge home secondary to physician concerns. Patient now for discharge again tomorrow. Joseemerson to meet with patient at home 2pm for [facility] teaching.
Original Note:
Patient seen at bedside. Reassurance provided to patient regarding IV antibiotics. [facility] cost per Lona is 0$ copay to patient, and 80% coverage under but deductable based on 3000$ and per Lona may be met by the time patient billing
through occurs. Patient updated about 2pm visit with Dereje at home for teaching. Patient anxious about discharge and coming on time. CM will update resident and physician. Patient provided IMM for review. CM will continue to follow
for discharge planning needs.
Plan; home with [facility]
--- NOTE | 2024-06-10 09:15 | W.PN.HOSP.TC ---
Addendum entered and electronically signed by Jaron Beth MD 06/10/24 15:10:
Seen and examined by me independently in collaboration with the medical insurance biller Yobani.
Lab data and imaging data reviewed.
Addendum as below :
Pain from the right knee motion but manageable. No fevers. Continue antibiotics per ID.
Improved respiratory status-off of oxygen. Improved weight. Lasix changed to oral.
Medically stable for DC.
Start discharge plan. PT report says could go home with home health. Discussed with case management.
Original Note:
Today's Communication/Plan
-
Physical therapy
Continue IV antibiotics
Continue IV diuresis
discharge planning for tomorrow
Assessment / Plan
Assessment / Plan
Impression: 83-year-old female with a past history of right knee arthroplasty presents with fever and joint pain from orthopedic office. She had a joint aspiration which demonstrated infected aspirate.
Plan:
#Septic arthritis right knee
Past medical history of right knee arthroplasty
Reported 5 days of knee pain swelling and fevers
Had right knee aspiration outpatient orthopedics demonstrated cloudy fluid white count 30,000.
Status post second knee aspiration
Status post right knee washout, postop day 2
Patient reports pain controlled well, no nausea
Pain regiment Tylenol, tramadol and Dilaudid as needed
Patient was started on IV Zosyn in the emergency department, IV vancomycin was given however patient developed itchiness at IV site and was held
Patient was initiated on IV daptomycin, currently discontinued
Started on IV cefazolin 2 g every 8 hours, currently day 7
Infectious disease following
Recommendations greatly appreciated
Symptomatic management
Monitor LFTs with daily CMP
Monitor QT interval
# Methicillin sensitive Staph aureus Gram-positive bacteremia
Source likely from infected knee or left leg wound
Serial blood cultures were positive
Repeat blood cultures eventually returned no growth
Initially patient on IV daptomycin
Currently IV cefazolin 2 g every 8 hours, currently day 7
Echocardiogram obtained, returned similar to previous echo in December, increased PASP
WONG demonstrated no clear evidence of vegetation on valves
Infectious disease following
Patient received PICC line, successfully placed right sided PICC line on 06/09/2024 confirmed placement on x-ray
Cardiology following
Recommendations and coordination appreciated
#Pleural effusion
Patient's weight has increased from approximately 60 kg to 66 during her stay
Patient endorsing increasing shortness of breath, CXR demonstrated bilateral pleural effusions
Has been receiving IV fluids throughout her stay
Status post IV Lasix
Transition to oral Lasix 40 mg, to be discharged home on
Patient has cardiology appointment scheduled for 07/01/2024 at 3 PM for follow-up on Lasix adjustment
Patient's weight decreased from 66 to 64 kg, baseline is approximately 60 kg
# Paroxysmal atrial fibrillation
Currently in A-fib
status post cardioversion in December of this year
Continue monitoring on telemetry
Continue home rate control medications
Eliquis reinitiated
Heparin discontinued
#Hyponatremia
resolved
Sodium 132 on admission
Will not renew IV fluids
Continue to trend with Daily CMP
#CRYSTAL
resloved
Will not renew IV fluids as patient is eating and drinking
Daily CMP
#Cough
Robitussin DM as needed ordered for cough with mucus
Acapella respiratory device ordered
#Left lower extremity wound
Followed by wound care here at [place]
Wound care eval
#Hypertension
Continue home medications with holding parameters
#Hypothyroidism
Continue home levothyroxine
#CKD stage III
Renal function currently at baseline
Daily CMP
#Anxiety/depression
Continue home medications
CODE STATUS: DNR
DVT prophylaxis: Foot pumps
Diet: Regular
Anticipated Discharge: Within 24 hours
Subjective/Interval History
-
Date of Service: June 10, 2024
Patient reports pain and nausea are well-controlled after operation
Patient anxious about next steps regarding physical rehab or home rehab, encouraged to work with PT
Objective Data
-
Labs:
Laboratory Results
06/10/24
09:03
WBC Pending
Hgb Pending
Hct Pending
Plt Count Pending
Sodium Pending
Potassium Pending
Chloride Pending
Carbon Dioxide Pending
BUN Pending
Creatinine Pending
Glucose Pending
Calcium Pending
Total Bilirubin Pending
AST Pending
ALT Pending
Alkaline Phosphatase Pending
Vital Signs:
Vital Signs
Temp Pulse Resp BP Pulse Ox
98.4 F 61 17 142/68 96
06/10/24 07:35 06/10/24 07:35 06/10/24 07:35 06/10/24 07:35 06/10/24 07:35
I&O
06/09/24 06/10/24 06/11/24
06:59 06:59 06:59
Intake Total 640 / 640 480 / 480
Output Total 700 / 700
Balance 640 / 640 -220 / -220
Review of Systems
-
History Source: Patient
Constitutional: Reports Other (General malaise/anxiety)
Respiratory: Reports Cough and Wheezing
Cardiac: Reports No Symptoms
Abdomen/GI: Reports No Symptoms
Musculoskeletal: Reports Joint Swelling and Edema
Psych: Reports Anxious
Physical Exam
-
General: Well Developed, Well Nourished, No Apparent Distress, Comfortable and Conversant
Respiratory: Wheezes
Cardiac: S1/S2 and Irregular Rhythm
GI: Soft, Nontender and Nondistended
Musculoskeletal: Edema, Left Upper Extrem
Skin: Warm and Dry
Neuro: Awake, Alert, Oriented and AO x 3
Psych: Calm, Intact Judgement/Insight and Anxious
Data Reviewed
-
Diagnostic Radiology: Report Reviewed by me and Discussed with Physician
Labs: Labs Reviewed by me and Discussed with Physician
--- NOTE | 2024-06-10 09:45 | W.PN.CD ---
Today's Communication / Plan
-
-WONG yesterday negative for vegetation; continue recommendations as per ID.
-Will transition to Lasix 40 mg daily, which should be her home medication regimen.
-Continue Eliquis.
-Continue current doses of diltiazem Cardizem CD and Toprol-XL.
-No further cardiac recommendations at this time; outpatient follow-up with Cardiology.
Impression / Plan
-
83 yo female with PMH of atrial flutter on eliquis, also DVT, MDT dual chamber PPM is admitted with prosthetic joint infection of right knee and MSSA bacteremia, plan for washout today and WONG tomorrow.
MSSA bacteremia:
-Blood cultures positive on 06/02 and 06/03. NGTD from 06/05
-ID following and patient on abx
-Septic joint s/p I+D and component exchange by ortho.
-WONG 06/09/24 normal LVF, mild ARm Mild MR, mod to severe TR, trace [place], No vegetations seen. Pacing wires noted and no abnormalties seen. small pleural effusion suspected
-WONG yesterday negative for vegetation; continue recommendations as per ID.
COPD Exacerbation:
-Continues to have bilateral wheeze on examination.
-Management as per primary team.
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
-Will transition to Lasix 40 mg daily, which should be her home medication regimen.
SSS:
-Pacemaker stable.
Paroxysmal Atrial flutter:
-[id number] score at least 4 for age, female, HTN and history of DVT.
-Continue Eliquis.
-Continue current doses of diltiazem Cardizem CD and Toprol-XL.
HTN: - Fairly controlled.
Subjective:
No major events overnight. No cardiac complaints this a.m.
Data:
Echo 06/03/24: EF 55-60%, stage III diastolic dysfunction suggestive of restrictive filling pattern and increased filling pressures. Enlarged right ventricular size. Normal right ventricular systolic function. Pacer wire seen in right ventricle.
Severely dilated atria. Mild to moderate mitral regurgitation. Mild aortic regurgitation. Severe tricuspid regurgitation. Estimated pulmonary artery pressure of 65-70 mmHg.
Physical Exam
Vital Signs/Labs
Vital Signs
Temp Pulse Resp BP Pulse Ox
98.4 F 61 17 142/68 96
06/10/24 07:35 06/10/24 07:35 06/10/24 07:35 06/10/24 07:35 06/10/24 07:35
06/09/24 06/10/24 06/11/24
06:59 06:59 06:59
Actual Weight 66.395 kg 63.985 kg
APTT Cancelled 06/08/24 06:00
06/09/24
07:16
[id number] Pept [id number]
Physical Exam
Constitutional: No acute distress and Comfortable
EENT: Anicteric
Cardiovascular: Rhythm & rate is regular, Pedal edema present (trace), Systolic murmur present (2/6) and S1S2 is normal
Respiratory: Respiratory effort normal, Wheeze Present (Expiratory) and Rhonchi Present (Mild bibasilar)
GI: Soft
Neuro/Psych: AO x 3
Other: Skin (warm)
Data Reviewed
-
Date of Service: June 10, 2024
EKG: Tracing Personally Visualized and interpreted (Telemetry: Atrial paced)
Echo: Tracing Personally Visualized and interpreted (LVEF 55-60%; severe biatrial enlargement; severe TR (PASP 65-70 mmHg).)
Labs: Labs Reviewed by me
[2024-06-10 09:52] LABS: Hematocrit 29.8 % (37.0-47.0); Hemoglobin 9.8 g/dL (12.0-16.0); Mean Corp Hgb Conc. 32.9 g/dL (33.0-37.0); Mean Corpuscular Volume 100.3 fL (81.0-99.0); Mean Platelet Volume 9.7 fL (7.4-10.4); Platelet Count 419 10^3/uL (130-400); Red Blood Cell Count 2.97 10^6/uL (4.20-5.40); Red Cell Dist. Width 13.8 % (11.5-14.5); White Blood Cell Count 6.6 10^3/uL (4.8-10.8)
[2024-06-10 10:51] LABS: ALT (SGPT) 18 U/L (0-35); AST (SGOT) 43 U/L (14-36); Alkaline Phosphatase 141 U/L (38-126); Blood Urea Nitrogen 30 mg/dl (7-17); Calcium 9.3 mg/dl (8.4-10.2); Carbon Dioxide 28 mmol/L (22-30); Chloride 103 mmol/L (98-107); Estimated Creatinine Clearance 32 ml/min; Glucose 119 mg/dl (70-99); Potassium 4.9 mmol/L (3.5-5.1); Sodium 140 mmol/L (135-145); Total Bilirubin 0.2 mg/dl (0.2-1.3); Total Protein 6.2 g/dl (6.3-8.2); eGFR 45.48
[2024-06-10 11:28] VITALS: BP 135/65
[2024-06-10] MEDS: ROXICODONE 5 MG PO ×2 (11:44→23:01)
--- NOTE | 2024-06-10 14:03 | W.PN.ID1 ---
Date of Service
Date of Service: June 10, 2024
Today's Communication
would like to see renal function stabilize or improve prior to dc
Assessment / Plan
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
Bacteremia due to S aureus
Nonhealing wound on the CL leg
CRYSTAL
Pacemaker
- blood cultures 06/02 and 06/03: MSSA
- 06/05 blood cultures finalized negative
- TTE 06/03 without vegetations
- WONG no lesions on the valves or pacemaker
- c/w cefazolin 2 gm IV q8hr x6 weeks - follow renal function, may require a dose adjustment if renal function further declines
- place PICC line
- script given to case hardener
- weekly labs: CBC, CMP to be sent to my office weekly on mondays
- follow up with me near completion of therapy, will transition to suppression after completion of IV antibiotics doxycycline vs keflex
- follow renal function
Chief Complaint
-: Bacteremia and Other (septic joint)
Subjective / Review of Systems
afebrile
bp stable
tolerating current therapy
mild crystal today
Vital Signs / Physical Exam
Vital Signs
Vital Signs
Temp Pulse Resp BP Pulse Ox
97.7 F 65 18 135/65 96
06/10/24 11:28 06/10/24 13:47 06/10/24 13:47 06/10/24 11:28 06/10/24 13:47
Physical Exam
Constitutional: No Acute Distress
Cardiovascular: Regular Rate and S1/S2; Negative Murmur or Rub
Pulmonary: Clear and Symmetric; Negative Wheezes or Rales
Gastrointestinal: Soft, Non Tender, Non Distended and Normal Bowel Sounds
Skin: Warm and Dry; Negative Rash or Jaundice
Objective Data
Lab Data
Lab Results
06/10/24 09:03
06/10/24 09:03
APTT Cancelled 06/08/24 06:00
Estimated Creat Clear 32 ml/min 06/10/24 09:03
Lactic Acid 2.0 mmol/L (0.7-2.0) 06/02/24 20:49
Total Bilirubin 0.2 mg/dl (0.2-1.3) 06/10/24 09:03
AST 43 U/L (14-36) H 06/10/24 09:03
ALT 18 U/L (0-35) 06/10/24 09:03
Alkaline Phosphatase 141 U/L (38-126) H 06/10/24 09:03
Most recent labs reviewed.
Micro Results:
06/03/24 11:27 Blood Culture - Final
Blood/Venous S aureus-Methicillin Sensitive
Gram Stain - Final
06/03/24 10:16 Blood Culture - Final
Blood/Venous S aureus-Methicillin Sensitive
Gram Stain - Final
06/05/24 07:56 Blood Culture - Final
Blood/Venous No Growth - Final Report
06/05/24 07:02 Blood Culture - Final
Blood/Venous No Growth - Final Report
06/02/24 21:44 Blood Culture - Final
Blood/Venous S aureus-Methicillin Sensitive
Gram Stain - Final
06/02/24 20:49 Blood Culture - Final
Blood/Venous S aureus-Methicillin Sensitive
Gram Stain - Final
06/03/24 09:00 Body Fluid Culture - Final
Synovial Fluid S aureus-Methicillin Sensitive
Gram Stain - Final
06/03/24 01:06 MRSA Screen - Final
Other-Please specify - Left No Methicillin Resistant Staphylococcus aureus isolated.
06/02/24 18:04 Influenza Types A & B (GAEL) - Final
Nasal Swab Negative for Influenza A & B, NAAT
Negative results must be combined with clinical observations
and patient history.
Nucleic Acid Amplification test (NAAT)performed on the
[employer] platform.
Care Review
Plan reviewed with: Physician (Dr Xochilt maxwell)
[2024-06-10] MEDS: DIPROSONE CREAM 0.05% 1 APPLIC TOPICAL (14:18)
[2024-06-10 15:56] VITALS: BP 152/53
[2024-06-10] MEDS: PROTONIX 40 MG PO (20:26)
[2024-06-10] MEDS: LIPITOR 10 MG PO (20:26)
[2024-06-10] MEDS: CARDIZEM CD 240 MG PO (21:24)
[2024-06-10 21:52] VITALS: BP 134/62
[2024-06-10] MEDS: TYLENOL PO (23:01)
[2024-06-11] MEDS: SYNTHROID 100 MCG PO (05:20)
[2024-06-11] MEDS: ANCEF 10 IV (05:22)
[2024-06-11 05:52] VITALS: BMI 24.5
[2024-06-11 06:06] LABS: Hematocrit 30.7 % (37.0-47.0); Hemoglobin 10.2 g/dL (12.0-16.0); Mean Corp Hgb Conc. 33.2 g/dL (33.0-37.0); Mean Corpuscular Hgb 32.4 pg (27.0-31.0); Mean Corpuscular Volume 97.5 fL (81.0-99.0); Mean Platelet Volume 9.1 fL (7.4-10.4); Platelet Count 438 10^3/uL (130-400); Red Blood Cell Count 3.15 10^6/uL (4.20-5.40); Red Cell Dist. Width 13.9 % (11.5-14.5); White Blood Cell Count 7.3 10^3/uL (4.8-10.8)
[2024-06-11] MEDS: ROXICODONE 5 MG PO (06:18)
[2024-06-11 06:29] LABS: ALT (SGPT) 13 U/L (0-35); AST (SGOT) 45 U/L (14-36); Alkaline Phosphatase 140 U/L (38-126); Blood Urea Nitrogen 30 mg/dl (7-17); Carbon Dioxide 29 mmol/L (22-30); Chloride 100 mmol/L (98-107); Estimated Creatinine Clearance 35 ml/min; Glucose 102 mg/dl (70-99); Potassium 5.1 mmol/L (3.5-5.1); Sodium 138 mmol/L (135-145); Total Bilirubin 0.2 mg/dl (0.2-1.3); Total Protein 6.2 g/dl (6.3-8.2); eGFR 50.48
[2024-06-11] MEDS: SPIRIVA RESPIMAT 2.5 MCG 2 PUFF INH (07:26)
[2024-06-11] MEDS: SYMBICORT 80/4.5 MCG INHALER 2 PUFF INH (07:26)
[2024-06-11] MEDS: XOPENEX 0.63 MG INHALANT SOLUTION INH (07:26)
--- NOTE | 2024-06-11 07:42 | W.PN.ORTHO ---
Today's Communication / Plan
-
PT/OT
Weightbearing as tolerated with walker
Ice with elevation to control swelling and pain
Eliquis for DVT prophylactics
PICC line placed
Cefazolin per ID recommendation
Follow inflammatory markers
Patient prefers to go home with visiting nurses
Follow-up orthopedics in 2 weeks for skin clip removal
Assessment
.
Distal Motor Intact: Yes
Dressing:
Clean, dry and intact.
Plan
.
Surgery / Date: 06/08/2024 R TKA I&D w/ poly exchange [place]
DVT Prophylaxis: Other (Eliquis)
Activity:
Out of bed.
PT/OT
Discharge Plan: Home w/ VN
Subjective
.
.:
Patient resting comfortably.
Vital Signs and Labs
.
Vital Signs and Labs:
Lab Results
06/11/24 05:54
06/11/24 05:54
Temp Pulse Resp BP Pulse Ox
98.6 F 76 18 134/62 95
06/10/24 21:52 06/11/24 07:29 06/11/24 07:29 06/10/24 21:52 06/11/24 07:29
Physical Exam
-
Right knee Aquacel dressing in place with scant dried blood. No warmth or erythema noted about the knee. Passive motion 0 to 80 degrees without significant pain. Calf is soft and nontender. Distal neurovascular was intact.
[2024-06-11] MEDS: TYLENOL 500 MG PO (08:34)
[2024-06-11] MEDS: COLACE 100 MG PO (08:34)
[2024-06-11] MEDS: ELIQUIS 2.5 MG PO (08:34)
[2024-06-11] MEDS: RESTASIS 0.05% OPHTHALMIC EMULSION 1 DROPS BOTH EYES (08:34)
[2024-06-11] MEDS: TOPROL XL 25 MG PO (08:35)
[2024-06-11] MEDS: LASIX 40 MG PO (08:35)
[2024-06-11] MEDS: WELLBUTRIN XL (24 hour extended release) 150 MG PO (08:35)
[2024-06-11] MEDS: DIPROSONE CREAM 0.05% 1 APPLIC TOPICAL (08:37)
--- NOTE | 2024-06-11 09:03 | W.PN.HOSP.TC ---
Addendum entered and electronically signed by Jaron Bteh MD 06/11/24 14:16:
Seen and examined by me independently in collaboration with the medical imaging director Yobani.
Lab data and imaging data reviewed.
Addendum as below :
Patient seen again by therapist today and cleared for home with services.
Discussed with case management-antibiotics IV at home are being arranged.
Medically stable for discharge home today.
Total time of discharge 35 minutes
Original Note:
Today's Communication/Plan
-
1 last physical therapy session
Continue IV antibiotics until discharge
Discharge home with visiting nurse and physical therapy/Occupational Therapy
Assessment / Plan
Assessment / Plan
Impression: 83-year-old female with a past history of right knee arthroplasty presents with fever and joint pain from orthopedic office. She had a joint aspiration which demonstrated infected aspirate.
Plan:
#Septic arthritis right knee
Past medical history of right knee arthroplasty
Reported 5 days of knee pain swelling and fevers
Had right knee aspiration outpatient orthopedics demonstrated cloudy fluid white count 30,000.
Status post second knee aspiration
Status post right knee washout, postop day 3
Patient reports pain controlled well, no nausea
Pain regiment Tylenol, tramadol and Dilaudid as needed
Patient was started on IV Zosyn in the emergency department, IV vancomycin was given however patient developed itchiness at IV site and was held
Patient was initiated on IV daptomycin, currently discontinued
Started on IV cefazolin 2 g every 8 hours, currently day 8
Infectious disease following
Recommendations greatly appreciated
Symptomatic management
Monitor LFTs with daily CMP
Monitor QT interval
# Methicillin sensitive Staph aureus Gram-positive bacteremia
Source likely from infected knee or left leg wound
Serial blood cultures were positive
Repeat blood cultures eventually returned no growth
Initially patient on IV daptomycin
Currently IV cefazolin 2 g every 8 hours, currently day 8
Echocardiogram obtained, returned similar to previous echo in [place], increased PASP
WONG demonstrated no clear evidence of vegetation on valves
Infectious disease following
Patient received PICC line, successfully placed right sided PICC line on 06/09/2024 confirmed placement on x-ray
Cardiology following
Recommendations and coordination appreciated
#Pleural effusion
Patient's weight has increased from approximately 60 kg to 66 during her stay
Patient endorsing increasing shortness of breath, CXR demonstrated bilateral pleural effusions
Has been receiving IV fluids throughout her stay
Status post IV Lasix
Transition to oral Lasix 40 mg, to be discharged home on
Patient has cardiology appointment scheduled for 07/01/2024 at 3 PM for follow-up on Lasix adjustment
Patient's weight decreased from 66 to 64 kg, baseline is approximately 60 kg
#acute diastolic CHF exacerbation
Pleural effusions present on imaging
Weight increased aproxx 6 kg
s/p IV diuresis
Started on PO lasix 40, will follow up with cardiology on discharge
weight decreased after diuresis
# Paroxysmal atrial fibrillation
not currently in a-fib
status post cardioversion in December of this year
Continue monitoring on telemetry
Continue home rate control medications
Eliquis reinitiated
Heparin discontinued
#Hyponatremia
resolved
Sodium 132 on admission
Will not renew IV fluids
Continue to trend with Daily CMP
#CRYSTAL
resloved
Will not renew IV fluids as patient is eating and drinking
Daily CMP
#Cough
Robitussin DM as needed ordered for cough with mucus
Acapella respiratory device ordered
#Left lower extremity wound
Followed by wound care here at [facility]
Wound care eval
#Hypertension
Continue home medications with holding parameters
#Hypothyroidism
Continue home levothyroxine
#CKD stage III
Renal function currently at baseline
Daily CMP
#Anxiety/depression
Continue home medications
CODE STATUS: DNR
DVT prophylaxis: Foot pumps
Diet: Regular
Anticipated Discharge: Today
Subjective/Interval History
-
Date of Service: June 11, 2024
Patient very anxious about discharge
Objective Data
-
Labs:
Laboratory Results
06/11/24
05:54
WBC 7.3
Hgb 10.2 L
Hct 30.7 L
Plt Count 438 H
Sodium 138
Potassium 5.1
Chloride 100
Carbon Dioxide 29
BUN 30 H
Creatinine 1.1 H
Glucose 102 H
Calcium 9.0
Total Bilirubin 0.2
AST 45 H
ALT 13
Alkaline Phosphatase 140 H
Vital Signs:
Vital Signs
Temp Pulse Resp BP Pulse Ox
98.6 F 63 18 163/60 95
06/10/24 21:52 06/11/24 08:35 06/11/24 07:29 06/11/24 08:35 06/11/24 07:29
I&O
06/10/24 06/11/24 06/12/24
06:59 06:59 06:59
Intake Total 480 / 480 1740 / 1740
Output Total 700 / 700
Balance -220 / -220 1740 / 1740
Review of Systems
-
Constitutional: Reports No Symptoms
Respiratory: Reports Cough and Wheezing
Cardiac: Reports No Symptoms
Abdomen/GI: Reports No Symptoms
Musculoskeletal: Reports Other (Lower extremity pain bilaterally, worse in right knee)
Psych: Reports Anxious
Physical Exam
-
General: Well Developed, Well Nourished, Comfortable and Conversant
Respiratory: Wheezes
Cardiac: Regular Rhythm and S1/S2
GI: Soft, Nontender and Nondistended
Musculoskeletal: Edema, Left Upper Extrem
Skin: Warm and Dry
Neuro: Awake, Alert, Oriented and AO x 3
Psych: Intact Judgement/Insight and Anxious
Data Reviewed
-
Labs: Labs Reviewed by me and Discussed with Physician
--- NOTE | 2024-06-11 09:15 | W.PN.ID1 ---
Date of Service
Date of Service: June 11, 2024
Today's Communication
- c/w cefazolin 2 gm IV q8hr x6 weeks
- place PICC line
- script given to pillowcase maker
- weekly labs: CBC, CMP to be sent to my office weekly
- follow up with me near completion of therapy, will transition to suppression after completion of IV antibiotics doxycycline vs keflex
Assessment / Plan
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
Bacteremia due to S aureus
Nonhealing wound on the CL leg
CRYSTAL - stable to slightly improved
Pacemaker
- blood cultures 06/02 and 06/03: MSSA
- 06/05 blood cultures finalized negative
- TTE 06/03 without vegetations
- WONG no lesions on the valves or pacemaker
- c/w cefazolin 2 gm IV q8hr x6 weeks
- place PICC line
- script given to pillowcase maker
- weekly labs: CBC, CMP to be sent to my office weekly
- follow up with me near completion of therapy, will transition to suppression after completion of IV antibiotics doxycycline vs keflex
Chief Complaint
-: Bacteremia and Other (septic joint)
Subjective / Review of Systems
afebrile
bp stable
renal function stable to slightly improved
no events overnight
Vital Signs / Physical Exam
Vital Signs
Vital Signs
Temp Pulse Resp BP Pulse Ox
98.6 F 63 18 163/60 95
06/10/24 21:52 06/11/24 08:35 06/11/24 07:29 06/11/24 08:35 06/11/24 07:29
Physical Exam
Constitutional: No Acute Distress
Cardiovascular: Regular Rate
Pulmonary: Symmetric and Non Labored
Gastrointestinal: Non Distended
Skin: Dry; Negative Rash or Jaundice
Lines: PICC
Objective Data
Lab Data
Lab Results
06/11/24 05:54
06/11/24 05:54
APTT Cancelled 06/08/24 06:00
Estimated Creat Clear 35 ml/min 06/11/24 05:54
Lactic Acid 2.0 mmol/L (0.7-2.0) 06/02/24 20:49
Total Bilirubin 0.2 mg/dl (0.2-1.3) 06/11/24 05:54
AST 45 U/L (14-36) H 06/11/24 05:54
ALT 13 U/L (0-35) 06/11/24 05:54
Alkaline Phosphatase 140 U/L (38-126) H 06/11/24 05:54
Most recent labs reviewed.
Micro Results:
06/03/24 11:27 Blood Culture - Final
Blood/Venous S aureus-Methicillin Sensitive
Gram Stain - Final
06/03/24 10:16 Blood Culture - Final
Blood/Venous S aureus-Methicillin Sensitive
Gram Stain - Final
06/05/24 07:56 Blood Culture - Final
Blood/Venous No Growth - Final Report
06/05/24 07:02 Blood Culture - Final
Blood/Venous No Growth - Final Report
06/02/24 21:44 Blood Culture - Final
Blood/Venous S aureus-Methicillin Sensitive
Gram Stain - Final
06/02/24 20:49 Blood Culture - Final
Blood/Venous S aureus-Methicillin Sensitive
Gram Stain - Final
06/03/24 09:00 Body Fluid Culture - Final
Synovial Fluid S aureus-Methicillin Sensitive
Gram Stain - Final
06/03/24 01:06 MRSA Screen - Final
Other-Please specify - Left No Methicillin Resistant Staphylococcus aureus isolated.
06/02/24 18:04 Influenza Types A & B (GAEL) - Final
Nasal Swab Negative for Influenza A & B, NAAT
Negative results must be combined with clinical observations
and patient history.
Nucleic Acid Amplification test (NAAT)performed on the
[employer] NOW platform.
Care Review
Plan reviewed with: Physician (Dr Beth and Dr Xochilt bermudez for sc)
--- NOTE | 2024-06-11 09:59 | PN.CDI ---
CDI
- -
CDI:
Physician Documentation Request
Admit Date: 06/02/24 23:06
Dear Doctor Xochilt,
06/09 hospitalist progress note states 'Pt with volume overload -cant rule out acute diastolic CHF.. She has gone up 12lbs,o2 need, LE edema present , and CXR with BL small pleural effusions . Start on her on IV diuresis and follow'
06/09 BNP 4460
06/09 CXR small bilateral pleural effusion. New
Please clarify the following:
____ - acute diastolic CHF was present
____ - acute diastolic CHF was ruled out
____ - acute diastolic CHF is still a likely, suspected, probable diagnosis
____ - Other
Use of terms such as suspected, likely, concern for, or probable (associated with a specific diagnosis that is being evaluated, monitored, or treated as if it exists) are acceptable and can be coded in the inpatient setting, when documented at the
time of discharge.
Thank you,
Lanie Calvin RN, BSN
CDI Specialist
tiger text
Please use your independent medical judgment in providing your response.
[2024-06-11 11:25] VITALS: BP 150/59
--- NOTE | 2024-06-11 11:25 | CM ---
Patient seen at bedside. IMM completed and signed form on chart. Patient present confirmed plan for transportation. Patient confirmed plan for discharge home with [facility]. PT/OT worked with patient again and confirmed patient
able to do steps. Patient anxious but confirmed plan for discharge again. CM will continue to follow for discharge planning needs.
Plan; home with [facility]/ fax [phone]
--- NOTE | 2024-06-11 13:40 | W.DCSUMMARY ---
Discharge Summary
Discharge Data
Date of Admission: 06/02/24
Date of Discharge: 06/11/24
-
Pending Results: No
Hospital Course
Discharging Physician : Kirit Lemon
Disposition : Home with home PT
Primary care physician : Dr. Grecia Alonzo
Principal Discharge diagnosis : Septic arthritis and bacteremia
Chronic Discharge diagnosis : Heart failure preserved ejection fraction, paroxysmal atrial fibrillation, hyponatremia, CRYSTAL, cough,
Hospital Course : 83-year-old female with past medical story of right knee arthroplasty present to the ED with fever and joint pain from orthopedic office. She had a joint aspiration which was indicative of septic arthritis. In the emergency
department she was started on IV Zosyn, we attempted to give the patient IV vancomycin however she developed itchiness at the IV site. Vancomycin was replaced with IV daptomycin. Patient had multiple blood cultures which were returning positive
after initiation of antibiotics. Eventually blood cultures returned negative however it was determined that we should check a WONG to rule out any vegetation. Patient had a WONG which ruled out all vegetations. Eventually blood cultures returned
methicillin sensitive staph and her antibiotics were narrowed to IV cefazolin 2 g every 8 hours. She received a total of 8 days of IV cefazolin while inpatient. Infectious disease was consulted, PICC line was placed and patient was set up to
receive IV antibiotics as an outpatient and follow-up with infectious disease for a total of 6 weeks of antibiotics. Orthopedics took the patient for a right knee washout and change of spacer. Patient underwent surgery successfully and recovered
well. It was also noted that patient was developing left upper extremity edema, her weight increased 6 kg and chest x-ray demonstrated bilateral pleural effusions. She received IV Lasix, cardiology was consulted and they transitioned her to oral
Lasix 40 mg. Which she will be discharged home on. She was also scheduled a cardiology appointment July 01 to follow-up on new Lasix dose initiation. While patient was here there was concerns for DVT, she was started on IV heparin for a while
until she could receive her knee washout. After her knee washout patient was restarted on her home Eliquis dose. Her chronic medical conditions were controlled, wound care was provided and symptomatic management was provided for patient.
Conversation was had with patient if she should attempt to return home and get home PT/OT or if she should have a short stay in a intermediate facility for physical rehab. Ultimately it was decided that patient would be best served at home with
home PT OT, she is very motivated to work out and improve her performance status. She has a supportive and good social support. Physical therapy worked with her on the days leading up to discharge to get her prepared for home PT OT.
Patient was given follow-up appoint with cardiology July 01, she was given a follow-up appointment with infectious disease in approximately 4 weeks, mid June. She was told to follow-up with orthopedics in 2 weeks for skin clip removal and
was recommended to follow-up with her primary care physician in less than 1 week of discharge. Patient was discharged home with visiting nursing, home PT OT and orthopedic, infectious disease, cardiology and PCP follow-up.
Important imaging findings :
06/02/2024 knee x-ray, impression:
No evidence of acute fracture or dislocation. No convincing radiographic findings to suggest prosthetic loosening or infection.
06/02/2024 peripheral vascular ultrasound, impression:
1. No evidence of deep venous thrombosis in the visualized right lower extremity as described above.
06/04/2024 peripheral vascular ultrasound, impression:
No evidence of deep venous thrombosis of the right lower extremity.
06/06/2024 peripheral vascular ultrasound, impression:
No evidence of deep venous thrombosis of the left lower extremity.
Small irregular fluid collection in the left antecubital fossa without blood flow within.
06/07/[address], impression:
There is extensive subcutaneous edema as well as edema around the musculature more prominent posteriorly than anteriorly and without focal fluid collection to suggest abscess.
06/09/2024 chest x-ray, impression:
Small bilateral pleural effusions. Progressed on the right. Stable on the left.
Mild bibasilar opacification concerning for developing pneumonia. Stable.
Mild cardiomegaly. Stable
Right PICC line catheter as described above. New
06/09/2024 chest x-ray, impression:
Small bilateral pleural effusions. New.
Mild bibasilar opacification concerning for developing pneumonia. New.
Mild cardiomegaly. New
06/10/2024 chest x-ray, impression:
Small, left greater than right pleural effusions with adjacent atelectasis which are similar in appearance to prior.
Stable positioning of the right upper extremity PICC with tip in satisfactory position.
Procedure findings :
06/09/2024 transesophageal echo, conclusions:
Normal left ventricular systolic function
Moderate to severe tricuspid regurgitation
Mild mitral regurgitation
Trace aortic regurgitation
No vegetation seen
06/08/2024 right knee I&D with tibial spacer change
Discharge Plan
-
Patient Disposition: Home (Routine Discharge)
Discharge Diagnosis/Procedures: Septic arthritis/bacteremia
Condition: Good
Diet: Regular
Activity: As tolerated
Driving Restrictions: As prior to admission
Bathing Restrictions: None
Blood Work: Weekly labs, CBC and CMP every Saturday per infectious disease
Other Services: VN, PT and OT
Activity Restrictions/Additional Instructions:
Wound Care Instructions
L leg: clean with saline, skin prep periwound, betamethasone cream to wound bed, adaptic, fluffed gauze, ABD pad and rochelle daily
compression daily can remove at bedtime
leg elevation when sitting
Follow up at wound care center call for an appointment.
Please follow-up with your primary care physician in less than 1 week of discharge
Please follow-up with cardiology on 07/01/2024 at 3 PM
Please follow-up with infectious disease in approximately 4 weeks.
Please follow-up with orthopedics in 2 weeks for skin clip removal.
Referrals:
Rajesh Cortes MD [Active] - in two weeks
Priscilla Duarte CRNP [Specified Professional Personl] - 12/04/24 3:00 pm
Grecia Alonzo MD [Family Provider] - in less than 1 week
Nanyc Norman MD [Active] - in four to six weeks (Mid June)
Additional Discharge Medication Instructions: OTC MEDS:
acetaminophen 650 mg every 4 hours for pain, can use tramadol as well
Please use dextromethorphan/guaifenesin as needed for cough with mucus
Please use docusate sodium capsules as needed twice a day by mouth for constipation
Please apply betamethasone dipropionate cream to your left lower leg per wound care instructions
New prescription meds:
cefazolin IV every 8 hours for 6 weeks
Start furosemide 40 mg by mouth daily
5 days worth of Tramadol 50mg by mouth for pain ever 8 hours as needed. Please follow up with your primary care provider for more tramadol
Prescriptions:
New
cefazolin 10 gram Recon Soln
2 g IV Q8H Qty: 1 0RF
furosemide 40 mg Tablet
40 mg PO DAILY Qty: 30 0RF
Continued
cyclosporine [Restasis] 0.05 % Dropperette
1 drp BOTH EYES BID Qty: 0
bupropion HCl 150 MG tablet extended release 24 hr
150 mg PO DAILY
Eliquis 2.5 MG tablet
2.5 mg PO BID
levothyroxine [Synthroid] 100 mcg Tablet
100 mcg PO DAILY
vitamin B complex Tablet
1 tab PO DAILY
esomeprazole magnesium [Nexium] 20 mg Capsule,Delayed Release(Dr/Ec)
20 mg PO QPM
Trelegy Ellipta 100-62.5-25 mcg Blister With Device
1 inh INHALATION R DAILY
acetaminophen 500 mg Tablet
500 mg PO Q6HPRN PRN (Reason: mild pain)
carboxymethylcellulose sodium 1 % Drops, Liquid Gel
2 drp BOTH EYES BIDPRN PRN (Reason: allergies/dry eyes)
Saline Nasal Mist 0.65 % Aerosol,[place]
2 spray INTRANASAL BIDPRN PRN (Reason: dryness)
therapeutic multivitamin Tablet
1 tab PO DAILY
diltiazem HCl 240 mg capsule,extended release 24hr
240 mg PO HS
atorvastatin 10 mg tablet
10 mg PO HS
metoprolol succinate 25 mg Tablet Extended Release 24 Hr
25 mg PO DAILY Qty: 30 0RF
Rx Instructions:
dose decreased on this admission
Changed
tramadol 50 mg Tablet
50 mg PO Q8HPRN PRN (Reason: moderate pain) Qty: 15 0RF
Discharge Orders:
Discharge Patient (As Directed); Ordered 06/11/24
Ordered By: Ted Lemon
Discharge Date and Time
Discharge Date/Time: 06/11/24 12:55
Print Language: OCCITAN
== END 2024-06-11 12:55 | disposition home health service (06) | DRG 485 ==
LOC: 4 EAST ACU 23:06
PROVIDERS: Hospitalist; Internal Medicine Cardiovascular Disease; Physician Assistant; Radiology Diagnostic Radiology; Student in an Organized Health Care Education/Training Program; ADMITTING PHYSICIAN Hospitalist; ATTENDING PHYSICIAN Internal Medicine; CONSULT PHYSICIAN Internal Medicine; CONSULT PHYSICIAN Student in an Organized Health Care Education/Training Program; EMERGENCY PHYSICIAN Emergency Medicine; FAMILY PHYSICIAN Internal Medicine; OTHER PHYSICIAN Specialist
PROC: 0S9C3ZZ Drainage of Right Knee Joint, Percutaneous Approach (ICD-10-PCS; 2024-06-06)
PROC: 0SUV09Z Supplement Right Knee Joint, Tibial Surface with Liner, Open Approach (ICD-10-PCS; 2024-06-08)
PROC: 02HV33Z Insertion of Infusion Device into Superior Vena Cava, Percutaneous Approach (ICD-10-PCS; 2024-06-08)
PROC: 0SPC09Z Removal of Liner from Right Knee Joint, Open Approach (ICD-10-PCS; 2024-06-08)
PROC: B24BZZ4 Ultrasonography of Heart with Aorta, Transesophageal (ICD-10-PCS; 2024-06-10)
DX: T84.53XA Infection and inflammatory reaction due to internal right knee prosthesis, initial encounter (principal); A41.01 Sepsis due to Methicillin susceptible Staphylococcus aureus; I50.33 Acute on chronic diastolic (congestive) heart failure; I13.0 Hypertensive heart and chronic kidney disease with heart failure and stage 1 through stage 4 chronic kidney disease, or unspecified chronic kidney disease; L97.829 Non-pressure chronic ulcer of other part of left lower leg with unspecified severity; N17.9 Acute kidney failure, unspecified; E87.1 Hypo-osmolality and hyponatremia; M00.061 Staphylococcal arthritis, right knee; I48.92 Unspecified atrial flutter; E03.9 Hypothyroidism, unspecified; N18.30 Chronic kidney disease, stage 3 unspecified; J44.9 Chronic obstructive pulmonary disease, unspecified; R00.1 Bradycardia, unspecified; F32.A Depression, unspecified; B95.61 Methicillin susceptible Staphylococcus aureus infection as the cause of diseases classified elsewhere; I07.1 Rheumatic tricuspid insufficiency; I48.0 Paroxysmal atrial fibrillation; I49.5 Sick sinus syndrome; F41.9 Anxiety disorder, unspecified; Z86.718 Personal history of other venous thrombosis and embolism; Z95.0 Presence of cardiac pacemaker; Z96.643 Presence of artificial hip joint, bilateral; Z85.118 Personal history of other malignant neoplasm of bronchus and lung; Z92.3 Personal history of irradiation; Z92.21 Personal history of antineoplastic chemotherapy; Z88.1 Allergy status to other antibiotic agents; Z79.01 Long term (current) use of anticoagulants; Z79.890 Hormone replacement therapy; Z79.899 Other long term (current) drug therapy; Y79.2 Prosthetic and other implants, materials and accessory orthopedic devices associated with adverse incidents
CPT/HCPCS: 36415; 71045; 71046; 73201; 73564; 80053; 82248; 82550; 83605; 83880; 85025; 85027; 85652; 85730; 86140; 86850; 86900; 86901; 87015; 87040; 87070; 87147; 87150; 87186; 87205; 87502; 87811; 89051; 89060; 93005; 93306; 93312; 93320; 93325; 93971; 94640; 96374; 96375; 97116; 97163; 97166; 97530; 97535; 99285; C1776; J0878; Q9967

== ENCOUNTER → 2024-06-22 08:50 | Outpatient (REF) | payer MEDICARE, OTHER, SELFPAY | LOC: WOUND 08:50 | PROVIDERS: ATTENDING PHYSICIAN Surgery; FAMILY PHYSICIAN Internal Medicine | DX: L97.822 Non-pressure chronic ulcer of other part of left lower leg with fat layer exposed (principal); I77.6 Arteritis, unspecified; L88 Pyoderma gangrenosum; I73.9 Peripheral vascular disease, unspecified; I87.2 Venous insufficiency (chronic) (peripheral); Z79.01 Long term (current) use of anticoagulants | CPT/HCPCS: 99213 ==

== ENCOUNTER → 2024-07-04 09:10 | Outpatient (REF) | payer MEDICARE, OTHER, SELFPAY ==
[2024-07-04 10:40] LABS: ALT (SGPT) < 10 U/L (0-35); AST (SGOT) 29 U/L (14-36); Albumin 3.8 g/dl (3.5-5.0); Alkaline Phosphatase 147 U/L (38-126); Blood Urea Nitrogen 26 mg/dl (7-17); Calcium 9.2 mg/dl (8.4-10.2); Carbon Dioxide 30 mmol/L (22-30); Chloride 98 mmol/L (98-107); Glucose 104 mg/dl (70-99); Potassium 4.6 mmol/L (3.5-5.1); Sodium 140 mmol/L (135-145); Total Bilirubin 0.5 mg/dl (0.2-1.3); Total Protein 7.4 g/dl (6.3-8.2); eGFR 50.48
[2024-07-04 10:45] LABS: Urine Albumin Negative (Neg - Trace); Urine Bilirubin Negative (Negative); Urine Character Clear (Clear); Urine Color Yellow; Urine Glucose Negative (Negative); Urine Ketone Negative (Negative); Urine Leukocyte Negative (Negative); Urine Nitrite Negative (Negative); Urine Occult Blood Negative (Negative); Urine Urobilinogen Negative (Neg - 1+); Urine pH 6.5 (5.0-9.0)
[2024-07-04 12:06] LABS: Erythrocyte Sed Rate 76 mm/hour (0-20)
[2024-07-04 12:33] LABS: % Basophils 2.2 % (0-2); % Eosinophils 20.8 % (0-6); % Immature Granulocytes 1.6 % (0-0.5); % Lymphocytes 17.5 % (20.5-51.1); % Monocytes 31.1 % (1.7-9.3); % Neutrophils 26.8 % (42.2-75.2); Absolute Eosinophils 0.4 10^3/uL (0-0.7); Absolute Lymphocytes 0.3 10^3/uL (1.2-3.4); Absolute Monocytes 0.6 10^3/uL (0.1-0.6); Absolute Neutrophils 0.5 10^3/uL (1.4-6.5); Hematocrit 32.7 % (37.0-47.0); Hemoglobin 10.6 g/dL (12.0-16.0); Mean Corp Hgb Conc. 32.4 g/dL (33.0-37.0); Mean Corpuscular Hgb 32.5 pg (27.0-31.0); Mean Corpuscular Volume 100.3 fL (81.0-99.0); Mean Platelet Volume 9.5 fL (7.4-10.4); Nucleated Red Blood Cells % 0 %; Platelet Count 257 10^3/uL (130-400); Red Blood Cell Count 3.26 10^6/uL (4.20-5.40); Red Cell Dist. Width 15.5 % (11.5-14.5); White Blood Cell Count 1.8 10^3/uL (4.8-10.8)
[2024-07-04 15:51] LABS: Protein/creatinine Ratio 1.4; Urine Protein 21 mg/dl
[2024-07-06 06:01] LABS: Complement C3 134 mg/dl (88-165)
[2024-07-06 08:39] LABS: ANA, IgG Reflex to HEp-2 None Detected (None Detected)
[2024-07-06 14:28] LABS: Rheumatoid Agglutinin Less Than 10 IU (<10 IU)
[2024-07-06 17:11] LABS: Myeloperoxidase Antibody 0 AU/mL (0-19); Serine Protease-3, IgG 2 AU/mL (0-19)
[2024-07-06 19:18] LABS: Beta-2-Glycoprotein I Ab. IgG <10 SGU (<=20); Beta-2-Glycoprotein I Ab. IgM 44 SMU (<=20)
[2024-07-06 19:21] LABS: Hepatitis B Core Ab, Total Negative (Negative); Hepatitis C Antibody Negative (Negative)
[2024-07-06 19:37] LABS: Hepatitis B Surface Antibody Positive
== END ==
LOC: REG 09:10
PROVIDERS: ATTENDING PHYSICIAN Physician Assistant; FAMILY PHYSICIAN Internal Medicine; OTHER PHYSICIAN Internal Medicine Hematology & Oncology; REFERRING PHYSICIAN Surgery
DX: I27.21 Secondary pulmonary arterial hypertension (principal); I73.00 Raynaud's syndrome without gangrene; I77.6 Arteritis, unspecified; I77.82 Antineutrophilic cytoplasmic antibody [ANCA] vasculitis; K75.9 Inflammatory liver disease, unspecified; Z86.718 Personal history of other venous thrombosis and embolism
CPT/HCPCS: 36415; 80053; 81003; 82570; 82595; 83516; 84156; 85025; 85610; 85613; 85652; 85730; 86038; 86140; 86146; 86147; 86160; 86430; 86704; 86706; 86803; 87522

== ENCOUNTER → 2024-07-06 09:13 | Outpatient (REF) | payer MEDICARE, OTHER, SELFPAY | LOC: WOUND 09:13 | PROVIDERS: ATTENDING PHYSICIAN Surgery; FAMILY PHYSICIAN Internal Medicine | DX: L97.822 Non-pressure chronic ulcer of other part of left lower leg with fat layer exposed (principal); I77.6 Arteritis, unspecified; L88 Pyoderma gangrenosum; I73.9 Peripheral vascular disease, unspecified; I87.2 Venous insufficiency (chronic) (peripheral); Z79.01 Long term (current) use of anticoagulants; J43.9 Emphysema, unspecified; Z86.718 Personal history of other venous thrombosis and embolism; I10 Essential (primary) hypertension; Z95.0 Presence of cardiac pacemaker; I49.8 Other specified cardiac arrhythmias | CPT/HCPCS: 99213 ==

== ENCOUNTER → 2024-07-09 11:28 | Outpatient (REF) | payer MEDICARE, OTHER, SELFPAY ==
[2024-07-09 12:37] LABS: % Basophils 1.6 % (0-2); % Eosinophils 7.3 % (0-6); % Immature Granulocytes 0.4 % (0-0.5); % Lymphocytes 17.2 % (20.5-51.1); % Monocytes 14.2 % (1.7-9.3); % Neutrophils 59.3 % (42.2-75.2); Absolute Basophils 0.1 10^3/uL (0-0.2); Absolute Eosinophils 0.4 10^3/uL (0-0.7); Absolute Lymphocytes 0.9 10^3/uL (1.2-3.4); Absolute Monocytes 0.7 10^3/uL (0.1-0.6); Absolute Neutrophils 2.9 10^3/uL (1.4-6.5); Hematocrit 31.4 % (37.0-47.0); Hemoglobin 9.9 g/dL (12.0-16.0); Mean Corp Hgb Conc. 31.5 g/dL (33.0-37.0); Mean Corpuscular Hgb 32.2 pg (27.0-31.0); Mean Corpuscular Volume 102.3 fL (81.0-99.0); Mean Platelet Volume 9.5 fL (7.4-10.4); Nucleated Red Blood Cells % 0 %; Platelet Count 327 10^3/uL (130-400); Red Blood Cell Count 3.07 10^6/uL (4.20-5.40); Red Cell Dist. Width 15.7 % (11.5-14.5); White Blood Cell Count 4.9 10^3/uL (4.8-10.8)
[2024-07-09 13:32] LABS: Creatine Phosphokinase 59 U/L (30-135)
== END ==
LOC: REG 11:28
PROVIDERS: ATTENDING PHYSICIAN Student in an Organized Health Care Education/Training Program; FAMILY PHYSICIAN Internal Medicine
DX: T84.53XA Infection and inflammatory reaction due to internal right knee prosthesis, initial encounter (principal)
CPT/HCPCS: 36415; 82550; 85025

== ENCOUNTER → 2024-07-20 08:45 | Outpatient (REF) | payer MEDICARE, OTHER, SELFPAY | LOC: WOUND 08:45 | PROVIDERS: ATTENDING PHYSICIAN Surgery; FAMILY PHYSICIAN Internal Medicine | DX: L97.822 Non-pressure chronic ulcer of other part of left lower leg with fat layer exposed (principal); I77.6 Arteritis, unspecified; L88 Pyoderma gangrenosum; I73.9 Peripheral vascular disease, unspecified; I87.2 Venous insufficiency (chronic) (peripheral); J43.9 Emphysema, unspecified; I10 Essential (primary) hypertension; I49.8 Other specified cardiac arrhythmias; Z95.0 Presence of cardiac pacemaker; Z86.718 Personal history of other venous thrombosis and embolism; Z79.01 Long term (current) use of anticoagulants | CPT/HCPCS: 99213 ==

== ENCOUNTER → 2024-08-07 08:52 | Outpatient (REF) | payer MEDICARE, OTHER, SELFPAY | LOC: WOUND 08:52 | PROVIDERS: ATTENDING PHYSICIAN Surgery; FAMILY PHYSICIAN Internal Medicine | DX: L97.822 Non-pressure chronic ulcer of other part of left lower leg with fat layer exposed (principal); I77.6 Arteritis, unspecified; L88 Pyoderma gangrenosum; I73.9 Peripheral vascular disease, unspecified; I87.2 Venous insufficiency (chronic) (peripheral); Z79.01 Long term (current) use of anticoagulants; J43.9 Emphysema, unspecified; Z86.718 Personal history of other venous thrombosis and embolism; I10 Essential (primary) hypertension; I49.8 Other specified cardiac arrhythmias; Z95.0 Presence of cardiac pacemaker | CPT/HCPCS: 99213 ==

== ENCOUNTER 2024-08-18 21:59 | Inpatient (IN) | payer MEDICARE, OTHER, SELFPAY ==
[2024-08-18] VITALS (8 sets, daily range): BP systolic 100–178; BP diastolic 53–84; BMI 23.1; BMI 21.4
[2024-08-18 18:53] LABS: Hematocrit 30.9 % (37.0-47.0); Hemoglobin 10.1 g/dL (12.0-16.0); Mean Corp Hgb Conc. 32.7 g/dL (33.0-37.0); Mean Corpuscular Hgb 31.3 pg (27.0-31.0); Mean Corpuscular Volume 95.7 fL (81.0-99.0); Mean Platelet Volume 9.6 fL (7.4-10.4); Platelet Count 226 10^3/uL (130-400); Red Blood Cell Count 3.23 10^6/uL (4.20-5.40); Red Cell Dist. Width 16.6 % (11.5-14.5); White Blood Cell Count 3.7 10^3/uL (4.8-10.8)
[2024-08-18 19:10] LABS: ALT (SGPT) 21 U/L (0-35); AST (SGOT) 34 U/L (14-36); Albumin 3.5 g/dl (3.5-5.0); Alkaline Phosphatase 146 U/L (38-126); Blood Urea Nitrogen 31 mg/dl (7-17); Carbon Dioxide 29 mmol/L (22-30); Chloride 101 mmol/L (98-107); Glucose 94 mg/dl (70-99); Potassium 4.6 mmol/L (3.5-5.1); Sodium 135 mmol/L (135-145); Total Bilirubin 0.3 mg/dl (0.2-1.3); Total Protein 6.8 g/dl (6.3-8.2); eGFR > 60.00
[2024-08-18 19:21] LABS: Absolute Neutrophils -Man Diff 1.6 10^3/uL (1.4-6.5); Band Neutrophils 0 % (0-3); Eosinophils 9 % (0-6); Lymphocytes 30 % (20-51); Monocytes 17 % (2-9); Normal RBC Morphology Yes; Platelets Checked Yes; Segmented Neutrophils 44 % (42-75)
[2024-08-18 19:22] LABS: Total Cells Counted 100
--- NOTE | 2024-08-18 20:18 | ED.GENMED ---
History of Present Illness
General
Chief Complaint: Skin Problem
Time Seen by Provider: 08/18/24 18:08
History of Present Illness
History of Present Illness:
83-year-old female presents to the emergency department for evaluation of redness and swelling adjacent to her pacemaker site. Pacemaker was placed in December of last year. Denies any traumatic injuries to the site. Reports the area is tender. Saw
her primary care physician today who advised her to come to the ED for further workup. Denies any chest pain or dyspnea. No fevers chills night sweats. Due to recent admission for septic right knee with bacteremia the patient has been on
long-term oral doxycycline and has been compliant with this.
Past History
Past History
ED Past Medical History: Cancer (Lung), COPD, GERD, HTN, Hypercholesterolemia, Hypothyroidism and Psychiatric (depression)
ED Past Surgical History: Orthopedic (R knee replacement, bilateral hip replacement) and Other (DVT, IVC Filter)
Social History
Tobacco: Former smoker
Alcohol: None
Personal:
Living: with family
Employment: Retired
Family History
Family History: CAD
Review of Systems
Review of Systems
Allergies reviewed?: Yes
All Other Systems: ROS reviewed and negative except as documented in HPI and ROS
Phy Exam
Physical Exam
Physical Exam:
GEN: Well appearing, NAD, WDWN
HEENT: Oral mucosa moist, no scleral icterus
Cardiac: Regular rate
Lung: No respiratory distress, no tachypnea
Chest flexion area measuring approximately 3 cm there is superficial superior to the pacemaker insertion site. There is palpable left anterior axillary adenopathy
MSK: No gross deformity or injuries
Skin: Good color, no pallor or jaundice, no rashes
Neuro: AO x3, moves all extremities freely
Psych: Calm, cooperative
Course
Orders/Labs/Results
Orders:
Orders
08/18/24 18:32
US Chest - Left Urgent
Comment:
Reason For Exam: swelling @ PPM site
08/18/24 18:38
Complete Blood Count/With Diff Urgent
Comprehensive Metabolic Panel Urgent
Manual Differential Urgent
Blood Culture Urgent
BEE Source: Blood/Venous
Specimen Description:
08/18/24 18:43
Blood Culture Urgent
BEE Source: Blood/Venous
Specimen Description:
08/18/24 20:33
Diphenhydramine [Benadryl] 25 mg IV NOW STA
08/18/24 21:01
Vancomycin [Vancocin] 1,500 mg 0.9% Sodium Chloride 500 ml [Nss] 500 ml IV NOW
08/18/24 21:33
Admit/Transfer Patient As Directed
Co-Sign Provider:
Level of Care: Inpatient admission
Assign to:: IVU
Physician / Group: hospitalist
Diagnosis: Pacemaker abscess
Reason for Hospitalization: pacemaker site abscess
Expected length of stay greater than two midnights?: Yes
ELOS- Estimated Length of Stay in days: 2
I certify the patient meets the requirements for IP care: Yes
08/18/24 21:34
PRN Pain Medication Management As Directed
May give lesser potent ordered pain med per pt: Yes
preference::
Protocol:: Medication orders for pain may be administered in a
manner that supports deferring to patient preference
when the pt is:
- Requesting an ordered lesser potent pain medication.
Least to most potent pain medications are defined
as: acetaminophen < NSAID < tramadol < opioids
(morphine, oxycodone, hydromorphone).
- Requesting a lesser dose of the same medication IF
ORDERED.
- Requesting a less intrusive route of administration
if both routes are prescribed by the provider (PO <
IV).
08/18/24 21:37
Code Status As Directed
Resuscitation Status: Do not resuscitate
Reached after discussion with pt or family/Healthcare POA: Yes
DNR Bracelet Application ONCE
08/18/24 22:00
Flush (0.9% Sodium Chloride) [Flush (Nss)] See Dose Instructions IV PER PROTOCOL
Abnormal Lab Results
08/18/24
18:38
WBC 3.7 L 10^3/uL
(4.8-10.8)
RBC 3.23 L 10^6/uL
(4.20-5.40)
Hgb 10.1 L g/dL
(12.0-16.0)
Hct 30.9 L %
(37.0-47.0)
MCH 31.3 H pg
(27.0-31.0)
MCHC 32.7 L g/dL
(33.0-37.0)
RDW 16.6 H %
(11.5-14.5)
Monocytes (Manual) 17 H %
(2-9)
Eosinophils (Manual) 9 H %
(0-6)
BUN 31 H mg/dl
(7-17)
Alkaline Phosphatase 146 H U/L
(38-126)
08/18/24 18:38
08/18/24 18:38
Vital Signs
Initial and Last Documented VS:
Initial Vital Signs
Temp Pulse Resp BP Pulse Ox
97.9 F 60 18 178/65 100
08/18/24 17:19 08/18/24 17:19 08/18/24 17:19 08/18/24 17:19 08/18/24 17:19
Last Documented Vital Signs
Temp Pulse Resp BP Pulse Ox
97.9 F 60 19 144/60 96
08/18/24 17:19 08/18/24 23:00 08/18/24 23:00 08/18/24 23:00 08/18/24 23:00
MDM/Problems Addressed
MDM/Problems Addressed:
Imaging shows a complex fluid collection at the site, I reviewed these findings and the clinical presentation with cardiology infectious disease, at this time recommendation is for admission for IV antibiotics, cardiology will consult in the morning
*Critical Care Note
Total Time (30-74mins, 75-104mins- exclusive of procedures): Not Applicable
ED Attending Note
-
Portions of this chart may have been created with voice recognition software.� Occasional wrong word or��sound alike� substitutions may have occurred due to the inherent limitations of voice recognition software.
Discharge Plan
Departure
Patient Disposition: Admit
Date of Disposition: 08/18/24
Time of Disposition: 20:41
Admit to: Med/Surg
Presentation/result/management discussed w/ accepting MD/DO: Hospitalist
Discharge Problem:
Fluid collection at surgical site
Interventions
Interventions:
*Risk Screen - Suicide Last Done: 08/18/24 17:19
*General Assessment Last Done: 08/18/24 17:19
*Neglect/Abuse Screening Last Done: 08/18/24 18:24
*ED COVID-19 Vaccine History Last Done: 08/18/24 17:19
ED-Skin Assessment Last Done: 08/18/24 18:25
--- NOTE | 2024-08-18 21:15 | HPS.HSE ---
Family Physician
-
Family Physician: Grecia Alonzo
Chief Complaint
-
Swelling and pain in the left upper chest around the pacemaker site
History of Present Illness
This is a 83-year-old female with past medical history that is significant for hypertension, proximal atrial fibrillation, history of DVT status post IVC filter, GERD, hypothyroidism, hyperlipidemia, recent cardioversion and pacemaker placement in
December 2023, recent admission for MRSA bacteremia with prosthetic knee infection status post prolonged antibiotic infusion and currently on doxycycline who presents to the emergency department with swelling and pain in the left upper chest.
Patient reports that this started about 4 days ago last Saturday. She just noticed some erythema as well as swelling. She reports pain with palpation. She also reports pain in the left upper arm. She denied any trauma. She denied any falls. She
denied any fevers or chills. The swelling has not changed dramatically. She denies any lightheadedness or dizziness.
In the emergency department she was afebrile, blood pressure was 150/50 with a pulse of 60 paced and satting 100% on room air. CBC was unremarkable. Likewise electrolytes BUN/creatinine were all within the normal range.
Ultrasound of the chest showed 3.8 cm tubular shaped complex fluid collection in the left anterior chest wall at the site of swelling and redness which is located around the proximal wires of the left cardiac pacemaker device. Diagnostic
possibilities are (1) an abscess (if there are signs/symptoms of infection) or (2) an aseptic fluid collection (seroma or liquefied hematoma).
Medical History
Past Medical History
Past Medical History: Reports Arrhythmia (Proximal atrial fibrillation status post pacemaker), Cancer (Lung cancer status posttreatment with chemo), GERD (Ribeiro's esophagus), HTN, Hypercholesterolemia, Hypothyroidism and Other (DVT status post IVC
filter)
Past Surgical History: Reports Appendectomy, Gynocological (Hysterectomy), Orthopedic (He replacement, knee replacement, right knee liner change) and Tonsilectomy
Social History
Tobacco: Non-smoker
Alcohol: Occasional
Drug: None
Personal:
Living: With Family
Employment: Retired
Family History
Family History: Not pertinent
Allergies / Home Medications
Allergies reflects when Allergies were last updated in [facility].
Home Medications with original date entered in [facility]
Allergy/Medication List:
Allergies
Allergy/AdvReac Type Severity Reaction Status Date / Time
clarithromycin [From Biaxin] Allergy GASTRIC Verified 08/18/24 17:24
PROBLEMS
erythromycin base Allergy GI PROBLEMS Verified 08/18/24 17:24
meperidine Allergy SEE BELOW Verified 08/18/24 21:00
meperidine HCl [From Demerol] Allergy One time Verified 08/18/24 21:00
deal-not
the case
of an
allergy
mold Allergy irritated Verified 08/18/24 21:00
eyes
pollen extracts Allergy sneezing,running Verified 08/18/24 21:00
nose,irritated
eyes
vancomycin Allergy red man Verified 08/18/24 17:24
syndrome
Home Medications
cyclosporine 0.05 % eye drops in a dropperette (Restasis) 1 drp BOTH EYES BID Eye Condition ##0 03/15/10
bupropion HCl 150 mg 24 hr tablet, extended release 150 mg PO DAILY Mental Health 11/21/15
apixaban 2.5 mg tablet (Eliquis) 2.5 mg PO BID Blood Clot Prevention/Tx 05/28/19
esomeprazole magnesium 20 mg capsule,delayed release (Nexium) 20 mg PO QPM Gastrointestinal Issue 11/26/23
fluticasone fur. 100 mcg-umeclid 62.5 mcg-vilant 25 mcg inhalat.powder (Trelegy Ellipta) 1 inh inhalation R DAILY Lung/Breathing Issues 11/26/23
levothyroxine 100 mcg tablet (Synthroid) 100 mcg PO DAILY Thyroid 11/26/23
vitamin B complex 1 tab PO DAILY Supplement 11/26/23
acetaminophen 500 mg tablet 500 mg PO Q6HPRN PRN mild pain 01/08/24
carboxymethylcellulose sodium 1 % eye liquid gel drops 2 drp BOTH EYES BIDPRN PRN allergies/dry eyes 01/08/24
sodium chloride 0.65 % nasal spray aerosol (Saline Nasal Mist) 2 spray intranasal BIDPRN PRN dryness 01/08/24
atorvastatin 10 mg tablet 10 mg PO HS High Cholesterol 01/09/24
diltiazem HCl 240 mg capsule,extended release 24 hr 240 mg PO HS Arrhythmia 01/09/24
therapeutic multivitamin 1 tab PO DAILY Supplement 01/09/24
metoprolol succinate 25 mg tablet,extended release 24 hr 25 mg PO DAILY #30 tabs 01/12/24
cefazolin 10 gram solution for injection 2 g IV Q8H #1 ea 06/10/24
furosemide 40 mg tablet 40 mg PO DAILY #30 tabs 06/10/24
tramadol 50 mg tablet 50 mg PO Q8HPRN PRN moderate pain #15 tabs 06/11/24
Review of Systems
-
History Source: Patient
Constitutional: Reports No Symptoms
EENT: Reports No Symptoms
Respiratory: Reports No Symptoms
Cardiac: Reports No Symptoms
Abdomen/GI: Reports No Symptoms
: Reports No Symptoms
Musculoskeletal: Reports No Symptoms
Skin: Reports Other (swelling and redness in left upper chest at site of PPM)
Neurological: Reports No Symptoms
Endocrine: Reports No Symptoms
Hematologic/Lymphatic: Reports No Symptoms
Psych: Reports No Symptoms
Physical Exam
Vital Signs
Vital Signs
Temp Pulse Resp BP Pulse Ox
97.9 F 60 17 150/57 93
08/18/24 17:19 08/18/24 21:03 08/18/24 21:03 08/18/24 21:02 08/18/24 21:03
Physical Exam
General: Well Developed, Well Nourished, Comfortable and Conversant
HEENT: NormoCephalic, Anicteric, Moist mucous membranes and Atraumatic
Respiratory: Clear
Cardiac: S1/S2 and Regular Rhythm
Breast: Deferred by me
GI: Soft, Non Tender, Non Distended and Normal Bowel Sounds
Rectal: Deferred by Provider
Genito-urinary: Deferred by me
Musculoskeletal: No Clubbing, No Cyanosis and Edema, Right Lower Extremity (2+ non-pitting edema to the right lower extremity)
Skin: Warm and Other (3 cm circular subcutanous nodular protuberance just adjacent to ppm, slight erythema, tender to palpation. )
Neuro: AO x 3 and Nonfocal/grossly intact
Hematologic/Lymphatic: No Lymphadenopathy
Psych: Calm
Laboratory Results
-
08/18/24 18:38
08/18/24 18:38
Laboratory Results
Total Bilirubin 0.3 mg/dl (0.2-1.3) 08/18/24 18:38
AST 34 U/L (14-36) 08/18/24 18:38
ALT 21 U/L (0-35) 08/18/24 18:38
Alkaline Phosphatase 146 U/L (38-126) H 08/18/24 18:38
Data Reviewed
-
Ultrasound: Report Reviewed by me
Lab Data: Labs Reviewed by me
Old Records: Reviewed
Impression/Plan
-
IMPRESSION:
83 y.o with multiple commorbiditis including recent MSSA bacteremia with prosthetic knee infection on long-term antibiotics with doxycyline presenting with a nodular lesion adjacent to the PPM placed 6 months ago. She is afebrile and HD stable. No
leukocytosis. Imaging reveals a fluid collection 3.8 cm tubular shaped complex fluid collection in the left anterior chest wall at the site of swelling and redness which is located around the proximal wires of the left cardiac pacemaker device.
Diagnostic possibilities are (1) an abscess (if there are signs/symptoms of infection) or (2) an aseptic fluid collection (seroma or liquefied hematoma).
PLAN:
1. PPM device fluid collection
- admit to IVU
- blood cultures sent
- started vancomycin per ID, slow infusion with benadryl due to prior sensitivity
- hold doxycycline
- pain control
- cardiology consult
- ID consult
2. AFIB - paced at 60
- continue metoprolol and diltiazem
- continue eliquis 2.5 bid
- lasix 20mg daily
- continue her
3.COPD
- continue ICS laba with prn albuterol
DVT PPX - on apixaban
Code status - DNR
[2024-08-18] MEDS: VANCOCIN 530 MG IV (21:19)
[2024-08-18] MEDS: BENADRYL 25 MG IV (21:19)
[2024-08-19] VITALS (8 sets, daily range): BP systolic 123–158; BP diastolic 49–76; BMI 21.4; BMI 21.1
[2024-08-19] MEDS: LIPITOR 10 MG PO ×2 (00:06→22:29)
[2024-08-19] MEDS: CARDIZEM CD 240 MG PO ×2 (00:06→22:29)
--- NOTE | 2024-08-19 02:06 | DOWNTIME ---
There was a [employer] Client [employer]letizer Tender Downtime on 08/19/2024 from 0100 to 08/19/2023 at 0205 . Downtime documentation of patient's care, including medication administrations, has been reconciled in the electronic record per guidelines. Refer to the
patient's paper chart under the miscellaneous tab to see printed paper medication records and downtime forms.
--- NOTE | 2024-08-19 03:09 | PTCARENOTE ---
Received patient from ED via stretcher into room 2240. Patient ambulated w/ standby assist to bed. Denies any lightheadedness or dizziness. Tele monitor applied, pt A paced w/ HR in the 60's. Left chest wall slightly red, and pt reports 'tender to
touch'. Patient has difficulty performing full range of motion in left arm d/t the discomfort of her possible infected PPM site. Patient has a silicone border foam on left lower leg d/t 'vasculitis'. Patient oriented to room, and aware of POC.
Med rec completed. Call denis within reach.
[2024-08-19 04:47] LABS: Hemoglobin 9.8 g/dL (12.0-16.0); Mean Corp Hgb Conc. 32.7 g/dL (33.0-37.0); Mean Corpuscular Hgb 31.3 pg (27.0-31.0); Mean Corpuscular Volume 95.8 fL (81.0-99.0); Mean Platelet Volume 9.5 fL (7.4-10.4); Platelet Count 235 10^3/uL (130-400); Red Blood Cell Count 3.13 10^6/uL (4.20-5.40); Red Cell Dist. Width 16.6 % (11.5-14.5); White Blood Cell Count 3.3 10^3/uL (4.8-10.8)
[2024-08-19 05:16] LABS: Blood Urea Nitrogen 23 mg/dl (7-17); Calcium 8.5 mg/dl (8.4-10.2); Carbon Dioxide 25 mmol/L (22-30); Chloride 105 mmol/L (98-107); Estimated Creatinine Clearance 48 ml/min; Glucose 93 mg/dl (70-99); Potassium 3.9 mmol/L (3.5-5.1); Sodium 137 mmol/L (135-145); eGFR > 60.00
[2024-08-19] MEDS: SYNTHROID 100 MCG PO (06:04)
[2024-08-19] MEDS: TYLENOL 650 MG PO ×3 (06:13→22:32)
[2024-08-19] MEDS: SPIRIVA RESPIMAT 2.5 MCG 2 PUFF INH (07:41)
[2024-08-19] MEDS: SYMBICORT 80/4.5 MCG INHALER 2 PUFF INH ×2 (07:41→19:52)
--- NOTE | 2024-08-19 08:18 | CON.CAR ---
Consultation
Consultation Request
Date/Time Consultation Requested: 08/19/24
Date/Time Consultation Performed: 08/19/24
Reason for Consultation: pacer pocket pain
Medical History
-
Chief Complaint: left shoulder pain
History of Present Illness:
83-year-old female with past medical history that is significant for hypertension, proximal atrial fibrillation, history of DVT status post IVC filter, GERD, hypothyroidism, hyperlipidemia, recent cardioversion and pacemaker placement in December 2023,
recent admission for MRSA bacteremia with prosthetic knee infection status post prolonged antibiotic infusion and currently on doxycycline who presents to the emergency department with swelling and pain in the left upper chest.
Patient had MRSA bacteremia from knee in May and underwent WONG that showed no obvious vegetations on the leads. The conservative management was opted and patient was managed with IV and PO antibiotics. Unfortunately, now she presents with pain
in the PPM pocket site. Patient had healed her left shoulder pocket well without any problems 6 months ago with initial implant. The pacer pocket was not painful until earlier this week when she started feeling it to be tender. No swelling noted but
the skin is getting erythematous now.
Patient is afebrile now. The WBC are within normal limits.
Ultrasound of the chest showed 3.8 cm tubular shaped complex fluid collection in the left anterior chest wall at the site of swelling and redness which is located around the proximal wires of the left cardiac pacemaker device.
The PPM implant notes were reviewed. 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 The vein is likely stenosed with collateral as there is no edema of the upper
extremity.
Past Medical History
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 ), Cancer (Lung cancer status posttreatment with chemo), GERD (Ribeiro's esophagus), HTN, Hypercholesterolemia, Hypothyroidism and Other (DVT
status post IVC filter)
Past Surgical History: Other (Appendectomy, Gynocological (Hysterectomy), Orthopedic (He replacement, knee replacement, right knee liner change) and Tonsilectomy)
Social History
Tobacco: Non-Smoker
Alcohol: None
Personal:
Living: With Family
Employment: Retired
Family History
Family History: Reviewed & Not Pertinent
Allergies / Home Medications
Allergy/AdvReac Type Severity Reaction Status Date / Time
clarithromycin [From Biaxin] Allergy GASTRIC Verified 08/18/24 17:24
PROBLEMS
erythromycin base Allergy GI PROBLEMS Verified 08/18/24 17:24
meperidine Allergy SEE BELOW Verified 08/18/24 21:00
meperidine HCl [From Demerol] Allergy One time Verified 08/18/24 21:00
deal-not
the case
of an
allergy
mold Allergy irritated Verified 08/18/24 21:00
eyes
pollen extracts Allergy sneezing,running Verified 08/18/24 21:00
nose,irritated
eyes
vancomycin Allergy red man Verified 08/18/24 17:24
syndrome
�Medication �Instructions �Recorded �Confirmed �Type
cyclosporine 0.05 % eye drops in a 1 drp BOTH EYES BID Eye Condition 03/15/10 08/19/24 History
dropperette (Restasis) ##0
bupropion HCl 150 mg 24 hr tablet, 150 mg PO DAILY Mental Health 11/21/15 08/19/24 History
extended release
apixaban 2.5 mg tablet (Eliquis) 2.5 mg PO BID Blood Clot 05/28/19 08/19/24 History
Prevention/Tx
esomeprazole magnesium 20 mg 20 mg PO QPM Gastrointestinal Issue 11/26/23 08/19/24 History
capsule,delayed release (Nexium)
fluticasone fur. 100 mcg-umeclid 1 inh inhalation R DAILY 11/26/23 08/19/24 History
62.5 mcg-vilant 25 mcg Lung/Breathing Issues
inhalat.powder (Trelegy Ellipta)
levothyroxine 100 mcg tablet 100 mcg PO DAILY Thyroid 11/26/23 08/19/24 History
(Synthroid)
vitamin B complex 1 tab PO DAILY Supplement 11/26/23 08/19/24 History
acetaminophen 500 mg tablet 500 mg PO Q6HPRN PRN mild pain 01/08/24 08/19/24 History
carboxymethylcellulose sodium 1 % 2 drp BOTH EYES BIDPRN PRN 01/08/24 06/02/24 History
eye liquid gel drops allergies/dry eyes
sodium chloride 0.65 % nasal spray 2 spray intranasal BIDPRN PRN 01/08/24 08/19/24 History
aerosol (Saline Nasal Mist) dryness
atorvastatin 10 mg tablet 10 mg PO HS High Cholesterol 01/09/24 08/19/24 History
diltiazem HCl 240 mg 240 mg PO HS Arrhythmia 01/09/24 08/19/24 History
capsule,extended release 24 hr
therapeutic multivitamin 1 tab PO DAILY Supplement 01/09/24 08/19/24 History
metoprolol succinate 25 mg 25 mg PO DAILY #30 tabs 01/12/24 08/19/24 Rx
tablet,extended release 24 hr
cefazolin 10 gram solution for 2 g IV Q8H #1 ea 06/10/24 08/19/24 Rx
injection
tramadol 50 mg tablet 50 mg PO Q8HPRN PRN moderate pain 06/11/24 08/19/24 Rx
#15 tabs
betamethasone, augmented 0.05 % 1 applic topical DAILY 08/19/24 08/19/24 History
topical cream
furosemide 20 mg tablet 20 mg PO Q OTHER DAY 08/19/24 08/19/24 History
Review of Systems
-
All other systems: Negative unless noted
Physical Exam
Vital Signs
Temp Pulse Resp BP Pulse Ox
98.5 F 80 16 132/49 96
08/19/24 06:59 08/19/24 07:46 08/19/24 07:46 08/19/24 07:01 08/19/24 07:46
Lab Results
01/22/25 04:20
08/19/24 04:20
Physical Exam
General: Well Developed, Well Nourished and No Apparent Distress
HEENT: Normocephalic, Anicteric and Moist Mucous Membranes
Respiratory: Clear and Non Labored Respirations
Cardiac: S1/S2, Regular Rhythm and Murmur
GI: Soft, Non Tender, Non Distended and Normal Bowel Sounds
Musculoskeletal: No Clubbing, No Cyanosis and No Edema
Skin: Warm, Dry and Other (the PPM pocket was evaluated. There is no fluctuation and the PPM generator is firmly placed. There is erythematous area the the exit sites of the leads that is tender to touch. )
Neuro: Awake, Alert, Oriented and AO x 3
Impression / Plan
-
83-year-old female with past medical history that is significant for hypertension, proximal atrial fibrillation, history of DVT status post IVC filter, GERD, hypothyroidism, hyperlipidemia, recent cardioversion and pacemaker placement in 12/2023,
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
PPM infection
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
- WONG in 05/2024 was negative for gross vegetations.
- Unfortunately, the infection is insidious in nature and ultimate treatment is removal of hardware.
- Her hardware include prosthetic knee, IVC filter and PPM generator with leads.
- She is dependent on PPM with 100% atrial paced rhythm. Her alternatives would be to remove the PPM and place a leadless AV micra vs leadless atrial and ventricular Aveir pacemaker.
- Would recommend removal of IVC filter as well.
- Alternatively she can be managed with suppressive antibiotics if other hardware cannot be removed.
- ID on board and on IV vancomycin
- Tolerated Vanco without side effect this time.
Septic knee
- s/p -Septic joint s/p I+D and component exchange by ortho in 05/2024
- on I/V vancomycin.
OPD Exacerbation:
- stable.
-Management as per primary team.
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
-On Lasix 40 mg daily, which should be her home medication regimen.
Paroxysmal Atrial flutter:
-[id number] score at least 4 for age, female, HTN and history of DVT.
-Continue Eliquis.
-Continue current doses of diltiazem Cardizem CD and Toprol-XL.
-If PPM extraction is needed, will hold Eliquis 1 day prior to the procedure.
HTN: - Fairly controlled.
Data Reviewed
-
EKG: Tracing Personally Visualized and interpreted
Radiology: Image Personally Visualized and interpreted
Medical Tests (Nuc Med, Echo etc): Image Personally Visualized and interpreted
Labs: Labs Reviewed by me and Discussed with Patient
Old Records: Reviewed
[2024-08-19] MEDS: WELLBUTRIN XL (24 hour extended release) 150 MG PO (08:53)
[2024-08-19] MEDS: LASIX 20 MG PO (08:53)
[2024-08-19] MEDS: RESTASIS 0.05% OPHTHALMIC EMULSION 1 DROPS BOTH EYES ×2 (08:53→19:31)
[2024-08-19] MEDS: TOPROL XL 25 MG PO (08:53)
[2024-08-19] MEDS: ELIQUIS 2.5 MG PO ×2 (08:53→19:31)
[2024-08-19] MEDS: FLUSH (NSS) 1 FLUSH IV (08:54)
--- NOTE | 2024-08-19 09:00 | PTCARENOTE ---
The patient is AAOX3, vss, NSR is noted on the monitor. There is redness at the upper left dmitriy of her pacemaker site. She states that it only hurts her when she touches it. She is tearful after speaking with Dr. Rubin, saying the told her
the pacemaker may need to be removed.
--- NOTE | 2024-08-19 10:26 | WOUNDNOTE ---
WON RN note: Patient admitted with fluid collection at PM surgical site.
See H&P for complete history.
PMH: L leg wound-follows with [facility], Raynaud's disease, lung cancer, A Fib, HTN,PM, multiple ortho surgeries.
Wound Location and type/assessment: Patient known to service, admitted with: Chronic Full thickness wound to L medial lower leg, started as trauma wound last september. Patient continues to follow with wound center q 3 weeks. Compared to last seen,
wound casing cleaner but appears deeper. No leg edema, skin warm and dry. 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 Patient being followed by Rheumatology. Currently using Betamethasone cream to wound with local wound care and
compression of Tubigrip knee high daily. Patient received sitting in chair, legs elevated, nurse Maude assisted. Sacrum intact per nurse Regina. Heels blanchable, pillow under calves. L upper chest PM site pink, fluid collection shown on
ultrasound, no open ulcer. I&D on consult and aware has leg wound also, Dr. Norman will assess when able.
Appetite: Good.
Pressure redistribution devices in place: Accumax, turning schedule, pillow under calves, leg elevation when sitting.
Plan: Will confirm wound care/compression with hospitalist, betamethasone cream already on order. Local wound care applied today with saline moistened gauze, Abd pad and Spandage so that I&D can easily see wound. Nurse can apply betamethasone
cream under dressing after seen by I&D. Tubigrip at bedside, will notify nurse to apply later also.
Updated care plan and will follow as needed.
Note to case management of equipment requested for discharge: Continue VN.
Recommend follow up at wound care center upon discharge.
--- NOTE | 2024-08-19 10:30 | WOUNDNOTE ---
LEFT LOWER LEG
--- NOTE | 2024-08-19 10:49 | CM ---
Reviewed chart. Met with Mrs. Quigley to review discharge plans. She states prior to admission she resides with her spouse in a two story home with one step to enter. She stats she has a full flight of steps to get to bedroom/full bathroom. She
states she has a powder room on the first floor. She states prior to admission she was independent with ambulation and adls. She states she has two rolling walkers and a single point cane at home. She states she has a prescription plan with
[facility] thru [facility]. She states she is current with [facility] and she has had [facility] in the past. Will need to see if she will need longterm IV ABX Will need to see her current functional level to see if
she will have any skilled care needs. Medial work-up in progress. The discharge plan is to return home ithe her spouse and resumption of [facility] and [facility] if IV ABX indicated when medically stable.
--- NOTE | 2024-08-19 11:23 | PHA.VAN.IN ---
Assessment
- Assessment
Renal Function: Appears similar to baseline
AUC Dosing Plan
- Dosing Variables
Dosing Weight (kg): 55.8
Dosing CrCl (ml/min): 48
Vd coefficient (L/kg): 0.7
- Empiric Dosing
Initial / Loading Dose: 1500mg - 08/18 21:19
Maintenance Regimen: Vanc 750mg Q24H - first dose now then 0600 - infused over 90 mins
Estimated AUC (mcg*h/mL): 444
Estimated Peak (mcg*h/mL): 29.4
Estimated Trough (mcg/ml): 10.6
Estimated Half Life (H): 15.7
- Monitoring
No levels ordered at this time: consider levels in next few days
Pharmacokinetics Vancomycin I
- -
Patient Age: 83
Patient Sex: Female
Vancomycin Day #: 1
Indication: Skin And Soft Tissue
Requesting Provider: Dr. Johnson
Pertinent Antimicrobial Allergies:
clarithromycin - gastric problems
erythromycin - GI problems
vancomycin - infusion reaction
Height / Weight:
Height 5 ft 4 in
Actual Weight 55.8 kg
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
- Vital Signs / Lab Results
Temp Pulse Resp BP Pulse Ox
98.5 F 80 16 132/49 96
08/19/24 06:59 08/19/24 07:46 08/19/24 07:46 08/19/24 07:01 08/19/24 07:46
Lab Results - Hematology
08/18/24 08/19/24
18:38 04:20
WBC 3.7 L 3.3 L
Band Neutrophils 0
Lab Results - Chemistry
08/18/24 08/19/24
18:38 04:20
BUN 31 H 23 H
Creatinine 0.9 0.8
Estimated Creat Clear 48
Albumin 3.5
--- NOTE | 2024-08-19 11:53 | W.PN.HOSP.TC ---
Today's Communication/Plan
-
Continue vancomycin with Benadryl pretreatment
Follow-up blood cultures, CBC, temperature curve
Follow-up ID consult, recommendations appreciated
Plan for possible pacemaker and IVC filter removal
Assessment / Plan
Assessment / Plan
#Pacemaker infection with MRSA
#H/O vancomycin allergy
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
-Per cardiology treatment is removal of all possible hardware
-Per cardiology patient is 100% atrially paced, thus dependent on PPM
-Currently on IV vancomycin with Benadryl, infectious disease consulted
-Blood cultures pending, will follow-up results
-Trend CBC and temperature curve
#H/O vancomycin reaction (Francisca syndrome)
-Currently on vancomycin with Benadryl
-No signs of allergy at this time
#Lower extremity ulcer
-Has a 2 x 2 inch ulcer of the distal left lower extremity
-Has 2+ pulses, do not suspect this is ischemic in nature
-Has significant DVT history, may be related to CVI and edema
-Patient states it is slowly improving, no signs of purulence
-On vancomycin as above
-Continue with CVI supportive measures and wound care
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
#Chronic doxycycline maintenance
-Recently with a septic prosthetic knee, s/p I&D and exchange by orthopedics in 05/2024
-Was on doxycycline regimen as an outpatient
-Transitioned doxycycline to IV vancomycin as above
#H/O DVT s/p IVC filter
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
-Currently on Eliquis for paroxysmal AF
-Per cardiology may need removal of IVC filter due to MRSA
#HFpEF/RV failure
#Pulmonary hypertension with severe TR
-Last TTE with preserved LVEF though enlarged RV
-Home medications include Lasix; not currently on GDMT
-Suspect group 2 versus group 3 PAH with COPD and HFpEF
#Paroxysmal AF
-Nonvalvular, [id number] score 4
-Home medications include Eliquis, Cardizem and metoprolol
-Heart rate currently WNL, appears in sinus rhythm this morning
-Per cardiology will need Eliquis held 1 day prior to pacemaker extraction if need
#HTN
-Home regimen includes diltiazem, metoprolol, Lasix
-Not currently on any first-line antihypertensives
-Blood pressure adequate
#Hypothyroidism
-Unclear etiology, home medications include levothyroxine 100 mcg
-No signs or symptoms of thyroid dysfunction at this time
#COPD
-Likely GOLD A versus B, Home meds include Trelegy Ellipta
-Did not require any supplemental oxygen at baseline
-Does have pulmonary hypertension which may be related
-No signs of exacerbation
#GERD/Ribeiro's esophagus
-Home medication includes esomeprazole
-Complicated by Ribeiro's esophagus as above
-Unclear if any significant dysplasia noted
-Should have follow-up OP with GI
#H/O lung cancer s/p chemotherapy
-No known signs of recurrence
DVT prophylaxis: Home Eliquis
Diet: Regular
CODE STATUS: DNR
Anticipated Discharge: > 48 hours
Subjective/Interval History
-
Date of Service: August 19, 2024
Seen and examined at the bedside. No acute events reported overnight. AFVSS this morning
Patient was slightly upset, was just told by cardiology that pacemaker and other hardware may need replaced/taken out
Otherwise denies any acute complaints including chest pain, fevers or chills, dyspnea, bleeding or bruising, paresthesias or weakness, GI or urinary issues
Objective Data
-
Labs:
Laboratory Results
08/19/24
04:20
WBC 3.3 L
Hgb 9.8 L
Hct 30.0 L
Plt Count 235
Sodium 137
Potassium 3.9
Chloride 105
Carbon Dioxide 25
BUN 23 H
Creatinine 0.8
Glucose 93
Calcium 8.5
Vital Signs:
Vital Signs
Temp Pulse Resp BP Pulse Ox
98.3 F 67 20 139/57 100
08/19/24 11:31 08/19/24 11:36 08/19/24 11:31 08/19/24 11:35 08/19/24 11:34
I&O
08/18/24 08/19/24 08/20/24
06:59 06:59 06:59
Intake Total 240 / 240
Balance 240 / 240
Review of Systems
-
History Source: Patient
All other systems: Reviewed and negative
Physical Exam
-
General: Well Developed, No Apparent Distress, Comfortable and Other (Frail-appearing)
HEENT: Normocephalic, Atraumatic, Moist Mucous Membranes and Anicteric
Respiratory: Clear to Auscultation and Non Labored Respirations
Cardiac: Regular Rhythm and S1/S2; Negative Murmur, Rub or Gallop
GI: Soft, Nontender, Nondistended and Normal Bowel Sounds
Musculoskeletal: No Clubbing, No Cyanosis and No Edema
Skin: Warm, Dry and Other (the PPM pocket w/o fluctuation, erythematous area the the exit sites of the leads with tenderness); Negative Rash
Neuro: AO x 3 and Nonfocal/Grossly Intact
Psych: Calm
Data Reviewed
-
Labs: Labs Reviewed by me, Discussed with Physician (Cardiology), Discussed with Nurse and Discussed with Patient
[2024-08-19] MEDS: VANCOCIN 150 IV (11:56)
[2024-08-19] MEDS: BENADRYL 25 MG IV (11:57)
[2024-08-19] MEDS: FLUSH (NSS) 3 FLUSH IV (11:58)
--- NOTE | 2024-08-19 13:14 | CON.ID ---
Consultation
-
Date/Time Consultation Requested: 08/18/24 23:21
Date/Time Consultation Performed: 08/19/22 16:23
Requesting Provider: Dr Johnson
Performing Provider: Dr Norman
Reason for Consultation: probable pacemaker infection
Chief Complaint / Past History
Chief Complaint
swelling, redness, tenderness over pacemaker
History of Present Illness
Ms Quigley is a pleasant 83 year old female with recent PJI of the right knee due to MSSA complicated by bacteremia now presenting for about a 3 day history of redness, swelling and tenderness over her pacemaker. During the initial episdoe of
bacteremia she underwent WONG and regular exams of the pacemaker without apparent infection. She underwent I&D with tibail spacer exchange of the knee on 06/08/24 - uncomplicated. She completed 6 weeks of IV cefazolin and was started on doxcycline
100 mg PO BID which she has been taking faithfully. Reports no fevers or chills. She first presented to her PCP who presented the case to me via tiger text and I recommended admission and evaluation for possible pacemaker infection. Also of note
with a chronic wound on the L calf with mild slough no probe to bone or tendon, following with wound care.
Since arrival here she has been afebrile, bp stable, wbc initiailly 3.7, hgb 10.1, plt 226, there was no L shift, there was no rome eosinophilia (AEC 300s), cr 0.8, t bili 0.3, ast 34, alt 21, alk phos 146, chest US with 3.8 cm complex collection
invovling the pacemaker leads, blood cultures x2 in progress no growth to date, mrsa screen in progress, prior 06/02-06/03 cultures were MSSA, she has been seen by EP and ID is consulted to assist with management.
Past History
Additional Past Medical History:
Arrhythmia (Proximal atrial fibrillation status post pacemaker), Cancer (Lung cancer status posttreatment with chemo), GERD (Ribeiro's esophagus), HTN, Hypercholesterolemia, Hypothyroidism and Other (DVT status post IVC filter)
Additional Past Surgical History:
Appendectomy, Gynocological (Hysterectomy), Orthopedic (He replacement, knee replacement, right knee liner change) and Tonsilectomy
Allergy History:
clarithromycin [From Biaxin] Allergy (Verified 08/18/24 17:24)
GASTRIC PROBLEMS
erythromycin base Allergy (Verified 08/18/24 17:24)
GI PROBLEMS
meperidine Allergy (Verified 08/18/24 21:00)
SEE BELOW
meperidine HCl [From Demerol] Allergy (Verified 08/18/24 21:00)
One time deal-not the case of an allergy
mold Allergy (Verified 08/18/24 21:00)
irritated eyes
pollen extracts Allergy (Verified 08/18/24 21:00)
sneezing,running nose,irritated eyes
vancomycin Allergy (Verified 08/18/24 17:24)
red man syndrome
Medications Reviewed: Yes
Social History
Tobacco: Non-Smoker
Alcohol: Occasional
Drug: None
Family History
Family History: Not Pertinent
Review of Systems
Review of Systems
General: Negative Fever or Chills
All systems: All other systems were reviewed and were negative
Vital Signs
Temp Pulse Resp BP Pulse Ox
98.3 F 67 20 139/57 100
08/19/24 11:31 08/19/24 11:36 08/19/24 11:31 08/19/24 11:35 08/19/24 11:34
Physical Exam
Physical Exam
Constitutional: No Acute Distress
Cardiovascular: Regular Rate and S1/S2; Negative Murmur or Rub
Pulmonary: Clear and Symmetric; Negative Wheezes, Rales or Rhonchi
Gastrointestinal: Soft, Non Tender, Non Distended and Normal Bowel Sounds
Skin: Warm and Dry; Negative Rash or Jaundice
Lines: Other (pacemaker is tender but no longer erythematous, no fluctuance today; photos from yesterday with erythema over the pacemaker)
Lab / Diagnostic Study Results
08/19/24 04:20
08/19/24 04:20
Total Counted 100 08/18/24 18:38
Abs Neuts (Manual) 1.6 10^3/uL (1.4-6.5) 08/18/24 18:38
Segmented Neutrophils 44 % (42-75) 08/18/24 18:38
Band Neutrophils 0 % (0-3) 08/18/24 18:38
Lymphocytes (Manual) 30 % (20-51) 08/18/24 18:38
Eosinophils (Manual) 9 % (0-6) H 08/18/24 18:38
Microbiology Results
Micro:
08/19/24 04:20 MRSA Screen - Pending
Nose
08/18/24 18:43 Blood Culture - Pending
Blood/Venous
08/18/24 18:38 Blood Culture - Pending
Blood/Venous
06/03/24 11:27 Blood Culture - Final
Blood/Venous S aureus-Methicillin Sensitive
Gram Stain - Final
06/03/24 10:16 Blood Culture - Final
Blood/Venous S aureus-Methicillin Sensitive
Gram Stain - Final
06/05/24 07:56 Blood Culture - Final
Blood/Venous No Growth - Final Report
06/05/24 07:02 Blood Culture - Final
Blood/Venous No Growth - Final Report
06/02/24 21:44 Blood Culture - Final
Blood/Venous S aureus-Methicillin Sensitive
Gram Stain - Final
06/02/24 20:49 Blood Culture - Final
Blood/Venous S aureus-Methicillin Sensitive
Gram Stain - Final
06/03/24 09:00 Body Fluid Culture - Final
Synovial Fluid S aureus-Methicillin Sensitive
Gram Stain - Final
Assessment / Plan
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
Recent H/o PJI due to MSSA
- given extended exposure to cefazolin, isolate may have developed resistance. Suspect lead was seeded during episdoes of bacteremia in May 2024
- blood cultures x2 in progress
- recommend pacemaker and lead extraction, IVC filter removal, replacement with leadless pacemaker if feasible
- requested cultures from the OR - aerobic and anaerobic
- TTE
- anticipate another 6 week course of IV antibiotics, would continue suppression for the prosthetic joint afterwards
follow cultures, fever curve, clinically
Care Review
Plan reviewed with: Physician
Total Time Spent with Patient (in minutes): Dr Rubin - recommend device extraction - via tiger text
[2024-08-19] MEDS: BETAMETHASONE VALERATE 0.1% CREAM 1 APPLIC TOPICAL (15:06)
--- NOTE | 2024-08-19 20:42 | PTCARENOTE ---
pt received at change of shift, pt seen and assessed in room. pt aox3, tele reading 100% Apaced. No complaints of pain at this time. tubigrips on b/l lower extremities. this rn discussed plan of care, pt verbalizes understanding. call denis within
reach. continuing to monitor at this time.
[2024-08-19] MEDS: SENOKOT-S 1 TABLET PO (22:31)
[2024-08-20] VITALS (7 sets, daily range): BP systolic 124–148; BP diastolic 53–61; BMI 21.1
[2024-08-20 03:41] LABS: % Basophils 1.6 % (0-2); % Eosinophils 6.5 % (0-6); % Immature Granulocytes 0.6 % (0-0.5); % Lymphocytes 26.6 % (20.5-51.1); % Monocytes 19.5 % (1.7-9.3); % Neutrophils 45.2 % (42.2-75.2); Absolute Basophils 0.1 10^3/uL (0-0.2); Absolute Eosinophils 0.2 10^3/uL (0-0.7); Absolute Lymphocytes 0.8 10^3/uL (1.2-3.4); Absolute Monocytes 0.6 10^3/uL (0.1-0.6); Absolute Neutrophils 1.4 10^3/uL (1.4-6.5); Hematocrit 35.3 % (37.0-47.0); Hemoglobin 11.4 g/dL (12.0-16.0); Mean Corp Hgb Conc. 32.3 g/dL (33.0-37.0); Mean Corpuscular Volume 95.9 fL (81.0-99.0); Mean Platelet Volume 9.2 fL (7.4-10.4); Nucleated Red Blood Cells % 0 %; Platelet Count 251 10^3/uL (130-400); Red Blood Cell Count 3.68 10^6/uL (4.20-5.40); Red Cell Dist. Width 16.5 % (11.5-14.5); White Blood Cell Count 3.1 10^3/uL (4.8-10.8)
[2024-08-20 04:05] LABS: Blood Urea Nitrogen 26 mg/dl (7-17); Calcium 8.8 mg/dl (8.4-10.2); Carbon Dioxide 25 mmol/L (22-30); Chloride 105 mmol/L (98-107); Estimated Creatinine Clearance 42 ml/min; Glucose 101 mg/dl (70-99); Potassium 4.3 mmol/L (3.5-5.1); Sodium 137 mmol/L (135-145); eGFR > 60.00
[2024-08-20 05:09] LABS: Folate 19.4 ng/ml (2.76-20); Vitamin B12 623 pg/ml (239-931)
[2024-08-20] MEDS: SYNTHROID 100 MCG PO (06:15)
[2024-08-20] MEDS: VANCOCIN 150 IV (06:15)
[2024-08-20] MEDS: BENADRYL 50 MG IV (06:15)
[2024-08-20] MEDS: SPIRIVA RESPIMAT 2.5 MCG 2 PUFF INH (07:50)
[2024-08-20] MEDS: SYMBICORT 80/4.5 MCG INHALER 2 PUFF INH ×2 (07:51→19:36)
--- NOTE | 2024-08-20 07:55 | W.PN.CD ---
Addendum entered and electronically signed by Jose Cruz Olsen MD 08/20/24 08:24:
Correction, plan for extraction in 1 week 08/27. Will consider discharging patient and having them return for procedure.
Original Note:
Today's Communication / Plan
-
plan for PPM extraction and leadless pacemaker placement tomorrow 08/21
consult IR to discuss options for IVC filter removal
Impression / Plan
-
83-year-old female with past medical history that is significant for hypertension, proximal atrial fibrillation, history of DVT status post IVC filter, GERD, hypothyroidism, hyperlipidemia, recent cardioversion and pacemaker placement in 12/2023,
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
PPM infection
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
- WONG in 05/2024 was negative for gross vegetations.
- Unfortunately, the infection is insidious in nature and ultimate treatment is removal of hardware.
- Her hardware include prosthetic knee, IVC filter and PPM generator with leads.
- She is dependent on PPM with 100% atrial paced rhythm. Plan to extract the PPM and place a leadless AV micra vs leadless atrial and ventricular Aveir pacemaker tomorrow 08/21
- Would recommend removal of IVC filter as well. consult IR to discuss as she reports failed prior attempts at IVC filter removal and this may be complex
- ID following, will plan for suppressive jail abx
- Tolerated Vanco without side effect this time.
Septic knee
- s/p -Septic joint s/p I+D and component exchange by ortho in 05/2024
- on I/V vancomycin.
OPD Exacerbation:
- stable.
-Management as per primary team.
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
-On Lasix 40 mg daily, which should be her home medication regimen.
Paroxysmal Atrial flutter:
-[id number] score at least 4 for age, female, HTN and history of DVT.
-Continue Eliquis.
-Continue current doses of diltiazem Cardizem CD and Toprol-XL.
-If PPM extraction is needed, will hold Eliquis 1 day prior to the procedure.
HTN: - Fairly controlled.
Subjective: patient feels well, but is appropriately distressed by her situation
Physical Exam
Vital Signs/Labs
Vital Signs
Temp Pulse Resp BP Pulse Ox
36.7 C 60 20 148/59 98
08/20/24 07:14 08/20/24 07:16 08/20/24 07:14 08/20/24 07:16 08/20/24 07:16
08/19/24 08/20/24 08/21/24
06:59 06:59 06:59
Actual Weight 55.8 kg 55.7 kg
08/20/24 03:27
08/20/24 03:27
Physical Exam
Constitutional: No acute distress
Cardiovascular: Rhythm & rate is regular
Respiratory: Respiratory effort normal
Neuro/Psych: AO x 3
Data Reviewed
-
Date of Service: August 20, 2024
Medical Decision Making: Reviewed Test Results
Labs: Labs Reviewed by me
--- NOTE | 2024-08-20 09:02 | W.PN.ID1 ---
Date of Service
Date of Service: August 20, 2024
Today's Communication
c/w vancomycin which she is tolerating without ADR when run over 90 minutes
Assessment / Plan
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
Recent H/o PJI due to MSSA
- given extended exposure to cefazolin, isolate may have developed resistance. Suspect lead was seeded during episodes of bacteremia in May 2024
- blood cultures x2 in progress no growth to date
- recommend pacemaker and lead extraction, replacement with leadless pacemaker if feasible
- IVC filter removal may be challenging, if she is not bacteremic then it could be retained in my opinion
- requested cultures from the OR - aerobic and anaerobic - note that OR time is scheduled for next week, I will not be surprised if cultures are falsely negative due to current antibiotic course
- TTE today
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
- possible PICC placement tomorrow
- anticipate another 6 week course of IV antibiotics, would continue suppression for the prosthetic joint afterwards with an alternative to doxycycline
- will begin setting up home IV antibiotics - discharge late tomorrow vs saturday so long as cultures remain negative at 48 hours (6pm today)
follow cultures, fever curve, clinically
Total time spent today was approximately 65 minutes for this encounter.� Time included reviewing laboratory tests/imaging results, reviewing pertinent medical records, obtaining and reviewing medical history, performing an appropriate exam, ordering
medications, extended discussion of details of diagnosis and treatment with patient and her , writing home IV antibiotic scripts, tests and procedures. �Time also included coordinating patient care and communicating with other health care
professionals including RN, residential case manager, hospitalist and contact lens technician.�
Chief Complaint
-: Other (pacemaker infection)
Subjective / Review of Systems
afebrile
bp stable
tolerating vancomycin
device extraction planned for next week
no pruritus or itching
Vital Signs / Physical Exam
Vital Signs
Vital Signs
Temp Pulse Resp BP Pulse Ox
98.1 F 86 16 148/59 99
08/20/24 07:14 08/20/24 07:58 08/20/24 07:58 08/20/24 07:16 08/20/24 07:58
Physical Exam
Constitutional: No Acute Distress
Lymph Nodes: Other (L axillary arm tender lymphadenopathy)
Cardiovascular: Regular Rate and S1/S2; Negative Murmur or Rub
Pulmonary: Clear and Symmetric; Negative Wheezes or Rales
Gastrointestinal: Non Distended and Normal Bowel Sounds
Skin: Warm and Dry; Negative Rash or Jaundice
Neurological: Awake
Lines: Other (pacemaker - no erythema, warmth or fluctuance; there is persistent tenderness over the device)
Objective Data
Lab Data
Lab Results
08/20/24 03:27
08/20/24 03:27
Estimated Creat Clear 42 ml/min 08/20/24 03:27
Total Bilirubin 0.3 mg/dl (0.2-1.3) 08/18/24 18:38
AST 34 U/L (14-36) 08/18/24 18:38
ALT 21 U/L (0-35) 08/18/24 18:38
Alkaline Phosphatase 146 U/L (38-126) H 08/18/24 18:38
Most recent labs reviewed.
Micro Results:
08/19/24 04:20 MRSA Screen - Final
Nose No Methicillin Resistant Staphylococcus aureus isolated.
08/18/24 18:43 Blood Culture - Preliminary
Blood/Venous No Growth in 24 hours- Final report to follow
08/18/24 18:38 Blood Culture - Preliminary
Blood/Venous No Growth in 24 hours- Final report to follow
Care Review
Plan reviewed with: Other Provider (clinical pharmacist Isaac Krause vanc to)
[2024-08-20] MEDS: WELLBUTRIN XL (24 hour extended release) 150 MG PO (09:15)
[2024-08-20] MEDS: TOPROL XL 25 MG PO (09:16)
[2024-08-20] MEDS: RESTASIS 0.05% OPHTHALMIC EMULSION 1 DROPS BOTH EYES ×2 (09:16→19:56)
[2024-08-20] MEDS: FLUSH (NSS) 1 FLUSH IV (09:19)
[2024-08-20] MEDS: TYLENOL 650 MG PO ×3 (09:19→19:55)
--- NOTE | 2024-08-20 09:48 | PHA.VAN.FU ---
Vancomycin Assessment / Plan
- Assessment
Renal Function: Stable
In the past 24 hrs, patient has been: Afebrile
- Dosing Plan
Continue: Vanc 750mg Q24H infused over 90 mins
- Monitoring Plan
Peak Level: will order in AM based on timing of AM dose
Trough Level: 08/21 05:30
- Follow Up
Pharmacy will continue to follow.
Vancomycin Follow UP
- -
Patient Age: 83
Patient Sex: Female
Vancomycin Day #: 2
Indication: Skin And Soft Tissue
Requesting Provider: Dr. Johnson
Pertinent Antimicrobial Allergies:
clarithromycin - gastric problems
erythromycin - GI problems
vancomycin - infusion reaction
Height / Weight:
Height 5 ft 4 in
Actual Weight 55.7 kg
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
- Vital Signs / Lab Results
Temp Pulse Resp BP Pulse Ox
98.1 F 86 16 148/59 99
08/20/24 07:14 08/20/24 07:58 08/20/24 07:58 08/20/24 07:16 08/20/24 07:58
Lab Results - Hematology
08/18/24 08/19/24 08/20/24
18:38 04:20 03:27
WBC 3.7 L 3.3 L 3.1 L
Band Neutrophils 0
Lab Results - Chemistry
08/18/24 08/19/24 08/20/24
18:38 04:20 03:27
BUN 31 H 23 H 26 H
Creatinine 0.9 0.8 0.9
Estimated Creat Clear 48 42
Albumin 3.5
Microbiology Results
08/19/24 04:20 MRSA Screen - Final
Nose No Methicillin Resistant Staphylococcus aureus isolated.
08/18/24 18:43 Blood Culture - Preliminary
Blood/Venous No Growth in 24 hours- Final report to follow
08/18/24 18:38 Blood Culture - Preliminary
Blood/Venous No Growth in 24 hours- Final report to follow
--- NOTE | 2024-08-20 10:16 | PTCARENOTE ---
Received patient this morning resting in bed. Patient is very frustrated that no definite plan of care has been determined. Medicated with tylenol PO for discomfort at left chest pacer site and pain at left lower leg wound site. Morning marc held
as ordered, await IR consult.
--- NOTE | 2024-08-20 11:06 | W.PN.HOSP.TC ---
Addendum entered and electronically signed by Joseph Espinoza DO 08/20/24 13:21:
CDI: Chronic HFpEF
Original Note:
Today's Communication/Plan
-
Continue vancomycin and follow cultures
Order CT venous phase to assess IVC filter
Plan for removal of pacemaker and possibly IVC filter
Assessment / Plan
Assessment / Plan
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
#H/O vancomycin allergy
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
-Per cardiology treatment is removal of all possible hardware
-Per cardiology patient is 100% atrially paced, thus dependent on PPM
-Per infectious disease would also need IVC filter removed
-Currently on IV vancomycin with Benadryl
-Follow-up blood cultures, CBC, temperature
-Order CT angiogram with focus on venous phase to assess IVC filter endothelialization
-Scheduled removal of pacemaker on 08/27/2024
#H/O vancomycin reaction (Francisca syndrome)
-Currently on vancomycin with Benadryl
-No signs of allergy at this time
#Lower extremity ulcer
-Has a 2 x 2 inch ulcer of the distal left lower extremity
-Has 2+ pulses, do not suspect this is ischemic in nature
-Has significant DVT history, may be related to CVI and edema
-Patient states it is slowly improving, no signs of purulence
-On vancomycin as above
-Continue with CVI supportive measures and wound care
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
#Chronic doxycycline maintenance
-Recently with a septic prosthetic knee, s/p I&D and exchange by orthopedics in 05/2024
-Was on doxycycline regimen as an outpatient
-Transitioned doxycycline to IV vancomycin as above
#H/O DVT s/p IVC filter
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
-Currently on Eliquis for paroxysmal AF
-Per cardiology may need removal of IVC filter due to MRSA
-Significant degree of endothelialization, failed 2 previous removals
-Ordered CT venous phase as above, IR following
#HFpEF/RV failure
#Pulmonary hypertension with severe TR
-Last TTE with preserved LVEF though enlarged RV
-Home medications include Lasix; not currently on GDMT
-Suspect group 2 versus group 3 PAH with COPD and HFpEF
#Paroxysmal AF
-Nonvalvular, [id number] score 4
-Home medications include Eliquis, Cardizem and metoprolol
-Heart rate currently WNL, appears in sinus rhythm this morning
-Per cardiology will need Eliquis held 1 day prior to pacemaker extraction if need
#HTN
-Home regimen includes diltiazem, metoprolol, Lasix
-Not currently on any first-line antihypertensives
-Blood pressure adequate
#Hypothyroidism
-Unclear etiology, home medications include levothyroxine 100 mcg
-No signs or symptoms of thyroid dysfunction at this time
#COPD
-Likely GOLD A versus B, Home meds include Trelegy Ellipta
-Did not require any supplemental oxygen at baseline
-Does have pulmonary hypertension which may be related
-No signs of exacerbation
#GERD/Ribeiro's esophagus
-Home medication includes esomeprazole
-Complicated by Ribeiro's esophagus as above
-Unclear if any significant dysplasia noted
-Should have follow-up OP with GI
#H/O lung cancer s/p chemotherapy
-No known signs of recurrence
DVT prophylaxis: Home Eliquis
Diet: Regular
CODE STATUS: DNR
Anticipated Discharge: > 48 hours
Subjective/Interval History
-
Date of Service: August 20, 2024
Seen and examined at the bedside. No acute events reported overnight. AFVSS
Cultures remain without any growth to date. Spoke with interventional radiology and patient, last CT scan shows significant endothelialization of her IVC filter. Has had 2 previous attempts to remove the filter which were unsuccessful, was given a
follow-up for specialist at [facility] however she never saw him. Order CT angiogram to assess IVC filter in the venous phase.
As of this morning patient is very emotional and frustrated that her pacemaker and likely IVC filter may need replaced.
Denies fevers or chills, chest pain, shortness of breath, palpitations, bleeding or bruising
Objective Data
-
Labs:
Laboratory Results
08/20/24
03:27
WBC 3.1 L
Hgb 11.4 L
Hct 35.3 L
Plt Count 251
Sodium 137
Potassium 4.3
Chloride 105
Carbon Dioxide 25
BUN 26 H
Creatinine 0.9
Glucose 101 H
Calcium 8.8
Vital Signs:
Vital Signs
Temp Pulse Resp BP Pulse Ox
98.1 F 86 16 148/59 99
08/20/24 07:14 08/20/24 07:58 08/20/24 07:58 08/20/24 07:16 08/20/24 07:58
I&O
08/19/24 08/20/24 08/21/24
06:59 06:59 06:59
Intake Total 340 / 340 360 / 360
Balance 340 / 340 360 / 360
Review of Systems
-
History Source: Patient
All other systems: Reviewed and negative
Physical Exam
-
General: Well Developed, Well Nourished, No Apparent Distress and Comfortable
HEENT: Normocephalic, Atraumatic and Moist Mucous Membranes
Respiratory: Clear to Auscultation and Non Labored Respirations
Cardiac: Regular Rhythm and S1/S2; Negative Murmur, Rub or Gallop
GI: Soft, Nontender, Nondistended and Normal Bowel Sounds
Musculoskeletal: No Clubbing, No Cyanosis and No Edema
Skin: Warm, Dry and Normal Turgor; Negative Rash
Neuro: AO x 3 and Nonfocal/Grossly Intact
Psych: Calm
[2024-08-20] MEDS: BETAMETHASONE VALERATE 0.1% CREAM 1 APPLIC TOPICAL (11:40)
[2024-08-20] MEDS: LASIX PO (11:45)
--- NOTE | 2024-08-20 12:41 | PN.CDI ---
CDI
- -
CDI:
Physician Documentation Request
Admit Date: 08/18/24 21:59
Dear Doctor Alexis,
Clinical Indicators:
Patient admitted with Pacemaker infection.
08/19 Cardiology PN, 'Acute on chronic HFpEF'
08/20 PN, 'HFpEF/RV failure'
Due to potentially conflicting documentation, please specify the acuity of CHF you are evaluating, treating or monitoring.
Chronic HFpEF
Acute on chronic HFpEF
Other
Use of terms such as suspected, likely, concern for, or probable (associated with a specific diagnosis that is being evaluated, monitored, or treated as if it exists) are acceptable and can be coded in the inpatient setting, when documented at the
time of discharge.
Thank you,
Brittney Cheng RN BSN
CDI Specialist
available via tiger text
Please use your independent medical judgment in providing your response.
--- NOTE | 2024-08-20 14:18 | CM ---
Reviewed chart. Met with Mrs. Quigley to review discharge plans. She states she is feeling ok and going for PPM extraction and implantation tomorrow. She will need six weeks IV Vanco. [facility] sent
referral to [facility]. Telephone call to [facility] Liaison to make the referral. Sent the referral. She will need PICC line and the PICC line information sent to [facility]. Prior to admission she resides with her spouse in a two
story home with one step to enter. She has a full flight of steps to get to bedroom/full bathroom. She has a powder room on the first floor. Prior to admission she was independent with ambulation and adls. She has two walker and a single point cane
at home. Medical work-up in progress. The discharge plan is to return home with her spouse and [facility] and [facility] for Home Infusion when medically stable.
--- NOTE | 2024-08-20 16:17 | W.PN.UPDATE ---
Update Note
Progress Note Update
- IR consulted regarding possible IVC filter removal. Patient had ALN retrievable filter placed here in 2014 with two subsequent failed removal attempts in . [place] of filter appeared tilted at that time and likely embedded.
- CTA from 2016 showed a patent IVC with multiple struts outside caval lumen including within a vertebral body.
- Attempt at removal at this point would be challenging. Patient was referred to [place] but was unable to make an appointment. The filter is likely endothelialized at this point. If blood cultures remain negative would hope filter could remain in
place. If removal is needed, rec moving forward with CTV abdomen/pelvis for planning purposes.
[2024-08-20] MEDS: SENOKOT-S 1 TABLET PO (19:55)
[2024-08-20] MEDS: ELIQUIS 2.5 MG PO (19:55)
--- NOTE | 2024-08-20 21:22 | PTCARENOTE ---
assumed care at the change of shift. AAOx3. complaining of L shoulder/arm/PPM site pain. tylenol given, see mar. L chest site, slightly pink/warm to touch/tender. educated patient to inform RN with any worsening symptoms. Apaced on tele 60s. bp
stable. LLE dressing CDI. edema noted, R>L. patient states feeling constipated. Senokot given see mar. reviewed other options with patient-will revisit in the AM. reviewed plan of care with patient and verbalized understanding. call denis within
reach. independent in the room. calls appropriately.
[2024-08-20] MEDS: CARDIZEM CD 240 MG PO (22:54)
[2024-08-20] MEDS: LIPITOR 10 MG PO (22:54)
[2024-08-21 05:26] VITALS: BP 134/57
[2024-08-21 06:00] VITALS: BMI 20.4
[2024-08-21 06:40] LABS: Vancomycin Trough 9.1 ug/ml (5-20)
[2024-08-21 06:52] LABS: % Basophils 1.8 % (0-2); % Eosinophils 8.7 % (0-6); % Immature Granulocytes 0.6 % (0-0.5); % Lymphocytes 24.7 % (20.5-51.1); % Neutrophils 45.2 % (42.2-75.2); Absolute Basophils 0.1 10^3/uL (0-0.2); Absolute Eosinophils 0.3 10^3/uL (0-0.7); Absolute Lymphocytes 0.8 10^3/uL (1.2-3.4); Absolute Monocytes 0.6 10^3/uL (0.1-0.6); Absolute Neutrophils 1.5 10^3/uL (1.4-6.5); Hematocrit 34.6 % (37.0-47.0); Hemoglobin 11.1 g/dL (12.0-16.0); Mean Corp Hgb Conc. 32.1 g/dL (33.0-37.0); Mean Corpuscular Hgb 30.4 pg (27.0-31.0); Mean Corpuscular Volume 94.8 fL (81.0-99.0); Nucleated Red Blood Cells % 0 %; Platelet Count 171 10^3/uL (130-400); Red Blood Cell Count 3.65 10^6/uL (4.20-5.40); Red Cell Dist. Width 16.2 % (11.5-14.5); White Blood Cell Count 3.3 10^3/uL (4.8-10.8)
[2024-08-21 07:03] LABS: Blood Urea Nitrogen 28 mg/dl (7-17); Calcium 8.7 mg/dl (8.4-10.2); Carbon Dioxide 24 mmol/L (22-30); Chloride 105 mmol/L (98-107); Estimated Creatinine Clearance 42 ml/min; Glucose 98 mg/dl (70-99); Potassium 4.6 mmol/L (3.5-5.1); Sodium 137 mmol/L (135-145); eGFR > 60.00
[2024-08-21] MEDS: SYNTHROID 100 MCG PO (07:09)
[2024-08-21] MEDS: BENADRYL 50 MG IV (07:09)
[2024-08-21] MEDS: VANCOCIN 150 IV (07:10)
[2024-08-21] MEDS: SPIRIVA RESPIMAT 2.5 MCG 2 PUFF INH (07:23)
[2024-08-21] MEDS: SYMBICORT 80/4.5 MCG INHALER 2 PUFF INH ×2 (07:23→19:19)
[2024-08-21 08:46] VITALS: BP 153/56
[2024-08-21] MEDS: ELIQUIS 2.5 MG PO (09:32)
[2024-08-21] MEDS: TOPROL XL 25 MG PO (09:32)
[2024-08-21] MEDS: RESTASIS 0.05% OPHTHALMIC EMULSION 1 DROPS BOTH EYES ×2 (09:32→20:19)
[2024-08-21] MEDS: LASIX 20 MG PO (09:32)
[2024-08-21] MEDS: FLUSH (NSS) 1 FLUSH IV (09:33)
[2024-08-21] MEDS: WELLBUTRIN XL (24 hour extended release) 150 MG PO (09:33)
--- NOTE | 2024-08-21 10:53 | PTCARENOTE ---
Received patient this morning resting in bed, pre medicated by warehouse shift supervisor nurse with IV benadryl prior to morning vanco dose after trough level resulted. INT patent LAC, and flushed without difficulty but edema noted inner aspect of left upper arm.
INT removed and new INT place in the right wrist by warehouse shift supervisor nurse and vanco dose given. Dr. Espinoza in to see the patient and informed of edema noted left upper arm, patient sent for U/S of left upper arm. Will need PICC placement today.
--- NOTE | 2024-08-21 11:04 | W.PN.HOSP.TC ---
Today's Communication/Plan
-
PICC line
OP antibiotics per ID, plan for 6 weeks IV
Ultrasound of LUE
Possible DC home today versus tomorrow morning
Assessment / Plan
Assessment / Plan
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
-Per cardiology treatment is removal of all possible hardware
-Per cardiology patient is 100% atrially paced, thus dependent on PPM
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
-Blood cultures remain negative after 48 hours
-Scheduled removal of pacemaker on 08/27/2024
-Plan for PICC line, for 6-week OP antibiotic course
#Erythema and soreness of LUE near previous IV
-Ordering ultrasound for further assessment
#H/O vancomycin reaction (Francisca syndrome)
-Currently on vancomycin with Benadryl
-No signs of allergy at this time
#Lower extremity ulcer
-Has a 2 x 2 inch ulcer of the distal left lower extremity
-Has 2+ pulses, do not suspect this is ischemic in nature
-Has significant DVT history, may be related to CVI and edema
-Patient states it is slowly improving, no signs of purulence
-On vancomycin as above
-Continue with CVI supportive measures and wound care
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
#Chronic doxycycline maintenance
-Recently with a septic prosthetic knee, s/p I&D and exchange by orthopedics in 05/2024
-Was on doxycycline regimen as an outpatient
#H/O DVT s/p IVC filter
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
-Currently on Eliquis for paroxysmal AF
-Per cardiology may need removal of IVC filter due to MRSA
-Significant degree of endothelialization, failed 2 previous removals
-Ordered CT venous phase as above, IR following
#HFpEF/RV failure
#Pulmonary hypertension with severe TR
-Last TTE with preserved LVEF though enlarged RV
-Home medications include Lasix; not currently on GDMT
-Suspect group 2 versus group 3 PAH with COPD and HFpEF
#Paroxysmal AF
-Nonvalvular, [id number] score 4
-Home medications include Eliquis, Cardizem and metoprolol
-Heart rate currently WNL, appears in sinus rhythm this morning
-Per cardiology will need Eliquis held 1 day prior to pacemaker extraction if need
#HTN
-Home regimen includes diltiazem, metoprolol, Lasix
-Not currently on any first-line antihypertensives
-Blood pressure adequate
#Hypothyroidism
-Unclear etiology, home medications include levothyroxine 100 mcg
-No signs or symptoms of thyroid dysfunction at this time
#COPD
-Likely GOLD A versus B, Home meds include Trelegy Ellipta
-Did not require any supplemental oxygen at baseline
-Does have pulmonary hypertension which may be related
-No signs of exacerbation
#GERD/Ribeiro's esophagus
-Home medication includes esomeprazole
-Complicated by Ribeiro's esophagus as above
-Unclear if any significant dysplasia noted
-Should have follow-up OP with GI
#H/O lung cancer s/p chemotherapy
-No known signs of recurrence
DVT prophylaxis: Home Eliquis
Diet: Regular
CODE STATUS: DNR
Anticipated Discharge: Within 24 hours
Subjective/Interval History
-
Date of Service: August 21, 2024
Seen and examined at the bedside. No acute events reported overnight. AFVSS this morning
Blood cultures remain negative after 48 hours, PICC line ordered. OP antibiotics to be arranged after noon Vanc peak level.
She remains frustrated that the events bring her into the hospital. Has some swelling and redness to the proximal LUE near previous site of IV
Objective Data
-
Labs:
Laboratory Results
08/21/24
05:29
WBC 3.3 L
Hgb 11.1 L
Hct 34.6 L
Plt Count 171 D
Sodium 137
Potassium 4.6
Chloride 105
Carbon Dioxide 24
BUN 28 H
Creatinine 0.9
Glucose 98
Calcium 8.7
Vital Signs:
Vital Signs
Temp Pulse Resp BP Pulse Ox
98.0 F 60 16 153/56 99
08/21/24 08:43 08/21/24 09:00 08/21/24 08:43 08/21/24 08:46 08/21/24 08:43
I&O
08/20/24 08/21/24 08/22/24
06:59 06:59 06:59
Intake Total 340 / 340 610 / 610
Balance 340 / 340 610 / 610
Review of Systems
-
History Source: Patient
All other systems: Reviewed and negative
Physical Exam
-
General: Well Developed, No Apparent Distress, Comfortable and Other (Frail and thin)
HEENT: Normocephalic, Atraumatic, Moist Mucous Membranes and Anicteric
Respiratory: Clear to Auscultation and Non Labored Respirations
Cardiac: Regular Rhythm and S1/S2; Negative Murmur, Rub or Gallop
GI: Soft, Nontender, Nondistended and Normal Bowel Sounds
Musculoskeletal: No Clubbing, No Cyanosis and No Edema
Skin: Warm, Dry and Other (Erythema and mild edema in LUE); Negative Rash
Neuro: AO x 3 and Nonfocal/Grossly Intact
Psych: Agitated
Data Reviewed
-
Labs: Labs Reviewed by me, Discussed with Physician (Infectious disease) and Discussed with Patient
--- NOTE | 2024-08-21 11:27 | W.PN.ID1 ---
Date of Service
Date of Service: August 21, 2024
Today's Communication
c/w vancomycin
stable for dc from ID perspective when home IV antibiotics can be arranged
Assessment / Plan
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
Recent H/o PJI due to MSSA
- given extended exposure to cefazolin, isolate may have developed resistance. Suspect lead was seeded during episodes of bacteremia in May 2024
- blood cultures x2 in progress no growth to date
- recommend pacemaker and lead extraction, replacement with leadless pacemaker if feasible
- IVC filter removal may be challenging, if she is not bacteremic then it could be retained in my opinion - I do plan suppression irregardless of whether IVC filter is removed
- requested cultures from the OR - aerobic and anaerobic - note that OR time is scheduled for next week, I will not be surprised if cultures are falsely negative due to current antibiotic course
- TTE no vegetations or new valvular dysfunction
- I do not feel a CTA would global climate change researcher at this time unless she is found to be bacteremic
- PICC today
- anticipate another 6 week course of IV antibiotics, would continue suppression for the prosthetic joint afterwards with an alternative to doxycycline
- will begin setting up home IV antibiotics - discharge late today vs saturday if home IV antibiotics can be arranged
follow cultures, fever curve, clinically
Chief Complaint
-: Other (pacemaker infection)
Subjective / Review of Systems
afebrile
bp stable
had DVT in the L subclavian - not surprising given lead infection
read Dr Aparicio's note re embedded IVC filter
Vital Signs / Physical Exam
Vital Signs
Vital Signs
Temp Pulse Resp BP Pulse Ox
98.0 F 60 16 153/56 99
08/21/24 08:43 08/21/24 09:00 08/21/24 08:43 08/21/24 08:46 08/21/24 08:43
Physical Exam
Constitutional: No Acute Distress
Cardiovascular: Regular Rate and S1/S2; Negative Murmur or Rub
Pulmonary: Clear and Symmetric; Negative Wheezes or Rales
Gastrointestinal: Soft, Non Tender, Non Distended and Normal Bowel Sounds
Extremities: Other (swelling of the dependant area of the L arm, mild warmth, minimal erythema)
Skin: Warm and Dry; Negative Rash or Jaundice
Lines: Other (pacemaker - erythematous mild, tender - mild, no fluctuance today)
Objective Data
Lab Data
Lab Results
08/21/24 05:29
08/21/24 05:29
Estimated Creat Clear 42 ml/min 08/21/24 05:29
Total Bilirubin 0.3 mg/dl (0.2-1.3) 08/18/24 18:38
AST 34 U/L (14-36) 08/18/24 18:38
ALT 21 U/L (0-35) 08/18/24 18:38
Alkaline Phosphatase 146 U/L (38-126) H 08/18/24 18:38
Most recent labs reviewed.
Micro Results:
08/18/24 18:43 Blood Culture - Preliminary
Blood/Venous No Growth in 48 hours- Final report to follow
08/18/24 18:38 Blood Culture - Preliminary
Blood/Venous No Growth in 48 hours- Final report to follow
08/19/24 04:20 MRSA Screen - Final
Nose No Methicillin Resistant Staphylococcus aureus isolated.
Care Review
Plan reviewed with: Physician (Dr Alexis carrington, dispo)
[2024-08-21 11:42] VITALS: BP 155/57
[2024-08-21 11:57] LABS: Vancomycin Peak 16.8 ug/ml (18-26)
[2024-08-21] MEDS: BETAMETHASONE VALERATE 0.1% CREAM 1 APPLIC TOPICAL (11:58)
--- NOTE | 2024-08-21 12:15 | W.PN.UPDATE ---
Update Note
Progress Note Update
Left upper extremity ultrasound did show left subclavian DVT and occlusive thrombus in the left antecubital vein. Spoke with ID, agree that this is likely secondary to infected pacemaker leads. Currently on Eliquis 2.5 mg twice daily for history
of AF. I spoke with hematology on-call about this issue, they state it would qualify as an Eliquis failure and would be an indication to either increase Eliquis to 5 mg twice daily or select a different full dose anticoagulant. Will increase
Eliquis to 5 mg twice daily, continue to monitor left upper extremity clinically. Treatment of pacemaker infection with IV antibiotics per ID
[2024-08-21] MEDS: TYLENOL 650 MG PO ×2 (12:25→20:19)
--- NOTE | 2024-08-21 12:39 | PTCARENOTE ---
Patient returned from u/s, asking about results and very worried about where PICC will be placed. Multiple questions about d/c plan, IV antibiotics, wound care at home. TT to Dr. Espinoza to see or telephone the patient with u/s results, included
Jackie in TT re: u/s results of LUE. Requested high risk case manager Maryuri miller speak with the patient as well.
--- NOTE | 2024-08-21 12:45 | PHA.VAN.FU ---
Vancomycin Assessment / Plan
- Assessment
Renal Function: Stable
In the past 24 hrs, patient has been: Afebrile
- Assessment - Therapeutic Drug Monitoring
Extrapolated Cmax (mcg/mL): 18.3
Peak level was drawn: Appropriately (drawn ~2.6H after end of previous infusion)
Extrapolated Cmin (mcg/mL): 8.9
Trough Drawn: Appropriately
Levels were drawn: Pre-steady state (trough drawn before and peak drawn after 3rd maintenance dose)
Calculated AUC (mcg*h/mL): 314
Calculated ke: 0.0319
Calculated half life (H): 21.7
Calculated Vd (L): 74.9 (~1.4 L/kg)
Calculated Vanc CL (ml/min): 40
Levels drawn around 3rd maintenance dose (trough --> dose --> peak) and patient may have additional accumulation.
To calculate patient-specific PK, extrapolated levels to be drawn as dose --> peak -->trough.
Since patient likely not fully at steady state, accuracy of patient-specific PK calculations may be reduced
However, anticipate patient appropriate for slight increase in dosing
- Dosing Plan
Adjust Regimen to: Vanc 1000mg Q24H infused over 2 hours
New Regimen Predicts: AUC (432), Peak (25), Trough (12.4)
While additional accumulation is anticipated, expect patient will remain in appropriate therapeutic range
- Monitoring Plan
No level(s) ordered at this time: consider trough or peak/trough within the next week
- Follow Up
Pharmacy will continue to follow.
Vancomycin Follow UP
- -
Patient Age: 83
Patient Sex: Female
Vancomycin Day #: 3
Indication: Skin And Soft Tissue
Requesting Provider: Dr. Johnson
Pertinent Antimicrobial Allergies:
clarithromycin - gastric problems
erythromycin - GI problems
vancomycin - infusion reaction
Height / Weight:
Height 5 ft 4 in
Actual Weight 54 kg
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
- Vital Signs / Lab Results
Temp Pulse Resp BP Pulse Ox
98.3 F 60 16 155/57 100
08/21/24 11:45 08/21/24 12:00 08/21/24 11:45 08/21/24 11:42 08/21/24 11:45
Lab Results - Hematology
08/18/24 08/19/24 08/20/24
18:38 04:20 03:27
WBC 3.7 L 3.3 L 3.1 L
Band Neutrophils 0
08/21/24
05:29
WBC 3.3 L
Band Neutrophils
Lab Results - Chemistry
08/18/24 08/19/24 08/20/24
18:38 04:20 03:27
BUN 31 H 23 H 26 H
Creatinine 0.9 0.8 0.9
Estimated Creat Clear 48 42
Albumin 3.5
08/21/24
05:29
BUN 28 H
Creatinine 0.9
Estimated Creat Clear 42
Albumin
Microbiology Results
08/18/24 18:43 Blood Culture - Preliminary
Blood/Venous No Growth in 48 hours- Final report to follow
08/18/24 18:38 Blood Culture - Preliminary
Blood/Venous No Growth in 48 hours- Final report to follow
08/19/24 04:20 MRSA Screen - Final
Nose No Methicillin Resistant Staphylococcus aureus isolated.
Therapeutic Drug Monitoring
Vancomycin Peak 16.8 ug/ml (18-26) L 08/21/24 11:18
Vancomycin Trough 9.1 ug/ml (5-20) 08/21/24 05:29
--- NOTE | 2024-08-21 13:58 | CM ---
spoke with [facility] for IV home infusions, they will have her antibx delivered saturday late afternoon. [facility] nursing will be out for the AM dose.
[2024-08-21 16:10] VITALS: BP 136/46
--- NOTE | 2024-08-21 18:05 | PTCARENOTE ---
PICC line inserted by [facility], dressing RAC is dry and intact. Informed by Ghulam from [facility] to use the patient's right forearm for BP.
[2024-08-21 19:14] VITALS: BP 129/61
[2024-08-21] MEDS: ELIQUIS 5 MG PO (20:19)
--- NOTE | 2024-08-21 21:43 | PTCARENOTE ---
pt rec'd at change of shift in bed. A paced on telemetry. Pt with multiple complaints during assessment. Firstly, right arm picc line with bulky pressure drsg at site no active bleeding. Pt states she has discomfort below site and at drsg. no
redness or swelling noted in area. IV team contacted. Ice pack applied per IV teams suggestion. Pt was told bulky drsg was necessary post placement to prevent bleeding at site. LLE with old wound, redressed by wound/floor nurse on day shift. drsg
dry and intact. Pt states pain has been worse since last debridement preadmission. medicated with Tylenol, little relief per pt however pt refusing anything stronger. emotional support provided. call denis within reach
--- NOTE | 2024-08-21 22:22 | W.PN.CD ---
Today's Communication / Plan
-
stable for discharge pending IV antibiotics
plan for lead extraction and micra placement 08/27, hold Eliquis 1 day prior
Impression / Plan
-
83-year-old female with past medical history that is significant for hypertension, proximal atrial fibrillation, history of DVT status post IVC filter, GERD, hypothyroidism, hyperlipidemia, recent cardioversion and pacemaker placement in 12/2023,
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
PPM infection
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
- WONG in 05/2024 was negative for gross vegetations.
- Unfortunately, the infection is insidious in nature and ultimate treatment is removal of hardware.
- Her hardware include prosthetic knee, IVC filter and PPM generator with leads.
- She is dependent on PPM with 100% atrial paced rhythm. Plan to extract the PPM and place a leadless AV micra vs leadless atrial and ventricular Aveir pacemaker 08/27
- Would recommend removal of IVC filter as well. IR consulted, favors conservative management as long as blood cultures remain negative given complexity in removing highly endothelialized device
- ID following, will plan for suppressive shelter abx
- Tolerated Vanco without side effect this time, plan for home Vanco with PICC line
L Subclavia DVT
- now on full dose Eliquis 5 BID given 'failure' of 2.5 BID dosing
Septic knee
- s/p -Septic joint s/p I+D and component exchange by ortho in 05/2024
- on I/V vancomycin.
OPD Exacerbation:
- stable.
-Management as per primary team.
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
-On Lasix 40 mg daily, which should be her home medication regimen.
Paroxysmal Atrial flutter:
-[id number] score at least 4 for age, female, HTN and history of DVT.
-Continue Eliquis, now 5 BID
-Continue current doses of diltiazem Cardizem CD and Toprol-XL.
-If PPM extraction is needed, will hold Eliquis 1 day prior to the procedure.
HTN: - Fairly controlled.
Subjective: PICC line placed today; patient feels well, but is appropriately distressed by her situation; long discuss with patient and family regarding plans
Physical Exam
Vital Signs/Labs
Vital Signs
Temp Pulse Resp BP Pulse Ox
37.2 C 60 20 129/61 95
08/21/24 19:12 08/21/24 19:14 08/21/24 19:12 08/21/24 19:14 08/21/24 19:12
08/20/24 08/21/24 08/22/24
06:59 06:59 06:59
Actual Weight 55.7 kg 54 kg
08/21/24 05:29
08/21/24 05:29
Physical Exam
Constitutional: Comfortable
Cardiovascular: Rhythm & rate is regular
Respiratory: Respiratory effort normal
Neuro/Psych: AO x 3
Data Reviewed
-
Date of Service: August 21, 2024
[2024-08-21 22:35] VITALS: BP 125/59
[2024-08-21] MEDS: CARDIZEM CD 240 MG PO (22:38)
[2024-08-21] MEDS: LIPITOR 10 MG PO (22:38)
--- NOTE | 2024-08-22 00:15 | PTCARENOTE ---
Ice did help per pt in regards to right arm picc line discomfort.
[2024-08-22 04:14] VITALS: BP 143/64
[2024-08-22 04:16] VITALS: BMI 20.4
[2024-08-22] MEDS: TYLENOL 650 MG PO ×2 (04:20→22:07)
--- NOTE | 2024-08-22 04:40 | PTCARENOTE ---
Pt awoken for am VS and wt. c/o left leg pain at wound site and right upper arm picc line site. Tylenol given along with ice pack to picc site.
[2024-08-22] MEDS: SYNTHROID 100 MCG PO (06:07)
[2024-08-22] MEDS: VANCOCIN 200 IV (06:07)
[2024-08-22] MEDS: BENADRYL 50 MG IV (06:08)
[2024-08-22 07:20] VITALS: BP 117/66
[2024-08-22 07:21] VITALS: BMI 20.4
--- NOTE | 2024-08-22 08:20 | PHA.VAN.FU ---
Vancomycin Assessment / Plan
- Assessment
Renal Function: Stable
WBC's are: Stable
In the past 24 hrs, patient has been: Afebrile
- Dosing Plan
Continue: 1000MG Q24H
- Monitoring Plan
No level(s) ordered at this time: CONSIDER FOR SATURDAY IF STILL INPATIENT
- Follow Up
Pharmacy will continue to follow.
Vancomycin Follow UP
- -
Patient Age: 83
Patient Sex: Female
Vancomycin Day #: 4
Indication: Skin And Soft Tissue
Requesting Provider: Dr. Johnson
Pertinent Antimicrobial Allergies:
clarithromycin - gastric problems
erythromycin - GI problems
vancomycin - infusion reaction
Height / Weight:
Height 5 ft 4 in
Actual Weight 53.8 kg
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
- Vital Signs / Lab Results
Temp Pulse Resp BP Pulse Ox
97.8 F 66 18 143/64 98
08/22/24 07:17 08/22/24 06:00 08/22/24 07:17 08/22/24 04:14 08/22/24 07:17
Lab Results - Hematology
08/20/24 08/21/24
03:27 05:29
WBC 3.1 L 3.3 L
Lab Results - Chemistry
08/20/24 08/21/24
03:27 05:29
BUN 26 H 28 H
Creatinine 0.9 0.9
Estimated Creat Clear 42 42
Microbiology Results
08/18/24 18:43 Blood Culture - Preliminary
Blood/Venous No Growth in 72 hours- Final report to follow
08/18/24 18:38 Blood Culture - Preliminary
Blood/Venous No Growth in 72 hours- Final report to follow
08/19/24 04:20 MRSA Screen - Final
Nose No Methicillin Resistant Staphylococcus aureus isolated.
Therapeutic Drug Monitoring
Vancomycin Peak 16.8 ug/ml (18-26) L 08/21/24 11:18
Vancomycin Trough 9.1 ug/ml (5-20) 08/21/24 05:29
[2024-08-22] MEDS: ELIQUIS 5 MG PO ×2 (08:24→19:27)
[2024-08-22] MEDS: WELLBUTRIN XL (24 hour extended release) 150 MG PO (08:24)
[2024-08-22] MEDS: TOPROL XL 25 MG PO (08:24)
[2024-08-22] MEDS: RESTASIS 0.05% OPHTHALMIC EMULSION 1 DROPS BOTH EYES ×2 (08:30→19:28)
[2024-08-22] MEDS: SPIRIVA RESPIMAT 2.5 MCG 2 PUFF INH (08:43)
[2024-08-22] MEDS: SYMBICORT 80/4.5 MCG INHALER 2 PUFF INH ×2 (08:43→19:05)
[2024-08-22 09:22] LABS: Blood Urea Nitrogen 30 mg/dl (7-17); Carbon Dioxide 29 mmol/L (22-30); Chloride 102 mmol/L (98-107); Estimated Creatinine Clearance 42 ml/min; Glucose 97 mg/dl (70-99); Potassium 4.6 mmol/L (3.5-5.1); Sodium 136 mmol/L (135-145); eGFR > 60.00
[2024-08-22] MEDS: BETAMETHASONE VALERATE 0.1% CREAM 1 APPLIC TOPICAL (10:07)
--- NOTE | 2024-08-22 10:25 | W.PN.HOSP.TC ---
Today's Communication/Plan
-
Continue IV vancomycin
Eliquis 5 mg twice daily
Pacemaker removal on 08/27
Discharge planning
Assessment / Plan
Assessment / Plan
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
-Per cardiology treatment is removal of all possible hardware
-Per cardiology patient is 100% atrially paced, thus dependent on PPM
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
-Blood cultures remain negative after 48 hours
-Scheduled removal of pacemaker on 08/27/2024
-Plan for PICC line, for 6-week OP antibiotic course
#DVT of LUE
-Likely provoked in the context of Staph aureus infection
-Ultrasound on 08/17/2024 showed DVT of subclavian vein and cephalic
-Spoke with on-call hematology, recommended increasing Eliquis to 5 mg twice daily
-Should be maintained on 5 mg Eliquis while on IV antibiotics for infection
-Will need to follow-up with PCP OP to transition back to 2.5 mg dose
#H/O vancomycin reaction (Francisca syndrome)
-Currently on vancomycin with Benadryl
-No signs of allergy at this time
#Lower extremity ulcer
-Has a 2 x 2 inch ulcer of the distal left lower extremity
-Has 2+ pulses, do not suspect this is ischemic in nature
-Has significant DVT history, may be related to CVI and edema
-Patient states it is slowly improving, no signs of purulence
-On vancomycin as above
-Continue with CVI supportive measures and wound care
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
#Chronic doxycycline maintenance
-Recently with a septic prosthetic knee, s/p I&D and exchange by orthopedics in 05/2024
-Was on doxycycline regimen as an outpatient
#H/O DVT s/p IVC filter
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
-Currently on Eliquis for paroxysmal AF
-Per cardiology may need removal of IVC filter due to MRSA
-Significant degree of endothelialization, failed 2 previous removals
-Ordered CT venous phase as above, IR following
#HFpEF/RV failure
#Pulmonary hypertension with severe TR
-Last TTE with preserved LVEF though enlarged RV
-Home medications include Lasix; not currently on GDMT
-Suspect group 2 versus group 3 PAH with COPD and HFpEF
#Paroxysmal AF
-Nonvalvular, [id number] score 4
-Home medications include Eliquis, Cardizem and metoprolol
-Heart rate currently WNL, appears in sinus rhythm this morning
-Per cardiology will need Eliquis held 1 day prior to pacemaker extraction if need
#HTN
-Home regimen includes diltiazem, metoprolol, Lasix
-Not currently on any first-line antihypertensives
-Blood pressure adequate
#Hypothyroidism
-Unclear etiology, home medications include levothyroxine 100 mcg
-No signs or symptoms of thyroid dysfunction at this time
#COPD
-Likely GOLD A versus B, Home meds include Trelegy Ellipta
-Did not require any supplemental oxygen at baseline
-Does have pulmonary hypertension which may be related
-No signs of exacerbation
#GERD/Ribeiro's esophagus
-Home medication includes esomeprazole
-Complicated by Ribeiro's esophagus as above
-Unclear if any significant dysplasia noted
-Should have follow-up OP with GI
#H/O lung cancer s/p chemotherapy
-No known signs of recurrence
DVT prophylaxis: Home Eliquis
Diet: Regular
CODE STATUS: DNR
Anticipated Discharge: 24 - 48 hours
Subjective/Interval History
-
Date of Service: August 22, 2024
Seen and examined at the bedside. No acute events overnight. AFVSS this morning
Left upper extremity with reduced erythema and swelling
Denies any new complaints
Objective Data
-
Labs:
Laboratory Results
08/22/24
08:41
WBC Pending
Hgb Pending
Hct Pending
Plt Count Pending
Sodium 136
Potassium 4.6
Chloride 102
Carbon Dioxide 29
BUN 30 H
Creatinine 0.9
Glucose 97
Calcium 9.0
Vital Signs:
Vital Signs
Temp Pulse Resp BP Pulse Ox
97.8 F 60 14 143/64 98
08/22/24 07:17 08/22/24 08:51 08/22/24 08:51 08/22/24 04:14 08/22/24 07:17
I&O
08/21/24 08/22/24 08/23/24
06:59 06:59 06:59
Intake Total 610 / 610 240 / 240
Balance 610 / 610 240 / 240
Review of Systems
-
History Source: Patient
All other systems: Reviewed and negative
Physical Exam
-
General: Well Developed, No Apparent Distress, Comfortable and Other (Thin and frail)
HEENT: Normocephalic, Atraumatic and Moist Mucous Membranes
Respiratory: Clear to Auscultation and Non Labored Respirations
Cardiac: Regular Rhythm and S1/S2; Negative Murmur, Rub or Gallop
GI: Soft, Nontender, Nondistended and Normal Bowel Sounds
Musculoskeletal: No Clubbing, No Cyanosis and No Edema
Skin: Warm, Dry, Normal Turgor and Other (Reduced erythema and swelling to LUE); Negative Rash
Neuro: AO x 3 and Nonfocal/Grossly Intact
Psych: Calm
[2024-08-22 10:36] LABS: % Basophils 1.4 % (0-2); % Eosinophils 6.9 % (0-6); % Immature Granulocytes 0.2 % (0-0.5); % Lymphocytes 22.9 % (20.5-51.1); % Monocytes 17.5 % (1.7-9.3); % Neutrophils 51.1 % (42.2-75.2); Absolute Basophils 0.1 10^3/uL (0-0.2); Absolute Eosinophils 0.3 10^3/uL (0-0.7); Absolute Monocytes 0.7 10^3/uL (0.1-0.6); Absolute Neutrophils 2.2 10^3/uL (1.4-6.5); Hematocrit 33.4 % (37.0-47.0); Mean Corp Hgb Conc. 32.9 g/dL (33.0-37.0); Mean Corpuscular Hgb 31.3 pg (27.0-31.0); Mean Corpuscular Volume 95.2 fL (81.0-99.0); Mean Platelet Volume 9.3 fL (7.4-10.4); Nucleated Red Blood Cells % 0 %; Platelet Count 281 10^3/uL (130-400); Red Blood Cell Count 3.51 10^6/uL (4.20-5.40); White Blood Cell Count 4.2 10^3/uL (4.8-10.8)
[2024-08-22 10:39] LABS: Red Cell Dist. Width 16.4 % (11.5-14.5)
--- NOTE | 2024-08-22 11:24 | PTCARENOTE ---
Addendum entered by Michelle Solomon RN 08/22/24 18:33:
Pt encouraged to turn frequently while in bed. Pt ate her meals while OOB in chair and has walked in the halls several times today.
Original Note:
Pt c/o sacral discomfort, sacrum with blanchable red areas, skin prep applied and then large silicone border foam applied
[2024-08-22 14:32] VITALS: BP 113/49
--- NOTE | 2024-08-22 14:58 | PTCARENOTE ---
Pt c/o pain at R PICC site, ice pack applied earlier, IV team notified and came to see Pt. Pressure dsg removed, will try warm compresses as advised by IV team.
[2024-08-22 15:51] VITALS: BP 131/52
[2024-08-22 19:24] VITALS: BP 120/50
[2024-08-22] MEDS: SENOKOT-S 1 TABLET PO (19:27)
--- NOTE | 2024-08-22 20:35 | PTCARENOTE ---
Pt rec'd at change of shift awake,alert with no c/o pain at present. paced on telemetry. MARGARET picc flushed with good blood return. site clean dry and intact. no bm for 2 days medicated with Senokot. waffle cushion placed under pts buttocks in bed. Pt
encouraged to change positions in bed freq to prevent skin breakdown.
[2024-08-22 22:06] VITALS: BP 140/66
[2024-08-22] MEDS: CARDIZEM CD 240 MG PO (22:07)
[2024-08-22] MEDS: LIPITOR 10 MG PO (22:07)
--- NOTE | 2024-08-22 22:37 | PTCARENOTE ---
Pt medicated with Tylenol for LLE (wound site) discomfort.
[2024-08-23] VITALS (7 sets, daily range): BP systolic 122–154; BP diastolic 54–123; BMI 20.2
[2024-08-23] MEDS: SYNTHROID 100 MCG PO (05:48)
[2024-08-23] MEDS: VANCOCIN 200 IV (05:48)
[2024-08-23] MEDS: BENADRYL 50 MG IV (05:49)
[2024-08-23] MEDS: SPIRIVA RESPIMAT 2.5 MCG 2 PUFF INH (07:57)
[2024-08-23] MEDS: ELIQUIS 5 MG PO ×2 (07:57→21:01)
[2024-08-23] MEDS: WELLBUTRIN XL (24 hour extended release) 150 MG PO (07:57)
[2024-08-23] MEDS: SYMBICORT 80/4.5 MCG INHALER 2 PUFF INH ×2 (07:57→18:15)
[2024-08-23] MEDS: TOPROL XL 25 MG PO (07:59)
[2024-08-23] MEDS: RESTASIS 0.05% OPHTHALMIC EMULSION 1 DROPS BOTH EYES ×2 (07:59→21:01)
[2024-08-23] MEDS: LASIX 20 MG PO (07:59)
--- NOTE | 2024-08-23 08:21 | PHA.VAN.FU ---
Vancomycin Assessment / Plan
- Assessment
Renal Function: Stable
WBC's are: Stable
In the past 24 hrs, patient has been: Afebrile
- Dosing Plan
Continue: 1GM Q24H
- Monitoring Plan
Random Level: 08/24 @0530
- Follow Up
Pharmacy will continue to follow.
Vancomycin Follow UP
- -
Patient Age: 83
Patient Sex: Female
Vancomycin Day #: 5
Indication: Skin And Soft Tissue
Requesting Provider: Dr. Johnson
Pertinent Antimicrobial Allergies:
clarithromycin - gastric problems
erythromycin - GI problems
vancomycin - infusion reaction
Height / Weight:
Height 5 ft 4 in
Actual Weight 53.3 kg
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
- Vital Signs / Lab Results
Temp Pulse Resp BP Pulse Ox
98.2 F 72 16 144/71 99
08/23/24 08:02 08/23/24 08:01 08/23/24 08:02 08/23/24 07:50 08/23/24 08:02
Lab Results - Hematology
08/21/24 08/22/24
05:29 08:41
WBC 3.3 L 4.2 L
Lab Results - Chemistry
08/21/24 08/22/24
05:29 08:41
BUN 28 H 30 H
Creatinine 0.9 0.9
Estimated Creat Clear 42 42
Microbiology Results
08/18/24 18:38 Blood Culture - Preliminary
Blood/Venous No Growth in 4 days- Final report to follow
08/18/24 18:43 Blood Culture - Preliminary
Blood/Venous No Growth in 4 days- Final report to follow
Therapeutic Drug Monitoring
Vancomycin Peak 16.8 ug/ml (18-26) L 08/21/24 11:18
Vancomycin Trough 9.1 ug/ml (5-20) 08/21/24 05:29
[2024-08-23] MEDS: BETAMETHASONE VALERATE 0.1% CREAM 1 APPLIC TOPICAL (10:36)
--- NOTE | 2024-08-23 10:54 | W.PN.HOSP.TC ---
Today's Communication/Plan
-
IV vancomycin via right PICC line
Pacemaker removal on 08/27/24
Eliquis 5 mg twice daily (hold on 08/26/2024)
Discharge home tomorrow
Assessment / Plan
Assessment / Plan
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
-Per cardiology treatment is removal of all possible hardware
-Per cardiology patient is 100% atrially paced, thus dependent on PPM
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
-Blood cultures remain negative after 48 hours
-Scheduled removal of pacemaker on 08/27/2024
-S/p RUE PICC line, plan for 6-week OP antibiotic course
#DVT of LUE
-Likely provoked in the context of Staph aureus infection
-Ultrasound on 08/17/2024 showed DVT of subclavian vein and cephalic
-Spoke with on-call hematology, recommended increasing Eliquis to 5 mg twice daily
-Should be maintained on 5 mg Eliquis while on IV antibiotics for infection
-Will need to follow-up with PCP OP to transition back to 2.5 mg dose
#H/O vancomycin reaction (Francisca syndrome)
-Currently on vancomycin with Benadryl
-No signs of allergy at this time
#Lower extremity ulcer
-Has a 2 x 2 inch ulcer of the distal left lower extremity
-Has 2+ pulses, do not suspect this is ischemic in nature
-Has significant DVT history, may be related to CVI and edema
-Patient states it is slowly improving, no signs of purulence
-On vancomycin as above
-Continue with CVI supportive measures and wound care
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
#Chronic doxycycline maintenance
-Recently with a septic prosthetic knee, s/p I&D and exchange by orthopedics in 05/2024
-Was on doxycycline regimen as an outpatient
#H/O DVT s/p IVC filter
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
-Currently on Eliquis for paroxysmal AF
-Per cardiology may need removal of IVC filter due to MRSA
-Significant degree of endothelialization, failed 2 previous removals
-Ordered CT venous phase as above, IR following
#HFpEF/RV failure
#Pulmonary hypertension with severe TR
-Last TTE with preserved LVEF though enlarged RV
-Home medications include Lasix; not currently on GDMT
-Suspect group 2 versus group 3 PAH with COPD and HFpEF
#Paroxysmal AF
-Nonvalvular, [id number] score 4
-Home medications include Eliquis, Cardizem and metoprolol
-Heart rate currently WNL, appears in sinus rhythm this morning
-Per cardiology will need Eliquis held 1 day prior to pacemaker extraction if need
#HTN
-Home regimen includes diltiazem, metoprolol, Lasix
-Not currently on any first-line antihypertensives
-Blood pressure adequate
#Hypothyroidism
-Unclear etiology, home medications include levothyroxine 100 mcg
-No signs or symptoms of thyroid dysfunction at this time
#COPD
-Likely GOLD A versus B, Home meds include Trelegy Ellipta
-Did not require any supplemental oxygen at baseline
-Does have pulmonary hypertension which may be related
-No signs of exacerbation
#GERD/Ribeiro's esophagus
-Home medication includes esomeprazole
-Complicated by Ribeiro's esophagus as above
-Unclear if any significant dysplasia noted
-Should have follow-up OP with GI
#H/O lung cancer s/p chemotherapy
-No known signs of recurrence
DVT prophylaxis: Home Eliquis
Diet: Regular
CODE STATUS: DNR
Anticipated Discharge: Within 24 hours
Subjective/Interval History
-
Date of Service: August 23, 2024
Seen and examined at the bedside. No acute events reported overnight. AFVSS this morning
States that the discomfort in her left upper extremity/shoulder is improving, as is the discomfort around her RUE PICC line
Otherwise denies any new complaints.
Objective Data
-
Vital Signs:
Vital Signs
Temp Pulse Resp BP Pulse Ox
98.2 F 72 16 144/71 99
08/23/24 08:02 08/23/24 08:01 08/23/24 08:02 08/23/24 07:50 08/23/24 08:02
I&O
08/22/24 08/23/24 08/24/24
06:59 06:59 06:59
Intake Total 240 / 240 500 / 500
Balance 240 / 240 500 / 500
Review of Systems
-
History Source: Patient
All other systems: Reviewed and negative
Physical Exam
-
General: Well Developed, No Apparent Distress, Comfortable and Other
HEENT: Normocephalic, Atraumatic and Moist Mucous Membranes
Respiratory: Clear to Auscultation and Non Labored Respirations
Cardiac: Regular Rhythm and S1/S2; Negative Murmur, Rub or Gallop
GI: Soft, Nontender, Nondistended and Normal Bowel Sounds
Musculoskeletal: No Clubbing, No Cyanosis and No Edema
Skin: Warm, Dry, Normal Turgor and Other (Improving swelling and erythema to the proximal LUE); Negative Rash
Neuro: AO x 3 and Nonfocal/Grossly Intact
Psych: Calm
Data Reviewed
-
Labs: Labs Reviewed by me and Discussed with Patient
--- NOTE | 2024-08-23 14:55 | PTCARENOTE ---
Pt's L lower leg dsg changed, yellow purulent drainage noted on old dsg. Site cleansed with sterile nss and betamethasone valerate cream applied as ordered. Redressed as ordered. Wound tender/painful during dsg change but Pt does not want Tylenol at
this time. + DP pulses palpable bilat. Sacral foam dsg intact. Pt cleansed with CHG wipes as per hospital protocol for Pt with central line. R SL PICC dsg D+I, Pt still has some tenderness at the site, warm compress applied.
[2024-08-23] MEDS: CARDIZEM CD 240 MG PO (21:00)
[2024-08-23] MEDS: LIPITOR 10 MG PO (21:00)
--- NOTE | 2024-08-23 21:48 | PTCARENOTE ---
Received patient at change of shift. Patient sitting in bed, awake and oriented x3. BP 122/61, A-paced with occasional PVCs, 97% on room air. Discussed plan of care. Patient verbalized understanding. Call denis within reach.
[2024-08-23] MEDS: SENOKOT-S 1 TABLET PO (22:40)
[2024-08-24] MEDS: SYNTHROID 100 MCG PO (05:40)
[2024-08-24] MEDS: BENADRYL 50 MG IV (05:40)
[2024-08-24] MEDS: VANCOCIN 200 IV (05:40)
[2024-08-24 05:55] LABS: % Basophils 2.3 % (0-2); % Immature Granulocytes 0.6 % (0-0.5); % Lymphocytes 21.3 % (20.5-51.1); % Monocytes 18.4 % (1.7-9.3); % Neutrophils 50.4 % (42.2-75.2); Absolute Basophils 0.1 10^3/uL (0-0.2); Absolute Eosinophils 0.2 10^3/uL (0-0.7); Absolute Lymphocytes 0.7 10^3/uL (1.2-3.4); Absolute Monocytes 0.6 10^3/uL (0.1-0.6); Absolute Neutrophils 1.7 10^3/uL (1.4-6.5); Hematocrit 33.5 % (37.0-47.0); Hemoglobin 10.9 g/dL (12.0-16.0); Mean Corp Hgb Conc. 32.5 g/dL (33.0-37.0); Mean Corpuscular Hgb 31.1 pg (27.0-31.0); Mean Corpuscular Volume 95.7 fL (81.0-99.0); Mean Platelet Volume 9.5 fL (7.4-10.4); Nucleated Red Blood Cells % 0 %; Platelet Count 223 10^3/uL (130-400); White Blood Cell Count 3.4 10^3/uL (4.8-10.8)
[2024-08-24 06:05] VITALS: BP 138/71
[2024-08-24 06:13] LABS: Vancomycin Trough 10.9 ug/ml (5-20)
[2024-08-24 06:15] LABS: ALT (SGPT) 17 U/L (0-35); AST (SGOT) 26 U/L (14-36); Albumin 3.2 g/dl (3.5-5.0); Alkaline Phosphatase 113 U/L (38-126); Blood Urea Nitrogen 32 mg/dl (7-17); Calcium 8.7 mg/dl (8.4-10.2); Carbon Dioxide 29 mmol/L (22-30); Chloride 103 mmol/L (98-107); Estimated Creatinine Clearance 37 ml/min; Glucose 101 mg/dl (70-99); Sodium 138 mmol/L (135-145); Total Bilirubin 0.3 mg/dl (0.2-1.3); Total Protein 6.4 g/dl (6.3-8.2)
[2024-08-24 06:28] LABS: Potassium 4.3 mmol/L (3.5-5.1)
[2024-08-24] MEDS: SYMBICORT 80/4.5 MCG INHALER 2 PUFF INH (07:16)
[2024-08-24] MEDS: SPIRIVA RESPIMAT 2.5 MCG 2 PUFF INH (07:16)
[2024-08-24 08:00] VITALS: BP 150/66
[2024-08-24] MEDS: WELLBUTRIN XL (24 hour extended release) 150 MG PO (08:33)
[2024-08-24] MEDS: TOPROL XL 25 MG PO (08:33)
[2024-08-24] MEDS: RESTASIS 0.05% OPHTHALMIC EMULSION 1 DROPS BOTH EYES (08:34)
[2024-08-24] MEDS: ELIQUIS 5 MG PO (08:34)
[2024-08-24] MEDS: BETAMETHASONE VALERATE 0.1% CREAM 1 APPLIC TOPICAL (08:34)
--- NOTE | 2024-08-24 08:55 | PTCARENOTE ---
received patient this am on walking rounds. patient awake, patient has anxiety with everything going on, offered emotional support. restrictions on left arm and right arm. monitor shows Apaced, VSS.
--- NOTE | 2024-08-24 09:06 | W.PN.HOSP.TC ---
Today's Communication/Plan
-
Discharge today
Assessment / Plan
Assessment / Plan
Physical Exam
General: Not in acute distress
HEENT: Normocephalic
Respiratory: Clear to Auscultation Bilaterally
Cardiac: Regular Rhythm and S1/S2
GI: Soft, Nontender, Nondistended and Normal Bowel Sounds
Musculoskeletal: No Cyanosis and No Edema
Skin: Warm, Dry
Neuro: AO x 3 and Nonfocal/Grossly Intact
Psych: Calm
Assessment/Plan
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
#Recent history of Prosthetic Joint Infection due to MSSA
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
-Per cardiology treatment is removal of all possible hardware
-Per cardiology patient is 100% atrially paced, thus dependent on PPM
-TTE showed no vegetations or new valvular dysfunction
-Currently on IV vancomycin with Benadryl pretreatment due to history of 'Red Man' syndrome
-I spoke with Dr. Norman today who mentioned patient will be discharge with Vancomycin - s/p RUE PICC line, plan for 6-week OP antibiotic course -- followed by suppressive therapy with an alternative to doxycycline
-Blood cultures showed no growth
-Scheduled removal of pacemaker (extraction of hardware and implantation of leadless micra) on 08/27/2024 -- Eliquis need to be held 08/26/24 evening and 08/27/24 morning for this procedure -- and resumed as per cardiology's instructions following
the procedure
-Infectious Disease requested cultures (both aerobic and anaerobic) from the OR for the procedure above
#DVT of Left Upper Extremity
-Likely provoked in the context of Staph aureus infection
-Ultrasound on 08/17/2024 showed DVT of subclavian vein and cephalic
-Dr. Espinoza spoke with on-call hematology, recommended increasing Eliquis to 5 mg twice daily
-Should be maintained on 5 mg Eliquis while on IV antibiotics for infection
-Will need to follow-up with PCP OP to transition back to 2.5 mg dose
#H/O vancomycin reaction (Francisca syndrome)
-Currently on vancomycin with Benadryl pretreatment
-No signs of allergy at this time
#Lower extremity ulcer
-Has a 2 x 2 inch ulcer of the distal left lower extremity
-Has 2+ pulses, do not suspect this is ischemic in nature
-Has significant DVT history, may be related to CVI and edema
-Patient states it is slowly improving, no signs of purulence
-On vancomycin as above
-Continue with CVI supportive measures and wound care
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
#Chronic doxycycline maintenance
-Recently with a septic prosthetic knee, s/p I&D and exchange by orthopedics in 05/2024
-Was on doxycycline regimen as an outpatient
#H/O DVT s/p IVC filter
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
-Currently on Eliquis for paroxysmal AF
-Significant degree of endothelialization, failed 2 previous removals
-IR consulted, they favor conservative management as long as blood cultures remain negative (blood cultures are negative) given complexity in removing highly endothelialized device, Infectious Disease is also in agreement with this.
#HFpEF/RV failure
#Pulmonary hypertension with severe TR
-Last TTE with preserved LVEF though enlarged RV
-Home medications include Lasix; not currently on GDMT
-Suspect group 2, group 3 PAH with COPD and HFpEF
-Continue Lasix
#Paroxysmal AF with recent cardioversion and pacemaker placement in 12/2023
-Nonvalvular, [id number] score 4
-Home medications include Eliquis, Cardizem and metoprolol - continue current doses of diltiazem and Toprol-XL. Eliquis to be temporarily held later this week, as above.
#Hypertension
-Home regimen includes diltiazem, metoprolol, Lasix
-Blood pressure okay, will need follow-up with PCP outpatient
#Hypothyroidism
-Continue Levothyroxine 100 mcg
#Hyperlipidemia
-Continue Atorvastatin
#COPD
-Likely GOLD A versus B, Home meds include Trelegy Ellipta
-Did not require any supplemental oxygen at baseline
#GERD/Ribeiro's esophagus
-Home medication includes esomeprazole
-Complicated by Ribeiro's esophagus as above
-Unclear if any significant dysplasia noted
-Should have follow-up OP with GI
#H/O lung cancer s/p chemotherapy
-No known signs of recurrence
DVT prophylaxis: Home Eliquis
CODE STATUS: DNR
More than 30 minutes spent in discharge including
Final examination of the patient
Summarizing hospital stay
Instructions for continuing care to all relevant caregivers
Preparation of discharge records, prescriptions, and referral forms
Total time spent (in minutes): 39
Anticipated Discharge: Today
Subjective/Interval History
-
Date of Service: August 24, 2024
Patient was seen and examined. She denied any chest pain or shortness of breath. She is looking forward to going home today.
Objective Data
-
Labs:
Laboratory Results
08/24/24
05:34
WBC 3.4 L
Hgb 10.9 L
Hct 33.5 L
Plt Count 223 D
Sodium 138
Potassium 4.3
Chloride 103
Carbon Dioxide 29
BUN 32 H
Creatinine 1.0
Glucose 101 H
Calcium 8.7
Total Bilirubin 0.3
AST 26
ALT 17
Alkaline Phosphatase 113
Vital Signs:
Vital Signs
Temp Pulse Resp BP Pulse Ox
98.4 F 60 20 150/66 96
08/24/24 08:00 08/24/24 08:33 08/24/24 08:10 08/24/24 08:33 08/24/24 08:10
I&O
08/23/24 08/24/2425
06:59 06:59 06:59
Intake Total 500 / 500
Balance 500 / 500
--- NOTE | 2024-08-24 09:14 | PHA.VAN.FU ---
Vancomycin Assessment / Plan
- Assessment
Renal Function: Stable
- Assessment - Trough Based Monitoring
Trough Value: 10.9 - drawn ~23.75H after 2nd dose of 1000mg
Level Today was: At Pre-Steady State
Level Comments: patient with appropriate accumulation
- Dosing Plan
Continue: Vanc 1000mg Q24H infused over 2 hours
- Monitoring Plan
No level(s) ordered at this time: plan for discharge today
Monitoring Comments: consider repeat levels when re-admitted for OR
- Follow Up
Pharmacy will continue to follow.
Vancomycin Follow UP
- -
Patient Age: 83
Patient Sex: Female
Vancomycin Day #: 6
Indication: Skin And Soft Tissue
Requesting Provider: Dr. Johnson
Pertinent Antimicrobial Allergies:
clarithromycin - gastric problems
erythromycin - GI problems
vancomycin - infusion reaction
Height / Weight:
Height 5 ft 4 in
Actual Weight 53.3 kg
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
- Vital Signs / Lab Results
Temp Pulse Resp BP Pulse Ox
98.4 F 60 20 150/66 96
08/24/24 08:00 08/24/24 08:33 08/24/24 08:10 08/24/24 08:33 08/24/24 08:10
Lab Results - Hematology
08/22/24 08/24/24
08:41 05:34
WBC 4.2 L 3.4 L
Lab Results - Chemistry
08/22/24 08/24/24
08:41 05:34
BUN 30 H 32 H
Creatinine 0.9 1.0
Estimated Creat Clear 42 37
Albumin 3.2 L
Microbiology Results
08/18/24 18:38 Blood Culture - Final
Blood/Venous No Growth - Final Report
08/18/24 18:43 Blood Culture - Final
Blood/Venous No Growth - Final Report
Therapeutic Drug Monitoring
Vancomycin Peak 16.8 ug/ml (18-26) L 08/21/24 11:18
Vancomycin Trough 10.9 ug/ml (5-20) 08/24/24 05:30
--- NOTE | 2024-08-24 10:12 | W.PN.CD ---
Today's Communication / Plan
-
- Stable for discharge.
- Plan for extraction of hardware and implant leadless micra on 08/27
Impression / Plan
-
83-year-old female with past medical history that is significant for hypertension, proximal atrial fibrillation, history of DVT status post IVC filter, GERD, hypothyroidism, hyperlipidemia, recent cardioversion and pacemaker placement in 12/2023,
recent admission for MRSA bacteremia in 05/2024 with prosthetic knee infection status post prolonged antibiotic infusion now presented with PPM pocket infection
PPM infection
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
- WONG in 05/2024 was negative for gross vegetations.
- Unfortunately, the infection is insidious in nature and ultimate treatment is removal of hardware.
- Venous ultrasound 08/21showed venous occlusion as expected with occlusive thrombus / vegetations. A separate peripheral venous occlusion in the left upper ext venous system noted.
- She is dependent on PPM with 100% atrial paced rhythm. Plan to extract the PPM and place a leadless AV micra 08/27
- Would recommend removal of IVC filter as well. IR consulted, favors conservative management as long as blood cultures remain negative given complexity in removing highly endothelialized device
- ID following, will plan for suppressive halfway abx for remaining hardware but remove the PPM and leads.
- Tolerated Vanco without side effect this time, plan for home Vanco with PICC line
- Hold Eliquis on 08/26 PM dose and 08/27 AM dose for the extraction.
L Subclavia DVT
- now on full dose Eliquis 5 BID given 'failure' of 2.5 BID dosing
- Not clear about the 'failure' as it could be vegetations from infection of chronic lower ext open wound.
Septic knee
- s/p -Septic joint s/p I+D and component exchange by ortho in 05/2024
- on I/V vancomycin.
OPD Exacerbation:
- stable.
-Management as per primary team.
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
-On Lasix 40 mg daily, which should be her home medication regimen.
Paroxysmal Atrial flutter:
-[id number] score at least 4 for age, female, HTN and history of DVT.
-Continue Eliquis, now 5 BID
-Continue current doses of diltiazem Cardizem CD and Toprol-XL.
-If PPM extraction is needed, will hold Eliquis 1 day prior to the procedure.
HTN: - Fairly controlled.
Subjective: PICC line placed today; patient feels well, but is appropriately distressed by her situation; long discuss with patient regarding plans. Risks, benefits, alternatives and procedural details were explained including risk of perforation,
mortality, DIC and septic shock with vegetations shower with extraction and risks and benefits of leadless pacemaker.
Physical Exam
Vital Signs/Labs
Vital Signs
Temp Pulse Resp BP Pulse Ox
98.4 F 60 20 150/66 100
08/24/24 08:00 08/24/24 09:00 08/24/24 08:10 08/24/24 08:33 08/24/24 08:30
08/23/24 08/24/24 08/25/24
06:59 06:59 06:59
Actual Weight 53.8 kg 53.3 kg
08/24/24 05:34
08/24/24 05:34
Physical Exam
Constitutional: No acute distress and Comfortable
EENT: Anicteric and Moist mucous membranes
Cardiovascular: Rhythm & rate is regular, Pedal edema is absent, JVD pressure is normal and Systolic murmur absent
Respiratory: Respiratory effort normal, Crackles Absent and Rhonchi Absent
GI: Soft, Non tender and Normal bowel sounds
Neuro/Psych: Alert, Oriented, AO x 3 and Motor deficits absent
Other: Cardiac Device Site
Data Reviewed
-
Date of Service: August 24, 2024
Medical Decision Making: Reviewed Test Results, Independent Historian Assessment, Test Interpretation and Review of Case with other Provider
EKG: Tracing Personally Visualized and interpreted
Echo: Report Reviewed by me
X-Ray/CT/US/MRI/NUC/PET: Image Personally Visualized and interpreted and Report Reviewed by me
Medical Tests (PFT, Pathology etc): Discussed with Patient
Labs: Labs Reviewed by me
Old Records: Reviewed
Total Time Spent with Patient (in minutes): 55
[2024-08-24] MEDS: TYLENOL 650 MG PO ×2 (10:46→15:52)
--- NOTE | 2024-08-24 10:48 | PTCARENOTE ---
patient c/o headache in the back of the head, Tylenol po given as ordered.
--- NOTE | 2024-08-24 10:58 | W.PN.ID1 ---
Date of Service
Date of Service: August 24, 2024
Today's Communication
- PICC in place
- anticipate another 6 week course of IV antibiotics, would continue suppression for the prosthetic joint afterwards with an alternative to doxycycline
- currently planning vancomycin, patient requesting alternatives, will also have onsite case manager check cost of daptomycin and review with patient
Assessment / Plan
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
Recent H/o PJI due to MSSA
- given extended exposure to cefazolin, isolate may have developed resistance. Suspect lead was seeded during episodes of bacteremia in May 2024
- blood cultures x2 in progress no growth to date
- recommend pacemaker and lead extraction, replacement with leadless pacemaker if feasible
- requested cultures from the OR - aerobic and anaerobic - note that OR time is scheduled for later this week, I will not be surprised if cultures are falsely negative due to current antibiotic course
- TTE no vegetations or new valvular dysfunction
- PICC in place
- anticipate another 6 week course of IV antibiotics, would continue suppression for the prosthetic joint afterwards with an alternative to doxycycline
- currently planning vancomycin, patient requesting alternatives, will also have onsite case manager check cost of daptomycin and review with patient
- stable for dc from ID perspective
Chief Complaint
-: Other (pacemaker infection)
Subjective / Review of Systems
afebrile
bp stable
waxing and waning leukopenia noted
still with tenderness over the pacemaker
Vital Signs / Physical Exam
Vital Signs
Vital Signs
Temp Pulse Resp BP Pulse Ox
98.4 F 60 20 150/66 100
08/24/24 08:00 08/24/24 09:00 08/24/24 08:10 08/24/24 08:33 08/24/24 08:30
Physical Exam
Constitutional: No Acute Distress and Chronically Ill
Cardiovascular: Regular Rate and S1/S2; Negative Murmur or Rub
Pulmonary: Clear and Symmetric; Negative Wheezes or Rales
Gastrointestinal: Soft, Non Tender, Non Distended and Normal Bowel Sounds
Skin: Warm, Dry and Other (swelling under the L arm in the dependant area no longer firm or erythematous); Negative Rash or Jaundice
Lines: Other (pacemaker - tender, no erythema, no fluctuance)
Objective Data
Lab Data
Lab Results
08/24/24 05:34
08/24/24 05:34
Estimated Creat Clear 37 ml/min 08/24/24 05:34
Total Bilirubin 0.3 mg/dl (0.2-1.3) 08/24/24 05:34
AST 26 U/L (14-36) 08/24/24 05:34
ALT 17 U/L (0-35) 08/24/24 05:34
Alkaline Phosphatase 113 U/L (38-126) 08/24/24 05:34
Most recent labs reviewed.
Micro Results:
08/18/24 18:38 Blood Culture - Final
Blood/Venous No Growth - Final Report
08/18/24 18:43 Blood Culture - Final
Blood/Venous No Growth - Final Report
08/19/24 04:20 MRSA Screen - Final
Nose No Methicillin Resistant Staphylococcus aureus isolated.
Care Review
Plan reviewed with: Physician (Dr Jackeline sheriff, antibiotics)
[2024-08-24 11:00] VITALS: BP 146/49
--- NOTE | 2024-08-24 12:03 | CM ---
Addendum entered by Arielle Mcclain 08/24/24 13:12:
Reviewed co-pays for medications and supplies. The Vanco and dapto. does not have a co-pay. She will have a 20 % co-pay for supplies. Medications to be delivered Saturday afternoon with [facility] going out on Saturday A.M. The discharge plan is to
return home with [facility] infusion and [facility] Services when medically stable.
Original Note:
Reviewed chart. Met with Mr. and Mrs. Quigley to review discharge plans. ID Doctor wants to check the cost of Dapoymycin 500 mg once a day. Telephone emani to [facility] Liaison to review above with her. Left message. Dereje is schedule to see her
on Saturday if she goes home today. Awaiting to hear back from [facility] regarding cost of medications and supplies.
[2024-08-24 15:00] VITALS: BP 135/80
--- NOTE | 2024-08-24 16:00 | PTCARENOTE ---
patient c/o generalized body pain, Tylenol po given as ordered.
--- NOTE | 2024-08-24 17:44 | PTCARENOTE ---
D/C instructions given to patient and , both verbalizes understanding. patient left hospital with right upper arm PIC line in which she will be receiving antibiotics. D/C instructions faxed to [facility] by business unit director. arrangements
have been made by case management for antibiotics to be sent to the home. left leg dsg. will be changed by patient at her request. monitor D/C'd. personal belongings packed and sent home with patient. D/C to home via wc accompanied by staff.
== END 2024-08-24 18:12 | disposition home or self-care (01) | DRG 315 ==
LOC: IVU 21:59
PROVIDERS: Internal Medicine; Physician Assistant; Radiology Vascular & Interventional Radiology; ADMITTING PHYSICIAN Internal Medicine; ATTENDING PHYSICIAN Hospitalist; CONSULT PHYSICIAN Student in an Organized Health Care Education/Training Program; EMERGENCY PHYSICIAN Emergency Medicine; FAMILY PHYSICIAN Internal Medicine; OTHER PHYSICIAN Internal Medicine Cardiovascular Disease
PROC: 02HV33Z Insertion of Infusion Device into Superior Vena Cava, Percutaneous Approach (ICD-10-PCS; 2024-08-21)
DX: T82.7XXA Infection and inflammatory reaction due to other cardiac and vascular devices, implants and grafts, initial encounter (principal); I50.32 Chronic diastolic (congestive) heart failure; L97.829 Non-pressure chronic ulcer of other part of left lower leg with unspecified severity; T82.867A Thrombosis due to cardiac prosthetic devices, implants and grafts, initial encounter; I48.0 Paroxysmal atrial fibrillation; Z66 Do not resuscitate; I25.10 Atherosclerotic heart disease of native coronary artery without angina pectoris; I11.0 Hypertensive heart disease with heart failure; E03.9 Hypothyroidism, unspecified; E78.00 Pure hypercholesterolemia, unspecified; F32.A Depression, unspecified; J44.9 Chronic obstructive pulmonary disease, unspecified; K21.9 Gastro-esophageal reflux disease without esophagitis; I49.5 Sick sinus syndrome; B95.62 Methicillin resistant Staphylococcus aureus infection as the cause of diseases classified elsewhere; Y71.2 Prosthetic and other implants, materials and accessory cardiovascular devices associated with adverse incidents; Z96.651 Presence of right artificial knee joint; Z96.643 Presence of artificial hip joint, bilateral; Z88.5 Allergy status to narcotic agent; Z88.1 Allergy status to other antibiotic agents; Z87.891 Personal history of nicotine dependence; Z86.718 Personal history of other venous thrombosis and embolism; Z85.118 Personal history of other malignant neoplasm of bronchus and lung; Z79.899 Other long term (current) drug therapy; Z79.01 Long term (current) use of anticoagulants; Z79.890 Hormone replacement therapy
CPT/HCPCS: 71045; 76604; 80048; 80053; 80202; 82607; 82746; 85025; 85027; 87040; 87070; 93306; 93971; 94640; 96374; 96375; 99285

== ENCOUNTER 2024-08-27 05:52 | Day surgery (SDC) | payer MEDICARE, OTHER, SELFPAY ==
[2024-08-27] VITALS (13 sets, daily range): BP systolic 100–148; BP diastolic 55–89; BMI 20.1
[2024-08-27] MEDS: BENADRYL 50 MG IV (07:56)
[2024-08-27] MEDS: VANCOCIN 200 IV (07:56)
[2024-08-27] MEDS: AZACTAM 2000 MG IV (08:38)
[2024-08-27] MEDS: SUBLIMAZE 50 MCG IV (11:21)
--- NOTE | 2024-08-27 12:05 | ITS.CL.PN ---
[employer] - Procedure Note
Procedure
Procedure Note:
Extraction Procedure:
Extraction of infected dual chamber PPM system including extraction of RA and RV lead and implantation of temporary pacemaker
Ms. Quigley is an 83-year-old woman with hypertension, proximal atrial fibrillation, history of DVT status post IVC filter, chronic anticoagulation, GERD, hypothyroidism, hyperlipidemia, recent cardioversion and SSS s/p pacemaker placement in 12/2023,
with recent open lower ext wounds with MRSA bacteremia in 05/2024 with prosthetic knee infection status post prolonged antibiotic infusion now presented with PPM pocket infection is advised extraction of hardware and placement of temporary wire for
the placement of leadless pacemakerr /
Indications:
Infected PPM system with Pseudomonas infection.
Date of the Procedure: 08/27/2024
Pre-Operative Diagnosis: Infected PPM system with MRSA infection.
Post-Operative Diagnosis: Infected PPM system with MRSA infection.
Procedure Performed: Extraction of infected dual chamber PPM system including extraction of RA and RV lead and implantation of temporary permanent pacemaker
Performing Physicians:
Lynda Rubin MD
Anesthesia:
See anesthesia records
Detailed Description of the Procedure:
Written informed consent was obtained from the patient after a full explanation of the risks and benefits of the procedure. The patient was brought to the lab in the fasting state. Prophylactic antibiotics were given prior to the start of the
procedure. Continuous electrocardiographic and hemodynamic monitoring was initiated.
The initial rhythm was RA paced rhythm.
The PPM device was interrogated.
Anesthesia provided moderate sedation for the case. The ventral torso was meticulously prepared with surgical scrub and allowed to dry with no pooling. Sterile draping was applied to cover the operative field. The image intensifier was draped with a
sterile bag and positioned over the patient's chest.
A surgical pause was performed in accordance with hospital regulations. Anesthesia service provided sedation as reported separately. Antibiotics administered IV for risk of bacterial colonization.
Temporary Pacemaker placement:
�
After infusion of local anesthetic, vascular access was obtained under ultrasound guidance and sheath was placed over guide wire as detailed below.
First, temporary pacemaker wire was implanted using 6 Maltese sheath in the right femoral vein. The wire was carefully maneuvered through the IVC filter. Patient is PPM dependent and with PPM rate reduced to 30bpm, was paced from the temporary wire.
Excellent threshold and sensing identified. Temporary pacemaker was set at 50 bpm at VVI.
Pocket Exploration / debridement:
After infiltration with lidocaine, an incision was made in the left delto-pectoral groove over the previously incision. Using blunt dissection and electrocautery, the incision was carried down to the level of the device, being careful to maintain
adequate hemostasis and not disrupt the previously implanted lead. Fluoroscopy was performed with showed normal appearance of the existing lead during the procedure.
The pocket was dry with no sign of infection.� Pacemaker and leads were securely anchored with sutures.� No sign of infection noted.� Blood cultures were obtained from the pacemaker pocket.
In the leads were released from the anchors and the access was increased to the venous access. Once the venous system was accessed, pus was noted coming out from the venous structure.� Pus was sucked and removed and the area was washed.
The generator was removed from the pocket.
The lead was released from the scar tissue and the fibrotic tissue was removed. The sleeves were cut and the tissue was released.
RV lead extraction:
The RV PPM lead was removed from the generator. A stylet was placed in the lead. The RV lead was unscrewed and was able to successfully pull into the RA.
The lead was withdrawn from the venous system. Hemostasis at the venous entry site was obtained using pressure.
Patient was paced via the temporary wire.
Right atrial lead Removal:
The right atrial lead was removed from the generator. The Stylet was placed to the tip and the lead was successfully unscrewed from the tissue. The atrial lead was freed and was successfully removed from the venous system.
Wound debridement:
����������� - The PPM pocket was clean but once the pus identified, it was explored and was extending to the lateral side towards axilla.
����������� - The infected area with pus extending into the axillary thoracic wall.
����������� - The pocket was opened and explored. The necrotic tissue was excised and removed using #11 blade, and bovie /plasma blade.
����������� - Once the necrotic tissue was excised then the pocket was sloughed out using betadine/ antibiotics soaked Kerlex.
����������� - The necrotic tissue involved the skin, subcutaneous tissues, fascia tissue. All the necrotic tissue was excised until the fresh blood is noted with normal appearing muscle is seen.
Then the pocket and the incision was washed with Vancomycin soaked solution.�
The deep tissue was closed with 2-0 V loc. The outer dermis and skin was closed using V-loc sutures. Steri-strips and a sterile dressing were then applied.
Another skin wound was also closed using 4-0 V Loc.
Procedure End:
The procedure was tolerated well. A bandage was applied to the incision area to be removed in a day.
A permanent PPM was advised given patient requiring pacing.
Estimated Blood loss:
10 cc
Specimens Removed:
Deep pocket aerobic and anaerobic cultures were obtained.
Urine output:
None
Packs / Drains/ Tubes:
None
Instrument / Sponge Count Correct:
Yes
Complications of the Procedure:
None
Condition of Patient at Time of Transfer:
Hemodynamically stable with no neurological or vascular compromise.
Explanted Device information:
The existing device was explanted during this procedure on 08/27/2024
Implant date: 01/09/2024; Explanted on 08/27/2024
����������� Generator:Medtronic; Model: [id number]; Serial # [id number]
����������� Atrial Lead: Medtronic; Model: 5076-45; Serial # [id number] �
�����������
����������� RV Lead: Medtronic; Model: 5076-52; Serial # [id number]
Summary:
Successful extraction of dual chamber PPM system including RV, RA lead and implantation of temporary pacemaker placement
Results/Recommendations:
1. Leadless pacemaker placement under antibiotics cover.
�
Lynda Rubin MD [facility]
Electrophysiology
--- NOTE | 2024-08-27 12:34 | ITS.CL.PACE ---
[facility] [employer] - Pacemaker Implant
Pacemaker Implant
Procedure Report:
Leadless Pacemaker (Micra) Implantation:
Ms. Quigley is an 83-year-old woman with hypertension, proximal atrial fibrillation, history of DVT status post IVC filter, chronic anticoagulation, GERD, hypothyroidism, hyperlipidemia, recent cardioversion and SSS s/p pacemaker placement in 12/2023,
with recent open lower ext wounds with MRSA bacteremia in 05/2024 with prosthetic knee infection status post prolonged antibiotic infusion now presented with PPM pocket infection s/p extraction of hardware and placement of temporary wire for the
placement of leadless pacemaker. With the increased risk of infection, it was decided to pursue a leadless pacemaker.
Indications: Bradycardia and sinus arrest with PPM dependence
Date of the Procedure:
08/27/2024
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
Post-Operative Diagnosis: Severe bradycardia with sinus arrest with PPM dependence.
Procedure Performed: Leadless pacemaker placement
Performing Physician:
Lynda Rubin MD
Anesthesia:
See anesthesia records
Detailed Description of the Procedure:
Written informed consent was obtained from the patient after a full explanation of the risks and benefits of the procedure including the risks of sedation and anesthesia.
The patient was brought to the electrophysiology laboratory in stable condition in fasting state. Continuous electrocardiographic and hemodynamic monitoring was initiated.
The initial rhythm was paced rhythm from the temporary wire.
The procedure site was meticulously prepared with surgical scrub and allowed to dry with no pooling. Sterile draping was applied to cover the procedure site. The image intensifier was draped with sterile bag and positioned over the patient.
After infusion of local anesthetic, vascular access was obtained under ultrasound guidance and sheaths were placed over guide wire as detailed below.
The Amplatz glidewire was placed and carefully threaded through the IVC filter. The venous access gradually dilated to 24 Fr. Then the 27 Fr Micra outer sheath was successfully and carefully advanced to the RA.
Leadless Pacemaker (Micra) implantation:
The delivery system of the Micra was prepped with removal of all air underwater and was advanced into the sheath to the RA with continuous saline irrigation. The sheath was pulled back to the IVC and the delivery sheath was advanced into the RV
cavity. The delivery system as placed against the ventricular septum using BEJARANO and KAZAKH fluoroscopic views and the septal approximation was confirmed with contrast injection. Once adequate location was confirmed, the locked sutures were unlocked and
the Micra was slowly advanced pulling back the delivery sheath releasing the anchoring hooks. The Micra was attached successfully to the RV septum. The PM was tested and adequate sensing and threshold noted.
Next, the tug test was done with the pulling the attached suture under fluoroscopic guidance with the three anchors securely embedded and showed movement and widening of the anchors with pulling them. The PPM again was tested showing stable
thresholds and excellent sensing.
The one side of the suture was cut and the other side was gradually and carefully pulled until free. The delivery system sheath was pulled back to the IVC and the PPM was again tested showing stable numbers.
Device Information:
Medtronic Leadless (Micra) pacemaker-
����������� Model #: [id number]; Serial Number: [id number] @ RV septum
Benjie parameter settings were VVI 60 bpm. �
Measured data in the Micra was sensing of 4.4 mV, impedance of 590 ohms and the threshold of 0.25 V at 0.24ms.
Procedure End
Following the completion of the Micra implant, catheters were removed. The decision was made to also place a �figure of 8� sutures. The sheaths were removed and hemostasis achieved with manual compression.
Estimated Blood loss:
<5 cc
Specimens Removed:
None.
Implants / Devices:
None
Urine output:
None
Packs / Drains/ Tubes:
None
Instrument / Sponge Count Correct:
Yes
Complications of the Procedure:
None
Condition of Patient at Time of Transfer:
Hemodynamically stable with no neurological or vascular compromise.
Summary:
Successful implantation of MRI compatible Leadless ventricular pacemaker
[2024-08-27] MEDS: TYLENOL 650 MG PO (12:38)
--- NOTE | 2024-08-27 16:47 | W.PN.UPDATE ---
Update Note
Progress Note Update
83 yo WF s/p Device extraction and MICRA PPM implant. She denies cp, sob, radha diet, L CW/shoulder sore chronic, R fem site c/d/i soft. She will hold EliOptimal Blueis tonight and resume in am. Activity restrictions reviewed. She will f/u for incision check in
1 week at [facility]. She is for d/c home after 430p if groin stable.
== END 2024-08-27 16:35 | disposition home or self-care (01) ==
LOC: CATH 05:52
PROVIDERS: ATTENDING PHYSICIAN Internal Medicine Cardiovascular Disease; FAMILY PHYSICIAN Internal Medicine; OTHER PHYSICIAN Student in an Organized Health Care Education/Training Program
DX: T82.7XXA Infection and inflammatory reaction due to other cardiac and vascular devices, implants and grafts, initial encounter (principal); Y84.9 Medical procedure, unspecified as the cause of abnormal reaction of the patient, or of later complication, without mention of misadventure at the time of the procedure; Z45.010 Encounter for checking and testing of cardiac pacemaker pulse generator [battery]; Z88.5 Allergy status to narcotic agent; Z88.1 Allergy status to other antibiotic agents; Z88.8 Allergy status to other drugs, medicaments and biological substances; Z86.718 Personal history of other venous thrombosis and embolism; I10 Essential (primary) hypertension; Z79.01 Long term (current) use of anticoagulants; K21.9 Gastro-esophageal reflux disease without esophagitis; I48.0 Paroxysmal atrial fibrillation; I49.5 Sick sinus syndrome; E03.9 Hypothyroidism, unspecified; E78.5 Hyperlipidemia, unspecified; R00.1 Bradycardia, unspecified; A24.9 Melioidosis, unspecified
CPT/HCPCS: 33233; 33235; 11042; 33274; 87070; 87075; 87147; 87205; 93005; C1769; C1786; C1892; C1894; Q9967

== ENCOUNTER 2024-08-28 11:42 | Emergency (ER) | payer MEDICARE, OTHER, SELFPAY ==
[2024-08-28 11:52] VITALS: BP 140/63
--- NOTE | 2024-08-28 12:04 | ED.GENMED ---
ED Provider Triage
<Oanh Negrete MD - Last Filed: 08/28/24 12:29>
-
Patient seen by provider in Triage?: Seen in Triage
PT 83 yr old female s/p PPM removal and micra replacement, d/c'd from hospital yesterday, presents with clear dishcarge from R groin area ever since, has changed 4 towels. Discharge not foul smelling, not purulent, no f/c. She did have short lived
cp this AM, attributes to anxiety about drainage. No numb/ting/weakness/bleeding. No abd pain. On exam, R puncture site with watery/clear sl drainage, no redness/warmth/fluctuance/crepitus/ttp or other abnl. Labs/US ordered. Will tt cards
regarding.
Plan d/c if w/u negative as TT exchange:
HI there...giving you a 'heads up' re: pt that was discharged yesterday s/p PPM extraction and macra implant. Tesha Quigley (2..43). Reports clear discharge from groin site ever since d/c yesterday. On exam, there is clear fluid (like interstitial)
expressed from site, no pus/erythema/ttp etc etc. Exam not convincing for infx. I ordered labs and US, and she is sitting in waiting room pending these tests (we are getting hammered down here). If labs fine, US neg for collection/pseudoan,
etc...will [place] back with you regarding thoughts. LMK if you have any other recs in meantime. Thanks.
12:25 PM
Message sent at 12:25 PM.
30 days left
Message expires in 30 days.
Message status isRead
Justino Nickerson said
Good afternoon. She can go home if the testing comes back fine. ! The oozing should improve over the next couple of days. Thanks.
12:27 PM
Message sent at 12:27 PM.
30 days left
Message expires in 30 days.
You said
Perfect. Thanks
12:28 PM
Message sent at 12:28 PM.
30 days left
Message expires in 30 days.
Message status isDelivered
History of Present Illness
<Oanh Negrete MD - Last Filed: 08/28/24 12:29>
General
Chief Complaint: Chest Pain
Time Seen by Provider: 08/28/24 14:48
<Therese Staples RECYCLABLE MATERIALS COLLECTOR - Last Filed: 08/28/24 18:23>
General
Source: patient and spouse
Exam Limitations: none
Nursing documentation reviewed up to this point in time: agreed with
History of Present Illness
History of Present Illness:
83-year-old female with past medical history of hypertension, atrial fibrillation, DVT status post IVC filter, GERD, hypothyroidism, hyperlipidemia, recent cardioversion and pacemaker placement in December 2023, Yesterday, had infected L upper chest
wall pacemaker removed and new pacemaker inserted via right groin (Device extraction and MICRA PPM implant). She stat. Had '3 towels soaked' with clear fluid and now here with dry ABD pad over the groin sheath insertion site.
Past History
<Oanh Negrete MD - Last Filed: 08/28/24 12:29>
Past History
ED Past Medical History: Cancer (Lung), COPD, GERD, HTN, Hypercholesterolemia, Hypothyroidism and Psychiatric (depression)
ED Past Surgical History: Orthopedic (R knee replacement, bilateral hip replacement) and Other (DVT, IVC Filter)
Social History
Tobacco: Former smoker
Alcohol: None
Personal:
Living: with family
Employment: Retired
Family History
Family History: CAD
Review of Systems
<Therese Staples RECYCLABLE MATERIALS COLLECTOR - Last Filed: 08/28/24 18:23>
Review of Systems
Allergies reviewed?: Yes
All Other Systems: ROS reviewed and negative except as documented in HPI and ROS
Constitutional: Denies fever
Respiratory: Denies trouble breathing
Cardiac: Denies chest pain
ABD/GI: Denies abdominal pain, nausea, vomiting or diarrhea
: Denies dysuria, frequency or difficulty voiding
Skin: Reports other (Left chest wall dressing intact, dry. Right groin ABD pad with minimal clear drainage. )
Phy Exam
<Therese Staples RECYCLABLE MATERIALS COLLECTOR - Last Filed: 08/28/24 18:23>
Physical Exam
Physical Exam:
GENERAL: No acute distress. A&Ox3.
CONSTITUTIONAL: Afebrile.
EYES: clear, conjunctivae normal
ENMT: moist mucus membranes
RESPIRATORY: Regular respirations, nonlabored, lungs clear.
CARDIOVASCULAR: Regular rate and rhythm, no murmurs, no rubs.
GI: Soft, nontender, normal BS
MUSCULOSKELETAL: Moves with ease. Well perfused.
SKIN: Warm, dry, pink. Puncture site right groin with no swelling, redness or warmth. Minimal clear fluid drainage noted. No bleeding. Distal n/v intact. L upper chest/shoulder dressing dry/intact. Distal n/v intact.
PSYCH: Normal mood and affect. Well kept, interactive and appropriate
NEUROLOGIC: Awake, alert and oriented. No focal neurological deficits
Scores
<Therese Staples RECYCLABLE MATERIALS COLLECTOR - Last Filed: 08/28/24 18:23>
Heart Score for Chest Pain Patients
STEMI patient?: Not applicable
Course
<Oanh Negrete MD - Last Filed: 08/28/24 12:29>
Orders/Labs/Results
Orders:
Orders
08/28/24 11:44
EKG [Electrocardiogram (*1)] Urgent
Reason for Study: Chest Pain
EKG- Treatment ONCE
08/28/24 12:03
US Groin (Imaging Only) RT Urgent
Comment:
Reason For Exam: s/p procedure yest, now drainage
08/28/24 12:24
Complete Blood Count/No Diff Urgent
Comprehensive Metabolic Panel Urgent
Troponin I Urgent
Abnormal Lab Results
08/28/24
12:24
RBC 3.11 L 10^6/uL
(4.20-5.40)
Hgb 9.8 L g/dL
(12.0-16.0)
Hct 30.6 L %
(37.0-47.0)
MCH 31.5 H pg
(27.0-31.0)
MCHC 32.0 L g/dL
(33.0-37.0)
RDW 16.6 H %
(11.5-14.5)
Potassium 5.4 H mmol/L
(3.5-5.1)
BUN 48 H mg/dl
(7-17)
Creatinine 1.3 H mg/dL
(0.6-1.0)
Glucose 102 H mg/dl
(70-99)
AST 108 H U/L
(14-36)
ALT 84 H U/L
(0-35)
Alkaline Phosphatase 162 H U/L
(38-126)
Troponin I 0.149 H* ng/ml
08/28/24 12:24
08/28/24 12:24
Vital Signs
Initial and Last Documented VS:
Initial Vital Signs
Temp Pulse Resp BP Pulse Ox
97.6 F 65 19 140/63 99
08/28/24 11:52 08/28/24 11:52 08/28/24 11:52 08/28/24 11:52 08/28/24 11:52
Last Documented Vital Signs
Temp Pulse Resp BP Pulse Ox
97.6 F 60 18 129/84 92
08/28/24 11:52 08/28/24 15:55 08/28/24 15:55 08/28/24 15:55 08/28/24 15:55
<Therese Staples RECYCLABLE MATERIALS COLLECTOR - Last Filed: 08/28/24 18:23>
Orders/Labs/Results
Orders:
Orders
08/28/24 11:44
EKG [Electrocardiogram (*1)] Urgent
Reason for Study: Chest Pain
EKG- Treatment ONCE
08/28/24 12:03
US Groin (Imaging Only) RT Urgent
Comment:
Reason For Exam: s/p procedure yest, now drainage
08/28/24 12:24
Complete Blood Count/No Diff Urgent
Comprehensive Metabolic Panel Urgent
Troponin I Urgent
Abnormal Lab Results
08/28/24
12:24
RBC 3.11 L 10^6/uL
(4.20-5.40)
Hgb 9.8 L g/dL
(12.0-16.0)
Hct 30.6 L %
(37.0-47.0)
MCH 31.5 H pg
(27.0-31.0)
MCHC 32.0 L g/dL
(33.0-37.0)
RDW 16.6 H %
(11.5-14.5)
Potassium 5.4 H mmol/L
(3.5-5.1)
BUN 48 H mg/dl
(7-17)
Creatinine 1.3 H mg/dL
(0.6-1.0)
Glucose 102 H mg/dl
(70-99)
AST 108 H U/L
(14-36)
ALT 84 H U/L
(0-35)
Alkaline Phosphatase 162 H U/L
(38-126)
Troponin I 0.149 H* ng/ml
08/28/24 12:24
08/28/24 12:24
Vital Signs
Initial and Last Documented VS:
Initial Vital Signs
Temp Pulse Resp BP Pulse Ox
97.6 F 65 19 140/63 99
08/28/24 11:52 08/28/24 11:52 08/28/24 11:52 08/28/24 11:52 08/28/24 11:52
Last Documented Vital Signs
Temp Pulse Resp BP Pulse Ox
97.6 F 60 18 129/84 92
08/28/24 11:52 08/28/24 15:55 08/28/24 15:55 08/28/24 15:55 08/28/24 15:55
<Therese Staples RECYCLABLE MATERIALS COLLECTOR - Last Filed: 08/28/24 18:23>
MDM/Problems Addressed
Differential Diagnosis Includes:
lymph fluid drainage
MDM/Problems Addressed:
83-year-old female with past medical history of hypertension, atrial fibrillation, DVT status post IVC filter, GERD, hypothyroidism, hyperlipidemia, recent cardioversion and pacemaker placement in December 2023, Yesterday, had infected L upper chest
wall pacemaker removed and new pacemaker inserted via right groin (Device extraction and MICRA PPM implant). She stat. Had '3 towels soaked' with clear fluid and now here with dry ABD pad over the groin sheath insertion site.
Pt appears well, pleasant. NAD
Consulted Cardiology RECYCLABLE MATERIALS COLLECTOR Lee Ann Caro who knows pt well, saw her yesterday. She states on rare occasion a lymph node/vessel gets nicked and could drain clear fluid like this. Sometimes needs a suture.
There is no sign of infection
Pt OOB and ambulating with no further drainage from the site.
Labs unremarkable, expected abnormalities with pt hx and recent pacemaker insertion.
Discussed with Dr. Sanchez who agrees
Groin US: IMPRESSION:
No findings to confirm right groin abnormal focal fluid collection.
3:40 p.m.
Continues with minimal clear drainage. 2 x 2 gauze and nonstick Telfa dressing applied
<Therese Staples NP - Last Filed: 08/28/24 18:23>
*Critical Care Note
Total Time (30-74mins, 75-104mins- exclusive of procedures): Not Applicable
<Oanh Negrete MD - Last Filed: 08/28/24 12:29>
Update Note
Update Note:
Plan d/c if w/u negative as TT exchange with DR Nickerson:
HI there...giving you a 'heads up' re: pt that was discharged yesterday s/p PPM extraction and macra implant. Tesha Dann ([birth year]). Reports clear discharge from groin site ever since d/c yesterday. On exam, there is clear fluid (like interstitial)
expressed from site, no pus/erythema/ttp etc etc. Exam not convincing for infx. I ordered labs and US, and she is sitting in waiting room pending these tests (we are getting hammered down here). If labs fine, US neg for collection/pseudoan,
etc...will [place] back with you regarding thoughts. LMK if you have any other recs in meantime. Thanks.
12:25 PM
Message sent at 12:25 PM.
30 days left
Message expires in 30 days.
Message status isRead
Justino Nickerson said
Good afternoon. She can go home if the testing comes back fine. The oozing should improve over the next couple of days. Thanks.
12:27 PM
Message sent at 12:27 PM.
30 days left
Message expires in 30 days.
You said
Perfect. Thanks
12:28 PM
Message sent at 12:28 PM.
30 days left
Message expires in 30 days.
Message status isDelivered
ED Attending Note
<Oanh Negrete MD - Last Filed: 08/28/24 12:29>
-
Portions of this chart may have been created with voice recognition software.� Occasional wrong word or��sound alike� substitutions may have occurred due to the inherent limitations of voice recognition software.
Discharge Plan
Departure
Patient Disposition: Home (Routine Discharge)
Date of Disposition: 08/28/24
Time of Disposition: 15:45
Patient with high blood pressure during this ER visit?: No
Condition: Good
Discharge Problem:
Right groin wound, Encounter for postoperative wound check
Instructions: Wound care - ED discharge instructions
Prescriptions:
No Action
levothyroxine [Synthroid] 100 mcg Tablet
100 mcg PO DAILY
vitamin B complex Tablet
1 tab PO DAILY
Trelegy Ellipta 100-62.5-25 mcg Blister With Device
1 inh INHALATION R DAILY
acetaminophen 500 mg Tablet
500 mg PO Q6HPRN PRN (Reason: mild pain)
Saline Nasal Mist 0.65 % Aerosol,[place]
2 spray INTRANASAL BIDPRN PRN (Reason: dryness)
diltiazem HCl 240 mg capsule,extended release 24hr
240 mg PO HS
atorvastatin 10 mg tablet
10 mg PO HS
metoprolol succinate 25 mg Tablet Extended Release 24 Hr
25 mg PO DAILY Qty: 30 0RF
furosemide 20 mg Tablet
20 mg PO Q48H
vancomycin in 0.9 % sodium chl 1 gram/200 mL Piggyback
1 g IV DAILY@0600 42 Days Qty: 1200 0RF
Eliquis 5 mg tablet
5 mg PO BID Qty: 60 4RF
multivitamin Tablet
1 tab PO DAILY
cyclosporine [Restasis] 0.05 % [place]
1 drp BOTH EYES Q12H
bupropion HCl [Wellbutrin XL] 150 mg Tablet Extended Release 24 Hr
150 mg PO DAILY
diphenhydramine HCl 50 mg Capsule
50 mg PO DAILY
Systane (PF) 0.4-0.3 % [place]
2 drp BOTH EYES Q8HPRN PRN (Reason: dry eyes)
Referrals:
Grecia Alonzo MD [Family Provider] -
Activity Restrictions/Additional Instructions:
As we discussed, it seems as though your wound is no longer draining much at all.
Most likely lymph node drainage.
Continue to cleanse daily as usual in shower, keep covered daily until well healed
If any further significant drainage return and we can put a suture in it.
Interventions
Interventions:
*Risk Screen - Suicide Last Done: 08/28/24 11:52
*General Assessment Last Done: 08/28/24 11:52
*Neglect/Abuse Screening Last Done: 08/28/24 11:52
ED- Fall Risk Assessment Last Done: 08/28/24 16:00
*ED COVID-19 Vaccine History Last Done: 08/28/24 15:56
*Nursing Disposition Last Done: 08/28/24 16:00
ED- Cardiac Assessment Last Done: 08/28/24 15:56
Discharge Date and Time
Discharge Date/Time: 08/28/24 16:03
Print Language: INDONESIAN
[2024-08-28 12:38] LABS: Hematocrit 30.6 % (37.0-47.0); Hemoglobin 9.8 g/dL (12.0-16.0); Mean Corpuscular Hgb 31.5 pg (27.0-31.0); Mean Corpuscular Volume 98.4 fL (81.0-99.0); Mean Platelet Volume 9.8 fL (7.4-10.4); Platelet Count 322 10^3/uL (130-400); Red Blood Cell Count 3.11 10^6/uL (4.20-5.40); Red Cell Dist. Width 16.6 % (11.5-14.5); White Blood Cell Count 8.8 10^3/uL (4.8-10.8)
[2024-08-28 13:12] LABS: Troponin I 0.149 ng/ml
[2024-08-28 13:14] LABS: ALT (SGPT) 84 U/L (0-35); AST (SGOT) 108 U/L (14-36); Alkaline Phosphatase 162 U/L (38-126); Blood Urea Nitrogen 48 mg/dl (7-17); Calcium 9.3 mg/dl (8.4-10.2); Carbon Dioxide 23 mmol/L (22-30); Chloride 102 mmol/L (98-107); Glucose 102 mg/dl (70-99); Potassium 5.4 mmol/L (3.5-5.1); Sodium 135 mmol/L (135-145); Total Bilirubin 0.6 mg/dl (0.2-1.3); Total Protein 7.1 g/dl (6.3-8.2); eGFR 41.31
[2024-08-28 15:55] VITALS: BP 129/84
== END 2024-08-28 16:03 | disposition home or self-care (01) ==
LOC: EMR 11:42
PROVIDERS: Emergency Medicine; EMERGENCY PHYSICIAN Emergency Medicine; FAMILY PHYSICIAN Internal Medicine
DX: Z48.01 Encounter for change or removal of surgical wound dressing (principal); T81.89XA Other complications of procedures, not elsewhere classified, initial encounter; Y83.8 Other surgical procedures as the cause of abnormal reaction of the patient, or of later complication, without mention of misadventure at the time of the procedure; I10 Essential (primary) hypertension; I48.91 Unspecified atrial fibrillation; E03.9 Hypothyroidism, unspecified; E78.00 Pure hypercholesterolemia, unspecified; K21.9 Gastro-esophageal reflux disease without esophagitis; Z87.891 Personal history of nicotine dependence
CPT/HCPCS: 99285; 76882; 80053; 84484; 85027; 93005

== ENCOUNTER 2024-08-29 11:28 | Emergency (ER) | payer MEDICARE, OTHER, SELFPAY ==
[2024-08-29 11:32] VITALS: BP 154/77
[2024-08-29 14:00] VITALS: BP 148/83
--- NOTE | 2024-08-29 16:09 | ED.GENMED ---
History of Present Illness
General
Chief Complaint: Post Operative Problem(s)
Source: patient
Exam Limitations: none
Time Seen by Provider: 08/29/24 15:52
Nursing documentation reviewed up to this point in time: agreed with
History of Present Illness
History of Present Illness:
83-year-old female with a past medical history of COPD, a flutter pacemaker in place, hypertension, hyperlipidemia, hypothyroidism presents to department today with persistent clear drainage from her right groin surgical site. Of note, patient
follows with Dr. Rubin from cardiology. She reports that she had a pacemaker placed in her chest that became infected and so they had to take it out and now she is on IV vancomycin at home. They went in through the groin on August 27 2 days ago
for temporary pacemaker placement and she states that ever since she has been home, she has been waiting towels with clear drainage and she cannot get drainage from the surgical site to stop. She was seen yesterday in our ER and had a ultrasound of
the groin which was negative for any abnormal fluid collection. Patient denies any pain at the site or any swelling. Patient initially had a [id number] suture in the area which was apparently removed. Patient denies any nausea or vomiting,
denies any fevers or chills
Past History
Past History
ED Past Medical History: Cancer (Lung), COPD, GERD, HTN, Hypercholesterolemia, Hypothyroidism and Psychiatric (depression)
ED Past Surgical History: Orthopedic (R knee replacement, bilateral hip replacement) and Other (DVT, IVC Filter)
Social History
Tobacco: Former smoker
Alcohol: None
Personal:
Living: with family
Employment: Retired
Family History
Family History: CAD
Review of Systems
Review of Systems
All Other Systems: ROS reviewed and negative except as documented in HPI and ROS
Phy Exam
Physical Exam
Physical Exam:
General: Patient is well appearing and in no acute distress; non-toxic
Skin: Warm and dry, no rashes or lesions
Head: Normocephalic, atraumatic
Eyes: Sclera non-icteric. EOMs intact.
Cardiac: Regular rate and rhythm
Peripheral Vascular: No lower extremity swelling or edema, 2+ dorsalis pedis pulses bilaterally
Pulm: Normal respiratory effort
Abdomen: No abdominal tenderness to palpation, right femoral groin incision site noted with active clear drainage, no surrounding swelling no tenderness palpation, surrounding ecchymosis noted
Neuro: CN II-XII intact, no focal neurologic deficits.
Psychiatric: Appropriate mood and affect..
Course
Vital Signs
Initial and Last Documented VS:
Initial Vital Signs
Temp Pulse Resp BP Pulse Ox
98.2 F 65 16 154/77 95
08/29/24 11:32 08/29/24 11:32 08/29/24 11:32 08/29/24 11:32 08/29/24 11:32
Last Documented Vital Signs
Temp Pulse Resp BP Pulse Ox
98.2 F 72 16 148/83 96
08/29/24 11:32 08/29/24 14:00 08/29/24 14:00 08/29/24 14:00 08/29/24 14:00
Procedures
Laceration Closure
right groin:
Status of Wound: clean
Size of Wound in cm: 2
Description of Wound Edges: sharp
Preparation: cleaned with saline
Anesthesia: 1% Lidocaine with epi
Revision/Debridement: routine- no revision
Type of Closure: single layer closure
Skin Closure Material: 4-0 prolene
Number of sutures: 3
MDM/Problems Addressed
Differential Diagnosis Includes:
seroma, inflammation, infection
MDM/Problems Addressed:
83-year-old female with past medical history of COPD, bronchitis, a flutter, hypertension presents emergency department today with concerns of clear drainage from her right groin surgical site. Reviewed previous records, patient had a
catheterization with Dr. Felix on 08/27/2028 she had placement of temporary wire for ventral placement of leadless pacemaker. I reviewed previous ER physician documentation from 08/28/2024, where patient has had clear discharge from her groin site
and the case was reviewed with cardiology and they stated that this may have been as a result of abnormal lymphatic drainage if the lymph node or vessel was nicked during the procedure. Considering her signs of infection, patient was not started on
additional antibiotic. Reviewed case with Dr. Kiki MAIER opinion polls survey worker on-call, got the okay to place sutures over the area to stop drainage. DARRION will see patient in the office for follow up next week. Reviewed case with my ER attending. Patient
stable for discharge.
*Critical Care Note
Total Time (30-74mins, 75-104mins- exclusive of procedures): Not Applicable
ED Attending Note
-
Portions of this chart may have been created with voice recognition software.� Occasional wrong word or��sound alike� substitutions may have occurred due to the inherent limitations of voice recognition software.
Discharge Plan
Departure
Patient Disposition: Home (Routine Discharge)
Date of Disposition: 08/29/24
Time of Disposition: 17:08
Patient with high blood pressure during this ER visit?: Yes
Condition: Good
Discharge Problem:
Drainage from surgical wound
Instructions: Wound Care (DC), BLOOD PRESSURE
Prescriptions:
No Action
levothyroxine [Synthroid] 100 mcg Tablet
100 mcg PO DAILY
vitamin B complex Tablet
1 tab PO DAILY
Trelegy Ellipta 100-62.5-25 mcg Blister With Device
1 inh INHALATION R DAILY
acetaminophen 500 mg Tablet
500 mg PO Q6HPRN PRN (Reason: mild pain)
Saline Nasal Mist 0.65 % Aerosol,[place]
2 spray INTRANASAL BIDPRN PRN (Reason: dryness)
diltiazem HCl 240 mg capsule,extended release 24hr
240 mg PO HS
atorvastatin 10 mg tablet
10 mg PO HS
metoprolol succinate 25 mg Tablet Extended Release 24 Hr
25 mg PO DAILY Qty: 30 0RF
furosemide 20 mg Tablet
20 mg PO Q48H
vancomycin in 0.9 % sodium chl 1 gram/200 mL Piggyback
1 g IV DAILY@0600 42 Days Qty: 1200 0RF
Eliquis 5 mg tablet
5 mg PO BID Qty: 60 4RF
multivitamin Tablet
1 tab PO DAILY
cyclosporine [Restasis] 0.05 % [place]
1 drp BOTH EYES Q12H
bupropion HCl [Wellbutrin XL] 150 mg Tablet Extended Release 24 Hr
150 mg PO DAILY
diphenhydramine HCl 50 mg Capsule
50 mg PO DAILY
Systane (PF) 0.4-0.3 % [place]
2 drp BOTH EYES Q8HPRN PRN (Reason: dry eyes)
Referrals:
Justino Nickerson MD [Active] - Call in 1-3 days for appt
Grecia Alonzo MD [Family Provider] -
Activity Restrictions/Additional Instructions:
3 stitches were placed. Please follow-up with cardiology next week to have them removed. Please call Dr. Rubin's office for an appointment next week.
Please keep the wound dry for 24 hours. After 24 hours, you can let warm soapy water run over the wound. Please not scrub the wound. You can cover the wound with a nonadherent dressing.
PLEASE RETURN EMERGENCY DEPARTMENT SHOULD YOU GET PURULENT DRAINAGE FROM THE GROIN WOUND, FEVERS OR CHILLS, SURROUNDING REDNESS TO THE WOUND, INCREASING PAIN, CHEST PAIN, SHORTNESS OF BREATH, OR ANY OTHER SIGNS OR SYMPTOMS WORRISOME TO YOU.
Interventions
Interventions:
*Risk Screen - Suicide Last Done: 08/29/24 11:32
*General Assessment Last Done: 08/29/24 11:32
*Neglect/Abuse Screening Last Done: 08/29/24 11:32
ED- Fall Risk Assessment Last Done: 08/29/24 15:46
*ED COVID-19 Vaccine History Last Done: 08/29/24 11:32
*Nursing Disposition Last Done: 08/29/24 17:39
ED-Skin Assessment Last Done: 08/29/24 15:47
Discharge Date and Time
Discharge Date/Time: 08/29/24 17:40
Print Language: BENGAL[place]
== END 2024-08-29 17:40 | disposition home or self-care (01) ==
LOC: EMR 11:28
PROVIDERS: EMERGENCY PHYSICIAN Emergency Medicine; FAMILY PHYSICIAN Internal Medicine
DX: T81.31XA Disruption of external operation (surgical) wound, not elsewhere classified, initial encounter (principal); Y83.8 Other surgical procedures as the cause of abnormal reaction of the patient, or of later complication, without mention of misadventure at the time of the procedure; J44.9 Chronic obstructive pulmonary disease, unspecified; I10 Essential (primary) hypertension; E78.00 Pure hypercholesterolemia, unspecified; E03.9 Hypothyroidism, unspecified; Z87.891 Personal history of nicotine dependence
CPT/HCPCS: 99282; 12001

== ENCOUNTER → 2024-09-07 14:49 | Outpatient (REF) | payer MEDICARE, OTHER, SELFPAY | LOC: WOUND 14:49 | PROVIDERS: ATTENDING PHYSICIAN Surgery | DX: L97.822 Non-pressure chronic ulcer of other part of left lower leg with fat layer exposed (principal); I77.6 Arteritis, unspecified; L88 Pyoderma gangrenosum; I73.9 Peripheral vascular disease, unspecified; I87.2 Venous insufficiency (chronic) (peripheral); J43.9 Emphysema, unspecified; I10 Essential (primary) hypertension; I49.8 Other specified cardiac arrhythmias; Z95.0 Presence of cardiac pacemaker; Z86.718 Personal history of other venous thrombosis and embolism; Z79.01 Long term (current) use of anticoagulants | CPT/HCPCS: 99213 ==

== ENCOUNTER 2024-09-15 15:13 | Emergency (ER) | payer MEDICARE, OTHER, SELFPAY ==
--- NOTE | 2024-09-15 15:20 | ED.GENMED ---
ED Provider Triage
<Yoel Rodriguez PA-C - Last Filed: 09/15/24 15:20>
-
Patient seen by provider in Triage?: Seen in Triage
Attestation: A medical screening examination has been initiated by a qualified medical provider. Based on the assessment performed at this time, it has been determined that an emergent medical condition may exist and the patient has been informed
that further medical evaluation and possible additional diagnostic testing may be needed.
HPI: Patient advised to come to the emergency department by infectious disease for complication with her PICC line. IV team was reportedly notified about patient's arrival to the ER. Patient otherwise stable. IV team paged and notified that
patient arrived to the emergency department so they can provide further care to patient's PICC line.
GENERAL: Alert , in no apparent distress
EYE: No visual abnormalities.
NECK: Trachea midline
ENT: No visible abnormalities.
LUNGS: No acute respiratory distress
NEUROLOGICAL: Alert and oriented
SKIN: Skin intact. No visible changes.
MUSCULOSKELETAL: Moving extremities normally
PSYCH: Normal and appropriate interaction.
This is a medical evaluation conducted in person to initiate diagnostic evaluation and provide initial therapeutics. Please see further documentation by the treating clinician.
History of Present Illness
<Yoel Rodriguez PA-C - Last Filed: 09/15/24 15:20>
General
Chief Complaint: Vascular Access Problem
Time Seen by Provider: 09/15/24 16:20
<Therese Staples NP - Last Filed: 09/15/24 23:54>
General
Source: patient, spouse and physician (Dr. Norman)
Exam Limitations: none
History of Present Illness
History of Present Illness:
84 yo female here for occluded PICC line, sent by Dr. Norman. Patient denies pain or swelling or distal numbness or tingling of the extremity
Past History
<Yoel Rodriguez PA-C - Last Filed: 09/15/24 15:20>
Past History
ED Past Medical History: Cancer (Lung), COPD, GERD, HTN, Hypercholesterolemia, Hypothyroidism and Psychiatric (depression)
ED Past Surgical History: Orthopedic (R knee replacement, bilateral hip replacement) and Other (DVT, IVC Filter)
Social History
Tobacco: Former smoker
Alcohol: None
Personal:
Living: with family
Employment: Retired
Family History
Family History: CAD
Review of Systems
<Therese Staples, COLOR REPAIRER - Last Filed: 09/15/24 23:54>
Review of Systems
Allergies reviewed?: Yes
All Other Systems: ROS reviewed and negative except as documented in HPI and ROS
Constitutional: Denies fever
Skin: Reports other (No redness swelling or pain at the PICC line insertion site)
Phy Exam
<Therese Staples, COLOR REPAIRER - Last Filed: 09/15/24 23:54>
Physical Exam
Physical Exam:
PHYSICAL EXAMINATION:
General: no apparent distress, not acutely ill
Neuro: alert and oriented.
Psychiatric: well kept. interactive and cooperative
Musculoskeletal: Moves with ease
Skin: Warm, pink. PICC line intact, skin around insertion site is without swelling, drainage or erythema. Distal neurovascular intact
Course
<Yoel Rodriguez PA-C - Last Filed: 09/15/24 15:20>
Orders/Labs/Results
Orders:
Orders
09/15/24 15:24
CR Chest Single View Urgent
Comment:
Reason For Exam: PICC placement
09/15/24 15:29
Alteplase [Cathflo/Activase] 2 mg INTRACATH NOW STA
Vital Signs
Initial and Last Documented VS:
Initial Vital Signs
Temp Pulse Resp BP Pulse Ox
97.6 F 64 18 176/66 97
09/15/24 15:21 09/15/24 15:21 09/15/24 15:21 09/15/24 15:21 09/15/24 15:21
Last Documented Vital Signs
Temp Pulse Resp BP Pulse Ox
97.6 F 64 18 176/66 97
09/15/24 15:21 09/15/24 15:21 09/15/24 15:21 09/15/24 15:21 09/15/24 15:21
<Therese Staples, COLOR REPAIRER - Last Filed: 09/15/24 23:54>
Orders/Labs/Results
Orders:
Orders
09/15/24 15:24
CR Chest Single View Urgent
Comment:
Reason For Exam: PICC placement
09/15/24 15:29
Alteplase [Cathflo/Activase] 2 mg INTRACATH NOW STA
Vital Signs
Initial and Last Documented VS:
Initial Vital Signs
Temp Pulse Resp BP Pulse Ox
97.6 F 64 18 176/ 97
09/15/24 15:21 09/15/24 15:21 09/15/24 15:21 09/15/24 15:21 09/15/24 15:21
Last Documented Vital Signs
Temp Pulse Resp BP Pulse Ox
97.6 F 64 18 176/66 97
09/15/24 15:21 09/15/24 15:21 09/15/24 15:21 09/15/24 15:21 09/15/24 15:21
<Therese Staples, COLOR REPAIRER - Last Filed: 09/15/24 23:54>
MDM/Problems Addressed
Differential Diagnosis Includes:
occluded PICC line, clot vs positional
MDM/Problems Addressed:
84 yo female here for occluded PICC line, sent by Dr. Norman. Patient denies pain or swelling or distal numbness or tingling of the extremity
IV team in and evaluated PICC line, found it to be positional, it is flushing very nicely and has a good blood return.
IV team spoke with Dr. Antonio and informed there is no need to change the PICC line.
<Therese Staples NP - Last Filed: 09/15/24 23:54>
*Critical Care Note
Total Time (30-74mins, 75-104mins- exclusive of procedures): Not Applicable
ED Attending Note
<Yoel Rodriguez PA-C - Last Filed: 09/15/24 15:20>
-
Portions of this chart may have been created with voice recognition software.� Occasional wrong word or��sound alike� substitutions may have occurred due to the inherent limitations of voice recognition software.
Discharge Plan
Departure
Patient Disposition: Home (Routine Discharge)
Date of Disposition: 09/15/24
Time of Disposition: 16:39
Patient with high blood pressure during this ER visit?: No
Condition: Good
Discharge Problem:
Occluded PICC line
Instructions: Peripherally-Inserted Central Catheter (DC)
Prescriptions:
No Action
levothyroxine [Synthroid] 100 mcg Tablet
100 mcg PO DAILY
vitamin B complex Tablet
1 tab PO DAILY
Trelegy Ellipta 100-62.5-25 mcg Blister With Device
1 inh INHALATION R DAILY
acetaminophen 500 mg Tablet
500 mg PO Q6HPRN PRN (Reason: mild pain)
Saline Nasal Mist 0.65 % Aerosol,[place]
2 spray INTRANASAL BIDPRN PRN (Reason: dryness)
diltiazem HCl 240 mg capsule,extended release 24hr
240 mg PO HS
atorvastatin 10 mg tablet
10 mg PO HS
metoprolol succinate 25 mg Tablet Extended Release 24 Hr
25 mg PO DAILY Qty: 30 0RF
furosemide 20 mg Tablet
20 mg PO Q48H
vancomycin in 0.9 % sodium chl 1 gram/200 mL Piggyback
1 g IV DAILY@0600 42 Days Qty: 1200 0RF
Eliquis 5 mg tablet
5 mg PO BID Qty: 60 4RF
multivitamin Tablet
1 tab PO DAILY
cyclosporine [Restasis] 0.05 % Dropperette
1 drp BOTH EYES Q12H
bupropion HCl [Wellbutrin XL] 150 mg Tablet Extended Release 24 Hr
150 mg PO DAILY
diphenhydramine HCl 50 mg Capsule
50 mg PO DAILY
Systane (PF) 0.4-0.3 % Dropperette
2 drp BOTH EYES Q8HPRN PRN (Reason: dry eyes)
Activity Restrictions/Additional Instructions:
As we discussed, your PICC line is now fully functional. Dr. Norman has been informed.
Interventions
Interventions:
*Risk Screen - Suicide Last Done: 09/15/24 16:56
*General Assessment Last Done: 09/15/24 16:56
*Neglect/Abuse Screening Last Done: 09/15/24 16:56
ED- Fall Risk Assessment Last Done: 09/15/24 16:57
*ED COVID-19 Vaccine History Last Done: 09/15/24 15:21
*Nursing Disposition Last Done: 09/15/24 16:56
Discharge Date and Time
Discharge Date/Time: 09/15/24 16:58
Print Language: PERUVIAN
[2024-09-15 15:21] VITALS: BP 176/66
--- NOTE | 2024-09-15 17:10 | VATNOTE ---
patient came in with a right sl picc that she stated had a 'sluggish flow.' x-ray shows the catheter going down the vessel. site was Flushed with 40cc with blood return obtained- line is not sluggish but positional. redressed site using sterile
technique and placed a sterile steristrip from dressing kit to position the catheter down, below the insertion site. Before placing the biopatch, assessment of the insertion site can described to be red- about 2 cm around the site with dried
exudate. patient denied pain and fever, and was educated on signs of infection. Also to note, line appears to have about 2 cms external length- exact measurement unknown d/t the missing indicator allen from previous scrubs/dressing changes.
== END 2024-09-15 16:58 | disposition home or self-care (01) ==
LOC: EMR 15:13
PROVIDERS: EMERGENCY PHYSICIAN Emergency Medicine; FAMILY PHYSICIAN Internal Medicine
DX: T82.594A Other mechanical complication of infusion catheter, initial encounter (principal); Y83.8 Other surgical procedures as the cause of abnormal reaction of the patient, or of later complication, without mention of misadventure at the time of the procedure; Y82.8 Other medical devices associated with adverse incidents; I10 Essential (primary) hypertension; E03.9 Hypothyroidism, unspecified; E78.00 Pure hypercholesterolemia, unspecified; F32.A Depression, unspecified; K21.9 Gastro-esophageal reflux disease without esophagitis; J44.9 Chronic obstructive pulmonary disease, unspecified; Z96.643 Presence of artificial hip joint, bilateral; Z96.651 Presence of right artificial knee joint; Z85.118 Personal history of other malignant neoplasm of bronchus and lung; Z86.718 Personal history of other venous thrombosis and embolism; Z87.891 Personal history of nicotine dependence; Z79.01 Long term (current) use of anticoagulants; Z88.1 Allergy status to other antibiotic agents; Z88.8 Allergy status to other drugs, medicaments and biological substances; Z91.048 Other nonmedicinal substance allergy status
CPT/HCPCS: 99283; 71045; J2997

== ENCOUNTER 2024-09-18 16:10 | Emergency (ER) | payer MEDICARE, OTHER, SELFPAY ==
[2024-09-18 16:12] VITALS: BP 96/68
[2024-09-18 18:19] VITALS: BP 137/55
--- NOTE | 2024-09-18 18:21 | ED.GENMED ---
History of Present Illness
General
Chief Complaint: Catheter/Tube Problem
Time Seen by Provider: 09/18/24 18:11
History of Present Illness
History of Present Illness:
84-year-old female presents for evaluation of occlusion of her right upper extremity PICC line. She was able to administer half of her IV daptomycin at home before that seem to occlude. IV team assessed the patient prior to my evaluation and was
able to adequately clear the line, she has no other complaints
Past History
Past History
ED Past Medical History: Cancer (Lung), COPD, GERD, HTN, Hypercholesterolemia, Hypothyroidism and Psychiatric (depression)
ED Past Surgical History: Orthopedic (R knee replacement, bilateral hip replacement) and Other (DVT, IVC Filter)
Social History
Tobacco: Former smoker
Alcohol: None
Personal:
Living: with family
Employment: Retired
Family History
Family History: CAD
Review of Systems
Review of Systems
Allergies reviewed?: Yes
All Other Systems: ROS reviewed and negative except as documented in HPI and ROS
Phy Exam
Physical Exam
Physical Exam:
GEN: Well appearing, NAD, WDWN
HEENT: Oral mucosa moist, no scleral icterus
Cardiac: Regular rate
Lung: No respiratory distress, no tachypnea
MSK: No gross deformity or injuries. Right upper extremity PICC line site is clean and dry, no arm edema
Skin: Good color, no pallor or jaundice, no rashes
Neuro: AO x3, moves all extremities freely
Psych: Calm, cooperative
Course
Orders/Labs/Results
Orders:
Orders
09/18/24 18:20
CR Chest Single View Urgent
Comment:
Reason For Exam: PICC line assess
Vital Signs
Initial and Last Documented VS:
Initial Vital Signs
Temp Pulse Resp BP Pulse Ox
97.9 F 62 20 96/68 93
09/18/24 16:12 02/21/25 16:12 09/18/24 16:12 09/18/24 16:12 09/18/24 16:12
Last Documented Vital Signs
Temp Pulse Resp BP Pulse Ox
97.9 F 74 16 137/55 99
09/18/24 16:12 09/18/24 18:19 09/18/24 18:19 09/18/24 18:19 09/18/24 18:19
MDM/Problems Addressed
MDM/Problems Addressed:
Chest x-ray shows adequate placement of the PICC line, line is accessible in the ED after IV team evaluation, discharged in stable condition
*Critical Care Note
Total Time (30-74mins, 75-104mins- exclusive of procedures): Not Applicable
ED Attending Note
-
Portions of this chart may have been created with voice recognition software.� Occasional wrong word or��sound alike� substitutions may have occurred due to the inherent limitations of voice recognition software.
Discharge Plan
Departure
Patient Disposition: Home (Routine Discharge)
Date of Disposition: 09/18/24
Time of Disposition: 19:07
Patient with high blood pressure during this ER visit?: No
Discharge Problem:
Occluded PICC line
Instructions: How to care for a peripherally inserted central catheter (PICC)
Prescriptions:
No Action
levothyroxine [Synthroid] 100 mcg Tablet
100 mcg PO DAILY
vitamin B complex Tablet
1 tab PO DAILY
Trelegy Ellipta 100-62.5-25 mcg Blister With Device
1 inh INHALATION R DAILY
acetaminophen 500 mg Tablet
500 mg PO Q6HPRN PRN (Reason: mild pain)
Saline Nasal Mist 0.65 % Aerosol,[place]
2 spray INTRANASAL BIDPRN PRN (Reason: dryness)
diltiazem HCl 240 mg capsule,extended release 24hr
240 mg PO HS
atorvastatin 10 mg tablet
10 mg PO HS
metoprolol succinate 25 mg Tablet Extended Release 24 Hr
25 mg PO DAILY Qty: 30 0RF
furosemide 20 mg Tablet
20 mg PO Q48H
vancomycin in 0.9 % sodium chl 1 gram/200 mL Piggyback
1 g IV DAILY@0600 42 Days Qty: 1200 0RF
Eliquis 5 mg tablet
5 mg PO BID Qty: 60 4RF
multivitamin Tablet
1 tab PO DAILY
cyclosporine [Restasis] 0.05 % Dropperette
1 drp BOTH EYES Q12H
bupropion HCl [Wellbutrin XL] 150 mg Tablet Extended Release 24 Hr
150 mg PO DAILY
diphenhydramine HCl 50 mg Capsule
50 mg PO DAILY
Systane (PF) 0.4-0.3 % Dropperette
2 drp BOTH EYES Q8HPRN PRN (Reason: dry eyes)
Referrals:
Grecia Alonzo MD [Family Provider] -
Interventions
Interventions:
*Risk Screen - Suicide Last Done: 09/18/24 17:18
*General Assessment Last Done: 09/18/24 17:17
*Neglect/Abuse Screening Last Done: 09/18/24 17:18
ED- Fall Risk Assessment Last Done: 09/18/24 18:59
*ED COVID-19 Vaccine History Last Done: 09/18/24 17:17
*Nursing Disposition Last Done: 09/18/24 19:08
PB-Drfqkx-Ruqqkvfich Assessment Last Done: 09/18/24 17:18
ED-Female Genitourinary Assessment Last Done: 09/18/24 17:18
Discharge Date and Time
Discharge Date/Time: 09/18/24 19:29
Print Language: DANISH
== END 2024-09-18 19:29 | disposition home or self-care (01) ==
LOC: EMR 16:10
PROVIDERS: EMERGENCY PHYSICIAN Emergency Medicine; FAMILY PHYSICIAN Internal Medicine
DX: T82.594A Other mechanical complication of infusion catheter, initial encounter (principal); X58.XXXA Exposure to other specified factors, initial encounter; Z45.2 Encounter for adjustment and management of vascular access device; Z87.891 Personal history of nicotine dependence
CPT/HCPCS: 99283; 71045

== ENCOUNTER → 2024-09-21 13:42 | Outpatient (REF) | payer MEDICARE, OTHER, SELFPAY | LOC: RAD 13:42 | PROVIDERS: ATTENDING PHYSICIAN Internal Medicine | DX: R60.0 Localized edema (principal) | CPT/HCPCS: 93970 ==

== ENCOUNTER → 2024-09-28 13:22 | Outpatient (REF) | payer MEDICARE, OTHER, SELFPAY | LOC: WOUND 13:22 | PROVIDERS: ATTENDING PHYSICIAN Surgery; FAMILY PHYSICIAN Internal Medicine | DX: L97.822 Non-pressure chronic ulcer of other part of left lower leg with fat layer exposed (principal); I77.6 Arteritis, unspecified; L88 Pyoderma gangrenosum; I73.9 Peripheral vascular disease, unspecified; I87.2 Venous insufficiency (chronic) (peripheral); J43.9 Emphysema, unspecified; I10 Essential (primary) hypertension; I49.8 Other specified cardiac arrhythmias; Z86.718 Personal history of other venous thrombosis and embolism | CPT/HCPCS: 99213 ==

== ENCOUNTER → 2024-10-10 08:36 | Outpatient (REF) | payer MEDICARE, OTHER, SELFPAY ==
[2024-10-10 10:25] LABS: Hematocrit 37.2 % (37.0-47.0); Hemoglobin 11.6 g/dL (12.0-16.0); Mean Corp Hgb Conc. 31.2 g/dL (33.0-37.0); Mean Corpuscular Volume 99.5 fL (81.0-99.0); Mean Platelet Volume 9.7 fL (7.4-10.4); Platelet Count 345 10^3/uL (130-400); Red Blood Cell Count 3.74 10^6/uL (4.20-5.40); Red Cell Dist. Width 17.1 % (11.5-14.5); White Blood Cell Count 2.7 10^3/uL (4.8-10.8)
[2024-10-10 10:30] LABS: ALT (SGPT) 24 U/L (0-35); AST (SGOT) 33 U/L (14-36); Albumin 3.9 g/dl (3.5-5.0); Alkaline Phosphatase 122 U/L (38-126); Blood Urea Nitrogen 27 mg/dl (7-17); Calcium 9.6 mg/dl (8.4-10.2); Carbon Dioxide 29 mmol/L (22-30); Chloride 101 mmol/L (98-107); Glucose 108 mg/dl (70-99); HDL Cholesterol 74 mg/dl; LDL Cholesterol, Calculated 92 mg/dl; Potassium 4.9 mmol/L (3.5-5.1); Sodium 138 mmol/L (135-145); Total Bilirubin 0.7 mg/dl (0.2-1.3); Total Cholesterol 187 mg/dl (50-199); Total Protein 7.4 g/dl (6.3-8.2); Triglyceride 105 mg/dl (10-149); Very Low Density Lipoprotein 21 mg/dl (0-30); eGFR 45.19
[2024-10-10 12:39] LABS: Absolute Neutrophils -Man Diff 1.2 10^3/uL (1.4-6.5); Atypical Lymphocytes 2 %; Band Neutrophils 4 % (0-3); Eosinophils 6 % (0-6); Lymphocytes 26 % (20-51); Monocytes 21 % (2-9); Normal RBC Morphology No; Platelets Checked Yes; Segmented Neutrophils 41 % (42-75)
[2024-10-10 12:40] LABS: Anisocytosis Slight; Hypochromasia Slight; Ovalocytes Slight; Total Cells Counted 100
== END ==
LOC: REG 08:36
PROVIDERS: ATTENDING PHYSICIAN Internal Medicine; REFERRING PHYSICIAN Student in an Organized Health Care Education/Training Program
DX: I73.9 Peripheral vascular disease, unspecified (principal); C34.80 Malignant neoplasm of overlapping sites of unspecified bronchus and lung; T84.53XA Infection and inflammatory reaction due to internal right knee prosthesis, initial encounter; R53.83 Other fatigue; E78.5 Hyperlipidemia, unspecified
CPT/HCPCS: 36415; 80053; 80061; 84443; 85025

== ENCOUNTER 2024-10-21 13:50 | Outpatient (RCR) | payer MEDICARE, OTHER, SELFPAY | END 2024-10-21 23:59 | disposition home or self-care (01) | LOC: RPT 13:50 | PROVIDERS: ATTENDING PHYSICIAN Physician Assistant Surgical; FAMILY PHYSICIAN Internal Medicine | DX: Z47.1 Aftercare following joint replacement surgery (principal); M76.61 Achilles tendinitis, right leg; T84.53XD Infection and inflammatory reaction due to internal right knee prosthesis, subsequent encounter; S81.802D Unspecified open wound, left lower leg, subsequent encounter; Z73.6 Limitation of activities due to disability; R26.89 Other abnormalities of gait and mobility; I89.0 Lymphedema, not elsewhere classified; Z96.651 Presence of right artificial knee joint | CPT/HCPCS: 97110; 97162; 97530 ==

== ENCOUNTER → 2024-10-26 13:13 | Outpatient (REF) | payer MEDICARE, OTHER, SELFPAY | LOC: WOUND 13:13 | PROVIDERS: ATTENDING PHYSICIAN Surgery; FAMILY PHYSICIAN Internal Medicine | DX: L97.822 Non-pressure chronic ulcer of other part of left lower leg with fat layer exposed (principal); I77.6 Arteritis, unspecified; L88 Pyoderma gangrenosum; I73.9 Peripheral vascular disease, unspecified; I87.2 Venous insufficiency (chronic) (peripheral); J43.9 Emphysema, unspecified; I10 Essential (primary) hypertension; I49.8 Other specified cardiac arrhythmias; Z86.718 Personal history of other venous thrombosis and embolism; Z79.01 Long term (current) use of anticoagulants; Z95.0 Presence of cardiac pacemaker | CPT/HCPCS: 99213 ==

== ENCOUNTER 2024-10-28 07:57 | Emergency (ER) | payer MEDICARE, OTHER, SELFPAY ==
[2024-10-28 07:59] VITALS: BP 160/67
[2024-10-28 09:05] VITALS: BP 143/93
--- NOTE | 2024-10-28 09:08 | ED.GENMED ---
History of Present Illness
General
Chief Complaint: Nose Bleed
Time Seen by Provider: 10/28/24 08:19
History of Present Illness
History of Present Illness:
84-year-old female with history of A-fib on Eliquis presents to the emergency department for evaluation of left-sided epistaxis beginning this morning. She notes she has had frequent nosebleeds over the past several weeks. Did not take her Eliquis
this morning.
Past History
Past History
ED Past Medical History: Cancer (Lung), COPD, GERD, HTN, Hypercholesterolemia, Hypothyroidism and Psychiatric (depression)
ED Past Surgical History: Orthopedic (R knee replacement, bilateral hip replacement) and Other (DVT, IVC Filter)
Social History
Tobacco: Former smoker
Alcohol: None
Personal:
Living: with family
Employment: Retired
Family History
Family History: CAD
Review of Systems
Review of Systems
Allergies reviewed?: Yes
All Other Systems: ROS reviewed and negative except as documented in HPI and ROS
Phy Exam
Physical Exam
Physical Exam:
GEN: Well appearing, NAD, WDWN
HEENT: Oral mucosa moist, no scleral icterus, copious epistaxis with clotting to the left nare
Cardiac: Regular rate
Lung: No respiratory distress, no tachypnea
MSK: No gross deformity or injuries
Skin: Good color, no pallor or jaundice, no rashes
Neuro: AO x3, moves all extremities freely
Psych: Calm, cooperative
Course
Vital Signs
Initial and Last Documented VS:
Initial Vital Signs
Temp Pulse Resp BP Pulse Ox
97.9 F 87 16 160/67 98
10/28/24 07:59 10/28/24 07:59 10/28/24 07:59 10/28/24 07:59 10/28/24 07:59
Last Documented Vital Signs
Temp Pulse Resp BP Pulse Ox
97.9 F 87 16 143/93 98
10/28/24 07:59 10/28/24 07:59 10/28/24 07:59 10/28/24 09:05 10/28/24 09:45
MDM/Problems Addressed
MDM/Problems Addressed:
Patient initially was treated with epinephrine soaked cotton balls and pressure, however the patient had hemorrhagic complications despite this, an anterior Rhino Rocket nasal pack was attempted however the patient could not tolerate this
potentially due to anatomic abnormalities, as a result a Merisel packing was inserted anteriorly, 4.5 cm, and inflated with epinephrine, additional epinephrine was injected to the right nare. After observation. The patient remained stable with no
further bleeding. Will recommend to hold Eliquis and follow-up as an outpatient with ENT
*Critical Care Note
Total Time (30-74mins, 75-104mins- exclusive of procedures): Not Applicable
ED Attending Note
-
Portions of this chart may have been created with voice recognition software.� Occasional wrong word or��sound alike� substitutions may have occurred due to the inherent limitations of voice recognition software.
Discharge Plan
Departure
Patient Disposition: Home (Routine Discharge)
Date of Disposition: 10/28/24
Time of Disposition: 09:59
Patient with high blood pressure during this ER visit?: No
Discharge Problem:
Left-sided epistaxis
Instructions: Nosebleeds (DC)
Prescriptions:
No Action
levothyroxine [Synthroid] 100 mcg Tablet
100 mcg PO DAILY
vitamin B complex Tablet
1 tab PO DAILY
Trelegy Ellipta 100-62.5-25 mcg Blister With Device
1 inh INHALATION R DAILY
acetaminophen 500 mg Tablet
500 mg PO Q6HPRN PRN (Reason: mild pain)
Saline Nasal Mist 0.65 % Aerosol,[place]
2 spray INTRANASAL BIDPRN PRN (Reason: dryness)
diltiazem HCl 240 mg capsule,extended release 24hr
240 mg PO HS
atorvastatin 10 mg tablet
10 mg PO HS
metoprolol succinate 25 mg Tablet Extended Release 24 Hr
25 mg PO DAILY Qty: 30 0RF
furosemide 20 mg Tablet
20 mg PO Q48H
vancomycin in 0.9 % sodium chl 1 gram/200 mL Piggyback
1 g IV DAILY@0600 42 Days Qty: 1200 0RF
Eliquis 5 mg tablet
5 mg PO BID Qty: 60 4RF
multivitamin Tablet
1 tab PO DAILY
cyclosporine [Restasis] 0.05 % Dropperette
1 drp BOTH EYES Q12H
bupropion HCl [Wellbutrin XL] 150 mg Tablet Extended Release 24 Hr
150 mg PO DAILY
diphenhydramine HCl 50 mg Capsule
50 mg PO DAILY
Systane (PF) 0.4-0.3 % Dropperette
2 drp BOTH EYES Q8HPRN PRN (Reason: dry eyes)
Referrals:
Cali Day MD [Active] -
(Call today for follow up appointment Saturday
Be sure to note for the salon receptionist that this is an 'Emergency Department follow up visit')
Grecia Alonzo MD [Family Provider] -
Activity Restrictions/Additional Instructions:
DO NOT TAKE ELIQUIS UNTIL FURTHER FOLLOW UP WITH EAR/NOSE/THROAT SPECIALIST
If you cannot be seen by the ENT office by Saturday, return to the ER on Saturday for packing removal and reassessment
If you need to sneeze, apply gentle pressure to the left nostril; forceful sneezing can cause the packing to dislodge
If you have further bleeding despite packing, return to the ER
You may continue all your other medications as previously prescribed
Interventions
Interventions:
*Risk Screen - Suicide Last Done: 10/28/24 07:59
*General Assessment Last Done: 10/28/24 07:59
*Neglect/Abuse Screening Last Done: 10/28/24 08:27
*ED- Fall Risk Assessment Last Done: 10/28/24 08:28
*ED COVID-19 Vaccine History Last Done: 10/28/24 07:59
*Nursing Disposition Last Done: 10/28/24 10:31
ED-EENT Assessment Last Done: 10/28/24 08:28
Discharge Date and Time
Discharge Date/Time: 10/28/24 10:31
Print Language: MALTESE
== END 2024-10-28 10:31 | disposition home or self-care (01) ==
LOC: EMR 07:57
PROVIDERS: EMERGENCY PHYSICIAN Emergency Medicine; FAMILY PHYSICIAN Internal Medicine
DX: R04.0 Epistaxis (principal); I48.91 Unspecified atrial fibrillation; Z79.01 Long term (current) use of anticoagulants; E03.9 Hypothyroidism, unspecified; E78.00 Pure hypercholesterolemia, unspecified; I10 Essential (primary) hypertension; J44.9 Chronic obstructive pulmonary disease, unspecified; Z87.891 Personal history of nicotine dependence; Z86.718 Personal history of other venous thrombosis and embolism
CPT/HCPCS: 30901; 99282

== ENCOUNTER 2024-11-06 07:26 | Outpatient (RCR) | payer MEDICARE, OTHER, SELFPAY | END 2024-11-06 23:59 | disposition home or self-care (01) | LOC: RPT 07:26 | PROVIDERS: ATTENDING PHYSICIAN Physician Assistant Surgical; FAMILY PHYSICIAN Internal Medicine | DX: I89.0 Lymphedema, not elsewhere classified (principal); Z73.6 Limitation of activities due to disability; R26.2 Difficulty in walking, not elsewhere classified | CPT/HCPCS: 97163; 97530 ==

== ENCOUNTER → 2024-11-09 09:17 | Outpatient (REF) | payer MEDICARE, OTHER, SELFPAY | LOC: WOUND 09:17 | PROVIDERS: ATTENDING PHYSICIAN Surgery; FAMILY PHYSICIAN Internal Medicine | DX: L97.822 Non-pressure chronic ulcer of other part of left lower leg with fat layer exposed (principal); I77.6 Arteritis, unspecified; L88 Pyoderma gangrenosum; I73.9 Peripheral vascular disease, unspecified; I87.2 Venous insufficiency (chronic) (peripheral); Z79.01 Long term (current) use of anticoagulants; J43.9 Emphysema, unspecified; I10 Essential (primary) hypertension; I49.8 Other specified cardiac arrhythmias; Z95.0 Presence of cardiac pacemaker; Z86.718 Personal history of other venous thrombosis and embolism | CPT/HCPCS: 99213 ==

== ENCOUNTER → 2024-11-23 09:18 | Outpatient (REF) | payer MEDICARE, OTHER, SELFPAY | LOC: WOUND 09:18 | PROVIDERS: ATTENDING PHYSICIAN Surgery; FAMILY PHYSICIAN Internal Medicine | DX: L97.822 Non-pressure chronic ulcer of other part of left lower leg with fat layer exposed (principal); I77.6 Arteritis, unspecified; L88 Pyoderma gangrenosum; I73.9 Peripheral vascular disease, unspecified; I87.2 Venous insufficiency (chronic) (peripheral); J43.9 Emphysema, unspecified; I10 Essential (primary) hypertension; I49.8 Other specified cardiac arrhythmias; Z95.0 Presence of cardiac pacemaker; Z86.718 Personal history of other venous thrombosis and embolism; Z79.01 Long term (current) use of anticoagulants | CPT/HCPCS: 99213 ==

== ENCOUNTER 2024-11-23 11:55 | Outpatient (RCR) | payer MEDICARE, OTHER, SELFPAY | END 2024-11-23 23:59 | disposition home or self-care (01) | LOC: RPT 11:55 | PROVIDERS: ATTENDING PHYSICIAN Physician Assistant Surgical; FAMILY PHYSICIAN Internal Medicine | DX: Z47.1 Aftercare following joint replacement surgery (principal); M76.61 Achilles tendinitis, right leg; S81.802D Unspecified open wound, left lower leg, subsequent encounter; T84.53XD Infection and inflammatory reaction due to internal right knee prosthesis, subsequent encounter; Z73.6 Limitation of activities due to disability; R26.89 Other abnormalities of gait and mobility; I89.0 Lymphedema, not elsewhere classified; Z96.651 Presence of right artificial knee joint | CPT/HCPCS: 36415; 85025; 97110; 97112; 97530 ==

== ENCOUNTER 2024-11-26 12:01 | Outpatient (RCR) | payer MEDICARE, OTHER, SELFPAY | END 2024-11-26 15:51 | disposition home or self-care (01) | LOC: RPT 12:01 | PROVIDERS: ATTENDING PHYSICIAN Physician Assistant Surgical; FAMILY PHYSICIAN Internal Medicine | DX: Z47.1 Aftercare following joint replacement surgery (principal); M76.61 Achilles tendinitis, right leg; T84.53XD Infection and inflammatory reaction due to internal right knee prosthesis, subsequent encounter; S81.802D Unspecified open wound, left lower leg, subsequent encounter; Z73.6 Limitation of activities due to disability; R26.89 Other abnormalities of gait and mobility; I89.0 Lymphedema, not elsewhere classified; Z96.651 Presence of right artificial knee joint | CPT/HCPCS: 97110; 97112; 97530 ==

== ENCOUNTER → 2024-12-07 09:16 | Outpatient (REF) | payer MEDICARE, OTHER, SELFPAY | LOC: WOUND 09:16 | PROVIDERS: ATTENDING PHYSICIAN Surgery; FAMILY PHYSICIAN Internal Medicine | DX: L97.822 Non-pressure chronic ulcer of other part of left lower leg with fat layer exposed (principal); I77.6 Arteritis, unspecified; L88 Pyoderma gangrenosum; I73.9 Peripheral vascular disease, unspecified; I87.2 Venous insufficiency (chronic) (peripheral); J43.9 Emphysema, unspecified; I10 Essential (primary) hypertension; I49.8 Other specified cardiac arrhythmias; Z95.0 Presence of cardiac pacemaker; Z86.718 Personal history of other venous thrombosis and embolism; Z79.01 Long term (current) use of anticoagulants | CPT/HCPCS: 97597 ==

== ENCOUNTER 2024-12-11 09:46 | Outpatient (RCR) | payer MEDICARE, OTHER, SELFPAY | END 2024-12-11 23:59 | disposition home or self-care (01) | LOC: RPT 09:46 | PROVIDERS: ATTENDING PHYSICIAN Physician Assistant Surgical; FAMILY PHYSICIAN Internal Medicine | DX: I89.0 Lymphedema, not elsewhere classified (principal); Z73.6 Limitation of activities due to disability; R26.2 Difficulty in walking, not elsewhere classified | CPT/HCPCS: 97140; 97530 ==

== ENCOUNTER → 2024-12-22 09:23 | Outpatient (REF) | payer MEDICARE, OTHER, SELFPAY | LOC: WOUND 09:23 | PROVIDERS: ATTENDING PHYSICIAN Surgery; FAMILY PHYSICIAN Internal Medicine | DX: L97.822 Non-pressure chronic ulcer of other part of left lower leg with fat layer exposed (principal); I77.6 Arteritis, unspecified; L88 Pyoderma gangrenosum; I73.9 Peripheral vascular disease, unspecified; I87.2 Venous insufficiency (chronic) (peripheral); J43.9 Emphysema, unspecified; I10 Essential (primary) hypertension; I49.8 Other specified cardiac arrhythmias; Z95.0 Presence of cardiac pacemaker; Z86.718 Personal history of other venous thrombosis and embolism; Z79.01 Long term (current) use of anticoagulants | CPT/HCPCS: 99213 ==

== ENCOUNTER → 2025-01-02 08:51 | Outpatient (REF) | payer MEDICARE, OTHER, SELFPAY ==
[2025-01-02 09:35] LABS: Hematocrit 38.2 % (37.0-47.0); Hemoglobin 12.4 g/dL (12.0-16.0); Mean Corp Hgb Conc. 32.5 g/dL (33.0-37.0); Mean Corpuscular Hgb 30.9 pg (27.0-31.0); Mean Corpuscular Volume 95.3 fL (81.0-99.0); Mean Platelet Volume 10.1 fL (7.4-10.4); Platelet Count 250 10^3/uL (130-400); Red Blood Cell Count 4.01 10^6/uL (4.20-5.40); Red Cell Dist. Width 16.7 % (11.5-14.5); White Blood Cell Count 3.2 10^3/uL (4.8-10.8)
[2025-01-02 10:11] LABS: Absolute Neutrophils -Man Diff 1.3 10^3/uL (1.4-6.5); Band Neutrophils 0 % (0-3); Eosinophils 6 % (0-6); Lymphocytes 32 % (20-51); Monocytes 21 % (2-9); Normal RBC Morphology Yes; Platelets Checked Yes; Segmented Neutrophils 41 % (42-75); Total Cells Counted 100
[2025-01-02 10:19] LABS: TSH Reflex To Free T4 4.67 uIU/ml (0.47-4.68)
== END ==
LOC: REG 08:51
PROVIDERS: ATTENDING PHYSICIAN Internal Medicine; OTHER PHYSICIAN Student in an Organized Health Care Education/Training Program; REFERRING PHYSICIAN Internal Medicine Hematology & Oncology
DX: E03.9 Hypothyroidism, unspecified (principal); D70.3 Neutropenia due to infection
CPT/HCPCS: 36415; 84443; 85025

== ENCOUNTER → 2025-01-04 09:09 | Outpatient (REF) | payer MEDICARE, OTHER, SELFPAY | LOC: WOUND 09:09 | PROVIDERS: ATTENDING PHYSICIAN Surgery; FAMILY PHYSICIAN Internal Medicine | DX: L97.822 Non-pressure chronic ulcer of other part of left lower leg with fat layer exposed (principal); I77.6 Arteritis, unspecified; L88 Pyoderma gangrenosum; I73.9 Peripheral vascular disease, unspecified; I87.2 Venous insufficiency (chronic) (peripheral); J43.9 Emphysema, unspecified; I10 Essential (primary) hypertension; Z86.718 Personal history of other venous thrombosis and embolism; Z79.01 Long term (current) use of anticoagulants | CPT/HCPCS: 99213 ==

== ENCOUNTER 2025-01-08 10:53 | Outpatient (RCR) | payer MEDICARE, OTHER, SELFPAY | END 2025-01-08 13:39 | disposition home or self-care (01) | LOC: RPT 10:53 | PROVIDERS: ATTENDING PHYSICIAN Physician Assistant Surgical; FAMILY PHYSICIAN Internal Medicine | DX: I89.0 Lymphedema, not elsewhere classified (principal); Z73.6 Limitation of activities due to disability; R26.2 Difficulty in walking, not elsewhere classified | CPT/HCPCS: 97140; 97530 ==

== ENCOUNTER → 2025-01-25 08:53 | Outpatient (REF) | payer MEDICARE, OTHER, SELFPAY | LOC: WOUND 08:53 | PROVIDERS: ATTENDING PHYSICIAN Surgery; FAMILY PHYSICIAN Internal Medicine | DX: L97.822 Non-pressure chronic ulcer of other part of left lower leg with fat layer exposed (principal); I76 Septic arterial embolism; L88 Pyoderma gangrenosum; I73.9 Peripheral vascular disease, unspecified; I87.2 Venous insufficiency (chronic) (peripheral); J43.9 Emphysema, unspecified; I10 Essential (primary) hypertension; I49.8 Other specified cardiac arrhythmias; Z95.0 Presence of cardiac pacemaker; Z86.718 Personal history of other venous thrombosis and embolism; Z79.01 Long term (current) use of anticoagulants | CPT/HCPCS: 99213 ==

== ENCOUNTER → 2025-02-15 09:09 | Outpatient (REF) | payer MEDICARE, OTHER, SELFPAY | LOC: WOUND 09:09 | PROVIDERS: ATTENDING PHYSICIAN Surgery; FAMILY PHYSICIAN Internal Medicine | DX: L97.822 Non-pressure chronic ulcer of other part of left lower leg with fat layer exposed (principal); I77.6 Arteritis, unspecified; L88 Pyoderma gangrenosum; I73.9 Peripheral vascular disease, unspecified; I87.2 Venous insufficiency (chronic) (peripheral); J43.9 Emphysema, unspecified; I10 Essential (primary) hypertension; I49.8 Other specified cardiac arrhythmias; Z95.0 Presence of cardiac pacemaker; Z86.718 Personal history of other venous thrombosis and embolism; Z79.01 Long term (current) use of anticoagulants | CPT/HCPCS: 99212 ==

== ENCOUNTER → 2025-04-22 16:44 | Outpatient (REF) | payer MEDICARE, OTHER, SELFPAY | LOC: REG 16:44 | PROVIDERS: ATTENDING PHYSICIAN Nurse Practitioner | DX: R05.3 Chronic cough (principal) | CPT/HCPCS: 71046; 71101 ==

== ENCOUNTER → 2025-05-12 11:37 | Outpatient (REF) | payer MEDICARE, OTHER, SELFPAY | LOC: RAD 11:37 | PROVIDERS: ATTENDING PHYSICIAN Internal Medicine Critical Care Medicine; FAMILY PHYSICIAN Internal Medicine | DX: R07.9 Chest pain, unspecified (principal) | CPT/HCPCS: 71046 ==

== ENCOUNTER → 2025-05-22 12:49 | Outpatient (REF) | payer MEDICARE, OTHER, SELFPAY | LOC: WDC 12:49 | PROVIDERS: ATTENDING PHYSICIAN Internal Medicine | DX: Z12.31 Encounter for screening mammogram for malignant neoplasm of breast (principal) | CPT/HCPCS: 77063; 77067 ==

== ENCOUNTER → 2025-05-25 08:36 | Outpatient (REF) | payer MEDICARE, OTHER, SELFPAY | LOC: HWRAD 08:36 | PROVIDERS: ATTENDING PHYSICIAN Physical Medicine & Rehabilitation; FAMILY PHYSICIAN Internal Medicine | DX: M54.16 Radiculopathy, lumbar region (principal) | CPT/HCPCS: 72131 ==

== ENCOUNTER → 2025-05-28 12:33 | Outpatient (REF) | payer MEDICARE, OTHER, SELFPAY | LOC: RAD 12:33 | PROVIDERS: ATTENDING PHYSICIAN Internal Medicine Critical Care Medicine; FAMILY PHYSICIAN Internal Medicine | DX: J43.9 Emphysema, unspecified (principal) | CPT/HCPCS: 76604 ==

== ENCOUNTER → 2025-06-02 08:33 | Outpatient (REF) | payer MEDICARE, OTHER, SELFPAY | LOC: RST 08:33 | PROVIDERS: ATTENDING PHYSICIAN Nurse Practitioner; FAMILY PHYSICIAN Internal Medicine | DX: R13.10 Dysphagia, unspecified (principal) | CPT/HCPCS: 74230; 92611 ==

== ENCOUNTER → 2025-06-05 09:42 | Outpatient (REF) | payer MEDICARE, OTHER, SELFPAY ==
[2025-06-05 10:44] LABS: Blood Urea Nitrogen 27 mg/dl (7-17); Calcium 9.1 mg/dl (8.4-10.2); Carbon Dioxide 30 mmol/L (22-30); Chloride 100 mmol/L (98-107); Glucose 80 mg/dl (70-99); Potassium 4.2 mmol/L (3.5-5.1); Sodium 138 mmol/L (135-145); eGFR 45.19
== END ==
LOC: REG 09:42
PROVIDERS: ATTENDING PHYSICIAN Internal Medicine Gastroenterology; FAMILY PHYSICIAN Internal Medicine
DX: R93.89 Abnormal findings on diagnostic imaging of other specified body structures (principal)
CPT/HCPCS: 36415; 80048

== ENCOUNTER 2025-06-15 10:17 | Emergency (ER) | payer MEDICARE, OTHER, SELFPAY ==
[2025-06-15 10:19] VITALS: BP 146/95
--- NOTE | 2025-06-15 11:11 | ED.GENMED ---
History of Present Illness
<Scott Lester MD, Resident - Last Filed: 06/15/25 13:28>
General
Chief Complaint: Abdominal Symptoms
Source: patient
Exam Limitations: none
Time Seen by Provider: 06/15/25 10:37
History of Present Illness
History of Present Illness:
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
complaint of pain and swelling in right groin.
As per the patient, she had been experiencing discomfort in her right groin making it difficult to ambulate, last few days. She went to her primary care physician today for further assessment, who suggested the patient should come to the ER for
further evaluation.
Patient has a swelling in her right groin region that becomes more prominent when the patient is sitting or standing as compared to lying down. In addition to the swelling she has intense pain and finds it difficult to ambulate. She denies any
fevers, chills, constipation, vomiting, nausea, shortness of breath or any syncopal episodes.
Past History
<Scott Lester MD, Resident - Last Filed: 06/15/25 13:28>
Past History
ED Past Medical History: Cancer (Lung), COPD, GERD, HTN, Hypercholesterolemia, Hypothyroidism and Psychiatric (depression)
ED Past Surgical History: Orthopedic (R knee replacement, bilateral hip replacement) and Other (DVT, IVC Filter)
Social History
Tobacco: Former smoker
Alcohol: None
Personal:
Living: with family
Employment: Retired
Family History
Family History: CAD
Review of Systems
<Scott Lester MD, Resident - Last Filed: 06/15/25 13:28>
Review of Systems
All Other Systems: ROS reviewed and negative except as documented in HPI and ROS
Phy Exam
<Scott Lester MD, Resident - Last Filed: 06/15/25 13:28>
General Physical Exam
General Presentation: well appearing and no apparent distress
Cardiovascular Exam
Cardiovascular Exam: regular rate/rhythm and no murmur
Pulmonary Exam
Pulmonary Exam: lungs clear, no respiratory distress, no rales, no rhonchi and no wheezing
Gastrointestinal Exam
Gastrointestinal Exam: normal bowel sounds, soft, tender (Tenderness in right inguinal region.) and other (Swelling in right inguinal region that becomes more prominent when the patient is standing)
Musculoskeletal Exam
Musculoskeletal Exam: edema (Right-sided moderate nonpitting edema) and other (Varicose vein)
Skin Exam
Skin Exam: normal color, warm/dry and no rash
Psychiatric Exam
Psychiatric Exam: normal mood/affect
Course
<Scott Lester MD, Resident - Last Filed: 06/15/25 13:28>
Orders/Labs/Results
Orders:
Orders
06/15/25 11:09
US Groin (Imaging Only) RT Urgent
Comment:
Reason For Exam: right groin pain w swelling
06/15/25 11:45
HYDROmorphone [Dilaudid] 0.5 mg IV NOW ONE
06/15/25 12:14
Acetaminophen [Tylenol] 1,000 mg PO NOW STA
06/15/25 12:22
CT Abd/pel W Iv And Oral Contr Stat
Comment:
Reason For Exam: Right sided inguinal swelling with pain
Iohexol [Omnipaque] See Protocol PO NOW STA
06/15/25 13:34
BMP [Basic Metabolic Panel] Stat
CBC/With Diff [Complete Blood Count/With Diff] Stat
Manual Differential Stat
06/15/25 15:32
CT Neck With Iv Contrast Urgent
Comment:
Reason For Exam: dysphagia
06/15/25 16:52
Lactate Level [Lactic Acid] Urgent
Abnormal Lab Results
06/15/25 06/15/25
13:34 16:52
WBC 3.2 L 10^3/uL
(4.8-10.8)
RBC 3.68 L 10^6/uL
(4.20-5.40)
Hgb 11.7 L g/dL
(12.0-16.0)
Hct 36.5 L %
(37.0-47.0)
MCV 99.2 H fL
(81.0-99.0)
MCH 31.8 H pg
(27.0-31.0)
MCHC 32.1 L g/dL
(33.0-37.0)
RDW 15.7 H %
(11.5-14.5)
Monocytes (Manual) 16 H %
(2-9)
Eosinophils (Manual) 7 H %
(0-6)
Sodium 133 L mmol/L
(135-145)
Carbon Dioxide 31 H mmol/L
(22-30)
BUN 29 H mg/dl
(7-17)
Creatinine 1.2 H mg/dL
(0.6-1.0)
Lactic Acid 0.6 L mmol/L
(0.7-2.0)
06/15/25 13:34
06/15/25 13:34
Vital Signs
Initial and Last Documented VS:
Initial Vital Signs
Temp Pulse Resp BP
97.7 F 73 16 146/95
06/15/25 10:19 06/15/25 10:19 06/15/25 10:19 06/15/25 10:19
Last Documented Vital Signs
Temp Pulse Resp BP Pulse Ox
97.7 F 91 18 115/77 95
06/15/25 10:19 06/15/25 18:45 06/15/25 14:00 06/15/25 19:00 06/15/25 18:45
<Naga Saini MD - Last Filed: 06/15/25 16:08>
Orders/Labs/Results
Orders:
Orders
06/15/25 11:09
US Groin (Imaging Only) RT Urgent
Comment:
Reason For Exam: right groin pain w swelling
06/15/25 11:45
HYDROmorphone [Dilaudid] 0.5 mg IV NOW ONE
06/15/25 12:14
Acetaminophen [Tylenol] 1,000 mg PO NOW STA
06/15/25 12:22
CT Abd/pel W Iv And Oral Contr Stat
Comment:
Reason For Exam: Right sided inguinal swelling with pain
Iohexol [Omnipaque] See Protocol PO NOW STA
06/15/25 13:34
BMP [Basic Metabolic Panel] Stat
CBC/With Diff [Complete Blood Count/With Diff] Stat
Manual Differential Stat
06/15/25 15:32
CT Neck With Iv Contrast Urgent
Comment:
Reason For Exam: dysphagia
06/15/25 16:52
Lactate Level [Lactic Acid] Urgent
Abnormal Lab Results
06/15/25 06/15/25
13:34 16:52
WBC 3.2 L 10^3/uL
(4.8-10.8)
RBC 3.68 L 10^6/uL
(4.20-5.40)
Hgb 11.7 L g/dL
(12.0-16.0)
Hct 36.5 L %
(37.0-47.0)
MCV 99.2 H fL
(81.0-99.0)
MCH 31.8 H pg
(27.0-31.0)
MCHC 32.1 L g/dL
(33.0-37.0)
RDW 15.7 H %
(11.5-14.5)
Monocytes (Manual) 16 H %
(2-9)
Eosinophils (Manual) 7 H %
(0-6)
Sodium 133 L mmol/L
(135-145)
Carbon Dioxide 31 H mmol/L
(22-30)
BUN 29 H mg/dl
(7-17)
Creatinine 1.2 H mg/dL
(0.6-1.0)
Lactic Acid 0.6 L mmol/L
(0.7-2.0)
06/15/25 13:34
06/15/25 13:34
Vital Signs
Initial and Last Documented VS:
Initial Vital Signs
Temp Pulse Resp BP
97.7 F 73 16 146/95
06/15/25 10:19 06/15/25 10:19 06/15/25 10:19 06/15/25 10:19
Last Documented Vital Signs
Temp Pulse Resp BP Pulse Ox
97.7 F 91 18 115/77 95
06/15/25 10:19 06/15/25 18:45 06/15/25 14:00 06/15/25 19:00 06/15/25 18:45
<Sumaya Cohen MD - Last Filed: 06/15/25 19:34>
Orders/Labs/Results
Orders:
Orders
06/15/25 11:09
US Groin (Imaging Only) RT Urgent
Comment:
Reason For Exam: right groin pain w swelling
06/15/25 11:45
HYDROmorphone [Dilaudid] 0.5 mg IV NOW ONE
06/15/25 12:14
Acetaminophen [Tylenol] 1,000 mg PO NOW STA
06/15/25 12:22
CT Abd/pel W Iv And Oral Contr Stat
Comment:
Reason For Exam: Right sided inguinal swelling with pain
Iohexol [Omnipaque] See Protocol PO NOW STA
06/15/25 13:34
BMP [Basic Metabolic Panel] Stat
CBC/With Diff [Complete Blood Count/With Diff] Stat
Manual Differential Stat
06/15/25 15:32
CT Neck With Iv Contrast Urgent
Comment:
Reason For Exam: dysphagia
06/15/25 16:52
Lactate Level [Lactic Acid] Urgent
Abnormal Lab Results
06/15/25 06/15/25
13:34 16:52
WBC 3.2 L 10^3/uL
(4.8-10.8)
RBC 3.68 L 10^6/uL
(4.20-5.40)
Hgb 11.7 L g/dL
(12.0-16.0)
Hct 36.5 L %
(37.0-47.0)
MCV 99.2 H fL
(81.0-99.0)
MCH 31.8 H pg
(27.0-31.0)
MCHC 32.1 L g/dL
(33.0-37.0)
RDW 15.7 H %
(11.5-14.5)
Monocytes (Manual) 16 H %
(2-9)
Eosinophils (Manual) 7 H %
(0-6)
Sodium 133 L mmol/L
(135-145)
Carbon Dioxide 31 H mmol/L
(22-30)
BUN 29 H mg/dl
(7-17)
Creatinine 1.2 H mg/dL
(0.6-1.0)
Lactic Acid 0.6 L mmol/L
(0.7-2.0)
06/15/25 13:34
06/15/25 13:34
Vital Signs
Initial and Last Documented VS:
Initial Vital Signs
Temp Pulse Resp BP
97.7 F 73 16 146/95
06/15/25 10:19 06/15/25 10:19 06/15/25 10:19 06/15/25 10:19
Last Documented Vital Signs
Temp Pulse Resp BP Pulse Ox
97.7 F 91 18 115/77 95
06/15/25 10:19 06/15/25 18:45 06/15/25 14:00 06/15/25 19:00 06/15/25 18:45
<Scott Lester MD, Resident - Last Filed: 06/15/25 13:28>
MDM/Problems Addressed
Differential Diagnosis Includes:
Right-sided incarcerated inguinal hernia
MDM/Problems Addressed:
Ultrasound abdomen done-consistent with ovoid mass with characteristic features for a lymph node, about 1.5 centimeter in size
Evaluate with CT abdomen/pelvis with IV and oral contrast
<Scott Lester MD, Resident - Last Filed: 06/15/25 13:28>
*Pulse Oximetry
Patient hypoxic: no
*Critical Care Note
Total Time (30-74mins, 75-104mins- exclusive of procedures): Not Applicable
<Sumaya Cohen MD - Last Filed: 06/15/25 19:34>
*Radiology
Radiology exam reviewed: radiology read reviewed
<Sumaya Cohen MD - Last Filed: 06/15/25 19:34>
Update Note
Update Note:
7:[address] shows no sign of right inguinal hernia nor any significant masses in right inguinal area. Results reviewed with patient and her . Patient reports she still has some soreness in the area. However, patient is able to get
up and walk around. I did palpate the area and it is soft but patient states it is slightly tender. Visually there is no abscess. I explained to the patient that she could try warm compresses and follow-up with her primary care doctor. In the
event that she still having pain, she could undergo a general surgery eval as an outpatient.
ED Attending Note
<Scott Lester MD, Resident - Last Filed: 06/15/25 13:28>
-
Portions of this chart may have been created with voice recognition software.� Occasional wrong word or��sound alike� substitutions may have occurred due to the inherent limitations of voice recognition software.
<Naga Saini MD - Last Filed: 06/15/25 16:08>
ED Attending Note
Patient seen and examined by attending physician: Yes
ED Attending Note:
Patient presents to ED secondary to painful right groin swelling, more pronounced when standing up and walking, over the past 3 to 4 days. Patient was evaluated by her primary care physician who referred patient to ED for an evaluation. Denies
nausea or vomiting. Denies change in bowel habits. Denies trauma. Denies fever or chills. Patient does have history of left inguinal hernia which required surgery. However, patient states that at that time, she did not experience any pain. In
addition, patient scheduled to receive CT neck with contrast due to abnormal outpatient evaluation, ordered by her GI physician, with ongoing dysphagia.
Physical Exam
General: mild painful distress, not acutely ill. afebrile.
Head: nc/at. eomi
Neck: supple. no meningeal signs.
Heart: s1/s2 regular rate and rhythm
Lungs: no acute respiratory distress. clear bilaterally
Abdomen: normal bowel sounds. mild right pelvic tenderness to palpation with mild swelling
Neuro: alert and oriented x 3. no focal neurological deficits
Skin: no rash
Psychiatric: well kept. interactive and cooperative
Extremities: no edema. no calf tenderness.
Ultrasound report reviewed and discussed with patient. However in light of patient's significant pain, will obtain CT abdomen pelvis to evaluate for potential other etiology, i.e. obstruction.
Discharge Plan
Departure
Patient Disposition: Home (Routine Discharge)
Date of Disposition: 06/15/25
Time of Disposition: 19:21
Patient with high blood pressure during this ER visit?: No
Condition: Good
Covid-19: Not Applicable
Discharge Problem:
Right groin pain
Instructions: Swollen lymph nodes in adults
Prescriptions:
No Action
levothyroxine [Synthroid] 100 mcg Tablet
100 mcg PO DAILY
vitamin B complex Tablet
1 tab PO DAILY
Trelegy Ellipta 100-62.5-25 mcg Blister With Device
1 inh INHALATION R DAILY
acetaminophen 500 mg Tablet
500 mg PO Q6HPRN PRN (Reason: mild pain)
Saline Nasal Mist 0.65 % Aerosol,Ilion
2 spray INTRANASAL BIDPRN PRN (Reason: dryness)
diltiazem HCl 240 mg capsule,extended release 24hr
240 mg PO HS
atorvastatin 10 mg tablet
10 mg PO HS
metoprolol succinate 25 mg Tablet Extended Release 24 Hr
25 mg PO DAILY Qty: 30 0RF
furosemide 20 mg Tablet
20 mg PO Q48H
vancomycin in 0.9 % sodium chl 1 gram/200 mL Piggyback
1 g IV DAILY@0600 42 Days Qty: 1200 0RF
Eliquis 5 mg tablet
5 mg PO BID Qty: 60 4RF
multivitamin Tablet
1 tab PO DAILY
cyclosporine [Restasis] 0.05 % Dropperette
1 drp BOTH EYES Q12H
bupropion HCl [Wellbutrin XL] 150 mg Tablet Extended Release 24 Hr
150 mg PO DAILY
diphenhydramine HCl 50 mg Capsule
50 mg PO DAILY
Systane (PF) 0.4-0.3 % Dropperette
2 drp BOTH EYES Q8HPRN PRN (Reason: dry eyes)
Referrals:
Grecia Alonzo MD [Family Provider, Internal Medicine]
Activity Restrictions/Additional Instructions:
Your ultrasound and CAT scan did not show a hernia in your right groin. A lymph node was seen in that area. If the pain persists, we recommend that you follow-up with a general surgeon
Interventions
Interventions:
*Risk Screen - Suicide Last Done: 06/15/25 10:19
*General Assessment Last Done: 06/15/25 14:53
*Neglect/Abuse Screening Last Done: 06/15/25 10:19
*ED- Fall Risk Assessment Last Done: 06/15/25 14:56
*ED COVID-19 Vaccine History Last Done: 06/15/25 14:53
*ED Influenza Vaccine History Last Done: 06/15/25 14:56
LO-Xarspa-[id number] Assessment Last Done: 06/15/25 14:56
Discharge Date and Time
Print Language: PORTUGUESE
[2025-06-15] MEDS: TYLENOL 1000 MG PO (12:17)
[2025-06-15] MEDS: OMNIPAQUE 50 ML PO (12:51)
[2025-06-15 13:56] LABS: Hematocrit 36.5 % (37.0-47.0); Hemoglobin 11.7 g/dL (12.0-16.0); Mean Corp Hgb Conc. 32.1 g/dL (33.0-37.0); Mean Corpuscular Volume 99.2 fL (81.0-99.0); Platelet Count 284 10^3/uL (130-400); Red Cell Dist. Width 15.7 % (11.5-14.5)
[2025-06-15 14:00] VITALS: BP 138/72
[2025-06-15 14:05] LABS: Blood Urea Nitrogen 29 mg/dl (7-17); Calcium 9.3 mg/dl (8.4-10.2); Carbon Dioxide 31 mmol/L (22-30); Chloride 98 mmol/L (98-107); Glucose 92 mg/dl (70-99); Potassium 4.0 mmol/L (3.5-5.1); Sodium 133 mmol/L (135-145); eGFR 45.19
[2025-06-15 14:22] LABS: Absolute Neutrophils -Man Diff 1.5 10^3/uL (1.4-6.5); Normal RBC Morphology Yes; Platelets Checked Yes; Total Cells Counted 100
[2025-06-15 15:53] VITALS: BP 122/69
[2025-06-15 15:55] VITALS: BMI 21.1
[2025-06-15 18:05] VITALS: BP 141/65
[2025-06-15 19:00] VITALS: BP 115/77
== END 2025-06-15 19:37 | disposition home or self-care (01) ==
LOC: EMR 10:17
PROVIDERS: EMERGENCY PHYSICIAN Emergency Medicine; FAMILY PHYSICIAN Internal Medicine
DX: R10.31 Right lower quadrant pain (principal); I10 Essential (primary) hypertension; E03.9 Hypothyroidism, unspecified; E78.00 Pure hypercholesterolemia, unspecified; J44.9 Chronic obstructive pulmonary disease, unspecified; Z86.14 Personal history of Methicillin resistant Staphylococcus aureus infection; Z86.718 Personal history of other venous thrombosis and embolism; Z87.891 Personal history of nicotine dependence; Z95.0 Presence of cardiac pacemaker
CPT/HCPCS: 99284; 70491; 74177; 76882; 80048; 83605; 85025; Q9967

== ENCOUNTER → 2025-06-17 14:15 | Outpatient (REF) | payer MEDICARE, OTHER, SELFPAY | LOC: RAD 14:15 | PROVIDERS: ATTENDING PHYSICIAN Internal Medicine Critical Care Medicine; FAMILY PHYSICIAN Internal Medicine | DX: J90 Pleural effusion, not elsewhere classified (principal); R06.00 Dyspnea, unspecified; R07.9 Chest pain, unspecified | CPT/HCPCS: 71046 ==

== ENCOUNTER → 2025-07-01 12:47 | Outpatient (REF) | payer MEDICARE, OTHER, SELFPAY ==
[2025-07-01 13:30] VITALS: BP 150/90; BP_SYST 110
[2025-07-01 14:49] VITALS: BP 117/85
== END ==
LOC: RADI 12:47
PROVIDERS: ATTENDING PHYSICIAN Surgery; FAMILY PHYSICIAN Internal Medicine
DX: R59.0 Localized enlarged lymph nodes (principal)
CPT/HCPCS: 38505; 76942; 88172; 88173; 88177